=== PATIENT | male | born 1955 | race Caucasian/White ===

== ENCOUNTER 2023-03-15 10:04 | Outpatient (CLI) | payer MEDICARE, SELFPAY ==
[2023-03-15 10:07] VITALS: BMI 37.3
[2023-03-15 10:37] LABS: Chloride 103 mmol/L (98-107); Potassium 3.9 mmoL/L (3.5-5.1); Sodium 137 mmol/L (136-145)
[2023-03-15 10:38] LABS: Eosinophils # 0.2 K/mm3 (0.0-0.4); Eosinophils % 9.8 % (0.1-12.0); Hematocrit 32.3 % (42.0-52.0); Hemoglobin 10.7 g/dL (14.1-18.0); Lymphocytes # 0.5 K/mm3 (0.7-4.5); Lymphocytes % 25.5 % (10-50); Mean Corpuscular HGB Conc 33.1 g/dL (31.8-35.4); Mean Corpuscular Hemoglobin 31.2 pg (27.0-31.2); Mean Corpuscular Volume 94.2 fl (80-94); Monocytes # 0.3 K/mm3 (0.1-1.0); Monocytes % 15.7 % (1.7-9.3); Neutrophils % 47.1 % (37.0-80.0); Platelet Count 128 K/mm3 (142-424); Red Blood Count 3.42 M/mm3 (4.60-6.20); Red Cell Distribution Width 17.7 % (11.5-17.5)
[2023-03-15 10:39] LABS: Alanine Aminotransferase 23 U/L (12-78); Aspartate Amino Transferase 28 U/L (17-59); Blood Urea Nitrogen 11 mg/dl (9-20); Creatinine Clearance Estimated 118 mL/min (50-200); Estimated Glomerular Filt Rate 96 ml/min (>60); GFR (African American) 116 ML/MIN (>60)
[2023-03-15 10:40] LABS: Albumin Level 4.3 g/dl (3.5-5.0); Alkaline Phosphatase 40 U/L (38-126); Anion Gap 10.9 mEq/L (5-15); Bilirubin,Total 0.7 mg/dl (0.2-1.3); Calcium 9.3 mg/dl (8.4-10.2); Carbon Dioxide 27 mmol/L (22.0-30.0); Globulin 2.2 g/dL (1.3-3.2); Glucose 132 mg/dl (74-100); Total Protein,Serum 6.5 g/dl (6.3-8.2)
--- NOTE | 2023-03-15 11:26 | CT_ITS ---
FINAL REPORT TECHNIQUE: Then section axial CT images of the chest were obtained with contrast. Three-D reformatted images were also obtained.This study was performed with techniques to keep radiation doses as low as reasonably achievable (ALARA). Individualized dose reduction techniques using automated exposure control or adjustment of mA and/or kV according to the patient''s size were employed. CLINICAL HISTORY: SOA, hx of multiple myeloma COMPARISON: None FINDINGS: There is no evidence of pulmonary embolism. There is no evidence of thoracic aortic aneurysm or dissection. There is no evidence of mediastinal or hilar mass or adenopathy. There is no evidence of pulmonary mass or suspicious nodule. A small right pleural effusion is present along with mild right base atelectasis. A small pericardial effusion is present as well. There is a chronic right 10th rib posterior fracture. Limited images of the upper abdomen are unremarkable. IMPRESSION: No evidence of pulmonary embolism. Small right pleural effusion with mild right base atelectasis, and a small pericardial effusion. Reviewed, Interpreted and Dictated by Danilo Gay III, MD Transcribed by Jennifer Leiva Authenticated and . [facility]
[2023-03-16 14:12] LABS: Albumin 3.6 g/dL (2.9-4.4); Alpha-1-Globulin 0.2 g/dL (0.0-0.4); Alpha-2-Globulin 0.8 g/dL (0.4-1.0); Gamma Globulin 0.2 g/dL (0.4-1.8); Protein, Total 5.8 g/dL (6.0-8.5)
[2023-03-18 10:09] LABS: Immunoglobulin A, Qn 9 mg/dL (61-437); Immunoglobulin G, Qn 273 mg/dL (603-1613); Immunoglobulin M, Qn 5 mg/dL (20-172)
[2023-03-21 21:53] LABS: Free Lambda Lt Chains 1306.7
== END 2023-03-15 11:30 | disposition home or self-care (01) ==
LOC: INF 10:06
PROVIDERS: PCP Nurse Practitioner Family; Visit Provider Internal Medicine Medical Oncology
DX: C90.00 Multiple myeloma not having achieved remission (principal)
CPT/HCPCS: 36415; 71275; 80053; 82784; 83883; 84155; 84165; 85025; 86334

== ENCOUNTER 2023-03-24 09:34 | Outpatient (CLI) | payer MEDICARE, SELFPAY ==
[2023-03-24] VITALS (12 sets, daily range): BP systolic 124–140; BP diastolic 54–73; PULSE 77–82; RESP 18; TEMP 36.1; O2SAT 98
== END 2023-03-24 15:10 | disposition home or self-care (01) ==
LOC: INF 09:36
PROVIDERS: PCP Internal Medicine; Visit Provider Internal Medicine Medical Oncology
DX: Z51.11 Encounter for antineoplastic chemotherapy (principal); C90.00 Multiple myeloma not having achieved remission; Z79.899 Other long term (current) drug therapy
CPT/HCPCS: 96413; 96415; J9176

== ENCOUNTER 2023-04-21 08:58 | Outpatient (CLI) | payer MEDICARE, SELFPAY ==
[2023-04-21 09:03] VITALS: BMI 37.3
[2023-04-21 09:25] LABS: Basophils % 0.6 % (0.1-2.0); Eosinophils # 0.2 K/mm3 (0.0-0.4); Lymphocytes # 0.6 K/mm3 (0.7-4.5); Lymphocytes % 23.4 % (10-50); Mean Corpuscular HGB Conc 33.3 g/dL (31.8-35.4); Mean Corpuscular Volume 93.1 fl (80-94); Mean Platelet Volume 8.2 fl (7.4-10.4); Monocytes # 0.3 K/mm3 (0.1-1.0); Monocytes % 11.7 % (1.7-9.3); Neutrophils # 1.6 K/mm3 (1.8-7.8); Neutrophils % 58.4 % (37.0-80.0); Platelet Count 177 K/mm3 (142-424); Red Blood Count 3.55 M/mm3 (4.60-6.20); Red Cell Distribution Width 18.2 % (11.5-17.5); White Blood Count 2.7 K/mm3 (4.8-10.8)
[2023-04-21 09:29] LABS: Chloride 105 mmol/L (98-107); Potassium 3.5 mmoL/L (3.5-5.1); Sodium 137 mmol/L (136-145)
[2023-04-21 09:32] LABS: Alanine Aminotransferase 28 U/L (12-78); Albumin Level 4.2 g/dl (3.5-5.0); Alkaline Phosphatase 40 U/L (38-126); Anion Gap 13.5 mEq/L (5-15); Aspartate Amino Transferase 29 U/L (17-59); Bilirubin,Total 0.7 mg/dl (0.2-1.3); Blood Urea Nitrogen 14 mg/dl (9-20); Calcium 8.9 mg/dl (8.4-10.2); Carbon Dioxide 22 mmol/L (22.0-30.0); Creatinine Clearance Estimated 118 mL/min (50-200); Estimated Glomerular Filt Rate 96 ml/min (>60); GFR (African American) 116 ML/MIN (>60); Globulin 2.1 g/dL (1.3-3.2); Glucose 139 mg/dl (74-100); Total Protein,Serum 6.3 g/dl (6.3-8.2)
[2023-04-21] MEDS: 0.9 % SODIUM CHLORIDE 50 ML 100 ML IV (11:00)
[2023-04-21] MEDS: ACETAMINOPHEN 325MG TAB 650 MG (11:00)
[2023-04-21] MEDS: FAMOTIDINE 20MG/2ML VIAL 20 MG IV (11:01)
[2023-04-21] MEDS: diphenhydrAMINE 25MG CAPSULE 25 MG PO (11:01)
[2023-04-21] MEDS: DEXAMETHASONE 4MG/ML 1ML VIAL 8 MG (11:01)
[2023-04-21] MEDS: SODIUM CHLORIDE 0.9% IV (11:47)
[2023-04-21] MEDS: ELOTUZUMAB IV (11:47)
[2023-04-21 11:55] VITALS: BP 128/68; PULSE 63; RESP 18; TEMP 36.3; O2SAT 96
[2023-04-21 12:30] VITALS: BP 125/56; PULSE 74; RESP 18
[2023-04-21 13:00] VITALS: BP 140/82; PULSE 81; RESP 18
[2023-04-21 13:30] VITALS: BP 134/70; PULSE 78; RESP 18
[2023-04-21 14:00] VITALS: BP 148/72; PULSE 80; RESP 18
[2023-04-21] MEDS: DENOSUMAB 120MG/1.7ML VIAL 120 MG SQ (14:56)
[2023-04-21 15:05] VITALS: BP 150/82; PULSE 83; RESP 18; O2SAT 96
[2023-04-22 12:10] LABS: Immunoglobulin A, Qn 7 mg/dL (61-437); Immunoglobulin G, Qn 215 mg/dL (603-1613)
[2023-04-22 13:09] LABS: Immunoglobulin M, Qn <5 mg/dL (20-172)
[2023-04-24 08:09] LABS: Protein, Total 5.7
[2023-04-24 08:10] LABS: Albumin 3.6; Alpha-1-Globulin 0.2
[2023-04-24 08:11] LABS: Alpha-2-Globulin 0.8; Gamma Globulin 0.2
[2023-04-24 08:13] LABS: PDF SCANNED IMAGE
[2023-04-24 08:14] LABS: Free Kappa Lt Chains 5.6; Free Lambda Lt Chains 1320.1
== END 2023-04-21 15:05 | disposition home or self-care (01) ==
LOC: INF 08:59
PROVIDERS: PCP Internal Medicine; Visit Provider Internal Medicine Medical Oncology
DX: C90.00 Multiple myeloma not having achieved remission (principal); Z79.899 Other long term (current) drug therapy
CPT/HCPCS: 80053; 82784; 83883; 84155; 84165; 85025; 96372; 96413; 96415; J0897; J9176

== ENCOUNTER 2023-05-19 09:03 | Outpatient (CLI) | payer MEDICARE, SELFPAY ==
[2023-05-19] VITALS (18 sets, daily range): BP systolic 114–154; BP diastolic 59–77; PULSE 69–84; RESP 18; TEMP 36.8; O2SAT 97; BMI 37.0
[2023-05-19 09:36] LABS: Basophils % 0.3 % (0.1-2.0); Eosinophils % 0.2 % (0.1-12.0); Hematocrit 34.2 % (42.0-52.0); Hemoglobin 11.5 g/dL (14.1-18.0); Lymphocytes # 0.4 K/mm3 (0.7-4.5); Lymphocytes % 9.2 % (10-50); Mean Corpuscular HGB Conc 33.5 g/dL (31.8-35.4); Mean Corpuscular Hemoglobin 30.6 pg (27.0-31.2); Mean Corpuscular Volume 91.3 fl (80-94); Mean Platelet Volume 8.6 fl (7.4-10.4); Monocytes # 0.5 K/mm3 (0.1-1.0); Monocytes % 12.9 % (1.7-9.3); Neutrophils % 77.5 % (37.0-80.0); Platelet Count 157 K/mm3 (142-424); Red Blood Count 3.75 M/mm3 (4.60-6.20); White Blood Count 3.9 K/mm3 (4.8-10.8)
[2023-05-19 09:42] LABS: Chloride 102 mmol/L (98-107)
[2023-05-19 09:43] LABS: Potassium 3.9 mmoL/L (3.5-5.1); Sodium 136 mmol/L (136-145)
[2023-05-19 09:45] LABS: Alanine Aminotransferase 29 U/L (12-78); Alkaline Phosphatase 41 U/L (38-126); Aspartate Amino Transferase 33 U/L (17-59); Bilirubin,Total 0.8 mg/dl (0.2-1.3); Blood Urea Nitrogen 18 mg/dl (9-20); Creatinine Clearance Estimated 117 mL/min (50-200); Estimated Glomerular Filt Rate 112 ml/min (>60); GFR (African American) 136 ML/MIN (>60)
[2023-05-19 09:46] LABS: Albumin Level 4.3 g/dl (3.5-5.0); Albumin/Globulin Ratio 1.9 (1.1-1.8); Anion Gap 15.9 mEq/L (5-15); Calcium 9.7 mg/dl (8.4-10.2); Carbon Dioxide 22 mmol/L (22.0-30.0); Globulin 2.3 g/dL (1.3-3.2); Glucose 169 mg/dl (74-100); Total Protein,Serum 6.6 g/dl (6.3-8.2)
[2023-05-19] MEDS: diphenhydrAMINE 25MG CAPSULE 25 MG PO (10:16)
[2023-05-19] MEDS: FAMOTIDINE 20MG/2ML VIAL 20 MG IV (10:16)
[2023-05-19] MEDS: ACETAMINOPHEN 325MG TAB 650 MG (10:16)
[2023-05-19] MEDS: 0.9 % SODIUM CHLORIDE 50 ML 25 ML IV (10:17)
[2023-05-19] MEDS: DEXAMETHASONE 4MG/ML 1ML VIAL 8 MG (11:02)
[2023-05-19] MEDS: ELOTUZUMAB IV (11:12)
[2023-05-19] MEDS: SODIUM CHLORIDE 0.9% IV (11:12)
[2023-05-20 08:37] LABS: Immunoglobulin A, Qn 6 mg/dL (61-437); Immunoglobulin G, Qn 226 mg/dL (603-1613)
[2023-05-20 09:14] LABS: Immunoglobulin M, Qn <5 mg/dL (20-172)
[2023-05-20 14:30] LABS: Albumin 4.2 g/dL (2.9-4.4); Alpha-1-Globulin 0.2 g/dL (0.0-0.4); Alpha-2-Globulin 0.7 g/dL (0.4-1.0); Gamma Globulin 0.1 g/dL (0.4-1.8); Protein, Total 6.2 g/dL (6.0-8.5)
[2023-05-20 16:13] LABS: Immunoglobulin A, Qn 5 mg/dL (61-437); Immunoglobulin G, Qn 229 mg/dL (603-1613); Immunoglobulin M, Qn <5 mg/dL (20-172)
[2023-05-22 10:26] LABS: Free Kappa Lt Chains 3.8; PDF SCANNED IMAGE
== END 2023-05-19 15:40 | disposition home or self-care (01) ==
LOC: INF 09:04
PROVIDERS: PCP Internal Medicine; Visit Provider Internal Medicine Medical Oncology
DX: C90.00 Multiple myeloma not having achieved remission (principal)
CPT/HCPCS: 80053; 82784; 83883; 84155; 84165; 85025; 86334; 96413; 96415; J9176

== ENCOUNTER 2023-06-15 09:12 | Outpatient (CLI) | payer MEDICARE, SELFPAY ==
[2023-06-15] VITALS (18 sets, daily range): BP systolic 138–157; BP diastolic 62–99; PULSE 76–115; RESP 15–18; TEMP 36.3; O2SAT 98; BMI 37.0
[2023-06-15 09:45] LABS: Basophils % 0.1 % (0.1-2.0); Chloride 106 mmol/L (98-107); Eosinophils % 0.4 % (0.1-12.0); Hematocrit 37.4 % (42.0-52.0); Hemoglobin 11.8 g/dL (14.1-18.0); Lymphocytes # 0.4 K/mm3 (0.7-4.5); Lymphocytes % 11.1 % (10-50); Mean Corpuscular HGB Conc 31.6 g/dL (31.8-35.4); Mean Corpuscular Hemoglobin 30.9 pg (27.0-31.2); Mean Corpuscular Volume 97.9 fl (80-94); Monocytes # 0.3 K/mm3 (0.1-1.0); Monocytes % 8.8 % (1.7-9.3); Neutrophils # 2.6 K/mm3 (1.8-7.8); Neutrophils % 79.6 % (37.0-80.0); Platelet Count 166 K/mm3 (142-424); Potassium 4.1 mmoL/L (3.5-5.1); Red Blood Count 3.81 M/mm3 (4.60-6.20); Sodium 138 mmol/L (136-145); White Blood Count 3.2 K/mm3 (4.8-10.8)
[2023-06-15 09:47] LABS: Alanine Aminotransferase 46 U/L (12-78); Aspartate Amino Transferase 153 U/L (17-59); Blood Urea Nitrogen 15 mg/dl (9-20); Creatinine Clearance Estimated 117 mL/min (50-200); Estimated Glomerular Filt Rate 112 ml/min (>60); GFR (African American) 136 ML/MIN (>60)
[2023-06-15 09:48] LABS: Albumin Level 4.7 g/dl (3.5-5.0); Albumin/Globulin Ratio 2.1 (1.1-1.8); Alkaline Phosphatase 136 U/L (38-126); Anion Gap 11.1 mEq/L (5-15); Bilirubin,Total 1.4 mg/dl (0.2-1.3); Calcium 9.5 mg/dl (8.4-10.2); Carbon Dioxide 25 mmol/L (22.0-30.0); Globulin 2.2 g/dL (1.3-3.2); Glucose 208 mg/dl (74-100); Total Protein,Serum 6.9 g/dl (6.3-8.2)
[2023-06-15] MEDS: 0.9 % SODIUM CHLORIDE 50 ML 100 ML IV (10:24)
[2023-06-15] MEDS: diphenhydrAMINE 25MG CAPSULE 25 MG PO (10:25)
[2023-06-15] MEDS: ACETAMINOPHEN 325MG TAB 650 MG (10:26)
[2023-06-15] MEDS: DEXAMETHASONE 4MG/ML 1ML VIAL 8 MG (10:26)
[2023-06-15] MEDS: FAMOTIDINE 20MG/2ML VIAL 20 MG IV (10:26)
[2023-06-15] MEDS: SODIUM CHLORIDE 0.9% IV (11:19)
[2023-06-15] MEDS: ELOTUZUMAB IV (11:19)
[2023-06-16 14:13] LABS: Albumin 3.8 g/dL (2.9-4.4); Alpha-1-Globulin 0.2 g/dL (0.0-0.4); Alpha-2-Globulin 0.6 g/dL (0.4-1.0); Gamma Globulin 0.2 g/dL (0.4-1.8); Protein, Total 6.3 g/dL (6.0-8.5)
[2023-06-17 14:52] LABS: Immunoglobulin A, Qn 7 mg/dL (61-437); Immunoglobulin G, Qn 220 mg/dL (603-1613); Immunoglobulin M, Qn <5 mg/dL (20-172)
[2023-06-19 09:56] LABS: Free Kappa Lt Chains 4.9; Free Lambda Lt Chains 1206.1; PDF SCANNED IMAGE
== END 2023-06-15 15:55 | disposition home or self-care (01) ==
LOC: INF 09:13
PROVIDERS: PCP Internal Medicine; Visit Provider Internal Medicine Medical Oncology
DX: C90.00 Multiple myeloma not having achieved remission (principal); Z79.899 Other long term (current) drug therapy
CPT/HCPCS: 80053; 82784; 83883; 84155; 84165; 85025; 86334; 96413; 96415; J9176

== ENCOUNTER 2023-07-15 08:33 | Outpatient (CLI) | payer MEDICARE, SELFPAY ==
[2023-07-15] VITALS (17 sets, daily range): BP systolic 100–142; BP diastolic 41–95; PULSE 64–71; RESP 15–17; TEMP 36.4; O2SAT 98; BMI 37.8
[2023-07-15 09:15] LABS: Basophils # 0.1 K/mm3 (0-0.2); Basophils % 1.2 % (0.1-2.0); Eosinophils % 0.3 % (0.1-12.0); Hematocrit 38.9 % (42.0-52.0); Hemoglobin 12.4 g/dL (14.1-18.0); Lymphocytes # 0.3 K/mm3 (0.7-4.5); Lymphocytes % 7.5 % (10-50); Mean Corpuscular Hemoglobin 30.4 pg (27.0-31.2); Mean Corpuscular Volume 95.1 fl (80-94); Mean Platelet Volume 8.6 fl (7.4-10.4); Monocytes # 0.5 K/mm3 (0.1-1.0); Monocytes % 10.4 % (1.7-9.3); Neutrophils # 3.5 K/mm3 (1.8-7.8); Neutrophils % 80.7 % (37.0-80.0); Platelet Count 184 K/mm3 (142-424); Red Blood Count 4.09 M/mm3 (4.60-6.20); Red Cell Distribution Width 18.1 % (11.5-17.5); White Blood Count 4.3 K/mm3 (4.8-10.8)
[2023-07-15 09:24] LABS: Chloride 102 mmol/L (98-107)
[2023-07-15 09:25] LABS: Potassium 4.1 mmoL/L (3.5-5.1); Sodium 138 mmol/L (136-145)
[2023-07-15 09:27] LABS: Alanine Aminotransferase 29 U/L (12-78); Blood Urea Nitrogen 18 mg/dl (9-20); Creatinine Clearance Estimated 120 mL/min (50-200); Estimated Glomerular Filt Rate 96 ml/min (>60); GFR (African American) 116 ML/MIN (>60)
[2023-07-15 09:28] LABS: Albumin Level 4.3 g/dl (3.5-5.0); Alkaline Phosphatase 47 U/L (38-126); Anion Gap 15.1 mEq/L (5-15); Aspartate Amino Transferase 32 U/L (17-59); Bilirubin,Total 0.9 mg/dl (0.2-1.3); Calcium 9.9 mg/dl (8.4-10.2); Carbon Dioxide 25 mmol/L (22.0-30.0); Globulin 2.1 g/dL (1.3-3.2); Glucose 181 mg/dl (74-100); Total Protein,Serum 6.4 g/dl (6.3-8.2)
[2023-07-15] MEDS: DEXAMETHASONE 4MG/ML 1ML VIAL 8 MG (09:55)
[2023-07-15] MEDS: SODIUM CHLORIDE 0.9% 50ML BAG 50 ML IV (09:55)
[2023-07-15] MEDS: diphenhydrAMINE 25MG CAPSULE 25 MG PO (09:56)
[2023-07-15] MEDS: ACETAMINOPHEN 325MG TAB 650 MG PO (09:56)
[2023-07-15] MEDS: FAMOTIDINE 20MG/2ML VIAL 20 MG IV (09:57)
[2023-07-15] MEDS: SODIUM CHLORIDE 0.9% IV (10:38)
[2023-07-15] MEDS: ELOTUZUMAB IV (10:38)
[2023-07-15] MEDS: DENOSUMAB 120MG/1.7ML VIAL 120 MG SQ (11:09)
[2023-07-18 11:13] LABS: Alpha-1-Globulin 0.2 g/dL (0.0-0.4); Alpha-2-Globulin 0.9 g/dL (0.4-1.0); Gamma Globulin 0.1 g/dL (0.4-1.8); Protein, Total 6.4 g/dL (6.0-8.5)
[2023-07-18 12:47] LABS: PDF SCANNED IMAGE
[2023-07-19 12:18] LABS: Immunoglobulin A, Qn 7 mg/dL (61-437); Immunoglobulin G, Qn 214 mg/dL (603-1613); Immunoglobulin M, Qn <5 mg/dL (20-172)
[2023-07-20 08:36] LABS: Free Lambda Lt Chains 940.5
== END 2023-07-15 15:03 | disposition home or self-care (01) ==
LOC: INF 08:34
PROVIDERS: PCP Internal Medicine; Visit Provider Internal Medicine Medical Oncology
DX: C90.00 Multiple myeloma not having achieved remission (principal)
CPT/HCPCS: 80053; 82784; 83883; 84155; 84165; 85025; 86334; 96413; 96415; J0897; J9176

== ENCOUNTER 2023-08-10 08:59 | Outpatient (CLI) | payer MEDICARE, SELFPAY ==
[2023-08-10] VITALS (7 sets, daily range): BP systolic 130–151; BP diastolic 47–74; PULSE 56–59; RESP 17–18; O2SAT 95–97; BMI 36.1
[2023-08-10 09:38] LABS: Eosinophils # 0.2 K/mm3 (0.0-0.4); Eosinophils % 7.2 % (0.1-12.0); Hematocrit 32.7 % (42.0-52.0); Hemoglobin 10.4 g/dL (14.1-18.0); Lymphocytes # 0.4 K/mm3 (0.7-4.5); Lymphocytes % 14.3 % (10-50); Mean Corpuscular HGB Conc 31.8 g/dL (31.8-35.4); Mean Corpuscular Hemoglobin 30.7 pg (27.0-31.2); Mean Corpuscular Volume 96.6 fl (80-94); Mean Platelet Volume 8.4 fl (7.4-10.4); Monocytes # 0.4 K/mm3 (0.1-1.0); Monocytes % 11.7 % (1.7-9.3); Neutrophils % 65.9 % (37.0-80.0); Platelet Count 203 K/mm3 (142-424); Red Blood Count 3.39 M/mm3 (4.60-6.20); Red Cell Distribution Width 18.2 % (11.5-17.5)
[2023-08-10 09:52] LABS: Chloride 107 mmol/L (98-107); Potassium 4.2 mmoL/L (3.5-5.1); Sodium 137 mmol/L (136-145)
[2023-08-10 09:54] LABS: Alanine Aminotransferase 25 U/L (12-78); Aspartate Amino Transferase 26 U/L (17-59); Blood Urea Nitrogen 18 mg/dl (9-20); Creatinine Clearance Estimated 114 mL/min (50-200); Estimated Glomerular Filt Rate 74 ml/min (>60); GFR (African American) 90 ML/MIN (>60)
[2023-08-10 09:55] LABS: Albumin Level 3.5 g/dl (3.5-5.0); Albumin/Globulin Ratio 1.5 (1.1-1.8); Alkaline Phosphatase 52 U/L (38-126); Anion Gap 10.2 mEq/L (5-15); Bilirubin,Total 0.7 mg/dl (0.2-1.3); Calcium 9.1 mg/dl (8.4-10.2); Carbon Dioxide 24 mmol/L (22.0-30.0); Globulin 2.3 g/dL (1.3-3.2); Glucose 234 mg/dl (74-100); Total Protein,Serum 5.8 g/dl (6.3-8.2)
[2023-08-10] MEDS: DEXAMETHASONE 4MG TABLET 40 MG (10:25)
--- NOTE | 2023-08-10 10:25 | PC.NURSE ---
1025-gave premed dexamethasone 40mg po and will wait 2 hours before starting immunotherapy per md order.
[2023-08-10] MEDS: ACETAMINOPHEN 325MG TAB 650 MG PO (11:45)
[2023-08-10] MEDS: diphenhydrAMINE 25MG CAPSULE 25 MG PO (11:45)
[2023-08-10] MEDS: FAMOTIDINE 20MG/2ML VIAL 20 MG IV (11:45)
--- NOTE | 2023-08-10 11:45 | PC.NURSE ---
1145-took patient to mri for scan per md order; will return for treatment
--- NOTE | 2023-08-10 11:55 | MR_ITS ---
FINAL REPORT CLINICAL HISTORY: NEW BACK PAIN COMPARISON: None FINDINGS: Multiplanar MR imaging of the lumbar spine was performed without and with contrast. On the sagittal T2-weighted images, abnormal decreased signal is seen at the L3-4 through L5-S1 disc levels. The vertebral alignment is normal. There is moderate loss of height at L4-5 and L5-S1. There is no evidence of fracture. The conus is seen at approximately the L1 level and has an unremarkable appearance. L1-2: No significant canal stenosis or neuroforaminal narrowing is seen. L2-3: No significant canal stenosis or neuroforaminal narrowing is seen. L3-4: Moderate diffuse disc bulge. Mild to moderate bilateral neuroforaminal narrowing. Small right paracentral disc extrusion extending inferiorly from L3-4 disc space with moderate compromise right lateral recess. L4-5: Mild diffuse disc bulge. Endplate hypertrophy. Bilateral facet hypertrophy. Moderate to high-grade right and moderate left neuroforaminal narrowing. L5-S1: Small right paracentral disc extrusion extending superiorly from the disc space best seen on image 7 of series 2. Minimal compromise right lateral recess. Moderate to high-grade bilateral neuroforaminal narrowing, left greater than right. No abnormal contrast enhancement is identified. The extruded discs do not demonstrate enhancement. IMPRESSION: Inferior right paracentral disc extrusion at L3-4 and superior right paracentral disc extrusion at L5-S1 with compromise of the right lateral recess at these levels. Moderate to high-grade bilateral neuroforaminal narrowing at L5-S1, left greater than right. Reviewed, Interpreted and Dictated by Dennys Orozco MD Transcribed by Hannah Gusman Authenticated and [facility]
[2023-08-10] MEDS: GADOTERIDOL INJ 17ML SYRINGE 24 ML IV (13:00)
[2023-08-10] MEDS: SODIUM CHLORIDE 0.9% 10ML SYR (RAD ONLY) 10 ML IV (13:00)
[2023-08-10] MEDS: ELOTUZUMAB IV (13:35)
[2023-08-10] MEDS: SODIUM CHLORIDE 0.9% IV (13:35)
[2023-08-10] MEDS: SODIUM CHLORIDE 0.9% 50ML BAG 50 ML IV (13:40)
[2023-08-12 15:35] LABS: Immunoglobulin A, Qn 8 mg/dL (61-437); Immunoglobulin G, Qn 183 mg/dL (603-1613); Immunoglobulin M, Qn <5 mg/dL (20-172)
[2023-08-14 10:34] LABS: Albumin 3.3; Protein, Total 5.6
[2023-08-14 10:35] LABS: Alpha-1-Globulin 0.3
[2023-08-14 10:36] LABS: Gamma Globulin 0.2
[2023-08-14 10:39] LABS: PDF SCANNED IMAGE
[2023-08-14 10:40] LABS: Free Kappa Lt Chains 5.9; Free Lambda Lt Chains 1094.9
== END 2023-08-10 16:40 | disposition home or self-care (01) ==
PROVIDERS: PCP Internal Medicine; Visit Provider Internal Medicine Medical Oncology
DX: C90.00 Multiple myeloma not having achieved remission (principal); M54.50 Low back pain, unspecified; Z79.899 Other long term (current) drug therapy
CPT/HCPCS: 72158; 76376; 80053; 82784; 83883; 84155; 84165; 85025; 86334; 96413; 96415; A9576; J9176

== ENCOUNTER 2023-09-07 08:23 | Outpatient (CLI) | payer MEDICARE, SELFPAY ==
[2023-09-07] VITALS (15 sets, daily range): BP systolic 142–168; BP diastolic 68–77; PULSE 66–70; RESP 18; TEMP 36.7; O2SAT 97; BMI 37.1
[2023-09-07 08:55] LABS: Basophils % 0.1 % (0.1-2.0); Eosinophils % 0.9 % (0.1-12.0); Hematocrit 36.6 % (42.0-52.0); Hemoglobin 11.5 g/dL (14.1-18.0); Lymphocytes # 0.3 K/mm3 (0.7-4.5); Lymphocytes % 7.6 % (10-50); Mean Corpuscular HGB Conc 31.4 g/dL (31.8-35.4); Mean Corpuscular Hemoglobin 30.5 pg (27.0-31.2); Mean Platelet Volume 8.5 fl (7.4-10.4); Monocytes # 0.2 K/mm3 (0.1-1.0); Monocytes % 6.2 % (1.7-9.3); Neutrophils % 85.1 % (37.0-80.0); Platelet Count 170 K/mm3 (142-424); Red Blood Count 3.78 M/mm3 (4.60-6.20); Red Cell Distribution Width 19.5 % (11.5-17.5); White Blood Count 3.5 K/mm3 (4.8-10.8)
[2023-09-07 09:04] LABS: MANUAL DIFFERENTIAL MANUAL DIFFERENTIAL (MANUAL DIFF)
[2023-09-07 09:19] LABS: Alanine Aminotransferase 43 U/L (12-78); Albumin Level 4.1 g/dl (3.5-5.0); Albumin/Globulin Ratio 1.9 (1.1-1.8); Alkaline Phosphatase 52 U/L (38-126); Anion Gap 16.1 mEq/L (5-15); Aspartate Amino Transferase 36 U/L (17-59); Bilirubin,Total 0.9 mg/dl (0.2-1.3); Blood Urea Nitrogen 23 mg/dl (9-20); Calcium 9.6 mg/dl (8.4-10.2); Carbon Dioxide 23 mmol/L (22.0-30.0); Chloride 101 mmol/L (98-107); Creatinine Clearance Estimated 117 mL/min (50-200); Estimated Glomerular Filt Rate 96 ml/min (>60); GFR (African American) 116 ML/MIN (>60); Globulin 2.2 g/dL (1.3-3.2); Glucose 293 mg/dl (74-100); Potassium 4.1 mmoL/L (3.5-5.1); Sodium 136 mmol/L (136-145); Total Protein,Serum 6.3 g/dl (6.3-8.2)
[2023-09-07 09:44] LABS: Lymphocytes % 7 % (10-50); Monocytes % 1 % (2-9); Neutrophils % 92 % (42-76); Platelet Estimate Normal; RBC Morphology Normal; Total Cells Counted 100
[2023-09-07] MEDS: DEXAMETHASONE 4MG/ML 5ML MDV 8 MG IV (10:40)
[2023-09-07] MEDS: ACETAMINOPHEN 325MG TAB 650 MG PO (10:40)
[2023-09-07] MEDS: diphenhydrAMINE 25MG CAPSULE 25 MG PO (10:40)
[2023-09-07] MEDS: SODIUM CHLORIDE 0.9% 50ML BAG 50 ML IV (10:40)
[2023-09-07] MEDS: FAMOTIDINE 20MG/2ML VIAL 20 MG IV (10:40)
[2023-09-07 10:58] LABS: Microscopic, Urine URINE MICROSCOPIC (MICROSCOPIC)
[2023-09-07 11:00] LABS: Appearance,Urine CLEAR (Clear); Bilirubin,Urine Negative (Negative); Blood, Urine TRACE-I (Negative); Color,Urine YELLOW (Yellow); Glucose,Urine (UA) 3+ (Negative); Ketones,Urine Negative (Negative); Leukocyte Esterase,Urine Negative (Negative); Nitrate,Urine Negative (Negative); Protein,Urine Negative (Negative); Urobilinogen,Urine 0.2 EU/dl (0.2)
[2023-09-07] MEDS: SODIUM CHLORIDE 0.9% IV (11:18)
[2023-09-07] MEDS: ELOTUZUMAB IV (11:18)
[2023-09-07 11:30] LABS: Bacteria,Urine Trace /lpf; RBC,Urine Occasional #/hpf (0-3); Squamous Epithelial Cell,Urine Occasional #/hpf (0-5)
[2023-09-08 14:17] LABS: Albumin 3.9 g/dL (2.9-4.4); Alpha-1-Globulin 0.2 g/dL (0.0-0.4); Alpha-2-Globulin 0.8 g/dL (0.4-1.0); Gamma Globulin 0.2 g/dL (0.4-1.8)
[2023-09-09 15:33] LABS: Immunoglobulin A, Qn 10 mg/dL (61-437); Immunoglobulin G, Qn 231 mg/dL (603-1613); Immunoglobulin M, Qn 6 mg/dL (20-172)
[2023-09-10 11:36] LABS: Free Kappa Lt Chains 5.3; PDF SCANNED IMAGE
[2023-09-10 11:37] LABS: Free Lambda Lt Chains 606.1
== END 2023-09-07 15:10 | disposition home or self-care (01) ==
LOC: INF 08:24
PROVIDERS: PCP Internal Medicine; Visit Provider Internal Medicine Medical Oncology
DX: C90.00 Multiple myeloma not having achieved remission (principal); E85.81 Light chain (AL) amyloidosis; M54.50 Low back pain, unspecified; Z79.899 Other long term (current) drug therapy
CPT/HCPCS: 80053; 81001; 82784; 83883; 84155; 84165; 85007; 85025; 86334; 96413; 96415; J9176

== ENCOUNTER 2023-10-05 09:39 | Outpatient (CLI) | payer MEDICARE, SELFPAY ==
[2023-10-05] VITALS (8 sets, daily range): BP systolic 98–155; BP diastolic 56–92; PULSE 84–105; RESP 18–19; TEMP 37; O2SAT 98; BMI 35.9
[2023-10-05 10:09] LABS: Chloride 107 mmol/L (98-107); Potassium 4.1 mmoL/L (3.5-5.1); Sodium 138 mmol/L (136-145)
[2023-10-05 10:11] LABS: Alanine Aminotransferase 41 U/L (12-78); Aspartate Amino Transferase 36 U/L (17-59); Blood Urea Nitrogen 19 mg/dl (9-20); Creatinine Clearance Estimated 112 mL/min (50-200); Estimated Glomerular Filt Rate 96 ml/min (>60); GFR (African American) 116 ML/MIN (>60)
[2023-10-05 10:12] LABS: Albumin Level 4.1 g/dl (3.5-5.0); Alkaline Phosphatase 44 U/L (38-126); Anion Gap 13.1 mEq/L (5-15); Calcium 8.8 mg/dl (8.4-10.2); Carbon Dioxide 22 mmol/L (22.0-30.0); Globulin 2.1 g/dL (1.3-3.2); Glucose 181 mg/dl (74-100); Total Protein,Serum 6.2 g/dl (6.3-8.2)
[2023-10-05 10:19] LABS: Basophils % 0.6 % (0.1-2.0); Eosinophils # 0.1 K/mm3 (0.0-0.4); Eosinophils % 4.4 % (0.1-12.0); Hematocrit 39.3 % (42.0-52.0); Hemoglobin 12.5 g/dL (14.1-18.0); Lymphocytes # 0.7 K/mm3 (0.7-4.5); Lymphocytes % 23.4 % (10-50); Mean Corpuscular HGB Conc 31.9 g/dL (31.8-35.4); Mean Corpuscular Hemoglobin 31.3 pg (27.0-31.2); Mean Corpuscular Volume 98.3 fl (80-94); Mean Platelet Volume 8.5 fl (7.4-10.4); Monocytes # 0.4 K/mm3 (0.1-1.0); Neutrophils # 1.7 K/mm3 (1.8-7.8); Neutrophils % 57.7 % (37.0-80.0); Platelet Count 131 K/mm3 (142-424); Red Cell Distribution Width 18.5 % (11.5-17.5); White Blood Count 2.9 K/mm3 (4.8-10.8)
[2023-10-05] MEDS: DEXAMETHASONE 4MG TABLET 40 MG (10:54)
[2023-10-05] MEDS: FAMOTIDINE 20MG/2ML VIAL 20 MG IV (10:54)
[2023-10-05] MEDS: diphenhydrAMINE 25MG CAPSULE 25 MG PO (10:54)
[2023-10-05] MEDS: ACETAMINOPHEN 325MG TAB 650 MG (10:54)
--- NOTE | 2023-10-05 11:05 | PC.NURSE ---
1105-rn transfered pt to rad for r hip/femur xray
--- NOTE | 2023-10-05 11:09 | XR_ITS ---
FINAL REPORT CLINICAL HISTORY: MULTIPLE MYELOMA COMPARISON: None FINDINGS: Two views of the right femur were obtained. There is no acute fracture or dislocation. There are mild degenerative changes. Vascular calcifications are noted. There is a 35 mm soft tissue calcification superior to the right hip with a smaller calcification medial to it. IMPRESSION: Mild degenerative change without acute abnormality identified. Soft tissue calcifications as above. Reviewed, Interpreted and Dictated by Danilo Gay III, MD Transcribed by Hannah Gusman Authenticated and [facility] [place]
--- NOTE | 2023-10-05 11:10 | XR_ITS ---
FINAL REPORT CLINICAL HISTORY: MULTIPLE MYELOMA COMPARISON: None FINDINGS: RIGHT HIP Two views of the right hip demonstrate no acute fracture or dislocation. There is mild degenerative change of the hip. Vascular calcifications are noted. There is a 35 mm soft tissue calcification superior to the right hip with a smaller calcification medial to it. There is moderate degenerative change in the lower lumbar spine. IMPRESSION: Mild degenerative change without acute bony abnormality. Soft tissue calcifications as above. Reviewed, Interpreted and Dictated by Danilo Gay III, MD Transcribed by Hannah Gusman Authenticated and [facility]
[2023-10-05] MEDS: ELOTUZUMAB IV (11:39)
[2023-10-05] MEDS: SODIUM CHLORIDE 0.9% IV (11:39)
[2023-10-05] MEDS: SODIUM CHLORIDE 0.9% 50ML BAG 50 ML IV (11:39)
[2023-10-05] MEDS: DENOSUMAB 120MG/1.7ML VIAL 120 MG SQ (14:45)
[2023-10-06 15:16] LABS: Albumin 3.8 g/dL (2.9-4.4); Alpha-1-Globulin 0.2 g/dL (0.0-0.4); Alpha-2-Globulin 0.9 g/dL (0.4-1.0); Gamma Globulin 0.2 g/dL (0.4-1.8); Protein, Total 6.2 g/dL (6.0-8.5)
[2023-10-07 14:35] LABS: Immunoglobulin A, Qn 19 mg/dL (61-437); Immunoglobulin G, Qn 249 mg/dL (603-1613); Immunoglobulin M, Qn 7 mg/dL (20-172)
[2023-10-08 11:19] LABS: Free Kappa Lt Chains 11.5; PDF SCANNED IMAGE
== END 2023-10-05 15:00 | disposition home or self-care (01) ==
PROVIDERS: PCP Internal Medicine; Visit Provider Internal Medicine Medical Oncology
DX: C90.00 Multiple myeloma not having achieved remission (principal); Z51.12 Encounter for antineoplastic immunotherapy; M25.551 Pain in right hip; Z79.899 Other long term (current) drug therapy
CPT/HCPCS: 73502; 73552; 80053; 82784; 83883; 84155; 84165; 85025; 86334; 96372; 96413; 96415; J0897; J9176

== ENCOUNTER 2023-11-02 09:36 | Outpatient (CLI) | payer MEDICARE, SELFPAY ==
[2023-11-02 09:40] VITALS: BMI 35.2
[2023-11-02 10:21] LABS: Alanine Aminotransferase 38 U/L (12-78); Albumin Level 4.3 g/dl (3.5-5.0); Alkaline Phosphatase 38 U/L (38-126); Anion Gap 12.6 mEq/L (5-15); Aspartate Amino Transferase 33 U/L (17-59); Blood Urea Nitrogen 23 mg/dl (9-20); Calcium 10.2 mg/dl (8.4-10.2); Carbon Dioxide 23 mmol/L (22.0-30.0); Chloride 108 mmol/L (98-107); Creatinine Clearance Estimated 110 mL/min (50-200); Estimated Glomerular Filt Rate 134 ml/min (>60); GFR (African American) 162 ML/MIN (>60); Globulin 2.2 g/dL (1.3-3.2); Glucose 198 mg/dl (74-100); Potassium 4.6 mmoL/L (3.5-5.1); Sodium 139 mmol/L (136-145); Total Protein,Serum 6.5 g/dl (6.3-8.2)
[2023-11-02 10:25] LABS: Basophils % 0.6 % (0.1-2.0); Eosinophils % 0.3 % (0.1-12.0); Hemoglobin 11.9 g/dL (14.1-18.0); Lymphocytes # 0.2 K/mm3 (0.7-4.5); Lymphocytes % 12.9 % (10-50); Mean Corpuscular HGB Conc 31.4 g/dL (31.8-35.4); Mean Corpuscular Hemoglobin 32.1 pg (27.0-31.2); Mean Corpuscular Volume 102.3 fl (80-94); Mean Platelet Volume 9.3 fl (7.4-10.4); Monocytes # 0.3 K/mm3 (0.1-1.0); Neutrophils # 1.3 K/mm3 (1.8-7.8); Neutrophils % 69.2 % (37.0-80.0); Platelet Count 91 K/mm3 (142-424); Red Blood Count 3.71 M/mm3 (4.60-6.20); Red Cell Distribution Width 18.2 % (11.5-17.5); White Blood Count 1.8 K/mm3 (4.8-10.8)
[2023-11-02] MEDS: ACETAMINOPHEN 325MG TAB 650 MG (10:49)
[2023-11-02] MEDS: diphenhydrAMINE 25MG CAPSULE 25 MG PO (10:49)
[2023-11-02] MEDS: DEXAMETHASONE 4MG/ML 1ML VIAL 8 MG (10:50)
[2023-11-02] MEDS: FAMOTIDINE 20MG/2ML VIAL 20 MG IV (10:50)
[2023-11-03 13:12] LABS: Immunoglobulin A, Qn 11 mg/dL (61-437); Immunoglobulin G, Qn 218 mg/dL (603-1613); Immunoglobulin M, Qn 22 mg/dL (20-172)
[2023-11-03 19:15] LABS: Albumin 3.5 g/dL (2.9-4.4); Alpha-1-Globulin 0.2 g/dL (0.0-0.4); Alpha-2-Globulin 0.8 g/dL (0.4-1.0); Gamma Globulin 0.2 g/dL (0.4-1.8); Protein, Total 5.7 g/dL (6.0-8.5)
[2023-12-12 12:02] LABS: Free Kappa Lt Chains 6.8
[2023-12-12 12:03] LABS: Free Lambda Lt Chains 626.2
[2023-12-12 12:04] LABS: PDF SCANNED IMAGE
== END 2023-11-02 11:30 | disposition home or self-care (01) ==
LOC: INF 09:36
PROVIDERS: PCP Internal Medicine; Visit Provider Internal Medicine Medical Oncology
DX: C90.00 Multiple myeloma not having achieved remission (principal)
CPT/HCPCS: 96374; 96375; J3490; 36415; 80053; 82784; 83883; 84155; 84165; 85025; J1100

== ENCOUNTER 2023-12-15 09:42 | Outpatient (CLI) | payer MEDICARE, SELFPAY ==
--- OUTSIDE RECORDS SUMMARY | 2023-12-15 09:45 | XMS_ITS | Summary of Care ---
Author Organization [facility] Address [address] [place] [address]- Care Team Providers Care Drum Tester Name Role Phone Nathan Zuluaga, Meet Go Primary Care Physician U raduailable Encounter 11/29/23 - 12/11/23 [facility] [address] [place] [address] Discharge Disposition: 06H Home with Home Health Care Attending Physician: Ángel Whatley MD Admitting Physician: Ángel Whatley MD Referring Physician: Jonny PRINCE M.D., Ronaldo Torrez Allergies, Adverse Reactions, Alerts Substance Criticality Severity Reaction Reaction Severity Status No Known Allergies A ctive Medications acyclovir 400 mg oral tablet 400 mg = 1 tab, Oral, BID, 0 Refill(s) Start Date: 11/29/23 Status: Ordered amiodarone 200 mg oral tablet 200 mg = 1 tab, Oral, Daily, 30 tab, 0 Refill(s) Start Date: 11/29/23 Status: Ordered aspirin 81 mg oral delayed release tablet 81 mg, = 1 tab, Oral, Daily, 30 tab, 0 Refill(s) Start Date: 11/29/23 Status: Ordered Auvelity 45 mg-105 mg oral tablet, extended release 1 tab, Oral, qAM, 0 Refill(s) Start Date: 11/29/23 Status: Ordered cyanocobalamin 1000 mcg oral tablet 1,000 mcg = 1 tab, Tab, Oral, Daily, 30 tab, 0 Refill(s) Start Date: 11/29/23 Status: Ordered docusate sodium 100 mg oral capsule 100 mg = 1 cap, Cap, Oral, q12hr PRN, 0 Refill(s), Other (see comment) Start Date: 12/11/23 Status: Ordered ergocalciferol 1.25 mg (50,000 intl units) oral capsule 50,000 IntlUnit = 1 cap, Cap, Oral, qFRI, 4 cap, 0 Refill(s) Start Date: 11/29/23 Status: Ordered fenofibrate 145 mg oral tablet 145 mg, 1 tab, Tab, Oral, Daily, 30 tab, 0 Refill(s) Start Date: 11/29/23 Status: Ordered ferrous sulfate 324 mg (65 mg elemental iron) oral delayed release tablet 324 mg = 1 tab, Tab-DR, Oral, QBREAKFAST, 30 tab, 0 Refill(s) Start Date: 11/29/23 Status: Ordered Jardiance 25 mg oral tablet 25 mg, = 1 tab, Tab, Oral, qAM, 0 Refill(s) Start Date: 11/29/23 Status: Ordered Lantus 13 units = 0.13 mL, Indication Hyperglycemia, Injection-Insulin (soln), Subcutaneous, Start date 12/05/23 8:00:00 PM CDT Start Date: 12/05/23 Stop Date: 12/05/23 Status: Completed Lantus 13 units = 0.13 mL, Indication Hyperglycemia, Injection-Insulin (soln), Subcutaneous, Start date 12/08/23 8:00:00 PM CDT Start Date: 12/08/23 Stop Date: 12/08/23 Status: Completed Lantus 100 units/mL subcutaneous solution 10 units, Injection-Insulin (soln), Subcutaneous, QHS, 10 mL, 0 Refill(s) Start Date: 11/29/23 Status: Ordered magnesium oxide 400 mg oral tablet 400 mg = 1 tab, Tab, Oral, BID, 0 Refill(s) Start Date: 11/29/23 Status: Ordered metFORMIN 1000 mg oral tablet, extended release 1,000 mg, = 1 tab, Tab-ER, Oral, BID, 60 tab, 0 Refill(s) Start Date: 11/29/23 Status: Ordered metoprolol succinate 100 mg oral tablet, extended release 100 mg = 1 tab, Tab-ER, Oral, BID, 30 tab, 0 Refill(s) Start Date: 11/29/23 Status: Ordered nitroglycerin 0.4 mg sublingual tablet 0.4 mg, 1 tab, Tab-SL, Sublingual, q5min PRN, 100 tab, 0 Refill(s), Chest pain Start Date: 11/29/23 Status: Ordered [place]-3 Fish Oil 1000 mg oral capsule 1,000 mg = 1 cap, Oral, Daily, 0 Refill(s) Start Date: 11/29/23 Status: Ordered oxyCODONE 5 mg oral tablet 5 mg = 1 tab, Tab, Oral, q6hr PRN, 0 Refill(s), PAIN (Scale 7-10) Start Date: 11/29/23 Status: Ordered Ozempic 8 mg/3 mL (2 mg dose) subcutaneous solution 2 mg, Subcutaneous, qFRI, 0 Refill(s) Start Date: 11/29/23 Status: Ordered pantoprazole 40 mg oral delayed release tablet 40 mg = 1 tab, Tab-DR, Oral, Daily, 30 tab, 0 Refill(s) Start Date: 11/29/23 Status: Ordered PARoxetine 20 mg oral tablet 20 mg = 1 tab, Tab, Oral, Daily, 30 tab, 0 Refill(s) Start Date: 11/29/23 Status: Ordered potassium chloride 20 mEq oral tablet, extended release 20 mEq = 1 tab, Tab-ER, Oral, BID, 60 tab, 0 Refill(s) Start Date: 11/29/23 Status: Ordered pregabalin 75 mg oral capsule 75 mg, = 1 cap, Cap, Oral, BID, 60 cap, 0 Refill(s) Start Date: 11/29/23 Status: Ordered ramipril 10 mg oral capsule 10 mg, 1 cap, Cap, Oral, BID, 30 cap, 0 Refill(s) Start Date: 12/11/23 Status: Ordered rivaroxaban 20 mg oral tablet 20 mg, = 1 tab, Tab, Oral, QDINNER, 30 tab, 0 Refill(s) Start Date: 11/29/23 Status: Ordered rosuvastatin 20 mg oral tablet 20 mg, 1 tab, Tab, Oral, QHS, 30 tab, 0 Refill(s) Start Date: 11/29/23 Status: Ordered tamsulosin 0.4 mg oral capsule 0.4 mg = 1 cap, Cap, Oral, QHS, 30 cap, 0 Refill(s) Start Date: 11/29/23 Status: Ordered Therapeutic Multiple Vitamins with Minerals oral tablet 1 tab, Tab, Oral, Daily, 30 tab, 0 Refill(s) Start Date: 11/29/23 Status: Ordered Problem List Condition Confirmation Course Effective Dates Status Health St atus Informant Impaired mobility Confirmed Active Personal care impairment Confirmed Active Results Laboratory List Name Date Basic Metabolic Panel HSL (BMP HSL) 12/10 Complete Blood Count w/Auto Diff HSL (CB C w/Auto Diff HSL) 12/11/23 Manual Diff HSL 12/11/23 Glucose, POC 12/11/23 Glucose, POC 12/10/23 Glucose, POC 12/10/23 Automated Diff HSL 12/07/23 Basic Metabolic Panel HSL (BMP HSL) 12/06 Complete Blood Count w/Auto Diff HSL (CB C w/Auto Diff HSL) 12/07/23 Automated Diff HSL 12/04/23 Basic Metabolic Panel HSL (BMP HSL) 12/03 Complete Blood Count w/Auto Diff HSL (CB C w/Auto Diff HSL) 12/04/23 Automated Diff HSL 11/30/23 Most recent to oldest [Reference Range]: 1 2 3 Creatinine Level 0.70 mg/dL (12/11/23 7:00 AM) 0.70 mg/dL (12/07/23 6:49 AM) 0.70 mg/dL (12/04/23 7:14 AM) Estimated Creatinine Clearance 76.63 mL/min 1 (12/11/23 7:00 AM) 76.63 mL/min 2 (12/07/23 6:49 AM) 76.63 mL/min 3 (12/04/23 7:14 AM) Glucose POC RALS [70-180 mg/dL] 138 mg/dL (12/11/23 6:49 AM) 178 mg/dL (12/10/23 9:21 PM) 240 mg/dL *HI* (12/10/23 4:47 PM) Corrected WBC HSL [4-12 x10(3)/mcL] 6 x10(3)/mcL (12/11/23 7:00 AM) 4 x10(3)/mcL (12/07/23 6:49 AM) 4 x10(3)/mcL (12/04/23 7:14 AM) WBC HSL [4.4-11.6 10^3/uL] 6.5 10^3/uL (12/11/23 7:00 AM) 4.1 10^3/uL *LOW* (12/07/23 6:49 AM) 4.4 10^3/uL (12/04/23 7:14 AM) RBC HSL [04.10-05.80 10^3/uL] 03.88 10^3/uL *LOW* (12/11/23 7:00 AM) 03.52 10^3/uL *LOW* (12/07/23 6:49 AM) 03.57 10^3/uL *LOW* (12/04/23 7:14 AM) Hemoglobin HSL [13.4-17.6 g/dL] 12.4 g/dL *LOW* (12/11/23 7:00 AM) 11.1 g/dL *LOW* (12/07/23 6:49 AM) 11.3 g/dL *LOW* (12/04/23 7:14 AM) Hematocrit HSL [39.9-53.1 %] 35.9 % *LOW* (12/11/23 7:00 AM) 32.8 % *LOW* (12/07/23 6:49 AM) 33.2 % *LOW* (12/04/23 7:14 AM) MCV HSL [79.9-103.5 fL] 92.6 fL (12/11/23 7:00 AM) 93.2 fL (12/07/23 6:49 AM) 92.9 fL (12/04/23 7:14 AM) MCH HSL [25.9-34.1 g/dL] 31.8 g/dL (12/11/23 7:00 AM) 31.5 g/dL (12/07/23 6:49 AM) 31.8 g/dL (12/04/23 7:14 AM) MCHC HSL [31.9-35.4 g/dL] 34.4 g/dL (12/11/23 7:00 AM) 33.8 g/dL (12/07/23 6:49 AM) 34.2 g/dL (12/04/23 7:14 AM) Platelet HSL [149-451 10^3/uL] 194 10^3/uL (12/11/23 7:00 AM) 211 10^3/uL (12/07/23 6:49 AM) 212 10^3/uL (12/04/23 7:14 AM) RDW-CV% HSL [11.5-14.5 %] 16.7 % *HI* (12/11/23 7:00 AM) 16.4 % *HI* (12/07/23 6:49 AM) 16.4 % *HI* (12/04/23 7:14 AM) RDW-SD HSL [35.5-44.0 fL] 54.3 fL *HI* (12/07/23 6:49 AM) 53.4 fL *HI* (12/04/23 7:14 AM) 54.7 fL *HI* (11/30/23 6:39 AM) MPV HSL [8.9-13.1 fL] 7.0 fL *LOW* (12/11/23 7:00 AM) 6.9 fL *LOW* (12/07/23 6:49 AM) 7.3 fL *LOW* (12/04/23 7:14 AM) Neutrophil Auto HSL [39.6-77.4 %] 69.1 % (12/07/23 6:49 AM) 67.4 % (12/04/23 7:14 AM) 68.6 % (11/30/23 6:39 AM) Lymphocyte Auto HSL [17.7-51.9 %] 14.7 % *LOW* (12/07/23 6:49 AM) 14.9 % *LOW* (12/04/23 7:14 AM) 11.9 % *LOW* (11/30/23 6:39 AM) Monocyte Auto HSL [2.9-10.5 %] 12.5 % *HI* (12/07/23 6:49 AM) 13.1 % *HI* (12/04/23 7:14 AM) 11.7 % *HI* (11/30/23 6:39 AM) Eosinophil Auto HSL [0.0-7.1 %] 3.1 % (12/07/23 6:49 AM) 3.9 % (12/04/23 7:14 AM) 6.9 % (11/30/23 6:39 AM) Basophil Auto HSL [0.0-9.1 %] 0.6 % (12/07/23 6:49 AM) 0.7 % (12/04/23 7:14 AM) 0.9 % (11/30/23 6:39 AM) Neutrophil Absolute HSL [1.1-5.4 10^3/uL] 2.8 10^3/uL (12/07/23 6:49 AM) 2.9 10^3/uL (12/04/23 7:14 AM) 3.0 10^3/uL (11/30/23 6:39 AM) Lymphocyte Absolute HSL [0.7-2.8 10^3/uL] 0.6 10^3/uL *LOW* (12/07/23 6:49 AM) 0.6 10^3/uL *LOW* (12/04/23 7:14 AM) 0.5 10^3/uL *LOW* (11/30/23 6:39 AM) Monocyte Absolute HSL [0.0-1.1 10^3/uL] 0.5 10^3/uL (12/07/23 6:49 AM) 0.6 10^3/uL (12/04/23 7:14 AM) 0.5 10^3/uL (11/30/23 6:39 AM) Eosinophil Absolute HSL [0.0-0.5 10^3/uL] 0.1 10^3/uL (12/07/23 6:49 AM) 0.2 10^3/uL (12/04/23 7:14 AM) 0.3 10^3/uL (11/30/23 6:39 AM) Basophil Absolute HSL [0.00-0.06 10^3/uL] 0.00 10^3/uL (12/07/23 6:49 AM) 0.00 10^3/uL (12/04/23 7:14 AM) 0.00 10^3/uL (11/30/23 6:39 AM) Nucleated RBC HSL 0.1 *NA* (12/07/23 6:49 AM) 0.2 *NA* (12/04/23 7:14 AM) 0.0 *NA* (11/30/23 6:39 AM) Segs Man HSL [40-77 %] 85 % *HI* (12/11/23 7:00 AM) Band Man HSL [<=5 %] 2 % (12/11/23 7:00 AM) Lymphocyte Man HSL [18-52 %] 8 % *LOW* (12/11/23 7:00 AM) Monocyte Man HSL [3-10] 5 (12/11/23 7:00 AM) Eosinophil Man HSL [<=7 %] 0 % (12/11/23 7:00 AM) Basophil Man HSL [<=1 %] 0 % (12/11/23 7:00 AM) Platelet Estimation HSL Adequate (12/11/23 7:00 AM) RBC Morphology HSL Normal (12/11/23 7:00 AM) Sodium HSL [135.9-146.1 mEq/L] 137.0 mEq/L (12/11/23 7:00 AM) 138.0 mEq/L (12/07/23 6:49 AM) 135.0 mEq/L *LOW* (12/04/23 7:14 AM) Potassium HSL [3.4-4.6 mEq/L] 3.7 mEq/L (12/11/23 7:00 AM) 3.8 mEq/L (12/07/23 6:49 AM) 4.0 mEq/L (12/04/23 7:14 AM) Chloride HSL [95.9-106.1 mEq/L] 104.0 mEq/L (12/11/23 7:00 AM) 102.0 mEq/L (12/07/23 6:49 AM) 101.0 mEq/L (12/04/23 7:14 AM) Carbon Dioxide HSL [21.9-29.1 mEq/L] 25.0 mEq/L (12/11/23 7:00 AM) 31.0 mEq/L *HI* (12/07/23 6:49 AM) 29.0 mEq/L (12/04/23 7:14 AM) Anion Gap HSL [8-16 mmol/L] 12 mmol/L (12/11/23 7:00 AM) 9 mmol/L (12/07/23 6:49 AM) 9 mmol/L (12/04/23 7:14 AM) Glucose HSL [74.9-115.1 mg/dL] 139.0 mg/dL *HI* (12/11/23 7:00 AM) 120.0 mg/dL *HI* (12/07/23 6:49 AM) 138.0 mg/dL *HI* (12/04/23 7:14 AM) BUN HSL [10.9-23.1 mg/dL] 16.0 mg/dL (12/11/23 7:00 AM) 15.0 mg/dL (12/07/23 6:49 AM) 15.0 mg/dL (12/04/23 7:14 AM) Creatinine HSL [0.6-1.6 mg/dL] 0.7 mg/dL (12/11/23 7:00 AM) 0.7 mg/dL (12/07/23 6:49 AM) 0.7 mg/dL (12/04/23 7:14 AM) eGFR-AA HSL 92 *NA* (12/11/23 7:00 AM) 97 *NA* (12/07/23 6:49 AM) 93 *NA* (12/04/23 7:14 AM) eGFR-Non AA HSL 110 *NA* (12/11/23 7:00 AM) 116 *NA* (12/07/23 6:49 AM) 112 *NA* (12/04/23 7:14 AM) BUN/Creat Ratio HSL [5-20 ratio] 23 ratio *HI* (12/11/23 7:00 AM) 21 ratio *HI* (12/07/23 6:49 AM) 21 ratio *HI* (12/04/23 7:14 AM) Calcium Total HSL [8.9-11.1 mg/dL] 9.3 mg/dL (12/11/23 7:00 AM) 8.7 mg/dL *LOW* (12/07/23 6:49 AM) 8.5 mg/dL *LOW* (12/04/23 7:14 AM) Blood Glucose, Capillary [70-180 mg/dL] 167 mg/dL (12/08/23 9:37 PM) 137 mg/dL (12/05/23 10:04 PM) 1Result Comment: Calculated using method: Cockcroft-Gault (default) Calculated using Formula : (140-ageInYears)*IBW/(72) Age: 68 (59355007559.0) Serum Creatinine: 0.70 mg/dL (43115994534.0) Height: 183 cm (59793753276.0) Weight: 108.5 kg (IBW = 77.709 kg) 2Result Comment: Calculated using method: Cockcroft-Gault (default) Calculated using Formula : (140-ageInYears)*IBW/(72) Age: 68 (19169261563.0) Serum Creatinine: 0.70 mg/dL (60525138182.0) Height: 183 cm (06403172245.0) Weight: 108.5 kg (IBW = 77.709 kg) 3Result Comment: Calculated using method: Cockcroft-Gault (default) Calculated using Formula : (140-ageInYears)*IBW/(72) Age: 68 (84880492686.0) Serum Creatinine: 0.70 mg/dL (95488057709.0) Height: 183 cm (85108665052.0) Weight: 108.5 kg (IBW = 77.709 kg) Vital Signs Most recent to oldest [Reference Range]: 1 2 3 Temperature Oral F [96.4-99.1 DegF] 98 DegF (12/10/23 5:40 AM) 98.8 DegF (12/09/23 8:11 PM) 97.5 DegF (12/09/23 5:44 AM) Peripheral Pulse Rate [60-100 bpm] 58 bpm *LOW* (12/10/23 7:53 PM) 54 bpm *LOW* (12/10/23 5:40 AM) 58 bpm *LOW* (12/09/23 8:12 PM) Respiratory Rate [14-20 br/min] 18 br/min (12/10/23 5:40 AM) 18 br/min (12/09/23 8:12 PM) 18 br/min (12/09/23 5:44 AM) Systolic Blood Pressure [90-140 mmHg] 162 mmHg *HI* (12/10/23 7:53 PM) 155 mmHg *HI* (12/10/23 5:38 AM) 177 mmHg *HI* (12/09/23 8:11 PM) Diastolic Blood Pressure [60-90 mmHg] 75 mmHg (12/10/23 7:53 PM) 77 mmHg (12/10/23 5:38 AM) 84 mmHg (12/09/23 8:11 PM) Mean Arterial Pressure, Cuff 104 mmHg (12/10/23 7:53 PM) 103 mmHg (12/10/23 5:38 AM) 115 mmHg (12/09/23 8:11 PM) Temperature Oral 36.0 DegC 1 (12/10/23 5:40 AM) 37.1 DegC 2 (12/09/23 8:11 PM) 36.4 DegC 3 (12/09/23 5:44 AM) 1Result Comment: Charted by SYSTEM secondary to charting of Temperature Oral F on a Vitals Monitor. Rule: VITALSLINK_CALCULATIONS_2 2Result Comment: Charted by SYSTEM secondary to charting of Temperature Oral F on a Vitals Monitor. Rule: VITALSLINK_CALCULATIONS_2 3Result Comment: Charted by SYSTEM secondary to charting of Temperature Oral F on a Vitals Monitor. Rule: VITALSLINK_CALCULATIONS_2 Social History Social History Type Response Sex Male Sex Representation Male (finding) Patient Care team information Personnel Name: Meet Evans M.D.
[2023-12-15 09:50] VITALS: BMI 35.2
[2023-12-15 10:20] LABS: Basophils % 0.1 % (0.1-2.0); Eosinophils % 0.1 % (0.1-12.0); Hematocrit 38.3 % (42.0-52.0); Lymphocytes # 0.4 K/mm3 (0.7-4.5); Lymphocytes % 6.4 % (10-50); Mean Corpuscular HGB Conc 31.2 g/dL (31.8-35.4); Mean Corpuscular Hemoglobin 30.9 pg (27.0-31.2); Mean Corpuscular Volume 98.9 fl (80-94); Mean Platelet Volume 8.3 fl (7.4-10.4); Monocytes # 0.5 K/mm3 (0.1-1.0); Monocytes % 8.3 % (1.7-9.3); Neutrophils # 5.4 K/mm3 (1.8-7.8); Neutrophils % 85.1 % (37.0-80.0); Platelet Count 185 K/mm3 (142-424); Red Blood Count 3.87 M/mm3 (4.60-6.20); Red Cell Distribution Width 16.8 % (11.5-17.5); White Blood Count 6.4 K/mm3 (4.8-10.8)
[2023-12-15 10:27] LABS: Albumin Level 4.4 g/dl (3.5-5.0); Chloride 104 mmol/L (98-107); Potassium 4.3 mmoL/L (3.5-5.1); Sodium 138 mmol/L (136-145)
[2023-12-15 10:30] LABS: Alanine Aminotransferase 64 U/L (12-78); Alkaline Phosphatase 58 U/L (38-126); Anion Gap 13.3 mEq/L (5-15); Aspartate Amino Transferase 48 U/L (17-59); Bilirubin,Total 0.6 mg/dl (0.2-1.3); Blood Urea Nitrogen 18 mg/dl (9-20); Calcium 9.8 mg/dl (8.4-10.2); Carbon Dioxide 25 mmol/L (22.0-30.0); Creatinine Clearance Estimated 110 mL/min (50-200); Estimated Glomerular Filt Rate 112 ml/min (>60); GFR (African American) 135 ML/MIN (>60); Globulin 2.2 g/dL (1.3-3.2); Glucose 219 mg/dl (74-100); Total Protein,Serum 6.6 g/dl (6.3-8.2)
[2023-12-15 10:39] LABS: MANUAL DIFFERENTIAL MANUAL DIFFERENTIAL (MANUAL DIFF)
--- NOTE | 2023-12-15 10:45 | PC.NURSE ---
1045-pt to d/c home; to order to hold treatment for today.
[2023-12-15 13:45] LABS: Lymphocytes % 12 % (10-50); Monocytes % 5 % (2-9); Neutrophils % 83 % (42-76); Total Cells Counted 100
[2023-12-15 13:46] LABS: Platelet Estimate Normal; RBC Morphology Normal
[2023-12-16 15:11] LABS: Albumin 3.9 g/dL (2.9-4.4); Alpha-1-Globulin 0.3 g/dL (0.0-0.4); Alpha-2-Globulin 0.9 g/dL (0.4-1.0); Gamma Globulin 0.2 g/dL (0.4-1.8); Protein, Total 6.3 g/dL (6.0-8.5)
[2023-12-26 10:37] LABS: Immunoglobulin G, Qn 185
[2023-12-26 10:38] LABS: Immunoglobulin A, Qn 5; Immunoglobulin M, Qn <5
[2023-12-26 10:39] LABS: Free Kappa Lt Chains 2.8 mg/L; Free Lambda Lt Chains 1045.8 mg/L; PDF SCANNED IMAGE
== END 2023-12-15 10:45 | disposition home or self-care (01) ==
LOC: INF 09:43
PROVIDERS: PCP Internal Medicine; Visit Provider Internal Medicine Medical Oncology
DX: C90.00 Multiple myeloma not having achieved remission (principal)
CPT/HCPCS: 36415; 80053; 82784; 83883; 84155; 84165; 85007; 85025; 85027; 86334

== ENCOUNTER 2024-01-25 09:50 | Outpatient (CLI) | payer MEDICARE, SELFPAY ==
[2024-01-25 10:01] VITALS: BMI 35.2
[2024-01-25 10:36] LABS: Alanine Aminotransferase 43 U/L (12-78); Albumin Level 4.1 g/dl (3.5-5.0); Albumin/Globulin Ratio 1.9 (1.1-1.8); Alkaline Phosphatase 43 U/L (38-126); Anion Gap 7.8 mEq/L (5-15); Aspartate Amino Transferase 46 U/L (17-59); Bilirubin,Total 0.5 mg/dl (0.2-1.3); Blood Urea Nitrogen 16 mg/dl (9-20); Calcium 9.8 mg/dl (8.4-10.2); Carbon Dioxide 29 mmol/L (22.0-30.0); Chloride 103 mmol/L (98-107); Creatinine Clearance Estimated 110 mL/min (50-200); Estimated Glomerular Filt Rate 84 ml/min (>60); GFR (African American) 101 ML/MIN (>60); Globulin 2.2 g/dL (1.3-3.2); Glucose 269 mg/dl (74-100); Potassium 3.8 mmoL/L (3.5-5.1); Sodium 136 mmol/L (136-145); Total Protein,Serum 6.3 g/dl (6.3-8.2)
[2024-01-25 10:43] LABS: Basophils % 0.6 % (0.1-2.0); Eosinophils # 0.1 K/mm3 (0.0-0.4); Eosinophils % 2.1 % (0.1-12.0); Hematocrit 36.8 % (42.0-52.0); Hemoglobin 11.8 g/dL (14.1-18.0); Lymphocytes # 0.4 K/mm3 (0.7-4.5); Lymphocytes % 14.2 % (10-50); Mean Corpuscular HGB Conc 31.9 g/dL (31.8-35.4); Mean Corpuscular Hemoglobin 32.7 pg (27.0-31.2); Mean Corpuscular Volume 102.4 fl (80-94); Mean Platelet Volume 8.4 fl (7.4-10.4); Monocytes # 0.3 K/mm3 (0.1-1.0); Monocytes % 9.5 % (1.7-9.3); Neutrophils # 2.1 K/mm3 (1.8-7.8); Neutrophils % 73.6 % (37.0-80.0); Platelet Count 129 K/mm3 (142-424); Red Blood Count 3.59 M/mm3 (4.60-6.20); White Blood Count 2.9 K/mm3 (4.8-10.8)
[2024-01-25 12:18] VITALS: BP 150/75; PULSE 65; RESP 18; TEMP 36.4; O2SAT 97
[2024-01-25] MEDS: DENOSUMAB 120MG/1.7ML VIAL 120 MG SQ (12:18)
[2024-01-26 14:54] LABS: Free Kappa Lt Chains 4.3 mg/L (3.3-19.4); Free Lambda Lt Chains 1803.8 mg/L (5.7-26.3)
[2024-01-26 15:59] LABS: Albumin 3.8 g/dL (2.9-4.4); Alpha-1-Globulin 0.3 g/dL (0.0-0.4); Alpha-2-Globulin 0.8 g/dL (0.4-1.0); Gamma Globulin 0.2 g/dL (0.4-1.8); Protein, Total 6.1 g/dL (6.0-8.5)
[2024-01-26 17:11] LABS: Immunoglobulin A, Qn <5 mg/dL (61-437); Immunoglobulin G, Qn 158 mg/dL (603-1613); Immunoglobulin M, Qn <5 mg/dL (20-172)
== END 2024-01-25 12:18 | disposition home or self-care (01) ==
LOC: INF 09:52
PROVIDERS: PCP Internal Medicine; Visit Provider Internal Medicine Medical Oncology
DX: C90.00 Multiple myeloma not having achieved remission (principal)
CPT/HCPCS: 36415; 80053; 82784; 83883; 84155; 84165; 85025; 86334; 96372; J0897

== ENCOUNTER 2024-02-29 11:24 | Outpatient (CLI) | payer MEDICARE, SELFPAY ==
[2024-02-29 11:32] VITALS: BMI 35.3
--- NOTE | 2024-02-29 11:38 | PC.NURSE ---
1138-collected labs via venipuncture stick in right ac with butterfly needle;pt to oncology appt md to look over results.
[2024-02-29 11:57] LABS: Basophils % 1.1 % (0.1-2.0); Eosinophils # 0.1 K/mm3 (0.0-0.4); Eosinophils % 1.5 % (0.1-12.0); Hematocrit 34.3 % (42.0-52.0); Hemoglobin 11.4 g/dL (14.1-18.0); Lymphocytes # 0.3 K/mm3 (0.7-4.5); Mean Corpuscular HGB Conc 33.3 g/dL (31.8-35.4); Mean Corpuscular Hemoglobin 32.4 pg (27.0-31.2); Mean Corpuscular Volume 97.2 fl (80-94); Mean Platelet Volume 7.9 fl (7.4-10.4); Monocytes # 0.2 K/mm3 (0.1-1.0); Neutrophils # 3.1 K/mm3 (1.8-7.8); Neutrophils % 83.4 % (37.0-80.0); Platelet Count 113 K/mm3 (142-424); Red Blood Count 3.53 M/mm3 (4.60-6.20); Red Cell Distribution Width 16.3 % (11.5-17.5); White Blood Count 3.7 K/mm3 (4.8-10.8)
[2024-02-29 12:00] LABS: Albumin Level 4.1 g/dl (3.5-5.0); Chloride 106 mmol/L (98-107)
[2024-02-29 12:01] LABS: Potassium 4.4 mmoL/L (3.5-5.1); Sodium 138 mmol/L (136-145)
[2024-02-29 12:03] LABS: Alanine Aminotransferase 29 U/L (12-78); Anion Gap 10.4 mEq/L (5-15); Aspartate Amino Transferase 35 U/L (17-59); Bilirubin,Total 0.7 mg/dl (0.2-1.3); Blood Urea Nitrogen 14 mg/dl (9-20); Carbon Dioxide 26 mmol/L (22.0-30.0); Creatinine Clearance Estimated 110 mL/min (50-200); Estimated Glomerular Filt Rate 96 ml/min (>60); GFR (African American) 116 ML/MIN (>60)
[2024-02-29 12:04] LABS: Alkaline Phosphatase 36 U/L (38-126); Calcium 9.3 mg/dl (8.4-10.2); Globulin 2.1 g/dL (1.3-3.2); Glucose 139 mg/dl (74-100); Total Protein,Serum 6.2 g/dl (6.3-8.2)
[2024-03-01 14:38] LABS: Albumin 3.6 g/dL (2.9-4.4); Alpha-1-Globulin 0.2 g/dL (0.0-0.4); Alpha-2-Globulin 0.8 g/dL (0.4-1.0); Free Lambda Lt Chains 2388.4 mg/L (5.7-26.3); Gamma Globulin 0.1 g/dL (0.4-1.8); Protein, Total 5.8 g/dL (6.0-8.5)
[2024-03-02 15:12] LABS: Immunoglobulin A, Qn < 5 mg/dL (61-437); Immunoglobulin G, Qn 128 mg/dL (603-1613); Immunoglobulin M, Qn < 5 mg/dL (20-172)
== END 2024-02-29 11:43 | disposition home or self-care (01) ==
LOC: INF 11:25
PROVIDERS: PCP Internal Medicine; Visit Provider Internal Medicine Medical Oncology
DX: C90.00 Multiple myeloma not having achieved remission (principal)
CPT/HCPCS: 36415; 80053; 82784; 83883; 84155; 84165; 85025; 86334

== ENCOUNTER 2024-03-15 10:12 | Outpatient (CLI) | payer MEDICARE, SELFPAY ==
[2024-03-15] VITALS (8 sets, daily range): BP systolic 109–159; BP diastolic 58–92; PULSE 67–71; RESP 18; TEMP 36.8; O2SAT 97
[2024-03-15] MEDS: ACETAMINOPHEN 325MG TAB 650 MG PO (10:40)
[2024-03-15] MEDS: DEXAMETHASONE 4MG/ML 1ML VIAL 8 MG (10:40)
[2024-03-15] MEDS: diphenhydrAMINE 25MG CAPSULE 25 MG PO (10:40)
[2024-03-15] MEDS: FAMOTIDINE 20MG/2ML VIAL 20 MG IV (10:40)
[2024-03-15] MEDS: SODIUM CHLORIDE 0.9% IV (11:18)
[2024-03-15] MEDS: ELOTUZUMAB IV (11:18)
[2024-03-15] MEDS: SODIUM CHLORIDE 0.9% 50ML BAG 50 ML IV (12:25)
== END 2024-03-15 23:59 | disposition home or self-care (01) ==
LOC: INF 10:13
PROVIDERS: PCP Internal Medicine; Visit Provider Internal Medicine Medical Oncology
DX: Z51.11 Encounter for antineoplastic chemotherapy (principal); C90.00 Multiple myeloma not having achieved remission; Z79.61 Long term (current) use of immunomodulator
CPT/HCPCS: 96413; 96415; J1100; J9176; S0028

== ENCOUNTER 2024-04-12 09:19 | Outpatient (CLI) | payer MEDICARE, SELFPAY ==
[2024-04-12] VITALS (13 sets, daily range): BP systolic 97–158; BP diastolic 55–88; PULSE 71–89; RESP 16–18; TEMP 35.9; O2SAT 97; BMI 38.0
[2024-04-12 10:04] LABS: Chloride 104 mmol/L (98-107)
[2024-04-12 10:05] LABS: Sodium 131 mmol/L (136-145)
[2024-04-12 10:06] LABS: Hematocrit 32.9 % (42.0-52.0); Hemoglobin 10.6 g/dL (14.1-18.0); Red Blood Count 3.47 M/mm3 (4.60-6.20); White Blood Count 3.5 K/mm3 (4.8-10.8)
[2024-04-12 10:07] LABS: Basophils % 1.1 % (0.1-2.0); Blood Urea Nitrogen 14 mg/dl (9-20); Creatinine Clearance Estimated 119 mL/min (50-200); Estimated Glomerular Filt Rate 134 ml/min (>60); GFR (African American) 162 ML/MIN (>60); Lymphocytes # 0.3 K/mm3 (0.7-4.5); Lymphocytes % 7.1 % (10-50); Mean Corpuscular HGB Conc 32.2 g/dL (31.8-35.4); Mean Corpuscular Hemoglobin 30.5 pg (27.0-31.2); Mean Corpuscular Volume 94.8 fl (80-94); Mean Platelet Volume 10.1 fl (7.4-10.4); Monocytes # 0.1 K/mm3 (0.1-1.0); Monocytes % 2.8 % (1.7-9.3); Neutrophils # 2.8 K/mm3 (1.8-7.8); Neutrophils % 79.4 % (37.0-80.0); Platelet Count 154 K/mm3 (142-424); Red Cell Distribution Width 14.6 % (11.5-17.5)
[2024-04-12 10:08] LABS: Alanine Aminotransferase 30 U/L (12-78); Alkaline Phosphatase 59 U/L (38-126); Aspartate Amino Transferase 29 U/L (17-59); Bilirubin,Total 1.2 mg/dl (0.2-1.3); Calcium 9.2 mg/dl (8.4-10.2); Carbon Dioxide 22 mmol/L (22.0-30.0); Glucose 337 mg/dl (74-100)
[2024-04-12] MEDS: SODIUM CHLORIDE 0.9% 50ML BAG 50 ML IV (11:02)
[2024-04-12] MEDS: diphenhydrAMINE 25MG CAPSULE 25 MG PO (11:03)
[2024-04-12] MEDS: DEXAMETHASONE 4MG/ML 1ML VIAL 8 MG (11:03)
[2024-04-12] MEDS: ACETAMINOPHEN 325MG TAB 650 MG PO (11:03)
[2024-04-12] MEDS: FAMOTIDINE 20MG/2ML VIAL 20 MG IV (11:03)
[2024-04-12] MEDS: ELOTUZUMAB IV (11:44)
[2024-04-12] MEDS: SODIUM CHLORIDE 0.9% IV (11:44)
--- NOTE | 2024-04-12 11:44 | CA_ITS ---
FINAL REPORT CLINICAL HISTORY: DM, HTN, multiple myeloma, right thigh and calf edema x couple of days, left foot edema x couple of days. Denies trauma. Takes Xarelto and 81 mg ASA daily. COMPARISON: None FINDINGS: Multiple transverse and longitudinal scans were performed of the femoral popliteal deep venous system, with augmentation and compression maneuvers. Normal phasic flow was noted in the visualized deep venous system. No intraluminal increased echogenicity is noted to suggest thrombus. There is normal compression and augmentation of the venous structures. No abnormal venous collaterals are seen. IMPRESSION: No evidence of deep venous thrombosis of the bilateral lower extremities. Reviewed, Interpreted and Dictated by Christa Yost MD Transcribed by Jennifer Leiva Authenticated and . [facility]
== END 2024-04-12 15:15 | disposition home or self-care (01) ==
LOC: INF 09:21
PROVIDERS: PCP Internal Medicine; Visit Provider Internal Medicine Medical Oncology
DX: C90.00 Multiple myeloma not having achieved remission (principal); M79.604 Pain in right leg
CPT/HCPCS: 80053; 82784; 83883; 84155; 84165; 85025; 93970; 96413; 96415; J1100; J9176; S0028

== ENCOUNTER 2024-05-10 09:25 | Outpatient (CLI) | payer MEDICARE, SELFPAY ==
[2024-05-10] VITALS (9 sets, daily range): BP systolic 104–150; BP diastolic 51–84; PULSE 79–88; RESP 18; O2SAT 97–98; BMI 37.5
[2024-05-10 09:56] LABS: Basophils % 0.4 % (0.1-2.0); Eosinophils % 0.8 % (0.1-12.0); Hematocrit 33.5 % (42.0-52.0); Lymphocytes # 0.4 K/mm3 (0.7-4.5); Lymphocytes % 15.3 % (10-50); Mean Corpuscular HGB Conc 32.8 g/dL (31.8-35.4); Mean Corpuscular Hemoglobin 31.2 pg (27.0-31.2); Mean Corpuscular Volume 94.9 fl (80-94); Mean Platelet Volume 9.7 fl (7.4-10.4); Monocytes # 0.6 K/mm3 (0.1-1.0); Monocytes % 25.4 % (1.7-9.3); Neutrophils # 1.3 K/mm3 (1.8-7.8); Neutrophils % 54.1 % (37.0-80.0); Platelet Count 116 K/mm3 (142-424); Red Blood Count 3.53 M/mm3 (4.60-6.20); Red Cell Distribution Width 16.2 % (11.5-17.5); White Blood Count 2.5 K/mm3 (4.8-10.8)
[2024-05-10 09:57] LABS: Albumin Level 4.1 g/dl (3.5-5.0); Chloride 99 mmol/L (98-107); Potassium 4.5 mmoL/L (3.5-5.1); Sodium 130 mmol/L (136-145)
[2024-05-10 10:00] LABS: Alanine Aminotransferase 34 U/L (12-78); Albumin/Globulin Ratio 2.1 (1.1-1.8); Alkaline Phosphatase 59 U/L (38-126); Anion Gap 12.5 mEq/L (5-15); Aspartate Amino Transferase 29 U/L (17-59); Bilirubin,Total 1.2 mg/dl (0.2-1.3); Blood Urea Nitrogen 28 mg/dl (9-20); Carbon Dioxide 23 mmol/L (22.0-30.0); Creatinine Clearance Estimated 117 mL/min (50-200); Estimated Glomerular Filt Rate 112 ml/min (>60); GFR (African American) 135 ML/MIN (>60); Glucose 363 mg/dl (74-100); Total Protein,Serum 6.1 g/dl (6.3-8.2)
[2024-05-10 10:01] LABS: MANUAL DIFFERENTIAL MANUAL DIFFERENTIAL (MANUAL DIFF)
[2024-05-10] MEDS: ACETAMINOPHEN 325MG TAB 650 MG (10:30)
[2024-05-10] MEDS: FAMOTIDINE 20MG/2ML VIAL 20 MG IV (10:30)
[2024-05-10] MEDS: diphenhydrAMINE 25MG CAPSULE 25 MG PO (10:30)
[2024-05-10] MEDS: 0.9 % SODIUM CHLORIDE 50 ML 100 ML IV (10:31)
[2024-05-10] MEDS: DEXAMETHASONE 4MG/ML 1ML VIAL 8 MG (10:31)
[2024-05-10] MEDS: SODIUM CHLORIDE 0.9% IV (11:15)
[2024-05-10] MEDS: ELOTUZUMAB IV (11:15)
[2024-05-10 12:20] LABS: Lymphocytes % 30 % (10-50); Monocytes % 18 % (2-9); Neutrophils % 52 % (42-76); Platelet Estimate Slight Decrease; RBC Morphology Normal; Total Cells Counted 50
[2024-05-10] MEDS: DENOSUMAB 120MG/1.7ML VIAL 120 MG SUBCUT (14:55)
== END 2024-05-10 15:03 | disposition home or self-care (01) ==
LOC: INF 09:25
PROVIDERS: PCP Internal Medicine; Visit Provider Internal Medicine Medical Oncology
DX: C90.00 Multiple myeloma not having achieved remission (principal)
CPT/HCPCS: 80053; 82784; 84155; 85007; 85025; 96372; 96413; 96415; J0897; J1100; J9176; S0028

== ENCOUNTER 2024-06-07 09:30 | Outpatient (CLI) | payer MEDICARE, SELFPAY ==
[2024-06-07] VITALS (9 sets, daily range): BP systolic 115–134; BP diastolic 42–72; PULSE 73–88; RESP 18; TEMP 36.7; O2SAT 97
[2024-06-07 10:13] LABS: Basophils % 0.9 % (0.1-2.0); Hematocrit 31.4 % (42.0-52.0); Hemoglobin 10.1 g/dL (14.1-18.0); Lymphocytes # 0.3 K/mm3 (0.7-4.5); Lymphocytes % 13.5 % (10-50); Mean Corpuscular HGB Conc 32.2 g/dL (31.8-35.4); Mean Corpuscular Hemoglobin 31.4 pg (27.0-31.2); Mean Corpuscular Volume 97.5 fl (80-94); Mean Platelet Volume 10.1 fl (7.4-10.4); Monocytes # 0.5 K/mm3 (0.1-1.0); Monocytes % 22.4 % (1.7-9.3); Neutrophils # 1.3 K/mm3 (1.8-7.8); Neutrophils % 57.8 % (37.0-80.0); Platelet Count 114 K/mm3 (142-424); Red Blood Count 3.22 M/mm3 (4.60-6.20); Red Cell Distribution Width 16.6 % (11.5-17.5); White Blood Count 2.2 K/mm3 (4.8-10.8)
[2024-06-07 10:17] LABS: Albumin Level 4.4 g/dl (3.5-5.0); Chloride 102 mmol/L (98-107); Sodium 137 mmol/L (136-145)
[2024-06-07 10:18] LABS: Potassium 4.5 mmoL/L (3.5-5.1)
[2024-06-07 10:20] LABS: Alanine Aminotransferase 29 U/L (12-78); Anion Gap 16.5 mEq/L (5-15); Aspartate Amino Transferase 43 U/L (17-59); Blood Urea Nitrogen 19 mg/dl (9-20); Carbon Dioxide 23 mmol/L (22.0-30.0); Estimated Glomerular Filt Rate 134 ml/min (>60); GFR (African American) 162 ML/MIN (>60)
[2024-06-07 10:21] LABS: Albumin/Globulin Ratio 2.2 (1.1-1.8); Alkaline Phosphatase 33 U/L (38-126); Calcium 9.6 mg/dl (8.4-10.2); Glucose 201 mg/dl (74-100); Total Protein,Serum 6.4 g/dl (6.3-8.2)
[2024-06-07 10:37] LABS: MANUAL DIFFERENTIAL MANUAL DIFFERENTIAL (MANUAL DIFF)
[2024-06-07 12:07] LABS: Lymphocytes % 20 % (10-50); Monocytes % 32 % (2-9); Neutrophils % 44 % (42-76); Total Cells Counted 25
[2024-06-07 12:08] LABS: Platelet Estimate Normal; RBC Morphology Normal
[2024-06-07] MEDS: ACETAMINOPHEN 325MG TAB 650 MG PO (12:10)
[2024-06-07] MEDS: diphenhydrAMINE 25MG CAPSULE 25 MG PO (12:11)
[2024-06-07] MEDS: FAMOTIDINE 20MG/2ML VIAL 20 MG IV (12:11)
[2024-06-07] MEDS: DEXAMETHASONE 4MG/ML 5ML MDV 8 MG IV (12:11)
[2024-06-07] MEDS: ELOTUZUMAB IV (12:54)
[2024-06-07] MEDS: SODIUM CHLORIDE 0.9% IV (12:54)
[2024-06-08 13:21] LABS: Immunoglobulin G, Qn 177 mg/dL (603-1613); Immunoglobulin M, Qn 8 mg/dL (20-172)
[2024-06-08 15:11] LABS: Immunoglobulin A, Qn 7 mg/dL (61-437)
[2024-06-08 15:11] LABS: Albumin 3.4 g/dL (2.9-4.4); Alpha-1-Globulin 0.3 g/dL (0.0-0.4); Gamma Globulin 0.2 g/dL (0.4-1.8); Protein, Total 5.9 g/dL (6.0-8.5)
[2024-06-08 16:12] LABS: Free Kappa Lt Chains 5.2 mg/L (3.3-19.4); Free Lambda Lt Chains 1386.4 mg/L (5.7-26.3)
== END 2024-06-07 17:01 | disposition home or self-care (01) ==
LOC: INF 09:30
PROVIDERS: PCP Internal Medicine; Visit Provider Internal Medicine Medical Oncology
DX: C90.00 Multiple myeloma not having achieved remission (principal)
CPT/HCPCS: 80053; 82784; 83883; 84155; 84165; 85007; 85025; 96413; 96415; J1100; J9176; S0028

== ENCOUNTER 2024-06-14 12:54 | Outpatient (CLI) | payer MEDICARE, SELFPAY ==
--- NOTE | 2024-06-14 12:55 | CT_ITS ---
FINAL REPORT TECHNIQUE: Thin section axial images were obtained from the head through the ankles utilizing a low-dose protocol. Coronal reformatted images were obtained from the axial data. Exam was performed using dose reduction technique. CLINICAL HISTORY: CONCERN OF BONE LESION COMPARISON: None. FINDINGS: There is no mass effect or midline shift. No intracranial hemorrhage. Limited evaluation of the neck reveals no mass or lymphadenopathy. There is an enlarged right paratracheal lymph node measuring 27 mm. No other thoracic lymphadenopathy on this limited exam. There is a pericardial effusion. No pleural effusion. No lung mass or focal consolidation. Limited evaluation of the solid abdominal organs is without gross abnormality. There is focal wall thickening of the sigmoid colon with surrounding abnormal attenuation and acute diverticulitis cannot be excluded. There is moderate stool. No lymphadenopathy or ascites. There are multiple small lucent lesions within the pelvis. For example, a lesion in the roof of the left acetabulum measures 13 mm there appear to be a few small lesions in the proximal most femurs. A small lesion is present in the right humeral head. IMPRESSION: 1. Scattered small lucent lesions as above. These could be small lesions of multiple myeloma. 2. Possible sigmoid diverticulitis. Please correlate clinically. If clinical concern persists, CT scan of the abdomen and pelvis with oral and IV contrast is recommended. Authenticated and [facility]
== END 2024-06-14 23:59 | disposition home or self-care (01) ==
LOC: RAD 12:55
PROVIDERS: PCP Internal Medicine; Visit Provider Internal Medicine Medical Oncology
DX: C90.00 Multiple myeloma not having achieved remission (principal)
CPT/HCPCS: 76497

== ENCOUNTER 2024-07-05 09:10 | Outpatient (CLI) | payer MEDICARE, SELFPAY ==
[2024-07-05 09:31] LABS: Basophils % 2.3 % (0.1-2.0); Eosinophils # 0.2 K/mm3 (0.0-0.4); Eosinophils % 12.3 % (0.1-12.0); Hematocrit 31.2 % (42.0-52.0); Hemoglobin 9.8 g/dL (14.1-18.0); Lymphocytes # 0.3 K/mm3 (0.7-4.5); Lymphocytes % 14.6 % (10-50); Mean Corpuscular HGB Conc 31.4 g/dL (31.8-35.4); Mean Corpuscular Volume 98.7 fl (80-94); Mean Platelet Volume 10.3 fl (7.4-10.4); Monocytes # 0.3 K/mm3 (0.1-1.0); Monocytes % 19.3 % (1.7-9.3); Neutrophils # 0.8 K/mm3 (1.8-7.8); Neutrophils % 49.2 % (37.0-80.0); Platelet Count 65 K/mm3 (142-424); Red Blood Count 3.16 M/mm3 (4.60-6.20); Red Cell Distribution Width 15.8 % (11.5-17.5); White Blood Count 1.7 K/mm3 (4.8-10.8)
[2024-07-05 10:00] LABS: Alanine Aminotransferase 43 U/L (12-78); Albumin/Globulin Ratio 2.5 (1.1-1.8); Alkaline Phosphatase 34 U/L (38-126); Anion Gap 11.7 mEq/L (5-15); Aspartate Amino Transferase 44 U/L (17-59); Bilirubin,Total 0.7 mg/dl (0.2-1.3); Blood Urea Nitrogen 14 mg/dl (9-20); Calcium 8.8 mg/dl (8.4-10.2); Carbon Dioxide 23 mmol/L (22.0-30.0); Chloride 106 mmol/L (98-107); Estimated Glomerular Filt Rate 112 ml/min (>60); GFR (African American) 135 ML/MIN (>60); Globulin 1.6 g/dL (1.3-3.2); Glucose 190 mg/dl (74-100); Potassium 4.7 mmoL/L (3.5-5.1); Sodium 136 mmol/L (136-145); Total Protein,Serum 5.6 g/dl (6.3-8.2)
[2024-07-05 10:30] VITALS: BP 117/53; PULSE 63; RESP 18; O2SAT 97
[2024-07-05] MEDS: 0.9 % SODIUM CHLORIDE 1000ML 1,000 ML 999 ML IV (10:30)
[2024-07-05 11:45] VITALS: BP 131/65; PULSE 65; RESP 18; O2SAT 97
== END 2024-07-05 11:45 | disposition home or self-care (01) ==
LOC: INF 09:11
PROVIDERS: PCP Internal Medicine; Visit Provider Internal Medicine Medical Oncology
DX: C90.00 Multiple myeloma not having achieved remission (principal)
CPT/HCPCS: 36415; 80053; 82784; 83883; 84155; 85025; 96360; J7030

== ENCOUNTER 2024-07-19 09:10 | Outpatient (CLI) | payer MEDICARE, SELFPAY ==
[2024-07-19] VITALS (9 sets, daily range): BP systolic 123–168; BP diastolic 57–90; PULSE 71–79; RESP 18–19; TEMP 36.8; O2SAT 95–96
--- NOTE | 2024-07-19 | US_ITS ---
FINAL REPORT CLINICAL HISTORY: DM,HTN,HLD,CLAUDICATION FINDINGS: ANKLE-BRACHIAL PRESSURE INDICES Pressure indices are as follows: RIGHT LOWER EXTREMITY: Vessels are noncompressible, likely related to heavy calcification. Comments: Noncompressible LEFT LOWER EXTREMITY: Ankle-brachial pressure index: 1.30 Comments: Normal IMPRESSION: No evidence of significant obstructive peripheral vascular disease of the left lower extremity. Noncompressible on the right, likely related to heavy calcification. Reviewed, Interpreted and Dictated by Angela Cantor MD Transcribed by Hannah Gusman Authenticated and . [facility]
[2024-07-19 09:28] LABS: Basophils # 0.1 K/mm3 (0-0.2); Basophils % 1.8 % (0.1-2.0); Eosinophils # 0.1 K/mm3 (0.0-0.4); Eosinophils % 1.8 % (0.1-12.0); Hematocrit 33.1 % (42.0-52.0); Hemoglobin 10.8 g/dL (14.1-18.0); Lymphocytes # 0.4 K/mm3 (0.7-4.5); Lymphocytes % 11.4 % (10-50); Mean Corpuscular HGB Conc 32.6 g/dL (31.8-35.4); Mean Corpuscular Volume 97.9 fl (80-94); Mean Platelet Volume 8.7 fl (7.4-10.4); Monocytes # 0.6 K/mm3 (0.1-1.0); Monocytes % 19.3 % (1.7-9.3); Neutrophils # 2.1 K/mm3 (1.8-7.8); Platelet Count 118 K/mm3 (142-424); Red Blood Count 3.38 M/mm3 (4.60-6.20); Red Cell Distribution Width 15.9 % (11.5-17.5); White Blood Count 3.3 K/mm3 (4.8-10.8)
[2024-07-19 09:36] LABS: Alanine Aminotransferase 31 U/L (12-78); Albumin Level 4.2 g/dl (3.5-5.0); Albumin/Globulin Ratio 2.3 (1.1-1.8); Alkaline Phosphatase 41 U/L (38-126); Anion Gap 14.1 mEq/L (5-15); Aspartate Amino Transferase 33 U/L (17-59); Bilirubin,Total 0.6 mg/dl (0.2-1.3); Blood Urea Nitrogen 15 mg/dl (9-20); Calcium 9.7 mg/dl (8.4-10.2); Carbon Dioxide 24 mmol/L (22.0-30.0); Chloride 102 mmol/L (98-107); Estimated Glomerular Filt Rate 96 ml/min (>60); GFR (African American) 116 ML/MIN (>60); Globulin 1.8 g/dL (1.3-3.2); Glucose 179 mg/dl (74-100); Potassium 4.1 mmoL/L (3.5-5.1); Sodium 136 mmol/L (136-145)
[2024-07-19] MEDS: 0.9 % SODIUM CHLORIDE 50 ML 100 ML IV (10:42)
[2024-07-19] MEDS: ACETAMINOPHEN 325MG TAB 650 MG (10:42)
[2024-07-19] MEDS: DEXAMETHASONE 4MG/ML 1ML VIAL 8 MG (10:42)
[2024-07-19] MEDS: FAMOTIDINE 20MG/2ML VIAL 20 MG IV (10:42)
[2024-07-19] MEDS: diphenhydrAMINE 25MG CAPSULE 25 MG PO (10:43)
[2024-07-19] MEDS: SODIUM CHLORIDE 0.9% IV (11:25)
[2024-07-19] MEDS: ELOTUZUMAB IV (11:25)
== END 2024-07-19 15:15 | disposition home or self-care (01) ==
LOC: INF 09:11
PROVIDERS: PCP Internal Medicine; Visit Provider Internal Medicine Medical Oncology
DX: C90.00 Multiple myeloma not having achieved remission (principal); I73.9 Peripheral vascular disease, unspecified
CPT/HCPCS: 80053; 85025; 93923; 96413; 96415; J1100; J9176; S0028

== ENCOUNTER 2024-08-16 09:15 | Outpatient (CLI) | payer MEDICARE, SELFPAY ==
[2024-08-16] VITALS (15 sets, daily range): BP systolic 130–161; BP diastolic 54–74; PULSE 67–72; RESP 16–17; O2SAT 97
--- OUTSIDE RECORDS SUMMARY | 2024-08-16 09:18 | XMS_ITS | Data Portability ---
Author Organization [facility] [place] [facility] Address [address] [place] [address] Care Team Providers Care Barrel Drum Cutter Name Role Phone YURIYPEDRO Primary Care Provider [phone] YANCY HENDRICKS Referring Provider YANA KAHN Primary Care Provider MARIO DOMINGUEZ Instructional Facilitator Assessment Encounter Date Assessment Date Assessment LastModified by Organization Details LastModified Time 12/08/2023 12/08/2023 Michael presents today status post L4-L5 PLIF 11/22. Pt is currently at [facility] and recovering well. Incision is healing nicely. [place] were removed with no issues or complications. A packet was filled out with pt restrictions and given to his to take back to [facility]. All questions answered. [email or web address] Not available 12/08/2023 10:14:37 01/03/2024 01/03/2024 IMAGING: I personally reviewed the images with Dr. Umanzor and read the radiologist's report. Hardware satisfactorily in place with no signs of malfunction or infection. ASSESSMENT: Michael Bueno is a 68-year-old male s/p L4-5 PLIF (Dr. Umanzor, 11/23/23) and medical history of multiple myeloma, who presents to the clinic for his first postop visit, with lumbar x-rays from on 01/03/2024. Mr. Bueno looks great postop. He may continue wearing his LSO brace for a few more weeks and then may discontinue and wear it as needed. I discussed with patient is okay for him to drive since he is moving his right lower extremity well and he is no longer on pain medication. He has noticed significant benefit with physical therapy so he was encouraged to continue. We will see him back in the clinic in 2 to 3 months with another set of lumbar x-rays. Patient agreeable to plan. PLAN: Continue with PT Follow-up in 2 to 3 months with another set of AP lateral lumbar x-rays [email or web address] Not available 01/03/2024 15:36:41 03/13/2024 03/13/2024 Overall, Mr. Bueno is much improved status post an L4-5 posterior lumbar interbody fusion. Severe back and radicular right lower extremity pain have improved a lot. His x-rays look good. He overall feels like he is doing well. I offered to have him come back and see me in a few months but he wants to come back as needed which I think is fine. He will call with any point if he is have any problems we know a centimeter at any time. He and his are happy with the plan. [email or web address] Not available 03/13/2024 16:16:07 Plan of Treatment Reminders Order Date Submit Date Provider Last Modified By Organization Details Last Modified Time Details Appointments FOLLOW UP DAK 2024 02:00P Teddy AARON MD Not available Not available Not available Lab None recorded . Referral None recorded . Procedures None recorded . Surgeries None recorded . Imaging None recorded . Medication Orders None recorded . Patient TargetsNo targets recorded. Patient Instructions Encounter Date Encounter Id Patient Instructions Last Modified By Organization Details Last Modified Time 12/27/2023 [id number] Recommended returning to clinic in 6 months for TBSE Not available 12/27/2023 13:29:06 Reason for Referral None Reported. Results Created Date Observation Date Name Description Value Unit Range Abnormal Flag Note LastModifiedBy Organization Detail LastModifiedTime 01/03/20 24 01/03/2024 XR, lumbo sacra l spine , 2 or 3 view [facility] [address] [place] [address] [place] [address] Cieloyris t Name: [facility] swenson : [address] swenson Orderi ng Provid er: ERIC UMANZOR EXAM DATE: 09/10/ 2024 EXAM: XR LUMBAR AP/LAT CLINIC AL INFORM ATION: Back pain. IMAGES PROVID ED: AP, latera l and coned down views of the lumbar spine. COMPAR OWEN: None. 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 No compli cation s relate d to the hardwa re noted. Modera te to severe diffus e degene rative disc diseas e. The psoas margin s are sharp. No radiog raphic eviden ce of injury is noted. IMPRES MARCELA: Uncomp licate d appear ing L4-5 fusion Interp reted By: Deacon Figueroa MD Electr onical ly Signed By: Deacon Figueroa MD on 2:[address] [facility] [address] [place] [address], [phone], 02/26/2024 20:36:18 02/06/20 24 02/01/2024 XR, lumbo sacra l spine , 2 or 3 view No observ ation record ed. [address] (Imaging) [address] [place] [address], [place], [address], 04/22/2024 22:44:11 03/13/20 24 03/13/2024 XR, lumbo sacra l spine , 2 or 3 view [facility] [address] [place] [address] Patiyris swenson Name: [facility] swenson : [address] Orderi ng Provid er: ERIC UMANZOR EXAM DATE: 2023 EXAM: XR LUMBAR AP/LAT CLINIC AL INFORM ATION: Back pain. IMAGES PROVID ED: AP, latera l and coned down views of the lumbar spine. 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 Slight malali gnment at L4-5 again noted. There is no hard workup case. There is no loosen ing presen t. Modera te degene rative change s elsewh ere. No radiog raphic eviden ce of injury is noted. IMPRES MARCELA: Stable uncomp licate d appear ing L4-5 fusion Interp reted By: Deacon Figueroa MD Electr onical ly Signed By: Deacon Figueroa MD on 2023 10:[email or web address] [facility] [address] [place] [address], [phone], 04/22/2024 22:44:10 Result Notes None recorded. Problems Name Problem SNOMED Code Status Onset Date Resolution Date Notes Provider Name and Address Organization Details Recorded Time History of malignant neoplasm of skin 941865137 Active 024 Tonia Lucero [facility] 4 13:55:07 Type 2 diabetes mellitus 60417717 Active [facility] 4 13:59:20 Sleep apnea 38964091 Active [facility] 4 13:59:32 Problem Notes None recorded. Procedures Surgical History Date Name Laterality Status Provider Name and Address Organization Details Recorded Time 12/27/19 24 DAK - Cryo AK completed [facility] 12/27/2023 13:28:12 10/03/19 24 Lumbar MBB unilateral 2 level - Helga completed ZULEIMA ALBERTS MD [address] [place] [address], [phone], [facility] 10/03/2023 14:06:25 09/12/19 24 Lumbar MBB unilateral 2 level - Helga completed ZULEIMA ALBERTS MD [address] [place] [address], [phone], [facility] 09/12/2023 15:00:42 06/29/19 24 DAK - Cryo AK completed Tonia Richb [facility] 06/29/2023 14:02:20 06/29/19 24 DAK - Biopsy, Tangential completed Tonia Lucero [facility] 06/29/2023 14:02:42 Appendectomy completed Joanne Morales [facility] 05/28/2020 15:51:35 tonsillectomy completed Joanne Morales [facility] 05/28/2020 15:51:45 hernia repair completed Joanne Morales [facility] 05/28/2020 15:51:58 Imaging Results Imaging Date Name Status LastModified by Organiz ation Details LastModified Time 01/03/2024 XR, lumbosacral spine, 2 or 3 view completed [address] [facility] [address] [place], [address], 02/26/2024 20:36:18 02/01/2024 XR, lumbosacral spine, 2 or [address] view [address] (Imaging) [address] [place] [address] Dr, [place], [address], 04/22/2024 22:44:11 03/13/2024 XR, lumbosacral spine, 2 or 3 view completed [address] [facility] [address] [place], [address], 04/22/2024 22:44:10 Procedure Notes None recorded. Medical Equipment None Reported. Allergies Allergen ID Allergen Name Allergen Category Reaction Reaction Severity Criticality Documentation Date Start Date Code Code System Note Provider Name and Address Organization Details Recorded Time 549162 [facility] Not available Not available Not available 06/07/20162010 16188 5 RxNorm Comme nt: Creat ed By: Cory Castrejon eated Date: 2010 2:16: 58 PM; Not Available [facility] 7 11:02:10 Medications Name Sig Start Date Stop Date Status Note LastModified by Organization Details LastModified Time cyclobenza alise 10 mg tablet Take 1 tablet 3 times a day by oral route as needed. 2023 active Not Available Not Available Not Avai lable metformin 500 mg tablet Take 1 tablet twice a day by oral route. active Not Available Not Available No t Available Percocet 7.5 mg-325 mg tablet Take 1 tablet every 6 hours by oral route as needed. 2023 active Not Available Not Available Not Avai lable prednisone 10 mg tablet 08/25 completed Not Available Not Available Not Available doxycyclin e hyclate 100 mg capsule Take 1 capsule twice a day by oral route with meal(s) for 5 days. 2023 active Not Available Not Available Not Avai lable trazodone 50 mg tablet Take 1 tablet every day by oral route. active not taking Not Available Not Available Not Available amiodarone 200 mg tablet active Not Available Not Available Not Available hydrocodon e 5 mg-acetami nophen 325 mg tablet 08/25 completed Not Available Not Available Not Available sucralfate 100 mg/mL oral suspension active Not Available Not Available N ot Available isosorbide mononitrat e ER 30 mg tablet,ext ended release 24 hr 08/25 completed Not Available Not Available Not Available metoprolol succinate ER 100 mg tablet,ext ended release 24 hr active Not Available Not Available Not Available permethrin 5 % topical cream 08/25 completed Not Available Not Available Not Available prochlorpe razine maleate 10 mg tablet 08/25 completed Not Available Not Available Not Available acyclovir 400 mg tablet Take 1 tablet twice a day by oral route. active Not Available Not Available No t Available spironolac tone 25 mg tablet active Not Available Not Available Not Available ondansetro n 8 mg disintegra ting tablet active Not Available Not Available Not Available pantoprazo le 20 mg tablet,del ayed release active Not Available Not Available Not Available potassium chloride ER 20 mEq tablet,ext ended release(pa rt/cryst) active Not Available Not Available No t Available diazepam 2 mg tablet 08/25 completed Not Available Not Available Not Available baclofen 10 mg tablet Take 1 tablet twice a day by oral route as needed for 10 days. 2023 active Not Available Not Available Not Avai lable amlodipine 10 mg tablet 08/25 completed Not Available Not Available Not Available hydrocodon e 7.5 mg-acetami nophen 325 mg tablet 08/25 completed Not Available Not Available Not Available paroxetine 20 mg tablet active Not Available Not Available Not Available pantoprazo le 40 mg tablet,del ayed release active Not Available Not Available Not Available dexamethas one 4 mg tablet active Not Available Not Available Not Available nitroglyce rin 400 mcg/spray translingu al active Not Available Not Available Not Available gabapentin 300 mg capsule Take 1 capsule twice a day by oral route. 08/25 completed Not Available Not Available Not Available montelukas t 10 mg tablet 08/25 completed Not Available Not Available Not Available mupirocin 2 % topical ointment 08/25 completed Not Available Not Available Not Available furosemide 20 mg tablet 08/25 completed Not Available Not Available Not Available ergocalcif grant (vitamin D2) 1,250 mcg (50,000 unit) capsule active Not Available Not Available Not Available cefdinir 300 mg capsule 08/25 completed Not Available Not Available Not Available fluticason e propionate 50 mcg/actuat ion nasal spray,susp ension 08/25 completed Not Available Not Available Not Available spironolac tone 50 mg tablet active Not Available Not Available Not Available ramipril 10 mg capsule active Not Available Not Available Not Available amoxicilli n 500 mg-potassi um clavulanat e 125 mg tablet 08/25 completed Not Available Not Available Not Available rosuvastat in 20 mg tablet active Not Available Not Available Not Available bupropion HCl XL 300 mg 24 hr tablet, extended release 08/25 completed Not Available Not Available Not Available pregabalin 75 mg capsule TAKE (1) CAPSULE TWICE DAILY NEEDED. 2023 active Not Available Not Available Not Avai lable oxycodone 5mg as needed active Not Available Not Available No t Available dexamethas one active Not Available Not Available Not Available Flomax active Not Available Not Availa ble Not Available Revlimid 25 mg capsule 08/25 completed Not Available Not Available Not Available Lantus Solostar U-100 Insulin 100 unit/mL (3 mL) subcutaneo us pen active Not Available Not Available Not Available fenofibric acid (choline) 135 mg capsule,de layed release active Not Available Not Available Not Available Xarelto 20 mg tablet active Not Available Not Available No t Available Pomalyst 3 mg capsule active Not Available Not Available N ot Available Pomalyst 4 mg capsule active Not Available Not Available N ot Available Lortab Elixir 10 mg-300 mg/15 mL oral solution 08/25 completed Not Available Not Available Not Available Jardiance 25 mg tablet active Not Available Not Available Not Available Synjardy 12.5 mg-1,000 mg tablet 08/25 completed Not Available Not Available Not Available Brilinta 60 mg tablet 08/25 completed Not Available Not Available Not Available Vraylar 1.5 mg capsule 08/25 completed Not Available Not Available Not Available Synjardy XR 12.5 mg-1,000 mg tablet, extended release 08/25 completed Not Available Not Available Not Available Ozempic 1 mg/dose (2 mg/1.5 mL) subcutaneo us pen injector active Not Available Not Available Not Available FreeStyle Daryl 14 Day Sensor kit active Not Available Not Available Not Available Ozempic 1 mg/dose (4 mg/3 mL) subcutaneo us pen injector active Not Available Not Available Not Available Xpovio 100 mg/week (50 mg x 2) tablet 08/25 completed Not Available Not Available Not Available aspirin 81 mg capsule Take 1 capsule every day by oral route. active Not Available Not Available No t Available Ozempic 2 mg/dose (8 mg/3 mL) subcutaneo us pen injector active Not Available Not Available Not Available Vitals Date Recorded Body height Body mass index (BMI) Body weight Systolic blood pressure Diastolic blood pressure Provider Name and Address Organization Details Last Updated DateTime 01/03/2024 180.34 cm 36.7 kg/m2 074097. 79 g 124 mm[Hg] 78 mm[Hg] [facility] 4 14:47:19 Date Recorded Body height Body mass index (BMI) Body weight Systolic blood pressure Diastolic blood pressure Provider Name and Address Organization Details Last Updated DateTime 03/13/2024 180.34 cm 36.7 kg/m2 457261. 79 g 124 mm[Hg] 84 mm[Hg] [facility] 4 11:36:27 Social History Question Answer Notes LastModified by Organizat ion Details LastModified Time Tobacco Smoking Status Never Smoker Joanne Morales [facility] 05/28/2020 15:51:05 Are You Currently Employed? No Retired [email or web address] Information not available 08/26/2023 What Is Your Relationship Status? Information not available 08/26/2023 Sex: Male Functional Status None recorded. Mental Status None recorded. Family History Relationship Description Onset Age of this Age Resolved Age Notes LastModified by Organization Details LastModified Time Unspecified Relation Malignant neoplastic disease [email or web address] Not available 05/28 15:51:13 Unspecified Relation Myocardial infarction [email or web address] Not available 06/2020 15:51:18 Medical History Condition Response Diabetes Y Heart Problems Y Squamous Cell Carcinoma Y Blood Thinners Y Sleep Apnea Y High Cholesterol Y Heart Attack ([place]) Y Cancer Y Hypertension Y Past Encounters Encounter ID Performer Location Encounter Start Date Encounter Closed Date Diagnosis/Indication Diagnosis SNOMED-CT Code Diagnosis ICD10 Code Diagnosis Note [id number] Yana Wagnergard [facility] [address] [place] [address] 05/28/2020 14:46:24 05/29/2020 12:39:26 Pain in cervical spine 546986284 M54.2 Metastatic malignant neoplasm to bone 39200431 C79.51 -The patient presents for evaluation of his neck pain. The MRI reveals a lesion involving the C2 vertebra. Pain related to the abnormalit y of the C2 vertebra. This is limiting his range of motion also causing significan t discomfort in the neck. We talked about treatment options. I don't seen any signs of instabilit y. There is a concern that he could have a compressio n of this area that would put him at risk for spinal cord injury. Currently, however, no role for aggressive prophylaxi s treatment. Spoke to Dr. Hendricks. Suspect underlying multiple myeloma. He is undergoing testing for definitive diagnosis. May benefit from radiation treatment. I ordered him a cervical collar. Trial of gabapentin for the right leg pain which may be a result of the previous femoral nerve injury versus meralgia parestheti ca. Plan gabapentin c collar f/u 6 weeks f/e cspine ct csp Addendum: Ordering an L0174 custom-fit ramos cervical collar to reduce pain by restrictin g mobility of the spine and support weak spinal muscles. [id number] KYM LAFLEUR MD [facility] [address] [place] [address] 07/11/2020 13:15:58 07/11/2020 13:50:09 Metastatic malignant neoplasm to bone 41805469 C79.51 -The patient is shown improvemen t after radiation treatment. Her range of motion of the neck with decreased discomfort within the neck. No myelopathi c signs are present. His exam is reassuring . Plan to X-ray after his appointmen t. Follow-up 2 months with a repeat x-ray. We will contact the patient if we see any significan t changes or worrisome findings on the x-ray. Continue the collar as needed for comfort Primary multiple myeloma with C2 involvemen t [id number] ERIC UMANZOR MD NE[facility]OSURG [facility] [address] [place] [address] 09/12/2020 13:18:20 09/12/2020 15:47:57 Metastatic malignant neoplasm to bone 89239287 C79.51 Patient is a 64-year-ol d male with a current history of multiple myeloma with lytic lesion involving The C2 vertebrae. Patient is here for routine follow-up. Patient was initially doing radiation for this. He had 10 sessions of radiation and is now undergoing chemothera py. He has had injection every week and is also on acyclovir, aspirin, and dexamethas one. Patient is overall doing very well at this time and is happy with how his progress after undergoing his treatments . He has better range of motion his neck and is very minimal pain. Aside from numbness and tingling in bilateral hands that is intermitte nt patient has no complaints . I reviewed the imaging findings with him as outlined below. The patient will now had to be transferre d to the care of one of the other physicians in our practice. For this reason I will have them reviewed the current imaging and decide on plan of care from here including patient's next follow-up and imaging. I educated the patient and his again about myelopathi c signs and symptoms to be aware of. The patient is to call if any questions and is happy with this plan. Patient had AP lateral cervical x-rays performed today at the [facility] -Did not show any acute abnormalit y or progressio n of disease. [id number] ERIC UMANZOR MD [facility] [address] [place] [address] 12/18/2020 08:46:02 12/18/2020 14:22:42 Metastatic malignant neoplasm to bone 29540618 C79.51 Patient is a 64-year-ol d male with a current history of multiple myeloma with lytic lesion involving The C2 vertebrae. Patient is here for routine follow-up. Patient was initially doing radiation for this With Dr. Miranda. He had 10 sessions of radiation and is now undergoing chemothera py. His last injection was 3 weeks ago and is also on acyclovir, aspirin, and dexamethas one. He is doing well at this time.Jonathon ess in the anterior cervical region as well as continued numbness and tingling in the hands, both of which are intermitte nt. He follows with Dr. Hendricks and hematology oncology every 3 weeks. After the patient's last chemothera py treatment they are deciding what treatment will be the best moving forward as the chemothera py did stop having the same effects as it had initially. Reviewed case and imaging with . He agrees with our initial assessment that there is nothing to do surgically here. He is very optimistic based on the x-rays alone and the patient's clinical appearance . We will order a CT scan without contrast of the cervical spine to be performed sometime this week and we will see the patient back in 3 months with flexion and extension, and AP lateral with odontoid view x-rays. We will continue to follow this patient for some time. They know to call with any questions and are happy with this plan.AP lateral cervical x-rays today at the [facility]? Showed stable fracture and actually looks like there has been some bone healing on the x-ray. Alignment looks good with no instabilit y [id number] ERIC UMANZOR MD [facility] [address] [place] [address] 10/08/2021 13:32:14 10/09/2021 15:28:20 Fracture of odontoid process type II [id number] 44766 S12.112S [id number] ERIC UMANZOR MD [facility] [address] [place] [address] 04/06/2022 14:04:34 04/09/2022 08:33:52 Fracture of second cervical vertebra 782384188 S12.100G [id number] MARIO AARON MD [address] [place] [address] 06/29/2023 13:10:14 06/29/2023 14:15:12 History of malignant neoplasm of skin 272518763 Z85.828 - No evidence of recurrence today- Call with any worrisome lesions or if treated lesions return- Return at regular intervals for skin exam as recommende d Most recent, 10/2021 Multiple b enign melanocytic nevi 576916131 D22.5 - Benign moles seen on exam today - SPF 30 or higher broad-spec trum sunscreen recommende d with re-applica tion every 2 hours - Discussed sun protection measures, including wide-brimm ed hat, sun-protec tive clothing, and avoidance of sun during peak hours of 10am-4pm - Avoid tanning beds as these can increase the chances of all 3 types of skin cancer - Instructed to monitor for changes and to call us for appointmen t with any changing or worrisome lesions Seborrheic keratosis 394 270529 L82.1 - Benign overgrowth s of skin - Hereditary Senile angioma 8441560 I 78.1 - Benign blood vessel growths - Hereditary Solar lentigo 55026245 L 81.4 - Benign brown spots - Sun-induce d Long-term current use of immunosuppressive drug 722566186 Z79.60 Pts that are immunosupp ressed are more likely to get skin cancers, especially squamous cell carcinomas , but also basal cell carcinomas and melanomas. Should be seen regularly and alert dermatolog ist with any new, worrisome, or changing lesions. Prednisone & dexamethas one for multiple myeloma Actinic keratosis 691523 007 L57.0 Actinic keratoses are precancero us lesions that may progress to squamous cell carcinoma if untreated. UV light and genetics may increase risk. Treated lesions should blister, scab over, and heal within a few weeks. If treated lesion(s) does not resolve within 1-2 months, patient agrees to follow up for re-evaluat ion. Neoplasm o f uncertain behavior of skin 41919816 D48.5 Left baptist - 1.2cm pink scaly plaque - R/o SCC (Mohs if +)Left jawline superior - 1cm pink scaly papule - R/o SCC (Mohs if +)Left jawline inferior- 1cm pink scaly papule - R/o SCC (Mohs if +) Jawline lesions may be able to be treated at same [facility] appt [id number] KEVIN MCFADDEN PA-C [facility] [address] [place] [address] 08/23/2023 12:36:26 08/24/2023 04:52:39 Multiple myeloma 146806169 C90.00 Low back pain 398520791 M54.50 [id number] ZULEIMA ALBERTS MD [facility] [address] [place] [address] 08/26/2023 12:46:51 08/27/2023 05:16:05 Degeneration of lumbar intervertebral disc 05756785 M51.36 Lumbar spondylosis 29801 0009 M47.816 [id number] [facility] [address] [place] [address] 09/06/2023 11:28:46 09/13/2023 13:41:41 [id number] ZULEIMA ALBERTS MD [facility] PLACE OF SERVICE PROFESSIO NAL CHARGES [address] [place] [address], [facility] [address] [place] [address] 09/12/2023 14:13:50 09/12/2023 15:48:49 Lumbar spondylosis [id number] M47.816 [id number] [facility] [address] [place] [address] 09/13/2023 09:25:31 09/20/2023 12:29:35 [id number] ZULEIMA ALBERTS MD ESC PL[facility] OF SERVICE PROFESSIO NAL CHARGES [address] [place] [address], [facility] [address] [place] [address] 10/03/2023 12:50:49 10/03/2023 16:19:18 Lumbar spondylosis [id number] M47.816 [id number] DAMARIS SMYTH APRN NEUROSURG [facility]ISA [facility] [address] [place] [address] 11/22/2023 13:52:32 11/23/2023 04:57:16 Lumbar radiculopathy [id number] M54.16 [id number] [facility] SURGERY SCHEDULE [address] [place] [address] 11/24/2023 11:59:24 11/30/2023 13:34:01 [id number] Becky alvarez NEUROSURG [facility] [address] [place] [address] 12/08/2023 09:47:51 12/21/2023 04:13:48 [id number] MARIO AARON MD [place] [address] [place] [address] 12/27/2023 12:52:04 12/27/2023 13:33:03 History of malignant neoplasm of skin [id number] Z85.828 - No evidence of recurrence today- Call with any worrisome lesions or if treated lesions return- Return at regular intervals for skin exam as recommende d Most recent, 06/2023 Melanocyti c nevus of face [id number] D22.39 - Benign moles seen on exam today - SPF 30 or higher broad-spec trum sunscreen recommende d with re-applica tion every 2 hours - Discussed sun protection measures, including wide-brimm ed hat, sun-protec tive clothing, and avoidance of sun during peak hours of 10am-4pm - Instructed to monitor for changes and to call us for appointmen t with any changing or worrisome lesions Seborrheic keratosis [id number] L82.1 - Benign brown spots - Hereditary Solar lentigo [id number] L 81.4 - Benign brown spots - Sun-induce d Actinic keratosis [id number] L57.0 Actinic keratoses are precancero us lesions that may progress to squamous cell carcinoma if untreated. UV light and genetics may increase risk. Treated lesions should blister, scab over, and heal within a few weeks. If treated lesion(s) does not resolve within 1-2 months, patient agrees to follow up for re-evaluat ion. [id number] KEVIN MCFADDEN PA-C NEUROSURG [facility] [address] [place] [address] 01/03/2024 14:40:13 01/10/2024 12:47:17 Postoperative visit [id number] Z48.89 [id number] ERIC UMANZOR MD NEUROSURG [facility]ISA [facility] [address] [facility] [address] [place] [address] 03/13/2024 10:51:32 03/14/2024 04:10:55 Lumbar spondylosis [id number] M47.896 Health Concerns Section Related Observation LastModified by Organization Detai ls LastModified Time None Recorded Concern Status LastModified by Organization Details LastModified Time None Recorded Advance Directives Directive None Recorded Payers Encounter Date Sequence Insurance Name Policy Number Policy Roberts Covered Member ID Roberts Member ID Guarantor Name 11/23/2023 1 [employer] (MEDICARE REPLACEMENT/A DVANTAGE - PPO) Michael Bueno [id number] Michael Bueno 12/08/2023 1 [employer] (MEDICARE REPLACEMENT/A DVANTAGE - PPO) Michael Bueno [id number] Michael Bueno 12/27/2023 1 [employer] (MEDICARE REPLACEMENT/A DVANTAGE - PPO) Michael Bueno [id number] Michale Bueno 01/03/2024 1 [employer] (MEDICARE REPLACEMENT/A DVANTAGE - PPO) Michael Bueno [id number] Michale Bueno 03/13/2024 1 [employer] (MEDICARE REPLACEMENT/A DVANTAGE - PPO) Michael Bueno [id number] Michael Bueno Notes Date Note Type Note Provider Name and Address Organization Details Recorded Time 12/27/2023 text/html Here for a face only skin examination - last skin check: {{ 06/2023#}}- history of skin cancer - {{BCC SCC* MM BCC and SCC BCC and MM SCC and MM BCC, SCC, and MM}}- last skin cancer was in {{ 2023, L [facility]#}}- spots of concern today: {{ none#}}- patient refused exam other than the face Pt accompanied by spouse MARIO AARON MD [facility] [place], [address], [facility] 12/27/2023 20:37:42 01/03/2024 text/html Michael Bueno i s a 68-year-old male s/p L4-5 PLIF (Dr. Umanzor, 11/23/23) and medical history of multiple myeloma, who presents to the clinic for his first postop visit, with lumbar x-rays from on 01/03/2024. Patient is doing well postop. Prior to surgery he developed lower back pain with radiation into his right anterior lateral thigh, anterior sheldon, and medial ankle. He reports his radiculopathy has largely resolved after surgery. He is currently working with physical therapy for general strength training. He continues to wear his LSO brace and ambulates with a walker. He resumes treatment with Dr. Abdul in January for multiple myeloma. PA and physician visit. KEVIN MCFADDEN PA-C [address] [place], [address], [facility] 01/03/2024 15:36:55 03/13/2024 text/html I saw Mr. Bueno . I performed an L4-5 posterior lumbar interbody fusion on November 23, 2023. We saw him once after surgery he was doing well. He comes for his second postoperative visit. His back pain is not too bad. His severe right lower extremity radicular pain is much improved. He had very severe right L4-5 foraminal stenosis. He has multiple myeloma and is being treated by Dr. Abdul. It sounds like overall things are stable. He is receiving palliative treatment. ERIC UMANZOR MD [facility] [place], [address], [facility] 03/13/2024 16:18:26
[2024-08-16 10:00] LABS: Basophils % 0.5 % (0.1-2.0); Eosinophils # 0.1 Kmm3 (0.0-0.4); Eosinophils % 1.2 % (0.1-12.0); Hematocrit 33.4 % (42.0-52.0); Hemoglobin 10.9 g/dL (14.1-18.0); Lymphocytes # 0.2 K/mm3 (0.7-4.5); Lymphocytes % 4.6 % (10-50); Mean Corpuscular HGB Conc 32.6 g/dL (31.8-35.4); Mean Corpuscular Hemoglobin 31.3 pg (27.0-31.2); Mean Platelet Volume 8.8 fl (7.4-10.4); Monocytes # 0.3 K/mm3 (0.1-1.0); Monocytes % 6.5 % (1.7-9.3); Neutrophils # 3.7 K/mm3 (1.8-7.8); Neutrophils % 85.3 % (37.0-80.0); Nucleated Red Blood Cells # 0 10^3/uL; Nucleated Red Blood Cells % 0 %; Platelet Count 109 K/mm3 (142-424); Red Blood Count 3.48 M/mm3 (4.60-6.20); Red Cell Distribution Width 15.2 % (11.5-17.5); Red Cell Distribution Width-SD 53.1 fL; White Blood Count 4.3 K/mm3 (4.8-10.8)
[2024-08-16 10:01] LABS: MANUAL DIFFERENTIAL MANUAL DIFFERENTIAL (MANUAL DIFF)
[2024-08-16 10:03] LABS: Alanine Aminotransferase 36 U/L (12-78); Albumin Level 3.6 g/dl (3.5-5.0); Albumin/Globulin Ratio 1.6 (1.1-1.8); Alkaline Phosphatase 42 U/L (38-126); Anion Gap 13.1 mEq/L (5-15); Aspartate Amino Transferase 35 U/L (17-59); Bilirubin,Total 0.6 mg/dl (0.2-1.3); Blood Urea Nitrogen 19 mg/dl (9-20); Calcium 9.9 mg/dl (8.4-10.2); Carbon Dioxide 25 mmol/L (22.0-30.0); Chloride 103 mmol/L (98-107); Estimated Glomerular Filt Rate 84 ml/min (>60); GFR (African American) 101 ML/MIN (>60); Globulin 2.3 g/dL (1.3-3.2); Glucose 131 mg/dl (74-100); Potassium 4.1 mmoL/L (3.5-5.1); Sodium 137 mmol/L (136-145); Total Protein,Serum 5.9 g/dl (6.3-8.2)
[2024-08-16] MEDS: DEXAMETHASONE 4MG/ML 1ML VIAL 8 MG (11:36)
[2024-08-16] MEDS: 0.9 % SODIUM CHLORIDE 50 ML 100 ML IV (11:37)
[2024-08-16] MEDS: diphenhydrAMINE 25MG CAPSULE 25 MG PO (11:37)
[2024-08-16] MEDS: ACETAMINOPHEN 325MG TAB 650 MG (11:37)
[2024-08-16] MEDS: FAMOTIDINE 20MG/2ML VIAL 20 MG IV (11:37)
[2024-08-16 11:50] LABS: Lymphocytes % 11 % (10-50); Monocytes % 4 % (2-9); Neutrophils % 85 % (42-76); RBC Morphology Normal; Total Cells Counted 100
[2024-08-16 11:51] LABS: Platelet Estimate Slight Decrease
[2024-08-16] MEDS: SODIUM CHLORIDE 0.9% IV (12:11)
[2024-08-16] MEDS: ELOTUZUMAB IV (12:11)
[2024-08-16] MEDS: DENOSUMAB 120MG/1.7ML VIAL 120 MG SUBCUT (13:05)
[2024-08-17 14:20] LABS: Free Kappa Lt Chains 1.3 mg/L (3.3-19.4); Free Lambda Lt Chains 2102.1 mg/L (5.7-26.3)
[2024-08-17 16:36] LABS: Albumin 3.3 g/dL (2.9-4.4); Alpha-1-Globulin 0.2 g/dL (0.0-0.4); Alpha-2-Globulin 0.8 g/dL (0.4-1.0); Gamma Globulin 0.1 g/dL (0.4-1.8); Protein, Total 5.5 g/dL (6.0-8.5)
== END 2024-08-16 16:15 | disposition home or self-care (01) ==
LOC: INF 09:16
PROVIDERS: PCP Internal Medicine; Visit Provider Internal Medicine Medical Oncology
DX: C90.00 Multiple myeloma not having achieved remission (principal)
CPT/HCPCS: 80053; 82784; 83883; 84155; 84165; 85007; 85025; 96413; 96415; J0897; J1100; J9176; S0028

== ENCOUNTER 2024-09-19 08:54 | Outpatient (CLI) | payer MEDICARE, SELFPAY ==
--- NOTE | 2024-09-19 09:00 | PC.NURSE ---
0900-collected labs via venipuncture stick in right hand with butterfly needle; pt to oncology appt.
[2024-09-19 09:40] LABS: Basophils % 1.8 % (0.1-2.0); Eosinophils % 2.3 % (0.1-12.0); Hematocrit 26.6 % (42.0-52.0); Hemoglobin 8.6 g/dL (14.1-18.0); Immature Granulocytes # 0.04 10^3uL; Immature Granulocytes % 2.3 %; Lymphocytes # 0.3 K/mm3 (0.7-4.5); Mean Corpuscular HGB Conc 32.3 g/dL (31.8-35.4); Mean Corpuscular Hemoglobin 32.6 pg (27.0-31.2); Mean Corpuscular Volume 100.8 fl (80-94); Mean Platelet Volume 10.1 fl (7.4-10.4); Monocytes # 0.3 K/mm3 (0.1-1.0); Monocytes % 19.3 % (1.7-9.3); Neutrophils % 57.3 % (37.0-80.0); Nucleated Red Blood Cells # 0.02 10^3/uL; Nucleated Red Blood Cells % 1.2 %; Platelet Count 96 K/mm3 (142-424); Red Blood Count 2.64 M/mm3 (4.60-6.20); Red Cell Distribution Width 17.8 % (11.5-17.5); Red Cell Distribution Width-SD 62.6 fL
[2024-09-19 09:42] LABS: White Blood Count 1.7 K/mm3 (4.8-10.8)
[2024-09-19 09:44] LABS: MANUAL DIFFERENTIAL MANUAL DIFFERENTIAL (MANUAL DIFF)
[2024-09-19 09:46] LABS: Alanine Aminotransferase 29 U/L (12-78); Alkaline Phosphatase 47 U/L (38-126); Aspartate Amino Transferase 31 U/L (17-59); Bilirubin,Total 1.1 mg/dl (0.2-1.3); Calcium 9.8 mg/dl (8.4-10.2); Carbon Dioxide 24 mmol/L (22.0-30.0); Glucose 203 mg/dl (74-100); Potassium 4.4 mmoL/L (3.5-5.1)
[2024-09-19 09:47] LABS: Albumin Level 4.3 g/dl (3.5-5.0); Albumin/Globulin Ratio 2.3 (1.1-1.8); Anion Gap 12.4 mEq/L (5-15); Blood Urea Nitrogen 11 mg/dl (9-20); Chloride 103 mmol/L (98-107); Estimated Glomerular Filt Rate 84 ml/min (>60); GFR (African American) 101 ML/MIN (>60); Globulin 1.9 g/dL (1.3-3.2); Sodium 135 mmol/L (136-145); Total Protein,Serum 6.2 g/dl (6.3-8.2)
[2024-09-19 10:21] LABS: Eosinophils % 2 % (0-3); Lymphocytes % 20 % (10-50); Monocytes % 8 % (2-9); Neutrophils % 70 % (42-76); Total Cells Counted 50
[2024-09-19 10:22] LABS: Anisocytosis 1+
[2024-09-19 10:25] LABS: Platelet Estimate Slight Decrease
[2024-09-20 17:42] LABS: Albumin 3.6 g/dL (2.9-4.4); Alpha-1-Globulin 0.3 g/dL (0.0-0.4); Alpha-2-Globulin 0.9 g/dL (0.4-1.0); Free Kappa Lt Chains 1.3 mg/L (3.3-19.4); Free Lambda Lt Chains 3922.3 mg/L (5.7-26.3); Gamma Globulin 0.1 g/dL (0.4-1.8); Protein, Total 6.1 g/dL (6.0-8.5)
== END 2024-09-19 10:00 | disposition home or self-care (01) ==
LOC: INF 08:57
PROVIDERS: PCP Internal Medicine; Visit Provider Internal Medicine Medical Oncology
DX: C90.00 Multiple myeloma not having achieved remission (principal)
CPT/HCPCS: 36415; 80053; 83883; 84155; 85007; 85025

== ENCOUNTER 2024-10-11 09:58 | Outpatient (CLI) | payer MEDICARE, SELFPAY ==
--- OUTSIDE RECORDS SUMMARY | 2024-08-22 08:46 | XMS_ITS | Encounter Summary ---
Author Organization [employer] Address [address] [place] [address] Care Team Providers Care Communications Director Name Role Phone Teresa Evans MD Primary Care Provider +1- [phone] Reason for Referral * Nuclear Medicine (Routine) - Closed Specialty Diagnoses / Procedures Referred By Contac t Referred To Contact Radiology Diagnoses Chest pain, unspecified type Procedures NM myocardial perfusion SPECT,pharm(LEXISCAN) Morris Guerra MD [address] [place] [address] Phone: tel: fax: [facility] [address] [place] [address] Phone: tel: fax: Referral ID Status Reason Start Date Expiration Date Visits Re quested Visits Authorized [id number] Closed 08/08/2024 08/08/2025 1 4 Reason for Visit * Nuclear Medicine (Routine) - Closed Specialty Diagnoses / Procedures Referred By Contac t Referred To Contact Radiology Diagnoses Chest pain, unspecified type Procedures NM myocardial perfusion SPECT,pharm(LEXISCAN) Morris Guerra MD [address] [place] [address] Phone: tel: fax: [facility] [address] [place] [address] Phone: tel: fax: Referral ID Status Reason Start Date Expiration Date Visits Re quested Visits Authorized [id number] Closed 08/08/2024 08/08/2025 1 4 Encounter Details Date Type Department Care Team (Late st Contact Info) Description 08/22/2024 8:46 AM EDT - 08/22/2024 8:47 AM EDT Hospital Encounter [facility] [address] [place] [address] Morris Guerra MD [address] [facility] [address] [place] [address] Chest pain, unspecified type Discharge Disposition: Home or Self Care Social History Tobacco Use Types Packs/Day Years Used Date Smoking Tobacco: Never Passive Smoke Exposure: Past Smokeless Tobacco: Never Alcohol Use Standard Drinks/Week Comments Not Currently 0 (1 standard drink = 0.6 oz pur e alcohol) Utilities Answer Date Recorded In the past 12 months, has t he electric, gas, oil, or water company threatened to shut off services in your home? No 10/13/2023 Interpersonal Safety Answer Date Record ed How often does anyone, priscilla zhao family and friends, physically hurt you? Never 11/23/2023 How often does anyone, priscilla zhao family and friends, insult or talk down to you? Never 11/23/2023 How often does anyone, priscilla zhao family and friends, threaten you with harm? Never 11/23/2023 How often does anyone, priscilla zhao family and friends, scream or curse at you? Never 11/23/2023 Housing Stability Answer Date Recorded What is your living situation today? I have a [facility] place to live 11/23/[address] you li ve. Do you have problems with any of the following? None of the above 11/23/2023 Food Insecurity Answer Date Recorded Within the past 12 months, y ou worried that your food would run out before you got money to buy more. Never true 11/23/2023 Within the past 12 months, t he food you bought just didn't last and you didn't have money to get more. Never true 11/23/2023 Transportation Needs Answer Date Record ed In the past 12 months, has l ack of reliable transportation kept you from medical appointments, meetings, work or from getting things needed for daily living? No 11/23/2023 Financial Resource Strain Answer Date R ecorded How hard is it for you to pa y for the very basics like food, housing, medical care, and heating? Would you say it is: Not hard at all 11/23/2023 Employment Answer Date Recorded Do you want help finding or keeping work or a job? I do not need or want help 11/23/2023 Family and Community Support Answer Frank e Recorded If for any reason you need h elp with day-to-day activities such as bathing, preparing meals, shopping, managing finances, etc., do you get the help you need? I don't need any help 11/23/2023 Feeling Lonely or Isolated 0 11/22 Educational Attainment Answer Date Damon rded Do you speak a language other than Iranian at [facility]? No 11/23/2023 Do you want help with school or training? For example, starting or completing job training or getting a high school diploma, GED or equivalent. No 11/23/2023 Physical Activity Answer Date Recorded Number of minutes of exercise per week 0 11/23/2023 Alcohol Use Answer Date Recorded 5 or More Drinks Per Day Past 12 Months 0 03/06/2024 Depression Answer Date Recorded Calculation of above two rows 0 Stress Answer Date Recorded Stress means a situation in which a person feels tense, restless, nervous, or anxious, or is unable to sleep at night because his or her mind is troubled all the time. Do you feel this kind of stress these days? Not at all 11/23/2023 Disabilities Answer Date Recorded Because of a physical, menta l, or emotional condition, do you have serious difficulty concentrating, remembering, or making decisions? (5 years or older) No 11/23/2023 Because of a physical, menta l, or emotional condition, do you have difficulty doing errands alone such as visiting a doctor's office or shopping? (15 years or older) No 11/23/2023 Substance Use Answer Date Recorded How many times in the past y ear have you used prescription drugs for non-medical reasons? Never 11/23/2023 How many times in the past year have you used [place] legal drugs? Never 11/23/2023 Sex and Gender Information Value Date Recorded Sex Assigned at Not on file Legal Sex Male 5:41 PM CDT Gender Identity Not on file Sexual Orientation Not on file documented as of this encounter Functional Status * Are you deaf or do you have serious difficulty hearing? Answer Date of Assessment Author No 10/15/2023 9:31 AM RAIT Murali Armando RN * Are you blind or do you have serious difficulty seeing, even when wearing glasses? Answer Date of Assessment Author No 10/15/2023 9:31 AM Murali Nguyen RN * Do you have serious difficulty walking or climbing stairs? Answer Date of Assessment Author No 10/15/2023 9:31 AM Murali Nguyen RN * Do you have serious difficulty dressing or bathing? Answer Date of Assessment Author No 10/15/2023 9:31 AM Murali Nguyen RN * Because of a physical, mental, or emotional condition, do you have serious difficulty doing errandsalone such as visiting the doctor? Answer Date of Assessment Author No 10/15/2023 9:31 AM Murali Nguyen RN documented as of this encounter Mental Status * Because of a physical, mental, or emotional condition, do you have serious difficulty concentrating, remembering, or making decisions? (5 years old or older) Answer Entry Date Author No 10/15/2023 9:31 AM Murali Nguyen RN documented in this encounter Medications at Time of Discharge acyclovir (ZOVIRAX) 400 MG tablet Take 1 tablet (400 mg total) by mouth 2 (two) times daily. 06/03/2023 amiodarone (PACERONE) 200 MG tablet Take 1 tablet (200 mg total) by mouth 2 (two) times daily. 60 tablet 4 06/21/2024 aspirin 81 MG EC tablet Take 1 tablet (81 mg total) by mouth daily. 0 11/30/2023 cyanocobalamin (VITAMIN B-12) 1000 MCG tablet Take 1 tablet (1,000 mcg total) by mouth daily. dexAMETHasone (DECADRON) 4 MG tablet Take 10 tablets (40 mg total) by mouth once a week. dextromethorpha n-bupropion (Auvelity) 45-105 mg TbIE Take 1 tablet by mouth 2 (two) times daily. empagliflozin (Jardiance) 25 mg tablet Take 1 tablet (25 mg total) by mouth daily. fenofibric acid, choline, 135 mg capsule Take 1 capsule (135 mg total) by mouth daily. 90 capsule 3 02/29/2024 ferrous sulfate 325 (65 FE) MG tablet Take 1 tablet (325 mg total) by mouth daily with breakfast. furosemide (Furoscix) 80 mg/10 mL kit Inject 80 mg subcutaneously as needed. 8 kit 11 03/09/2024 furosemide (LASIX) 20 MG tablet Take 1 tablet (20 mg total) by mouth as directed Take 1 tablet daily plus as needed.. 45 tablet 11 03/09/2024 insulin glargine (Lantus Solostar U-100 Insulin) 100 unit/mL (3 mL) InPn Inject 10 Units under the skin nightly. magnesium oxide (MAG-OX) 400 mg tablet TAKE (1) TABLET BY MOUTH TWICE A DAY. 90 tablet 3 06/11/2024 metFORMIN (GLUCOPHAGE-XR) 500 MG 24 hr tablet Take 2 tablets (1,000 mg total) by mouth 2 (two) times daily. metoprolol succinate (TOPROL-XL) 100 MG 24 hr tablet Take 1 tablet (100 mg total) by mouth 2 (two) times daily. 180 tablet 3 05/08/2024 multivitamin per tablet Take 1 tablet by mouth daily. nitroglycerin (NITROLINGUAL) 400 mcg/spray spray PLACE 1 SPRAY UNDER THE TONGUE EVERY 5 MINUTES NEEDED. 12 g 2 06/26/2024 omega 2-agf-hkd-fish oil (Fish OiL) capsule Take 1 capsule (1,000 mg total) by mouth daily. pantoprazole (PROTONIX) 40 MG tablet Take 1 tablet (40 mg total) by mouth daily. pomalidomide (Pomalyst) 3 mg Cap Take 1 capsule by mouth daily Takes daily for 21 days then 7 days off. potassium chloride SA (K-DUR,KLOR-CON -M) 20 MEQ tablet Take 1 tablet (20 mEq total) by mouth 2 (two) times daily. ramipriL (ALTACE) 10 MG capsule Take 1 capsule (10 mg total) by mouth 2 (two) times daily. semaglutide (Ozempic) 2 mg/dose (8 mg/3 mL) pnij Inject 2 mg subcutaneously once a week Takes on Tuesday. 9 mL 3 03/28/2024 traZODone (DESYREL) 50 MG tablet Take 1 tablet (50 mg total) by mouth nightly. 03/07/2024 rivaroxaban (XARELTO) 20 mg tablet Take 1 tablet (20 mg total) by mouth daily with dinner. 0 11/30/2023 rosuvastatin (CRESTOR) 20 MG tablet Take 1 tablet (20 mg total) by mouth nightly. 5 tamsulosin (FLOMAX) 0.4 mg cap 24 hr capsule Take by mouth daily. vibegron (Gemtesa) 75 mg tab Take 1 tablet (75 mg total) by mouth daily. 5 documented as of this encounter Plan of Treatment Upcoming Encounters Date Type Department Care Team (Late st Contact Info) Description 10/31/2024 10:15 AM EDT Office Visit [facility] Cardiology [facility] [address] [place] [address] Morris Guerra MD [address] [place] [address] [place] [address] documented as of this encounter Procedures Procedure Name Priority Date/Time Associated Diagnosis Comments NM MYOCARDIAL PERFUSION SPECT, PHARM Routine 08/22/2024 10:56 AM EDT Chest pain, unspecified type documented in this encounter Results * NM myocardial perfusion SPECT,pharm(LEXISCAN) (08/22/2024 10:56 AM EDT) Anatomical Region Laterality Modality Nuclear Medicine Narrative 08/22/2024 5:37 PM EDT LEXISCAN MYOVIEW INDICATION: Chest pain, dyspnea. REFERRING PHYSICIAN: Dr. Teresa Evans RESTING ELECTROCARDIOGRAM: Sinus rhythm, nonspecific ST-T wave changes. LEXISCAN STRESS: Standard Lexiscan stress protocol. Peak heart rate response of 81 beats per minute, blood pressure response to 109/56 mmHg were achieved. There was no chest discomfort. Intermittent premature ventricular contractions. The stress electrocardiogram is negative for ischemic ST changes. 11 mCi of Myoview was administered prior to rest scan and 32.5 mCi prior to the post stress scan. MYOVIEW PERFUSION DATA: Reversible defect: Basal and mid anterolateral reversible defect. Fixed defects: Moderate basal, mid, distal fixed inferior defect. Left ventricular function: Gated measurement of left ventricular systolic function post-stress was 56%. No regional wall motion abnormality. IMPRESSION: Abnormal Lexiscan Myoview perfusion study. Moderately abnormal basal and mid anterolateral reversible defect consistent with ischemia. Fixed inferior defect could represent scar or diaphragmatic attenuation. Normal left ventricular systolic function post stress. Morris Guerra MD [facility] [place] ORDER[place]LES Final Result documented in this encounter Visit Diagnoses Diagnosis Chest pain, unspecified type documented in this encounter Administered Medications Inactive Administered Medications - up to 3 most recent administrations Medication Order MAR Action Action Date Dose Rate Site regadenoson (LEXISCAN) injection 0.4 mg 0.4 mg Once, intravenous, On Tue08/22/24 at 1000, For 1 dose Given 08/22/2024 10:22 AM EDT 0.4 mg Tc-99m - tetrofosmin (MYOVIEW) 11 millicurie 11 millicurie Once, intravenous, On Tue08/22/24 at 1000, For 1 dose Given 08/22/2024 10:22 AM EDT 11 millicuries Tc-99m - tetrofosmin (MYOVIEW) 32.5 millicurie 32.5 millicurie Once, intravenous, On Tue08/22/24 at 1100, For 1 dose Given 08/22/2024 10:22 AM EDT 32.5 millicuries documented in this encounter Care Teams Communications Director Relationship Specialty Start Date End Date Teresa Evans MD [address] [place] [address] PCP - General General Internal Medicine 07/28/22 documented as of this encounter
--- OUTSIDE RECORDS SUMMARY | 2024-08-22 08:48 | XMS_ITS | Encounter Summary ---
Author Organization [employer] Address [address] [place] [address] Care Team Providers Care Oil Derrick Operator Name Role Phone Teresa Evans MD Primary Care Provider +1- [phone] Reason for Visit * Nuclear Medicine (Routine) - Closed Specialty Diagnoses / Procedures Referred By Contac t Referred To Contact Radiology Diagnoses Chest pain, unspecified type Procedures NM myocardial perfusion SPECT,pharm(LEXISCAN) Morris Prescott MD [address] [place] [address] Phone: tel: fax: [facility] Nuclear Medicine [address] [place] [address] Phone: tel: fax: Referral ID Status Reason Start Date Expiration Date Visits Re quested Visits Authorized [id number] Closed 08/08/2024 08/08/2025 1 4 Encounter Details Date Type Department Care Team (Late st Contact Info) Description 08/22/2024 8:48 AM EDT - 08/22/2024 11:59 PM EDT Hospital Encounter [facility] Nuclear Medicine [address] [place] [address] Morris Prescott MD [address] [place] [address] Discharge Disposition: Home or Self Care Social [...] living situation today? I have a [facility] place to live 11/23/2023 Think about [...] Do you speak a language other than Venezuelan at [facility]? No 11/23/2023 Do you want help with [...] 9:31 AM RAIT Murali Armando RN * Do you have serious difficulty walking or climbing stairs? Answer Date of Assessment Author No 10/15/2023 9:31 AM RAIMurali Patricia RN * Do you have serious difficulty [...] MINUTES NEEDED. 12 g 2 06/26/2024 omega 9-gyn-rvj-fish oil (Fish OiL) capsule Take 1 capsule [...] by mouth daily with dinner. 0 11/30/2023 5 rosuvastatin (CRESTOR) 20 MG tablet Take 1 tablet (20 mg total) by mouth nightly. 5 tamsulosin (FLOMAX) 0.4 mg cap 24 hr capsule Take by mouth daily. 5 vibegron (Gemtesa) 75 mg tab Take 1 tablet (75 mg total) by mouth daily. documented as of this encounter Plan of Treatment Upcoming Encounters Date Type Department Care Team (Late st Contact Info) Description 10/31/2024 10:15 AM EDT Office Visit [facility] Cardiology [facility] [address] [place] [address] oMrris Prescott MD [address] [place] [address] [place] [address] documented as of this encounter Procedures Procedure Name Priority Date/Time Associated Diagnosis Comments NM MYOCARDIAL PERFUSION SPECT, PHARM Routine 08/22/2024 10:56 AM EDT Chest pain, unspecified type [id number] ESS_IMAGING Routine 08/22/2024 10:09 AM EDT documented in this encounter Results * ECG Stress Imaging (08/22/2024 10:09 AM EDT) Erick Diagnosis Stress data only-PHYSICI AN REPORT PENDING Carol Myers RN Confirmed by Margareth PRESCOTT STEVE ([id number]), newspaper copy editor VILMA Peñaloza Jamison ([id number]) on 08/22/2024 10:37:40 AM GE MUSE 08/22/2024 10:0 9 AM EDT 08/22/2024 10:37 AM EDT us Morris Prescott MD ECG ORDERABLES Final Result GE MUSE documented in this encounter Visit Diagnoses Not on filedocumented in this encounter Care Teams Oil Derrick Operator Relationship Specialty Start Date End Date Teresa Evans MD [address] [place] [address] PCP - General General Internal Medicine 07/28/22 documented as of this encounter
--- OUTSIDE RECORDS SUMMARY | 2024-08-22 08:48 | XMS_ITS | Encounter Summary ---
Author Organization [employer] Address [address] [place] [address] Care Team Providers Care Precision Instrument Maker Name Role Phone Teresa Evans MD Primary Care Provider +1- [phone] Reason for Visit * Nuclear Medicine (Routine) - Closed Specialty Diagnoses / Procedures Referred By Contac t Referred To Contact Radiology Diagnoses Chest pain, unspecified type Procedures NM myocardial perfusion SPECT,pharm(LEXISCAN) Morris Guerra MD [address] [place] [address] Phone: tel: fax: [facility] Nuclear Medicine [address] [place] [phone] Phone: tel: fax: Referral ID Status Reason Start Date Expiration Date Visits Re quested Visits Authorized [id number] Closed 08/08/2024 08/08/2025 1 4 Encounter Details Date Type Department Care Team (Late st Contact Info) Description 08/22/2024 8:48 AM EDT - 08/22/2024 11:59 PM EDT Hospital Encounter [facility] Nuclear Medicine [address] [place] [phone] Morris Guerra MD [address] [place] [address] Discharge Disposition: Home or Self Care Social [...] your living situation today? I have a [facility] place to live 11/23/2023 Think about the [...] Do you speak a language other than Malawian at [facility]? No 11/23/2023 Do you want help [...] MINUTES NEEDED. 12 g 2 06/26/2024 omega 7-ezz-tko-fish oil (Fish OiL) capsule Take 1 capsule [...] Description 10/31/2024 10:15 AM EDT Office Visit [facility] Cardiology [facility] [address] [place] [address] Morris Guerra MD [address] [place] [address] [place] [address] documented as of this encounter Procedures Procedure [...] systolic function post stress. Morris Guerra MD [facility] NM ORDERABLES Final Result documented in this encounter Visit Diagnoses Not on filedocumented in this encounter Care Teams Precision Instrument Maker Relationship Specialty Start Date End Date Teresa Evans MD [address] [place] [address] PCP - General General Internal Medicine 07/28/22 documented as of this encounter
--- OUTSIDE RECORDS SUMMARY | 2024-09-07 22:01 | XMS_ITS | Continuity of Care Document ---
Author Organization [facility] Phone Care Team Providers Care Fire Eater Name Role Phone MANE CABELLO Unavailable MANE CABELLO Primary Attending MANE CABELLO Admitting YANA KAHN Primary Care ALLERGIES AND ADVERSE REACTIONS ALLERGIES AND ADVERSE REACTIONS Code System Allergy Substance Adverse Reaction Date Reaction (Severity) Comment [place] [id number] RXNorm AVANDIA Shortness of breath/diffic ulty breathing (Severe) Shock active [id number] on September 05, 2024 5:32:23 PM UT FAMILY HISTORY RELATION: Father Status: Cause of : Unknown Age at : Unknown SNOMED-CT Diagnosis Age At Onset Information not available RELATION: Mother Status: Cause of : Unknown Age at : Unknown SNOMED-CT Diagnosis Age At Onset Information not available RESULTS Patient: LA Go Date of : 1955 LABORATORY RESULTS ORDER 100: CBC WITH AUTO DIF F (LOINC: 47839-3) ORDER DATE: September 05, 2024 5:34:00 PM UT Specimen Source: WHOLE BLOOD Specimen Type: Whole blood s ample PERFORMING LAB: [address] [id number] Result Comment: Final Result Date: September 05, 2024 5:59:00 PM UT (TECH: MDQ) LOINC TEST FLAG [place] [address]-0 Leukocytes [#/volume] in Blood LL 0.7 10^3/ul 4.5 10^3/ul - 11.5 10^3/ul September 05, 2024 5:59:00 PM UT (TECH: MDQ) 78456-8 Erythrocytes [#/volume] in Blood L 2.60 10^6/ul 4.60 10^6/ul - 6.00 10^6/ul September 05, 2024 5:59:00 PM UTC (TECH: MDQ) 718-7 Hemoglobin [Mass/volume] in Blood L 9.0 g/dL 14.0 g/dL - 18.0 g/dL September 05, 2024 5:59:00 PM UTC (TECH: MDQ) 46473-8 Hematocrit [Volume Fraction] of Blood L 25.2 % 40.0 % - 54.0 % September 05, 2024 5:59:00 PM UTC (TECH: MDQ) 10734-0 MCV [Entitic volume] N 96.9 fL 80 fL - 100 fL September 05, 2024 5:59:00 PM UTC (TECH: MDQ) 28504-2 MCH [Entitic mass] N 31.5 pg 26 pg - 32 pg September 05, 2024 5:59:00 PM UTC (TECH: MDQ) 98084-5 MCHC [Mass/volume] N 32.5 g/dl 32 g/d l - 36 g/dl September 05, 2024 5:59:00 PM UTC (TECH: MDQ) 76522-4 Erythrocyte distribution width [Entitic volume] H 15.3 % 11.5 % - 14.5 % September 05, 2024 5:59:00 PM UTC (TECH: MDQ) 777-3 Platelets [#/volume] in Blood by Automated count L 37 10^3/ul 150 10^3/ul - 450 10^3/ul September 05, 2024 5:59:00 PM UTC (TECH: MDQ) 84942-4 Mean platelet component [Mass/volume] in Blood by calculation N 9.8 fL 6.8 fL - 10.2 fL September 05, 2024 5:59:00 PM UTC (TECH: MDQ) 67577-9 Manual Differential panel - Blood N SCAN OK September 05, 2024 5:59:00 PM UTC (TECH: MDQ) 81808-3 Neutrophils [#/volume] in Blood L 40 % 50 % - 70 % September 05, 2024 5:59:00 PM UTC (TECH: MDQ) 44134-7 Lymphocytes [#/volume] in Blood N 31 % 18 % - 42 % September 05, 2024 5:59:00 PM UTC (TECH: MDQ) 94397-5 [place] black BN triggered leukotriene release [Mass/volume] by Leukocytes N 3 % 0 % - 5 % September 05, 2024 5:59:00 PM UTC (TECH: MDQ) 74297-2 Monocytes [#/volume] in Blood H 20 % 2 % - 11 % September 05, 2024 5:59:00 PM UTC (TECH: MDQ) 23594-0 Eosinophils [#/volume] in Blood H 6 % 1 % - 3 % September 05, 2024 5:59:00 PM UTC (TECH: MDQ) 91789-4 Basophils/100 leukocytes in Blood N 0 % 0.0 % - 2.0 % September 05, 2024 5:59:00 PM UTC (TECH: MDQ) 762-5 Neutrophils [#/volume] in Urine by Manual count L 0.3 K/uL 2.0 K/uL - 6.9 K/uL September 05, 2024 5:59:00 PM UTC (TECH: MDQ) 17184-8 Variant lymphocytes [#/volume] in Blood L 0.2 K/uL 0.6 K/uL - 3.4 K/uL September 05, 2024 5:59:00 PM UTC (TECH: MDQ) 48371-5 Monocytes [#/volume] in Blood N 0.1 K/uL 0.0 K/uL - 0.9 K/uL September 05, 2024 5:59:00 PM UTC (TECH: MDQ) 56361-0 Eosinophils [#/volume] in Blood N 0.0 K/ul 0.0 K/ul - 0.7 K/ul September 05, 2024 5:59:00 PM UTC (TECH: MDQ) 91674-1 Basophils [#/volume] in Blood N 0.0 K/uL 0.0 K/uL - 0.2 K/uL September 05, 2024 5:59:00 PM UTC (TECH: MDQ) ORDER 200: COMPREHENSIVE MET ABOLIC PANEL (LOINC: 68133-6) ORDER DATE: September 05, 2024 5:34:00 PM UTC Specimen Source: PLASMA Specimen Type: Plasma specim en PERFORMING LAB: [address] [id number] Result Comment: Final Result Date: September 05, 2024 6:08:00 PM UTC (TECH: MDQ) LOINC TEST FLAG RESULT REFERENCE RANGE UPDA LUIZ BY 2947-0 Sodium [Moles/volume ] in Blood N 142 mmol/L 136 mmol/L - 145 mmol/L September 05, 2024 6:08:00 PM UTC (TECH: MDQ) 6298-4 Potassium [Moles/volume] in Blood N 4.1 mmol/L 3.5 mmol/L - 5.1 mmol/L September 05, 2024 6:08:00 PM UTC (TECH: MDQ) 9-3 Chloride [Moles/volu me] in Blood N 103 mmol/L 98.0 mmol/L - 107.0 mmol/L September 05, 2024 6:08:00 PM UTC (TECH: MDQ) 51331-7 Carbon dioxide, tota l [Moles/volume] in Blood L 14 mmol/L 21 mmol/L - 32 mmol/L September 05, 2024 6:08:00 PM UTC (TECH: MDQ) 76039-8 Anion gap 3 in Serum or Plasma H 29.1 mmol/L 5.0 mmol/L - 15.0 mmol/L September 05, 2024 6:08:00 PM UTC (TECH: MDQ) 2339-0 Glucose [Mass/volume ] in Blood H 156 mg/dL 70 mg/dL - 120 mg/dL September 05, 2024 6:08:00 PM UTC (TECH: MDQ) 3094-0 Urea nitrogen [Mass/volume] in Serum or Plasma N 9 mg/dl 7 mg/dl - 18 mg/dl September 05, 2024 6:08:00 PM UTC (TECH: MDQ) 49963-2 Creatinine [Moles/volume] in Serum or Plasma N 0.9 mg/dL 0.8 mg/dL - 1.3 mg/dL September 05, 2024 6:08:00 PM UTC (TECH: MDQ) 3097-3 Urea nitrogen/Creatinine [Mass Ratio] in Serum or Plasma N 10.0 Ratio 9 Ratio - 21 Ratio September 05, 2024 6:08:00 PM UTC (TECH: MDQ) 50605-9 Glomerular filtratio n rate/1.73 sq M.predicted [Volume Rate/Area] in Serum or Plasma by Creatinine-based formula (MDRD) N >60 mL/min 60.0 mL/min September 05, 2024 6:08:00 PM UT (TECH: MDQ) 80916-2 Calcium [Mass/volume ] in Blood N 9.2 mg/dL 8.6 mg/dL - 9.8 mg/dL September 05, 2024 6:08:00 PM UT (TECH: MDQ) 17526-4 Bilirubin direct and total panel [Mass/volume] - Serum or Plasma H 1.1 mg/dL 0.2 mg/dL - 1.0 mg/dL September 05, 2024 6:08:00 PM UT (TECH: MDQ) 1920-8 Aspartate aminotransferase [Enzymatic activity/volume] in Serum or Plasma N 15 IU/L 15 IU/L - 37 IU/L September 05, 2024 6:08:00 PM UT (TECH: MDQ) 1742-6 Alanine aminotransferase [Enzymatic activity/volume] in Serum or Plasma N 19 IU/L 12 IU/L - 78 IU/L September 05, 2024 6:08:00 PM UT (TECH: MDQ) 6768-6 Alkaline phosphatase [Enzymatic activity/volume] in Serum or Plasma L 39 IU/L 46 IU/L - 116 IU/L September 05, 2024 6:08:00 PM UT (TECH: MDQ) 2885-2 Protein [Mass/volume ] in Serum or Plasma L 5.9 g/dL 6.4 g/dL - 8.2 g/dL September 05, 2024 6:08:00 PM UT (TECH: MDQ) 1751-7 Albumin [Mass/volume ] in Serum or Plasma L 3.0 g/dl 3.4 g/dl - 5.0 g/dl September 05, 2024 6:08:00 PM UTC (TECH: MDQ) 2336-6 Globulin [Mass/volum e] in Serum N 2.9 g/dl 1.3 g/dl - 3.5 g/dl September 05, 2024 6:08:00 PM UT (TECH: MDQ) 38365-8 Albumin/Globulin [Ma ss Ratio] in Pleural fluid N 1.0 Ratio 1.0 Ratio - 3.9 Ratio September 05, 2024 6:08:00 PM UTC (TECH: MDQ) 46729-2 Osmolality of Urine by calculation N 285 mOsm/kg 272 mOsm/kg - 295 mOsm/kg September 05, 2024 6:08:00 PM UTC (TECH: MDQ) ORDER 300: TROPONIN I (LOINC : 18099-3) ORDER DATE: September 05, 2024 5:34:00 PM UTC Specimen Source: PLASMA Specimen Type: Plasma specim en PERFORMING LAB: [address] [id number] Result Comment: Final Result Date: September 05, 2024 6:08:00 PM UTC (TECH: MDQ) LOINC TEST FLAG [place] [address]-7 Troponin I.cardiac [Mass/volume] in Serum or Plasma N 45 pg/ml September 05, 2024 6:08:00 PM UTC (TECH: MDQ) 00266-4 Time of initial encounter N YES YES/NO/UNK September 05, 2024 6:08:00 PM UTC (TECH: MDQ) 91821-8 Report comment Narrative N NO SEE COMMENTS September 05, 2024 6:08:00 PM UTC (TECH: MDQ) ORDER 400: MAGNESIUM (LOINC: 53811-9) ORDER DATE: September 05, 2024 5:34:00 PM UTC Specimen Source: PLASMA Specimen Type: Plasma specim en PERFORMING LAB: [address] [id number] Result Comment: Final Result Date: September 05, 2024 6:08:00 PM UTC (TECH: MDQ) LOINC TEST FLAG [place] [address]-4 Magnesium [Mass/volume] in Serum or Plasma L 1.7 mg/dl 1.8 mg/dl - 2.4 mg/dl September 05, 2024 6:08:00 PM UTC (TECH: MDQ) ORDER 500: LACTIC ACID (LOIN C: 93566-4) ORDER DATE: September 05, 2024 5:34:00 PM UTC Specimen Source: NAFL/KOX PL ASMA Specimen Type: Plasma specim en PERFORMING LAB: [address] [id number] Result Comment: Final Result Date: September 05, 2024 6:10:00 PM UTC (TECH: MDQ) LOINC TEST FLAG [place] [address]-9 Lactate [Moles/volume] in Blood N 1.9 mmol/L 0.4 mmol/L - 1.9 mmol/L September 05, 2024 6:10:00 PM UTC (TECH: MDQ) ORDER 600: UA-CULTURE IF IND ICATED (LOINC: 15075-7) ORDER DATE: September 05, 2024 5:34:00 PM UTC Specimen Source: URINE Specimen Type: Urine specime n PERFORMING LAB: [address] [id number] Result Comment: Final Result Date: September 05, 2024 7:43:00 PM UTC (TECH: MDQ) LOINC TEST FLAG RESULT REFERENCE RANGE UPDA LUIZ BY 5778-6 Color of Urine N YELLOW YELLOW August 232024 7:43:00 PM UTC (TECH: MDQ) 31339-0 Clarity of Urine HAZY CLEAR September 05, 2024 7:43:00 PM UTC (TECH: MDQ) 75573-7 Glucose [Moles/volume] in Urine 3+ NEGATIVE September 05, 2024 7:43:00 PM UTC (TECH: MDQ) 1977-8 Bilirubin.total [Presence] in Urine N NEGATIVE NEGATIVE September 05, 2024 7:43:00 PM UTC (TECH: MDQ) 19854-7 Ketones [Presence] in Urine N NEGATIVE NEGATIVE September 05, 2024 7:43:00 PM UTC (TECH: MDQ) 2965-2 Specific gravity of Urine N 1.010 1.00 - >=1.030 September 05, 2024 7:43:00 PM UTC (TECH: MDQ) 10243-6 Blood [Presence] in Urine by Visual 1+ NEGATIVE September 05, 2024 7:43:00 PM UTC (TECH: MDQ) 2756-5 pH of Urine N 6.0 5 - 8 September 05, 2024 7:43:00 PM UTC (TECH: MDQ) 2887-8 Protein [Presence] in Urine TRACE NEGATIVE September 05, 2024 7:43:00 PM UTC (TECH: MDQ) 56116-3 Urobilinogen [Presence] in Urine 1.0 mg/dL 0.2 - 1.0 September 05, 2024 7:43:00 PM UTC (TECH: MDQ) 62769-1 Nitrite [Presence] in Urine N NEGATIVE NEGATIVE September 05, 2024 7:43:00 PM UTC (TECH: MDQ) 87842-7 Leukocyte esterase [Units/volume] in Urine N NEGATIVE NEGATIVE September 05, 2024 7:43:00 PM UTC (TECH: MDQ) 38413-6 Urinalysis microscopic panel - Urine sediment N PERFORMED September 05, 2024 7:43:00 PM UTC (TECH: MDQ) 48255-0 Leukocytes [#/volume] in Urine 3-5 /hpf NONE SEEN September 05, 2024 7:43:00 PM UTC (TECH: MDQ) 15959-3 Urinalysis dipstick W Reflex Culture panel - Urine 10-20 /hpf NONE SEEN September 05, 2024 7:43:00 PM UTC (TECH: MDQ) 99525-7 Epithelial cells [#/volume] in Urine 0-3 /lpf NONE SEEN September 05, 2024 7:43:00 PM UTC (TECH: MDQ) 60331-7 Bacteria identified in Specimen N TRACE NONE SEEN September 05, 2024 7:43:00 PM UTC (TECH: MDQ) 25744-6 Collection method - N CCMS September 05, 2024 7:43:00 PM UTC (TECH: MDQ) 65383-8 Culture medium [Type] in Isolate N C&S ORDERED September 05, 2024 7:43:00 PM UTC (TECH: MDQ) ORDER 900: ARTERIAL BLOOD GA S (LOINC: 27300-6) ORDER DATE: September 05, 2024 6:11:00 PM UTC Specimen Source: WHOLE BLOOD Specimen Type: Whole blood s ample PERFORMING LAB: [address] [id number] Result Comment: Final Result Date: September 05, 2024 7:00:00 PM UTC (TECH: DP) LOINC TEST FLAG RESULT REFERENCE RANGE UPDA LUIZ BY 2744-1 pH of Arterial blood N 7.45 7.35 - 7. 45 September 05, 2024 7:00:00 PM UTC (TECH: DP) 2019-8 Carbon dioxide [Partial pressure] in Arterial blood L 34.7 mm[Hg] 35.0 mm[Hg] - 45.0 mm[Hg] September 05, 2024 7:00:00 PM UTC (TECH: DP) 62667-4 Oxygen [Partial pressure] adjusted to patient's actual temperature in Blood L 74 mm[Hg] 80 mm[Hg] - 100 mm[Hg] September 05, 2024 7:00:00 PM UTC (TECH: DP) 1960-4 Bicarbonate [Moles/volume] in Arterial blood N 23.6 mmol/L 22.0 mmol/L - 26.0 mmol/L September 05, 2024 7:00:00 PM UTC (TECH: DP) 5-7 Base excess in Arterial blood by calculation N -0.2 mmol/L -2.0 September 05, 2024 7:00:00 PM UTC (TECH: DP) 2025-3 Carbon dioxide, total [Moles/volume] in Arterial blood N 24.6 mmol/L 23 mmol/L - 27 mmol/L September 05, 2024 7:00:00 PM UTC (TECH: DP) 89924-2 Oxygen saturation in Blood N 94.0 % 90.0 % - 100.0 % September 05, 2024 7:00:00 PM UTC (TECH: DP) 57642-6 Fractional oxyhemoglobin in Blood L 91.2 % 94.0 % - 98.0 % September 05, 2024 7:00:00 PM UTC (TECH: DP) 64740-2 Carboxyhemoglobin/He moglobin.total in Blood H 2.7 % 0.5 % - 1.5 % September 05, 2024 7:00:00 PM UTC (TECH: DP) 2614-6 Methemoglobin/Hemogl obin.total in Blood N 0.3 % 0.0 % - 1.5 % September 05, 2024 7:00:00 PM UTC (TECH: DP) 23064-6 Oxygen/Gas total [Pure volume fraction] Inhaled gas N 21 % September 05, 2024 7:00:00 PM UTC (TECH: DP) 49585-9 Device name N ROOM AIR September 05, 2024 7:00:00 PM UTC (TECH: DP) 39259-8 Body site N R RADIAL September 05 7:00:00 PM UTC (TECH: DP) 69209-6 Arterial patency Wrist artery --pre arterial puncture N ACCEPTABLE September 05, 2024 7:00:00 PM UTC (TECH: DP) ORDER 1000: D-DIMER QUANTITA TIVE (LOINC: 7799-0) ORDER DATE: September 05, 2024 6:11:00 PM UTC Specimen Source: NA CIT PLAS MA Specimen Type: Plasma specim en with citrate PERFORMING LAB: [address] [id number] Result Comment: Final Result Date: September 05, 2024 6:29:00 PM UTC (TECH: MDQ) LOINC TEST FLAG [place] [address]-9 Fibrin D-dimer [Titer] in Platelet poor plasma N 0.24 mg/L FEU .19 mg/L FEU - .59 mg/L FEU September 05, 2024 6:29:00 PM UTC (TECH: MDQ) LABORATORY NARRATIVE RESULTS Information is not available RADIOLOGY RESULTS ORDER 800: CHEST PA AND LAT (LOINC: 37512-3) ORDER DATE: September 05, 2024 5:34:00 PM UTC PERFORMING LAB: [address] [id number] Final Result Date: September 05 6:32:[address] [place] [address] Name: NISHANT TOVAR Exam Date: 09/05/2024 : 1955 Age 68 years Gender: M Physician: MANE CABELLO Facility: [facility] HSV: Outpatient Exam: CHEST PA AND LAT EXAM DESCRIPTION: CHEST PA AND LAT CLINICAL HISTORY: 68 years Male, Cough without fever COMPARISON: 05/23/2024 FINDINGS: No pneumothorax, pleural effusion or focal or diffuse infiltrate is seen. Heart size is borderline. Pulmonary vascularity is within normal limits. There is bony spurring between the first and second ribs bilaterally, possibly related to second rib osteochondromas or developmental abnormality. There is an old fracture posterolateral right 10th rib. Findings present previously. IMPRESSION: No acute cardiopulmonary process. Electronically signed by: Galdino Ayala MD 09/05/2024 02:33 PM EDT Dictated By: GALDINO AYALA Transcribed By: Transcribed On: 09/05/2024 2:32 PM Electronically signed by: GALDINO AYALA 09/05/2024 Thank you for referring NISHANT TOVAR to [facility]. Legally authenticated by LUCY Go 2024-09-05 14:32:27 PATHOLOGY NARRATIVE RESULTS Information is not available MICROBIOLOGY RESULTS No Micro Labs/Results Exist for Patient BLOOD ADMIN RESULTS Information is not available MEDICATIONS HOME MEDICATIONS Status RXNORM [facility] Medication Dose Route Frequency Dates Comments Reported By Updated By Active [id number] 79033 56622 4 acyclovir 400 mg tablet 0.0 Last Dose: BID [id number] on September 05, 2024 6:00:12 PM [facility] Active 566875 38715 99814 0 amiodarone 200 mg tablet 0.0 MG Last Dose: BID [id number] on September 05, 2024 6:00:13 PM [facility] Active 693313 35097 48929 2 aspirin 81 mg tablet 0.0 Last Dose: daily [id number] on September 05, 2024 6:00:13 PM [facility] Active 7413303 19104 56120 0 Auvelity 45-105 mg tablet,IR & delayed release,biph asic 0.0 Last Dose: BID [id number] on September 05, 2024 6:00:13 PM [facility] Active FreeT extMe d Trilipix oral 135mg 0.0 Last Dose: daily [id number] on September 05, 2024 6:00:13 PM [facility] Active 27234 00168 2 cyanocobalam in (vitamin B-12) 1,000 mcg tablet 0.0 Last Dose: daily [id number] on September 05, 2024 6:00:14 PM [facility] Active 865573 95215 15754 5 dexamethason e 4 mg tablet 0.0 MG Last Dose: take as directed [id number] on September 05, 2024 6:00:14 PM [facility] Active 72742 38856 2 iron 325 mg (65 mg iron) tablet 0.0 Last Dose: daily [id number] on September 05, 2024 6:00:14 PM [facility] Active 36616 16209 0 Fish Oil 1,000 (120-180) mg capsule 0.0 MG Last Dose: daily [id number] on September 05, 2024 6:00:14 PM [facility] Active 854900 80010 08820 1 furosemide 20 mg tablet 0.0 Last Dose: daily [id number] on September 05, 2024 6:00:14 PM [facility] Active 2922501 85460 00471 1 Furoscix 80 mg/10 mL Kit 0.0 SUBCUT ANEOUS Last Dose: as needed ald4201 on September 05, 2024 6:00:15 PM [facility] Active 3759725 01852 24637 0 Gemtesa 75 mg tablet 0.0 Last Dose: daily [id number] on September 05, 2024 6:00:15 PM [facility] Active 4403621 70073 72947 7 Jardiance 25 mg tablet 0.0 Last Dose: daily [id number] on September 05, 2024 6:00:15 PM [facility] Active FreeT extMe d Lantus Solostar U-100 Insulin subcutaneous 10u 0.0 Last Dose: QHS [id number] on September 05, 2024 6:00:15 PM [facility] Active 93813 99137 8 magnesium oxide 400 mg magnesium capsule 0.0 Last Dose: BID [id number] on September 05, 2024 6:00:16 PM [facility] Active 6512304 77609 87398 0 metformin 1,000 mg Tablet, Extended Release 24 hr 0.0 Last Dose: BID [id number] on September 05, 2024 6:00:16 PM [facility] Active 324359 00467 86183 0 metoprolol succinate 100 mg Tablet, Extended Release 24 hr 0.0 Last Dose: BID [id number] on September 05, 2024 6:00:16 PM [facility] Active 65067 42380 4 multivitamin tablet 0.0 Last Dose: daily [id number] on September 05, 2024 6:00:16 PM [facility] Active 3043767 13593 56456 2 Ozempic 2 mg/dose (8 mg/3 mL) Pen Injector 0.0 SUBCUT ANEOUS Last Dose: weekly [id number] on September 05, 2024 6:00:16 PM [facility] Active 162487 62105 79784 5 pantoprazole 40 mg tablet, delayed release (enteric coated) 0.0 MG Last Dose: daily [id number] on September 05, 2024 6:00:17 PM [facility] Active 3702463 58359 97304 1 Pomalyst 3 mg capsule 0.0 Last Dose: as directed [id number] on September 05, 2024 6:00:17 PM [facility] Active 482104 92836 42735 1 potassium chloride 20 mEq tablet, extended release 0.0 Last Dose: BID ics8234 on September 05, 2024 6:00:17 PM [facility] Active 274136 61622 68093 1 Altace 10 mg capsule 0.0 Last Dose: BID [id number] on September 05, 2024 6:00:17 PM [facility] Active 3581961 44369 32036 1 Xarelto 20 mg tablet 0.0 Last Dose: daily [id number] on September 05, 2024 6:00:17 PM [facility] Active 047449 35759 92714 0 Crestor 40 mg tablet 0.0 Last Dose: QHS [id number] on September 05, 2024 6:00:18 PM [facility] Active 275248 57563 90651 1 Flomax 0.4 mg capsule 0.0 MG Last Dose: QHS [id number] on September 05, 2024 6:00:18 PM [facility] Active 948564 49757 81434 1 trazodone 50 mg tablet 0.0 MG Last Dose: QHS [id number] on September 05, 2024 6:00:18 PM [facility] DISCHARGE MEDICATIONS Status RXNORM NDC Medication Dose Route Frequency Dates Comments Physician Updated By No Discharge Medication Info rmation Available INPATIENT MEDICATIONS Status RXNORM ND Medication Dose Route Frequency Rat e Quantity Dates Comments Physician Updated By No Inpatient Medication Info rmation Available SOCIAL HISTORY SOCIAL HISTORY SNOMED-CT Social History Element Description Effective Dates Offered Cessation Comment UpdatedBy [id number] Current Tobacco smoking status Never Smoked [id number] on September 05, 2024 5:32:34 PM [facility] SOCIAL HISTORY - Gender Sex: Male SOCIAL HISTORY - Status : status i nformation is not available Intention in Next Year: intention information is not available SOCIAL HISTORY - Sexual Behavior Sexual Orientation Gender Identity SNOMED-CT Description SNO MED -CT Description Activity Level No of Partners Partner Type UpdatedBy Information is not available VITAL SIGNS PATIENT VITAL SIGNS This section displays the mo st recent value for each vital sign as of September 08, 2024 2:01:25 AM [facility] Loinc Code Vital Sign Activity Date Result Updated By 8302-2 Body height September 05, 2024 5:30:59 PM [facility] 177.8 cm (70.0 in) [id number] on September 05, 2024 5:30:59 PM [facility] 58118-8 Body mass index (BMI ) [Ratio] September 05, 2024 5:30:59 PM UTC 37.327 kg/m2 [id number] on September 05, 2024 5:30:59 PM UTC 3140-1 Body Surface Area Derived From Formula September 05, 2024 5:30:59 PM UTC 2.3341 m2 [id number] on September 05, 2024 5:30:59 PM UTC 8310-5 Body temperature September 05, 2024 5:29:00 PM UTC 98.4 [degF] BPY2337 on September 05, 2024 5:30:58 PM UTC 13731-8 Body weight Measured September 05 5:30:59 PM UTC 118.0 kg (260.0 lb) [id number] on September 05, 2024 5:30:59 PM UTC 8462-4 Diastolic blood pressure September 05, 2024 8:30:00 PM UTC 62.0 mm[Hg] [id number] on September 05, 2024 8:52:07 PM UTC 8867-4 Heart rate September 05, 2024 8:42:00 PM UTC 65 /min [place] [address] on September 05, 2024 8:52:09 PM UTC 24832-7 Oxygen saturation in Arterial blood by Pulse oximetry September 05, 2024 8:42:00 PM UTC 97.0 % [place] [address] on September 05, 2024 8:52:09 PM UTC 9279-1 Respiratory rate September 05, 2024 8:42:00 PM UTC 24 /min [id number] on September 05, 2024 8:52:09 PM UTC 8480-6 Systolic blood pressure September 05, 2024 8:30:00 PM UTC 131.0 mm[Hg] [id number] on September 05, 2024 8:52:07 PM UTC PEDIATRIC GROWTH CHART - VITAL SIGNS This section displays Head C ircumference Percentile, Weight for Length Percentile and BMI Percentile Loinc Code Pediatric Measure Age (Months) Result Updat ed By No Pediatric Growth Chart Pe rcentile Information Available. HEALTH CONCERNS Problems Concern Status Health Concern problem infor mation not available. Smoking Status Status Years Used Consumed packs p er day Health Concern smoking histo ry information not available. Family History Concern Status Health Concern family histor y information not available. ENCOUNTERS ENCOUNTER INFORMATION Reason for Visit SHORTNESS OF BREATH Admission September 05, 2024 5:21:00 PM UTC [address] [address] Discharge September 05, 2024 8:52:00 PM UTC DISC HARGED TO HOME OR SELF CARE ENCOUNTER DIAGNOSES Notes information is not jose cruz ilable. Code System Diagnosis Onset Date Diagnosis information is not available. 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 [id number] on September 07, 2024 6:39:49 AM UTC I25.10 ICD10 ATHEROSCLEROTIC HEART DISEASE OF [place] CORONARY ARTERY WITHOUT ANGINA PECTORIS [id number] on September 07, 2024 6:39:49 AM UTC E11.9 ICD10 TYPE 2 DIABETES MELLITUS WITHOUT COMPLICATIONS [id number] on September 07, 2024 6:39:49 AM UTC I10 ICD10 ESSENTIAL (PRIMARY) HYPERTEN MARCELA [id number] on September 07, 2024 6:39:49 AM UTC 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 [id number] on September 07, 2024 6:39:49 AM UTC Z79.82 ICD10 PROGRESSIVE CARE UNIT REGISTERED NURSE (CURRENT) USE OF A SPIRIN [id number] on September 07, 2024 6:39:49 AM UTC Z79.84 ICD10 PROGRESSIVE CARE UNIT REGISTERED NURSE (CURRE NT) USE OF ORAL HYPOGLYCEMIC DRUGS [id number] on September 07, 2024 6:39:49 AM UTC Z79.4 ICD10 LONG-TERM (CURRENT) USE OF I NSULIN [id number] on September 07, 2024 6:39:49 AM UTC Z79.85 ICD10 LONG-TERM (CURRE NT) USE OF INJECTABLE NON-INSULIN ANTIDIABETIC DRUGS [id number] on September 07, 2024 6:39:49 AM UTC Z79.01 ICD10 PROGRESSIVE CARE UNIT REGISTERED NURSE (CURRE NT) USE OF ANTICOAGULANTS [id number] on September 07, 2024 6:39:49 AM UT Z79.899 ICD10 OTHER LONG-TERM (CURRENT) DR CHING THERAPY [id number] on September 07, 2024 6:39:49 AM UTC CARE TEAM Care 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 Eater Role MANE CABELLO Referring MANE CABELLO Primary Attending MANE CABELLO Admitting YANA KAHN 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 Role on Team Status Start Date End Date Update d By IRINEO LIGHT Referring normal September 05, 2024 5:52:58 PM UTC September 05, 2024 8:52:00 PM UTC [id number] on September 05, 2024 5:52:58 PM UTC IRINEO LIGHT Attending normal September 05, 2024 5:52:58 PM UTC September 05, 2024 8:52:00 PM UTC [id number] on September 05, 2024 5:52:58 PM UTC IRINEO LIGHT Admitting normal September 05, 2024 5:52:58 PM UTC September 05, 2024 8:52:00 PM UTC [id number] on September 05, 2024 5:52:58 PM UT FEMI LIGHT PCP normal September 05, 2024 5:21:26 PM UTC September 05, 2024 8:52:00 PM UTC [id number] on September 05, 2024 5:52:58 PM UTC
--- OUTSIDE RECORDS SUMMARY | 2024-09-12 07:50 | XMS_ITS | Encounter Summary ---
Author Organization [employer] Address [address] [place] [address] Care Team Providers Care Electrocardiograph Operator Name Role Phone Teresa Evans MD Primary Care Provider [phone]- [phone] Reason for Referral * Other (Routine) - Closed Specialty Diagnoses / Procedures Referred By Ramila t Referred To Contact Diagnoses Abnormal myocardial perfusion study Procedures CARDIAC CATH - LEFT HEART CATH W/ POSSIBLE INTERVENTION Morris Guerra MD [address] [place] [address] Phone: tel: fax: Morris Guerra MD [address] [place] [address] Phone: tel: fax: Referral ID Status Reason Start Date Expiration Date Visits Re quested Visits Authorized [id number] Closed 08/23/2024 08/23/2025 1 1 Reason for Visit * Other (Routine) - Closed Specialty Diagnoses / Procedures Referred By Contisiah t Referred To Contact Diagnoses Abnormal myocardial perfusion study Procedures CARDIAC CATH - LEFT HEART CATH W/ POSSIBLE INTERVENTION Morris Guerra MD [address] [place] [address] Phone: tel: fax: Morris Guerra MD [address] [place] [address] Phone: tel: fax: Referral ID Status Reason Start Date Expiration Date Visits Re quested Visits Authorized [id number] Closed 08/23/2024 08/23/2025 1 1 Encounter Details Date Type Department Care Team (Late st Contact Info) Description 09/12/2024 7:50 AM EDT - 09/12/2024 11:13 AM EDT Hospital Encounter [facility] Cardiac Catheterization Lab 1 [place] [id number] Morris Guerra MD [address] [facility] [address] [place] [address] Nonrheumatic mitral valve regurgitation (Primary Dx); Abnormal myocardial perfusion study Discharge Disposition: Home or Self Care Social [...] Never 11/23/2023 How often does anyone, priscilla cece family and friends, threaten you with harm? Never 11/23/2023 How often does anyone, priscilla zhao family and friends, scream or curse at you? Never 11/23/2023 Housing Stability Answer Date Recorded What is your living situation today? I have a [facility] place to live 11/23/2023 Think about [...] Do you speak a language other than [place] at [facility]? No 11/23/2023 Do you want help with [...] on file documented as of this encounter Last Filed Vital Signs Vital Sign Reading Time Taken Comments Blood Pressure 134/64 09/12/2024 8:17 AM EDT Pulse 60 09/12/2024 8:17 AM EDT Temperature 36.4 C (97.5 F) 09/12/2024 8:15 AM EDT Respiratory Rate 18 09/12/2024 8:15 AM EDT Oxygen Saturation 97% 09/12/2024 8:17 AM EDT Inhaled Oxygen Concentration - - Weight 117.9 kg (260 lb) 09/12/2024 8:15 AM EDT Height 179.1 cm (5' 10.5 ) 09/12/2024 8:15 AM ED T Body Mass Index 36.78 09/12/2024 8:15 AM EDT documented in this encounter Functional Status * Are you deaf or do you have serious difficulty hearing? Answer Date of Assessment Author No 10/15/2023 9:31 AM CDT Murali Armando RN * Are you blind or do you have serious difficulty seeing, even when wearing glasses? Answer Date of Assessment Author No 10/15/2023 9:31 AM CDT Murali Armando RN * Do you have serious difficulty walking or climbing stairs? Answer Date of Assessment Author No 10/15/2023 9:31 AM CDT Murali Armando RN * Do you have serious difficulty dressing or bathing? Answer Date of Assessment Author No 10/15/2023 9:31 AM CDT Murali Armando RN * Because of a physical, mental, or emotional condition, do you have serious difficulty doing errandsalone such as visiting the doctor? Answer Date of Assessment Author No 10/15/2023 9:31 AM RAIT Murali Armando RN documented as of this encounter Mental Status * Because of a physical, mental, or emotional condition, do you have serious difficulty concentrating, remembering, or making decisions? (5 years old or older) Answer Entry Date Author No 10/15/2023 9:31 AM CDT Murali Armando RN documented in this encounter Discharge Instructions * Discharge Instr - Activity* Rebeca Isidro RN - 09/12/2024 1:53 PM EDT Please read and follow your radial band instruction sheet. You may not drive, be alone or sign anything legal for 24 hours. If you have an emergency please call 911. Thank you for letting me care foryou today. God Gregor. * Attachments The following attachments cannot be sent through Care Everywhere. * Radial Site Care ([place]) * Transradial Angiogram ([place]) * Moderate Conscious Sedation Adult Care After ([place] Korean) documented in this encounter Medications at Time [...] MINUTES NEEDED. 12 g 2 06/26/2024 omega 8-psf-qnm-fish oil (Fish OiL) capsule Take 1 capsule [...] total) by mouth 2 (two) times daily. rosuvastatin (CRESTOR) 40 MG tablet Take 1 tablet (40 mg total) by mouth nightly. 30 tablet 11 08/23/2024 semaglutide (Ozempic) 2 mg/dose (8 mg/3 mL) pnij Inject 2 mg subcutaneously once a week Takes on Tuesday. 9 mL 3 03/28/2024 traZODone (DESYREL) 50 MG tablet Take 1 tablet (50 mg total) by mouth nightly. 03/07/2024 documented as of this encounter Progress Notes * Dianna Siu RN - 09/12/2024 8:00 AM EDT 09:17 Platelets 49, Hct 26, Hgb 8.8 reported to Justice Randolph NP for Dr. Guerra. No new orders. documented in this encounter H&P Notes * Morris Guerra MD - 09/12/2024 8:00 AM EDT History Of Present Illness Patient is a 68 y.o. male presenting for left heart catheterization. Patient has been having chest pain when he climbs in bed only; required SL Ntg on several occasions. He denies palpitations, shortness of breath, dizziness, and swelling. Had recent stress test that showed area of ischemia. Decided proceed with left heart cath due to lifestyle limiting symptoms Past Medical History He has a past medical history of Anemia, Angina at rest ([facility]), Anxiety, Arrhythmia, Arthritis (02/23/2022), Atrial fibrillation ([facility]), Cancer (HCC), Carotid artery occlusion, Coronary artery disease,CPAP (continuous positive airway pressure) dependence, Depressive disorder, Diabetes (HCC), Diarrhea, Disorder of prostate, Encounter for antineoplastic chemotherapy, Encounter for radiotherapy, GERD(gastroesophageal reflux disease), Heart block, Heart disease, Hyperlipidemia, Hypertension, Immunedeficiency disorder (HCC), Multiple myeloma (HCC), Myocardial infarction (HCC), Neuropathy, Osteoarthritis, Sleep apnea, Testicular hypofunction, and Transient cerebral ischemic attack. He has no past medical history of Sushil's disease (HCC), Aneurysm (HCC), Asthma, Bleeding disorder (HCC), Cataract, Cirrhosis (HCC), Claudication (HCC), Congenital heart disease, Constipation, COPD(chronic obstructive pulmonary disease) (HCC), [place] syndrome (HCC), Deep vein thrombosis (HCC), Gallstone, Glaucoma, Gout, Heartburn, Hepatitis, Irritable bowel syndrome, Macular degeneration, Migraine, Mitral valve prolapse, Pacemaker, Peptic ulcer disease, Pericardial disease, Peripheral vascular disease (HCC), Pneumonia, Pulmonary embolism (HCC), Renal disorder, Sarcoidosis, Scleroderma (HCC), Seizures (HCC), Stroke (HCC), Systemic lupus erythematosus (HCC), or Thyroid disease. Surgical History He has a past surgical history that includes basal cell removed; Hernia repair; Ganglion cyst excision; Appendectomy; Coronary angioplasty with stent; Tonsillectomy; Eye surgery (Bilateral); Cardioversion; Cardiac electrophysiology study and ablation; and LAMINECTOMY,LUMBAR W/FUSION (N/A, 11/23/2023). Social History He reports that he has never smoked. He has been exposed to tobacco smoke. He has never used smokeless tobacco. He reports that he does not currently use alcohol. He reports that he does not currently use drugs. Family History Family History Problem Relation Name Age of Onset Cancer Mother Rebeca Allergies Darzalex [Daratumumab] and Rosiglitazone Medications Subjective Current Outpatient Medications Medication Instructions acyclovir (ZOVIRAX) 400 mg, 2 times daily amiodarone (PACERONE) 200 mg, oral, 2 times daily aspirin 81 mg, oral, Daily choline fenofibrate (TRILIPIX) 135 mg, oral, Daily cyanocobalamin 1,000 mcg, Daily dexAMETHasone (DECADRON) 40 mg, Weekly dextromethorphan-bupropion (Auvelity) 45-105 mg TbIE 1 tablet, 2 times daily empagliflozin (JARDIANCE) 25 mg, Daily ferrous sulfate 325 mg, Daily with breakfast Furoscix 80 mg, subcutaneous, As needed furosemide (LASIX) 20 mg, oral, See admin instructions, Take 1 tablet daily plus as needed. Gemtesa 75 mg, oral, Daily Lantus Solostar U-100 Insulin 10 Units, Every Night magnesium oxide (MAG-OX) 400 mg tablet TAKE (1) TABLET BY MOUTH TWICE A DAY. metFORMIN (GLUCOPHAGE-XR) 1,000 mg, 2 times daily metoprolol succinate (TOPROL-XL) 100 mg, oral, 2 times daily multivitamin per tablet 1 tablet, Daily nitroglycerin (NITROLINGUAL) 400 mcg/spray spray PLACE 1 SPRAY UNDER THE TONGUE EVERY 5 MINUTES NEEDED. omega 8-jbl-gmj-fish oil (Fish OiL) capsule 1,000 mg, Daily Ozempic 2 mg, subcutaneous, Weekly, Takes on Tuesday pantoprazole (PROTONIX) 40 mg, Daily pomalidomide (Pomalyst) 3 mg Cap 1 capsule, Daily potassium chloride SA (K-DUR,KLOR-CON-M) 20 MEQ tablet 20 mEq, 2 times daily ramipriL (ALTACE) 10 mg, 2 times daily rivaroxaban (XARELTO) 20 mg, oral, Daily with dinner rosuvastatin (CRESTOR) 40 mg, oral, Every Night tamsulosin (FLOMAX) 0.4 mg cap 24 hr capsule oral, Daily traZODone (DESYREL) 50 mg, Every Night Review of Systems Review of Systems All other systems reviewed and are negative. Last Recorded Vitals There were no vitals taken for this visit. Physical Exam Constitutional: Appearance: He is obese. Cardiovascular: Rate and Rhythm: Normal rate and regular rhythm. Heart sounds: No murmur heard. No friction rub. Pulmonary: Effort: Pulmonary effort is normal. Breath sounds: Normal breath sounds. Abdominal: General: Abdomen is flat. Bowel sounds are normal. Musculoskeletal: General: Normal range of motion. Cervical back: Normal range of motion. Skin: General: Skin is warm. Neurological: Mental Status: He is alert. Assessment & Plan Problem List Items Addressed This Visit None Recurrent exertional CP, requiring SL Ntg. Lexiscan Myoview 08/17: EF 56%, moderately abnormal basal and mid anterolateral reversible defect consistent with ischemia, fixed inferior defect Recent persistent AF recurrence, s/p DCC 06/19-Hx Atrial flutter ablation (10/16), hx JOSHUA/DCC (06/18) EF 55%, valves OK. Currently AF w/ CVR. FC II/III. Hx HFpEF off Semaglutide, initially improved with 19 lb wt loss/restarted Semaglutide. Lexiscan 03/17- Mixed scar and ischemia inferior wall. Known RCA 100%. proBNP 1442 (03/17). Hx NSTEMI (01-13)-L heart cath (01-13) severe distal LAD (iFR .87). 100% RCA. FC II dyspnea. Hx LAD FLOR 7-18 for USA. Remote Hx of LAD & Dx branch FLOR. 100% small RCA. ICR graduate. Hx of mildly dilated ascending aorta, 4.3 cm. Normal size by JOSHUA (06/18). Echo (03/18)- EF 55%, Grade III DD, mildly dilated aortic root 3.8 cm and ascending aorta 4.0 cm, Small circumferential pericardial effusion, No evidence of tamponade. Obesity. MARIXA on CPAP. HTN-Stable IRDM. Hypertriglyceridemia. Multiple myeloma-stable, mild leukopenia/thromcytopenia, normal Cr. Hx radiation, on chemo. Plan: Left heart cath +/- PCI via radial artery approach. Risks and benefits discussed. Patient agrees to proceed. documented in this encounter Plan of Treatment Upcoming Encounters Date Type Department Care Team (Late st Contact Info) Description 10/31/2024 10:15 AM EDT Office Visit [facility] Cardiology [facility] [address] [place] [address] Morris Guerra MD [address] [place] [address] [place] [address] documented as of this encounter Procedures Procedure Name Priority Date/Time Associated Diagnosis Comments CARDIAC CATH - LEFT HEART CATH W/ POSSIBLE INTERVENTION Routine 09/12/2024 11:52 AM EDT Abnormal myocardial perfusion study CHEM8+ POC Routine 09/12/2024 8:35 AM EDT CBC W/ AUTO DIFF STAT 09/12/2024 8:20 AM EDT MANUAL DIFFERENTIAL Routine 09/12/2024 8 :20 AM EDT PLATELET COUNT, AUTO STAT 09/12/2024 8:20 AM EDT documented in this encounter Results * CARDIAC CATH - LEFT HEART CATH W/ POSSIBLE INTERVENTION (09/12/2024 11:52 AM EDT) Anatomical Region Laterality Modality Heart Other Narrative 09/12/2024 12:17 PM EDT LEFT HEART CATHETERIZATION INDICATION: Exertional angina. Anterior ischemia by Myoview perfusion study. REFERRING MD: Dr. Teresa Evans TECHNIQUE: A 5/6-Bangladeshi sheath was placed in the right radial artery. 5 mg of verapamil and 50 units/kg heparin were administered via the radial artery sheath. Rusty catheter was used for selective angiography of the left coronary artery as well as obtaining pressures in the left ventricle. CLS 3.5 guide catheter was used for iFR assessment across the left anterior descending artery. Following the diagnostic catheterization, the radial artery sheath was removed and the access site successfully compressed using a TR band. No complications. The patient received 5 mg of verapamil and 50 units/kg of heparin via the radial artery sheath. She received moderate conscious sedation including intravenous Versed and fentanyl. She was monitored by me for more than 30 minutes and remained stable hemodynamically without respiratory distress. HEMODYNAMICS: Left ventricle 140/20 mmHg, aorta 140/70 mmHg. DIAGNOSES: 1. Severe 2 vessel coronary artery atherosclerosis. 2. Elevated left ventricular filling pressure without gradient across the aortic valve. CORONARY ANATOMY: 1. Left main trunk: Angiographically normal. 2. Left anterior descending artery: Large caliber vessel, which gives rise to small diagonal branch before extending to the apex. 60% ostial stenosis present in the left anterior descending artery confirmed by iFR 0.74 to be clinically significant. Patent stent in left anterior descending artery and diagonal branch. 3. Circumflex artery: Large caliber vessel, which gives rise to a small high lateral branch, small caliber lateral branch, and a small caliber posterolateral branch. Mild atherosclerosis present in the circumflex artery. 5. Right coronary artery: Dominant vessel. Known 100% proximal occlusion. Small posterior descending artery and a small caliber posterolateral branch are filled via left to right collateral flow. 6. Left ventricle: Elevated left ventricular filling pressure without gradient across the aortic valve. Left ventriculography was not performed. IMPRESSION: Angiographically, the patient has two vessel coronary artery atherosclerosis. There is elevated filling pressure without gradient across the aortic valve. The right coronary artery occlusion is chronic. Consider percutaneous intervention to the left anterior descending artery in the future when thrombocytopenia and anemia are improved. us Morris Guerra MD CV CARDIAC CATH ORDERABLES Final Result * (ABNORMAL) Chem8+ POC (09/12/2024 8:35 AM EDT) POC Sodium 140 138 - 146 mmol/L 09/12/2024 6:47 PM EDT [facility] POC Potassium 3.9 3.5 - 4.9 mmol/L 09/12/2024 6:47 PM EDT [facility] POC Chloride 102 98 - 109 mmol/L 09/12/2024 6:47 PM EDT [facility] POC Glucose 110(H) 70 - 105 mg/dL 09/12/2024 6:47 PM EDT [facility] POC BUN 10 8 - 26 mg/dL 09/12/2024 6:47 PM EDT [facility] POC Anion Gap 20 10 - 20 mmol/L 09/12/2024 6:47 PM EDT [facility] POC IONIZED CALCIUM ILYA 1.34(H) 1.12 - 1.32 mmol/L 09/12/2024 6:47 PM EDT [facility] POC CO2 TOTAL ILYA 23(L) 24 - 29 mmol/L 09/12/2024 6:47 PM EDT [facility] POC-Creatinine 0.8 0.6 - 1.3 mg/dL 09/12/2024 6:47 PM EDT [facility] POC-EGFR >60 mL/min/1.7 3M2 09/12/2024 6:47 PM EDT [facility] Comment:Proceed with contras t if eGFR > 45 ml/min/1.73 when performed on the NovaSTAT strip Creatinine meter. POC HEMATOCRIT ILYA 26(L) 38 - 51 %PCV 09/12/2024 6:47 PM EDT [facility] POC HEMOGLOBIN ILYA 8.8(L) 12.0 - 17.0 g/dL 09/12/2024 6:47 PM EDT [facility] Blood 09/12/2024 8:35 AM EDT 09/12/2024 6:47 PM EDT Narrative [facility] - 09/12/2024 6:47 PM EDT Environmental Aide ID is - [id number] us Morris Guerra MD POINT OF CARE TEST ORDERABLES Fi nal Result [facility] [address] [phone] * (ABNORMAL) Manual Differential (09/12/2024 8:20 AM EDT) Total Counted 50 09/12/2024 11:36 AM EDT [facility] % Neutros (manual) 56 50 - 65 % 09/12/2024 11:36 AM EDT [facility] % Bands (manual) 2 % 05/21/20 25 11:36 AM EDT [facility] % Lymphs (manual) 26 24 - 44 % 025 11:36 AM EDT [facility] % Monos (manual) 14(H) 4 - 5 % 09/13/19 25 11:36 AM EDT [facility] % Eos (manual) 2 0 - 3 % 09/12/2024 11:36 AM EDT [facility] RBC Morphology abnormal( A) Normal 09/12/2024 11:36 AM EDT [facility] Platelet Estimate Decreased (A) Adequate 09/12/2024 11:36 AM EDT [facility] Anisocytosis 1+ 09/12/2024 11:36 AM EDT [facility] Polychromasia 1+ 09/12/2024 11:36 AM EDT [facility] Macrocytes 1+ 09/12/2024 11:36 AM EDT [facility] Ovalocytes 1+ 09/12/2024 11:36 AM EDT [facility] ANC# 0.75 K/ L 09/12/2024 11:36 AM EDT [facility] Blood Venipuncture / Unknown 09/12/2024 8:20 AM EDT 09/12/2024 10:36 AM EDT us Morris Guerra MD LAB BLOOD ORDERABLES Final Resul t Performing Organization Address City/State/[facility] [[email or web address]] Co de Phone Number [facility] [address] [phone] * (ABNORMAL) CBC with Automated Diff (09/12/2024 8:20 AM EDT) WBC 1.3(LL) 4.2 - 9.1 K/ L 09/12/2024 10:44 AM EDT [facility] RBC 2.43(L) 4.63 - 6.08 M/ L 09/12/2024 10:44 AM EDT [facility] Hemoglobin 7.8(L) 13.7 - 17.5 GM/DL 09/12/2024 10:44 AM EDT [facility] Hematocrit 24.0(L) 40.1 - 51.0 % 09/12/2024 10:44 AM EDT [facility] MCV 99(H) 79 - 92 fL 09/12/2024 10:44 AM EDT [facility] MCH 32.1 25.7 - 32.2 pg 09/12/2024 10:44 AM EDT [facility] MCHC 32.5 32.3 - 36.5 GM/DL 09/12/2024 10:44 AM EDT [facility] RDW 16.1(H) 11.6 - 14.4 % 09/12/2024 10:44 AM EDT [facility] Platelets 55(L) 140 - 375 K/CU MM 09/12/2024 10:44 AM EDT [facility] MPV 11.0 9.4 - 12.4 fL 09/12/2024 10:44 AM EDT [facility] NRBC Absolute 0.02(H) 0 - 0.012 K/ul 09/12/2024 10:44 AM EDT [facility] Blood Venipuncture / Unknown 09/12/2024 8:20 AM EDT 09/12/2024 10:36 AM EDT Narrative [facility] - 09/12/2024 10:44 AM EDT When CBC w/ Auto Diff is ordered the lab will add a Manual Differential as a quality check at no additional charge if: Lymphocytes greater than seventy five percent with normal or increased WBC Monocytes greater than Fifteen percent Basophil greater than four percent Bands >10% or several immature myeloids are seen on scan Blast? Flag noted Atypical Lymph flag noted us Morris Guerra MD LAB BLOOD ORDERABLES Final Resul t [facility] [address] [place] [address], [facility] [phone] * (ABNORMAL) Platelet count, auto (09/12/2024 8:20 AM EDT) Platelets 49(L) 140 - 375 K/CU MM 09/12/2024 9:16 AM EDT [facility] Blood Venipuncture / Unknown 09/12/2024 8:20 AM EDT 09/12/2024 8:51 AM EDT us Sang Hawk PA-C LAB BLOOD ORDERABLES Final Resu lt [facility] [address] [place] [address], [facility] [phone] documented in this encounter Visit Diagnoses Diagnosis Nonrheumatic mitral valve regurgitation- Primary Abnormal myocardial perfusion study documented in this encounter Administered Medications Inactive Administered Medications - up to 3 most recent administrations Medication Order MAR Action Action Date Dose Rate Site aspirin tablet 325 mg Once, oral, On Tue09/12/24 at 0830, For 1 dose, On Unit Given 09/12/2024 8:47 AM EDT 325 mg atorvastatin (LIPITOR) tablet 80 mg 80 mg Once, oral, On Tue09/12/24 at 0830, For 1 dose, STAT if patient didn't already take this morning or allergic, Pre-op Given 09/12/2024 8:44 AM EDT 80 mg fentaNYL PF (SUBLIMAZE) injection IMG once as needed, intravenous, Starting on Tue09/12/24 at 1120, For 1 dose, Intra-op Given 09/12/2024 11:20 AM EDT 50 mcg fentaNYL PF (SUBLIMAZE) injection IMG once as needed, intravenous, Starting on Tue09/12/24 at 1129, For 1 dose, Intra-op Given 09/12/2024 11:29 AM EDT 50 mcg heparin 1,000 Units/mL injection IMG once as needed, intravenous, Starting on Tue09/12/24 at 1132, For 1 dose, Intra-op Given 09/12/2024 11:32 AM EDT 3,000 Units heparin 1,000 Units/mL injection IMG once as needed, intravenous, Starting on Tue09/12/24 at 1136, For 1 dose, Intra-op Given 09/12/2024 11:36 AM EDT 2,000 Units iopamidoL (ISOVUE-370) 370 mg iodine /mL (76 %) injection IMG once as needed, Starting on Tue09/12/24 at 1152, For 1 dose, Intra-op Given 09/12/2024 11:52 AM EDT 83 mLs lidocaine (XYLOCAINE) injection 2% IMG once as needed, intradermal, Starting on Tue09/12/24 at 1127, For 1 dose, Intra-op Given 09/12/2024 11:27 AM EDT 2 mLs Right Wrist midazolam (PF) (VERSED) injection IMG once as needed, intravenous, Starting on Tue09/12/24 at 1119, For 1 dose, Intra-op Given 09/12/2024 11:19 AM EDT 2 mg sodium chloride 0.9 % infusion 340 mL/hr Continuous, intravenous, Starting on Tue09/12/24 at 0830, Pre-op New Bag 09/12/2024 8:47 AM EDT 340 mL/hr 340 mL/hr verapamiL (ISOPTIN) injection IMG once as needed, Starting on Tue09/12/24 at 1132, For 1 dose, Intra-op Given 09/12/2024 11:32 AM EDT 5 mg Right Wrist documented in this encounter Care Teams Electrocardiograph Operator Relationship Specialty Start Date End Date Teresa Evans MD [address] [place] [address] PCP - General General Internal Medicine 07/28/22 documented as of this encounter
--- OUTSIDE RECORDS SUMMARY | 2024-09-12 11:14 | XMS_ITS | Encounter Summary ---
Author Organization [employer] Address [address] [place] [address] Care Team Providers Care Sewer Head Name Role Phone Teresa Evans MD Primary Care Provider [phone]- [phone] Reason for Referral * Ultrasound (Routine) - Closed Specialty Diagnoses / Procedures Referred By Contac t Referred To Contact Cardiology Diagnoses Abnormal myocardial perfusion study Procedures Ultrasound-guided vascular access Cristiane Prescott MD [address] [place] [address] Phone: tel: fax: [facility] [address] [place] [phone] Phone: tel: fax: Referral ID Status Reason Start Date Expiration Date Visits Re quested Visits Authorized [id number] Closed 09/12/2024 09/12/2025 1 1 Reason for Visit * Ultrasound (Routine) - Closed Specialty Diagnoses / Procedures Referred By Contac t Referred To Contact Cardiology Diagnoses Abnormal myocardial perfusion study Procedures Ultrasound-guided vascular access Cristiane Prescott MD [address] [place] [address] [place] [address] Phone: tel: fax: [facility] [address] [place] [phone] Phone: tel: fax: Referral ID Status Reason Start Date Expiration Date Visits Re quested Visits Authorized [id number] Closed 09/12/2024 09/12/2025 1 1 Encounter Details Date Type Department Care Team (Late Contact Info) Description 09/12/2024 11:14 AM EDT - 09/12/2024 11:59 PM EDT Hospital Encounter [facility] [address] [place] [phone] [place] [address] [place] [address] [address] [place] [address] Abnormal myocardial perfusion study Discharge Disposition: Home [...] your living situation today? I have a [employer] place to live 11/23/2023 Think about the [...] Do you speak a language other than [place] at [facility]? No 11/23/2023 Do you [...] mg total) by mouth daily. 0 11/30/2023 aspirin 81 MG EC tablet Take 1 tablet (81 mg total) by mouth daily. 90 tablet 3 09/12/2024 05/21/202 6 cyanocobalamin (VITAMIN B-12) 1000 MCG tablet Take [...] MINUTES NEEDED. 12 g 2 06/26/2024 omega 1-mav-pjy-fish oil (Fish OiL) capsule Take 1 capsule [...] nightly. 03/07/2024 documented as of this encounter Plan of Treatment Upcoming Encounters Date Type Department Care Team (Late st Contact Info) Description 10/31/2024 10:15 AM EDT Office Visit [facility] Cardiology [facility] [address] [place] [id number] Cristiane Prescott MD [address] [place] [address] documented as of this encounter Procedures Procedure Name Priority Date/Time Associated Diagnosis Comments US GUIDED VASCULAR ACCESS Routine 09/12/2024 12:39 PM EDT Abnormal myocardial perfusion study documented in this encounter Results * Ultrasound-guided vascular access (09/12/2024 12:39 PM EDT) Anatomical Region Laterality Modality Vascular Vascular Ultraso und 09/12/2024 11:1 4 AM EDT Narrative 09/12/2024 10:43 PM EDT Vascular Procedure Demographics Patient Name LA WATERS Age 68 Patient Number [id number] Gender Male Race Ethnicity Corporate ID [id number] Height Date of 1955 Weight Accession Number [id number] BSA Room Number BMI Referring CRISTIANE PRESCOTT MD Interpreting CRISTIANE PRESCOTT MD Physician Physician Food Counter Worker TYLOR FUNG, RVT Procedure Type of Study: US GUIDED VASCULAR ACCESS : . Impressions Summary INDICATION: Abnormal myocardial perfusion study [R94.39 (ICD-10-CM)] ##################################### RIGHT: Ultrasound guided vascular access of the radial artery. Radial artery was 0.5 cm in depth and patent. Access was successful. ##################################### Allergies - Other:(Daraturmumab,Rosiglitazone). Patient Status:Outpatient. Study Location:Portable. Technical Quality:Good visualization. Signature Procedure Note Cristiane Prescott MD - 09/12/2024 Vascular Procedure Demographics Patient Name LA WATERS Age 68 Patient Number [id number] Gender Male Race Ethnicity Corporate ID [id number] Height Date of 1955 Weight Accession Number [id number] BSA Room Number [facility] Referring CRISTIANE PRESCOTT MD Interpreting CRISTIANE LARA Physician Physician Food Counter Worker TYLOR FUNG RVT Procedure Type of Study: US GUIDED VASCULAR ACCESS : . Impressions Summary INDICATION: Abnormal myocardial perfusion study [R94.39 (ICD-10-CM)] ##################################### RIGHT: Ultrasound guided vascular access of the radial artery. Radial artery was 0.5 cm in depth and patent. Access was successful. ##################################### Allergies - Other:(Daraturmumab,Rosiglitazone). Patient Status:Outpatient. Study Location:Portable. Technical Quality:Good visualization. Signature Result [facility] Cristiane Prescott MD [facility] ORDERABLES Final Result documented in this encounter Visit Diagnoses Diagnosis Abnormal myocardial perfusion study documented in this encounter Care Teams Sewer Head Relationship Specialty Start Date End Date Teresa Evans MD [address] [place] [address] PCP - General General Internal Medicine 07/28/22 documented as of this encounter
--- OUTSIDE RECORDS SUMMARY | 2024-09-26 09:45 | XMS_ITS | Encounter Summary ---
Author Organization [employer] Address [address] [place] [address] Care Team Providers Care Integration Consultant Name Role Phone Teresa Evans MD Primary Care Provider [phone]- [phone] Reason for Visit * Reason Comments Follow-up Patient is a 68 y.o. male presenting for a 6 week follow up. He has lost 15 pounds since July. He states having occasional dizziness. He states having swelling in his legs and will need a refill on the Furoscix. He denies chest pain and palpitations. Encounter Details Date Type Department Care Team (Late st Contact Info) Description 09/26/2024 9:45 AM EDT Office Visit [facility] Cardiology [facility] [address] [place] [address] Morris Guerra MD [address] [place] [address] [address] [place] [address] Persistent atrial fibrillation (HCC) (Primary Dx) Social History Tobacco Use Types Packs/Day Years [...] Date Record ed How often does anyone, inclu ding family and friends, physically hurt you? Never [...] your living situation today? I have a [place] place to live 11/23/2023 Think about the [...] Do you speak a language other than Citizen Of [place] at [facility]? No 11/23/2023 Do you want help [...] Sign Reading Time Taken Comments Blood Pressure 108/70 09/26/2024 10:08 AM EDT Pulse 64 09/26/2024 10:08 AM EDT Temperature - - Respiratory Rate - - Oxygen Saturation - - Inhaled Oxygen Concentration - - Weight 111.1 kg (245 lb) 09/26/2024 10:08 AM EDT Height 177.8 cm (5' 10 ) 09/26/2024 10:08 AM EDT Body Mass Index 35.15 09/26/2024 10:08 AM EDT documented in this encounter Functional [...] Murali Nguyen RN documented in this encounter Progress Notes * Morris Guerra MD - 09/26/2024 9:45 AM EDT History Of Present Illness Patient is a 68 y.o. male presenting for a 6 week follow up. He has lost 15 pounds since July. He states having occasional dizziness. He states having swelling in his legs and will need a refill on the Furoscix. He denies chest pain and palpitations. Past Medical History He has a past medical history of Anemia, Angina at rest ([facility]), Anxiety, Arrhythmia, Arthritis (02/23/2022), Atrial fibrillation ([facility]), Cancer ([facility]), Carotid artery occlusion, Coronary artery disease,CPAP (continuous positive airway pressure) dependence, Depressive disorder, Diabetes ([facility]), Diarrhea, Disorder of prostate, Encounter for antineoplastic chemotherapy, Encounter for radiotherapy, GERD(gastroesophageal reflux disease), Heart block, Heart disease, Hyperlipidemia, Hypertension, Immunedeficiency disorder ([facility]), Multiple myeloma (HCC), Myocardial infarction ([facility]), Neuropathy, Osteoarthritis, Sleep apnea, Testicular hypofunction, and Transient cerebral ischemic attack. He has no past medical history of [place]'s disease ([facility]), Aneurysm (HCC), Asthma, Bleeding disorder (HCC), Cataract, Cirrhosis (HCC), Claudication (HCC), Congenital heart disease, Constipation, COPD(chronic obstructive pulmonary disease) ([facility]), [place] syndrome ([facility]), Deep vein thrombosis ([facility]), Gallstone, Glaucoma, Gout, Heartburn, Hepatitis, Irritable bowel [...] times daily aspirin 81 mg, oral, Daily aspirin 81 mg, oral, Daily choline fenofibrate [...] Take 1 tablet daily plus as needed. Lantus Solostar U-100 Insulin 10 Units, Every Night magnesium oxide (MAG-OX) 400 mg tablet TAKE (1) TABLET BY MOUTH TWICE A DAY. metFORMIN (GLUCOPHAGE-XR) 1,000 mg, 2 times daily metoprolol succinate (TOPROL-XL) 100 mg, oral, 2 times daily multivitamin per tablet 1 tablet, Daily nitroglycerin (NITROLINGUAL) 400 mcg/spray spray PLACE 1 SPRAY UNDER THE TONGUE EVERY 5 MINUTES NEEDED. omega 7-hah-wui-fish oil (Fish OiL) capsule 1,000 mg, Daily Ozempic 2 mg, subcutaneous, Weekly, Takes on Tuesday pantoprazole (PROTONIX) 40 mg, Daily pomalidomide (Pomalyst) 3 mg Cap 1 capsule, Daily potassium chloride SA (K-DUR,KLOR-CON-M) 20 MEQ tablet 20 mEq, 2 times daily ramipriL (ALTACE) 10 mg, 2 times daily rosuvastatin (CRESTOR) 40 mg, oral, Every Night traZODone (DESYREL) 50 mg, Every Night Review [...] warm. Neurological: Mental Status: He is alert. EKG: NSR, L lopez axis, IVCD, NSST changes Assessment & Plan Problem List Items Addressed This Visit None Recurrent exertional CP-LHC (09/16)- Severe 2 vessel coronary artery atherosclerosis, RCA occlusion chronic. Lexiscan Myoview 08/17: EF 56%, moderately abnormal basal and mid anterolateral reversible defect consistent with ischemia, fixed inferior defect Hx persistent AF recurrence, s/p DCC 06/19-Hx Atrial [...] Remote Hx of LAD & Dx branch FLRO. 100% small RCA. ICR graduate. Hx of mildly dilated ascending aorta, 4.3 cm. Normal size by JOSHUA (06/18). Echo (03/18)- EF 55%, Grade III DD, mildly dilated aortic root 3.8 cm and ascending aorta 4.0 cm, Small circumferential pericardial effusion, No evidence of tamponade. Obesity. MARIXA on CPAP. 15 lb wt loss since last -. HTN-Stable IRDM. Hypertriglyceridemia. Multiple myeloma-Recent thrombocytopenia resolving off chemotherapy, normal Cr. Hx radiation, chemo. Plan: PCI LAD via radial artery approach. Will make final decision after Hematology evaluation next week. Plan to start Plavix if decision confirmed to proceed with PCI. Deferring Xarelto for now. Medical record reviewed, plan discussed with . Continue other current CV meds. Lipid panel follow up with primary MD RV in 4-6 weeks. I, Dr. Morris Guerra, personally performed the services described in this documentation, as scribed by Jasmina Weber CMA in my presence, and it is both accurate and complete. documented in this encounter Plan of Treatment Upcoming Encounters Date Type Department Care Team (Late st Contact Info) Description 10/31/2024 10:15 AM EDT Office Visit [facility] Cardiology [facility] [address] [place] [address] Morris Guerra MD [address] [facility] [address] [place] [address] Scheduled Orders Name Type Priority Associated Diagnoses Orde r Schedule ECG 12 lead ECG Routine Persistent atrial fibrillation (HCC) Ordered: 09/26/2024 documented as of this encounter Visit Diagnoses Diagnosis Persistent atrial fibrillation (HCC)- Primary Atrial fibrillation documented in this encounter Care Teams Integration Consultant Relationship Specialty Start Date End Date Teresa Evans MD [address] [place] [address] PCP - General General Internal Medicine 07/28/22 documented as of this encounter
[2024-10-11 10:03] VITALS: BMI 35.7
--- OUTSIDE RECORDS SUMMARY | 2024-10-11 10:03 | XMS_ITS | Data Portability ---
Author Organization [facility] Address [address] [facility] [address] [place] [address] Care Team Providers Care Ammunition Officer Name Role Phone YURIYPEDRO Primary Care Provider YANCY HENDRICKS Referring Provider YANA KAHN Primary Care Provider MARIO DOMINGUEZ Yarn Hauler Assessment Encounter Date Assessment Date Assessment LastModified by Organization Details LastModified Time 12/08/2023 12/08/2023 Nishant presents today status post L4-L5 PLIF 11/22. [facility]. Incision is healing nicely. [place] were removed with no issues or complications. A packet was filled out with pt restrictions and given to [facility]. All questions answered. [email or web address] Not available 12/08/2023 10:14:37 01/03/2024 01/03/2024 IMAGING: I personally reviewed the images with Dr. Umanzor and read the radiologist's report. Hardware satisfactorily in place with no signs of malfunction or infection. ASSESSMENT: Nishant Bueno is a 68-year-old male s/p L4-5 [...] By Organization Details Last Modified Time 12/27/2023 [id number] Recommended returning to clinic in 6 months for TBSE [email or web address] Not available 12/27/2023 13:29:06 Reason for Referral None Reported. Results Created Date Observation Date Name Description Value Unit Range Abnormal Flag Note LastModifiedBy Organization Detail LastModifiedTime 01/03/20 24 01/03/2024 XR, lumbo sacra l spine , 2 or 3 view [facility] [address] [place] [address] [place] [address] Cieloyris t Name: [facility] swenson : [address] Samuel swenson Orderi ng Provid er: ERIC UMANZOR EXAM DATE: 09/10/ 2024 EXAM: XR LUMBAR AP/LAT CLINIC AL INFORM ATION: Back pain. IMAGES PROVID ED: AP, latera l and coned down views of the lumbar spine. COMPAR OWEN: None. FINDIN GS: Previo us L4-5 outside event sales specialist ior fixati on and interb troy fusion [...] By: Deacon Figueroa MD on 2:[address] Radiology [facility] [address] [place] [address], [phone], 02/26/2024 20:36:18 02/06/20 24 02/01/2024 XR, lumbo sacra l spine , 2 or 3 view No observ ation record ed. [address] (Imaging) [address] [place] [address], [place], [address], 04/22/2024 22:44:11 03/13/20 24 03/13/2024 XR, lumbo sacra l spine , 2 or 3 view [facility] [address] [place] [address] Patiyris swenson Name: [facility] swenson : [address] Pat[address]ris t Orderi ng Provid er: ERIC UMANZOR EXAM DATE: 2023 EXAM: XR LUMBAR AP/LAT CLINIC AL INFORM ATION: Back pain. IMAGES PROVID ED: AP, latera l and coned down views of the lumbar spine. COMPAR OWEN: FINDIN GS: Previo us L4-5 outside event sales specialist ior fixati on and interb troy fusion [...] Deacon Figueroa MD on 2023 10:12 AM [email or web address] [facility] Radiology [address], [phone], 04/22/2024 22:44:10 Result Notes Documentation Provider Name and Address Organization Details Recorded Time Xr, Lumbosacral Spine, 2 Or 3 View : [place] [address] Patient Name: NISHANT BUENO II Patient : 1955 Patient Ordering Provider: ERIC UMANZOR EXAM DATE: 01/03/2024 EXAM: XR LUMBAR AP/LAT CLINICAL INFORMATION: Back pain. IMAGES PROVIDED: AP, lateral and coned down views of the lumbar spine. COMPARISON: None. FINDINGS: Previous L4-5 posterior fixation and interbody fusion. No complications related to the hardware noted. Moderate to severe diffuse degenerative disc disease. The psoas margins are sharp. No radiographic evidence of injury is noted. IMPRESSION: Uncomplicated appearing L4-5 fusion Interpreted By: Deacon Figueroa MD UMANZOR MD [address] [place] [address], [phone], [facility] 02/26/2024 20:36:18 Xr, Lumbosacral Spine, 2 Or 3 View : [place] [address] Patient Name: NISHANT BUENO II Patient : 1955 Patient Ordering Provider: ERIC UMANZOR EXAM DATE: 03/13/2024 EXAM: XR LUMBAR AP/LAT CLINICAL INFORMATION: Back pain. IMAGES PROVIDED: AP, lateral and coned down views of the lumbar spine. COMPARISON: 01/03/2024 FINDINGS: Previous L4-5 posterior fixation and interbody fusion. Slight malalignment at L4-5 again noted. There is no hard workup case. There is no loosening present. Moderate degenerative changes elsewhere. No radiographic evidence of injury is noted. IMPRESSION: Stable uncomplicated appearing L4-5 fusion Interpreted By: [place] [address] [place] [address], [phone], [facility] 04/22/2024 22:44:10 Problems Name Problem SNOMED Code Status Onset Date Resolution Date Notes Provider Name and Address Organization Details Recorded Time History of malignant neoplasm of skin 365236655 Active 024 Tonia Lucero [facility] 4 13:55:07 Type 2 diabetes mellitus 46930798 Active [facility] 4 13:59:20 Sleep apnea 13182556 Active [facility] 4 13:59:32 Problem Notes None recorded. Procedures Surgical History Date Name Laterality Status Provider Name and Address Organization Details Recorded Time 12/27/19 24 DAK - Cryo AK completed Tonia Lucero [facility] 12/27/2023 13:28:12 10/03/19 24 Lumbar MBB unilateral 2 level - Helga completed ZULEIMA ALBERTS MD [address] [place] [address], [phone], [facility] 10/03/2023 14:06:25 09/12/19 24 Lumbar MBB unilateral 2 level - Helga completed ZULEIMA ALBERTS MD [address] [place] [address], [phone], [facility] 09/12/2023 15:00:42 06/29/19 24 DAK - Cryo AK completed Tonia Lucero [facility] 06/29/2023 14:02:20 06/29/19 24 DAK - Biopsy, Tangential completed Tonia Lucero [facility] 06/29/2023 14:02:42 Appendectomy completed Joanne Morales [facility] 05/28/2020 15:51:35 tonsillectomy completed Joanne Morales [facility] 05/28/2020 15:51:45 hernia repair completed Joanne Morales [facility] 05/28/2020 15:51:58 Imaging Results None recorded. Procedure Notes None recorded. Medical Equipment None Reported. Allergies Allergen ID Allergen Name Allergen Category Reaction Reaction Severity Criticality Documentation Date Start Date Code Code System Note Provider Name and Address Organization Details Recorded Time 323406 [facility] n Not available Not available Not available 06/07/20162010 20624 5 RxNorm Comme nt: Creat ed By: Cory Castrejon eated Date: 2010 2:16: 58 PM; Not Available [facility] 7 11:02:10 Medications Name Sig Start [...] Updated DateTime 01/03/2024 180.34 cm 36.7 kg/m2 787883. 79 g 124 mm[Hg] 78 mm[Hg] [facility] 4 14:47:19 Date Recorded Body height Body mass index (BMI) Body weight Systolic blood pressure Diastolic blood pressure Provider Name and Address Organization Details Last Updated DateTime 03/13/2024 180.34 cm 36.7 kg/m2 666868. 79 g 124 mm[Hg] 84 mm[Hg] [facility] 4 11:36:27 Social History Question Answer Notes LastModified by [employer] Details LastModified Time Tobacco Smoking Status Never [facility]oker [facility] 05/28/2020 15:51:05 What Is Your Relationship Status? [email or web address] Information not available 08/26/2023 Sex: Male Functional Status Question Answer Note LastModified by [employer] Details LastModified Time Are you currently employed? No retired [email or web address] Information not available 08/26/2023 Mental Status None recorded. Family History Relationship Description Onset Age of this Age Resolved Age Notes LastModified by Organization Details LastModified Time Unspecified Relation Malignant neoplastic disease [email or web address] Not available 05/28 15:51:13 Unspecified Relation Myocardial infarction [email or web address] Not available 06/2020 15:51:18 Medical History Condition Response Heart Problems Y Squamous Cell Carcinoma Y Heart Attack (LA) Y Diabetes Y Cancer Y Blood Thinners Y Sleep Apnea Y High Cholesterol Y Hypertension Y Past Encounters Encounter ID Performer Location Encounter Start Date Encounter Closed Date Diagnosis/Indication Diagnosis SNOMED-CT Code Diagnosis ICD10 Code Diagnosis Note [id number] KYM LAFLEUR MD [facility] [address] [place] [address] 05/28/2020 14:46:24 05/29/2020 12:39:26 Pain in cervical spine 356711896 M54.2 Metastatic malignant neoplasm to bone 29523142 C79.51 -The patient presents for evaluation of [...] the spine and support weak spinal muscles. [id number] KYM [facility]UR [facility] [address] [place] [address] 07/11/2020 13:15:58 07/11/2020 13:50:09 Metastatic malignant neoplasm to bone 41566006 C79.51 -The patient is shown improvemen t [...] Primary multiple myeloma with C2 involvemen t [id number] EDI LOPEZ PA-C [facility] [address] [place] [address] 09/12/2020 13:18:20 09/12/2020 15:47:57 Metastatic malignant neoplasm to bone 49804767 C79.51 Patient is a 64-year-ol d male [...] cervical x-rays performed today at the [facility] -Did not show any acute abnormalit y or progressio n of disease. [id number] EDI LOPEZ PA-C [facility] [address] [place] [address] 12/18/2020 08:46:02 12/18/2020 14:22:42 Metastatic malignant neoplasm to bone 28194603 C79.51 Patient is a 64-year-ol d male [...] lateral cervical x-rays today at the [facility] S howed stable fracture and actually looks like there has been some bone healing on the x-ray. Alignment looks good with no instabilit y [id number] DEANGELO MORSE PA-C [facility] [address] [place] [address] 10/08/2021 13:32:14 10/09/2021 15:28:20 Fracture of odontoid process type II 8186948826 45162 S12.112S [id number] DAMARIS SMYTH APRN [facility] [address] [place] [address] 04/06/2022 14:04:34 04/09/2022 08:33:52 Fracture of second cervical vertebra 657367330 S12.100G [id number] MARIO AARON MD [place] [address] [address] 06/29/2023 13:10:14 06/29/2023 14:15:12 History of malignant neoplasm of skin 031924878 Z85.828 - No evidence of recurrence today- Call with any worrisome lesions or if treated lesions return- Return at regular intervals for skin exam as recommende d Most recent, 10/2021 Multiple b enign melanocytic nevi 811429000 D22.5 - Benign moles seen on exam [...] changing or worrisome lesions Seborrheic keratosis 394 637736 L82.1 - Benign overgrowth s of skin - Hereditary Senile angioma 5354322 I 78.1 - Benign blood vessel growths - Hereditary Solar lentigo 86970851 L 81.4 - Benign brown spots - Sun-induce d Long-term current use of immunosuppressive drug 377286151 Z79.60 Pts that are immunosupp ressed are more likely to get skin cancers, especially squamous cell carcinomas , but also basal cell carcinomas and melanomas. Should be seen regularly and alert dermatolog ist with any new, worrisome, or changing lesions. Prednisone & dexamethas one for multiple myeloma Actinic keratosis 007 L57.0 Actinic keratoses are precancero us lesions that may progress to squamous cell carcinoma if untreated. UV light and genetics may increase risk. Treated lesions should blister, scab over, and heal within a few weeks. If treated lesion(s) does not resolve within 1-2 months, patient agrees to follow up for re-evaluat ion. Neoplasm o f uncertain behavior of skin 79210428 D48.5 Left religion - 1.2cm pink scaly plaque - R/o SCC (Mohs if +)Left jawline superior - 1cm pink scaly papule - R/o SCC (Mohs if +)Left jawline inferior- 1cm pink scaly papule - R/o SCC (Mohs if +) Jawline lesions may be able to be treated at same mohs appt [id number] KEVIN MCFADDEN PA-C [facility] [address] [place] [address] 08/23/2023 12:36:26 08/24/2023 04:52:39 Multiple myeloma 259700561 C90.00 Low back pain 880880265 M54.50 [id number] ZULEIMA ALBERTS MD [facility] [address] [place] [address] 08/26/2023 12:46:51 08/27/2023 05:16:05 Degeneration of lumbar intervertebral disc 25636957 M51.36 Lumbar spondylosis 83319 0009 M47.816 [id number] CHRISTINE SIERRA MD [facility] [address] [place] [address] 09/06/2023 11:28:46 09/13/2023 13:41:41 [id number] ZULEIMA ALBERTS MD [facility] [address] [facility] [address] [place] [address] 09/12/2023 14:13:50 09/12/2023 15:48:49 Lumbar spondylosis 662572209 M47.816 [id number] CHRISTINE SIERRA MD [facility] [address] [place] [address] 09/13/2023 09:25:31 09/20/2023 12:29:35 [id number] ZULEIMA ALBERTS MD [facility]AL [address] [place] [address] 10/03/2023 12:50:49 10/03/2023 16:19:18 Lumbar spondylosis 896998865 M47.816 [id number] DAMARIS SMYTH APRN [facility] [address] [place] [address] 11/22/2023 13:52:32 11/23/2023 04:57:16 Lumbar radiculopathy 381210866 M54.16 [id number] ERIC UMANZOR MD SURGERY SCHEDULE [address] [place] [address] 11/24/2023 11:59:24 11/30/2023 13:34:01 [id number] ERIC [facility]ZOR [facility] [address] [facility] [address] 12/08/2023 09:47:51 12/21/2023 04:13:48 [id number] MARIO AARON MD [facility] [address] [place] [address] 12/27/2023 12:52:04 12/27/2023 13:33:03 History of malignant neoplasm of skin 013830566 Z85.828 - No evidence of recurrence today- Call with any worrisome lesions or if treated lesions return- Return at regular intervals for skin exam as recommende d Most recent, 06/2023 Melanocyti c nevus of face 906132261 D22.39 - Benign moles seen on exam [...] changing or worrisome lesions Seborrheic keratosis 394 495758 L82.1 - Benign brown spots - Hereditary Solar lentigo 79137494 L 81.4 - Benign brown spots - Sun-induce d Actinic keratosis 858160 007 L57.0 Actinic keratoses are precancero us lesions that may progress to squamous cell carcinoma if untreated. UV light and genetics may increase risk. Treated lesions should blister, scab over, and heal within a few weeks. If treated lesion(s) does not resolve within 1-2 months, patient agrees to follow up for re-evaluat ion. [id number] KEVIN MCFADDEN PA-C NE[facility]G [facility] [address] [place] [address] 01/03/2024 14:40:13 01/10/2024 12:47:17 Postoperative visit 872024654 Z48.89 [id number] ERIC UMANZOR MD NE[facility]OSURG [facility] CLOSED [address] [place] [address] 03/13/2024 10:51:32 03/14/2024 04:10:55 Lumbar spondylosis 348014057 M47.896 Health Concerns Section Related Observation LastModified by Organization Detai ls LastModified Time None Recorded Concern Status LastModified by Organization Details LastModified Time None Recorded Advance Directives Directive None Recorded Payers Insurance Date Sequence Insurance Name Policy Number Policy Roberts Covered Member ID Roberts Member ID Guarantor Name 06/29/2023 1 [place] [id number] Nishant Bueno [id number] Nishant Bueno 03/10/2024 1 [employer] (MEDICARE REPLACEMENT/A DVANTAGE - PPO) Nishant Bueno [id number] Nishant Bueno Notes Date Note Type Note Provider Name and Address Organization Details Recorded Time 12/27/2023 text/html Here for a face only skin examination - last skin check: 06/2023- history of skin cancer - SCC- last skin cancer was in 2023, L religion- spots of concern today: none- patient refused exam other than the face Pt accompanied by spouse MARIO AARON MD [address] [place] [address], [phone], [facility] 12/27/2023 20:37:42 01/03/2024 text/html Nishant Bueno i s a 68-year-old male s/p [...] PA and physician visit. KEVIN MCFADDEN PA-C [address] [place] [address], [phone], [facility] 01/03/2024 15:36:55 03/13/2024 text/html I saw [...] is receiving palliative treatment. ERIC UMANZOR MD [address] [place] [address], [phone], [facility] 03/13/2024 16:18:26
--- OUTSIDE RECORDS SUMMARY | 2024-10-11 10:03 | XMS_ITS | Encounter Summary ---
Author Organization [employer] Address [address] [place] [address] Care Team Providers Care Machine Shorthand Teacher Name Role Phone Teresa Evans MD Primary Care Provider [phone] Encounter Details Date Type Department Care Team (Latest Contact Info) Description 09/12/2024 Travel Social History Tobacco Use Types Packs/Day Years [...] your living situation today? I [facility] a [facility] place to live 11/23/2023 Think about [...] Do you speak a language other than [facility] at [facility]? No 11/23/2023 Do you want help with [...] 9:31 AM RAIT Murali Armando RN * Because of a [...] Entry Date Author No 10/15/2023 9:31 AM RAIT Murali Armando RN documented in this encounter Plan of Treatment Upcoming Encounters Date Type Department Care Team (Late st Contact Info) Description 10/31/2024 10:15 AM EDT Office Visit [facility] Cardiology [facility] [address] [place] [address] Morris Guerra MD [address] [place] [address] [place] [address] documented as of this encounter Visit Diagnoses Not on filedocumented in this encounter Care Teams Machine Shorthand Teacher Relationship Specialty Start Date End Date Teresa Evans MD [address] [place] [address] PCP - General General Internal Medicine 07/28/22 documented as of this encounter
--- OUTSIDE RECORDS SUMMARY | 2024-10-11 10:08 | XMS_ITS | Clinical Summary ---
Author Organization [facility] Address [address] [place] [address] Care Team Providers Care Industrial Conveyor Belt Repairer Name Role Phone [place], Moira Mondragon APRN Primary Care Provider Allergies Active Allergy Reactions Criticality Noted Date Comments Rosiglitazone Shortness of breath High 10/09/2020 Medications omega-3 (Fish Oil) 1200 MG capsule Take 1,200 mg by mouth 1 (one) time each day. Active pantoprazole (ProtoNix) 20 MG EC tablet Take 20 mg by mouth 1 (one) time each day. Do not crush, chew, or split. Active POTASSIUM CHLORIDE PO Take 20 mEq by mouth 2 (two) times a day. Active ticagrelor (Brilinta) 60 MG tablet Take 60 mg by mouth 2 (two) times a day. Active ramipril (Altace) 10 MG capsule Take 10 mg by mouth 2 (two) times a day. Active isosorbide mononitrate ER (Imdur) 30 MG 24 hr tablet Take 30 mg by mouth 1 (one) time each day. Do not crush or chew. Active furosemide (Lasix) 20 MG tablet Take 20 mg by mouth 1 (one) time each day. Active rosuvastatin (Crestor) 20 MG tablet Take 20 mg by mouth 1 (one) time each day. Active buPROPion XL (Wellbutrin XL) 300 MG 24 hr tablet Take 300 mg by mouth 1 (one) time each day. Do not crush, chew, or split. Active spironolactone (Aldactone) 25 MG tablet Take 25 mg by mouth 1 (one) time each day. Active multivitamin-iro e-uhbvoxhu-cbemq acid (Centrum) chewable tablet Chew 1 tablet 1 (one) time each day. Active Ozempic, 1 MG/DOSE, 2 MG/1.5ML solution pen-injector Inject under the skin 1 (one) time per week. 1 Active HYDROcodone-acet aminophen (Ethel) 7.5-325 MG tablet Take 1 tablet by mouth every 6 (six) hours if needed. Active empagliflozin-me tFORMIN ER (Synjardy XR) 12.5-1000 MG 24 hr tablet Take 1 tablet by mouth 2 (two) times a day. Active ACYCLOVIR PO Take 400 mg by mouth 2 (two) times a day. Active DEXAMETHASONE PO Take 40 mg by mouth 1 (one) time per week. Active LENALIDOMIDE PO Take 25 mg by mouth. 14 days on and 7 days off Active Bortezomib (VELCADE IJ) Inject as directed 1 (one) time per week. Active Denosumab (XGEVA SC) Inject under the skin. monthly Active metoprolol succinate XL (Toprol-XL) 100 MG 24 hr tablet Take 100 mg by mouth 1 (one) time each day. Do not crush or chew. Active amLODIPine (Norvasc) 10 MG tablet Take 10 mg by mouth 1 (one) time each day. Active montelukast (Singulair) 10 MG tablet Take 10 mg by mouth every night. Active Choline Fenofibrate (Fenofibric Acid) 135 MG capsule delayed-release Take 135 mg by mouth 1 (one) time each day. Active cyanocobalamin (Vitamin B-12) 1000 MCG/ML injection INJECT 1ML IM MONTHLY 1 Active ergocalciferol 1.25 MG (65842 UT) capsule Take 1 capsule by mouth 1 (one) time per week. 1 Active ALPRAZolam (Xanax) 0.25 MG tablet every night. 1 Active Continuous Blood Gluc Sensor (FreeStyle Daryl 14 Day Sensor) misc CHANGE EVERY 14 DAYS 1 Active fluticasone (Flonase) 50 MCG/ACT nasal spray Administer 2 sprays into each nostril 1 (one) time each day. 1 Active gabapentin (Neurontin) 300 MG capsule TAKE (1) CAPSULE BY MOUTH TWICE A DAY. 1 Active Lantus SoloStar 100 UNIT/ML injection INJECT 85 UNITS UNDER THE SKIN TWICE DAILY. Active Active Problems Problem Noted Date Diagnosed Date Multiple myeloma 10/08/2020 Cancer Staging:Clinical stage from 05/26/2020:RISS Stage I(Tcyn-5-xgcimosixlyyc (mg/L): 3, Albumin (g/dL): 4, ISS: Stage I, High-risk cytogenetics: Absent, LDH: Normal) - Signed by Shar Salguero MD on 10/08/2020 Family History Medical History Relation Name Comments Heart attack Brother age 53yo Rheum arthritis Father age 82y o Ovarian cancer Mother age 71, Hx of polio. No Known Problems Son 1 No Known Problems Son 2 No Known Problems Son 3 Relation Name Status Comments Brother Father Mother Son 1 Alive Son 2 Alive Son 3 Alive Social History Tobacco Use Types Packs/Day Years Used Date Smoking Tobacco: Never Smokeless Tobacco: Never Alcohol Use Standard Drinks/Week Comments Never 0 (1 standard drink = 0.6 oz pur e alcohol) PHQ-2 Answer Date Recorded Patient Health Questionnaire-2 Score 4 10/09/2020 Sex and Gender Information Value Date Recorded Sex Assigned at Male 10/06/2020 7:17 PM EDT Legal Sex Male 8:32 PM EDT Gender Identity Male 10/06/2020 7:18 PM EDT Sexual Orientation Straight 10/06/2020 7: 18 PM EDT 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 Industry 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 Start 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 Job End 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 Not on file Not on liliana e Not on file Last Filed Vital Signs Vital Sign Reading Time Taken Comments Blood Pressure 129/79 12/11/2020 10:15 AM EDT Pulse 82 12/11/2020 10:15 AM EDT Temperature 36.1 C (97 F) 12/11/2020 10:15 AM EDT Respiratory Rate 18 12/11/2020 10:15 AM EDT Oxygen Saturation 96% 12/11/2020 10:15 AM EDT Inhaled Oxygen Concentration - - Weight 121 kg (266 lb 12.1 oz) 12/11/2020 10:15 AM EDT Height 182 cm (5' 11.65 ) 12/11/2020 10:15 AM ED T Body Mass Index 36.53 12/11/2020 10:15 AM EDT Plan of Treatment Health Maintenance Due Date Last Done Comments [facility]-Hepatitis C Screening 1955 [facility]-Medicare Annual Wellness (AWV) 1955 [facility]-Infant/Child/Adol SDOH Screenings 1955 [facility]- SDOH Screenings 1972 [facility]-Adult SDOH Screenings 1972 [facility]-DTaP,Tdap,and Td Vaccine s (1 - Tdap) 1973 [facility]-Pneumococcal Vaccine: 50 + Years (1 of 2 - PCV) 1973 [facility]-Zoster Vaccines (1 of 2) 1973 CT Colonography 10/05/1999 Colonoscopy 10/05/1999 FIT-DNA 10/05/1999 FIT 10/05/1999 FOBT 10/05/1999 Sigmoidoscopy 10/05/1999 [facility]-Colorectal Cancer Screening 10/05/1999 [facility]-RSV Vaccine: 60+ Years o r (1 - Risk 60-74 years 1-dose series) 2014 VIG-PVTAN-83 Vaccine (3 - Moderna risk series) 07/28/2020 06/30/2020, 05/30/2020 [facility]-Depression Screening 10/09/2021 021, 10/09/2020 [facility]-Influenza Vaccine (Seaso n Ended) 2024 03/19/2020, 05/17/2019 HPV Vaccines Aged Out No longer eligi ble based on patient's age to complete this topic [facility]-HIB Vaccines Aged Out No longer e ligible based on patient's age to complete this topic [facility]-Hepatitis A Vaccines Aged Out No longer eligible based on patient's age to complete this topic [facility]-IPV Vaccines Aged Out No longer e ligible based on patient's age to complete this topic [facility]-Rotavirus Vaccines Aged Out No lo nger eligible based on patient's age to complete this topic [place] [address] [place] [address] MEDICARE Care Teams Industrial Conveyor Belt Repairer Relationship Specialty Start Date End Date Moira Pinto APRN [address] [place] [address] PCP - General 09/30/20
--- OUTSIDE RECORDS SUMMARY | 2024-10-11 10:08 | XMS_ITS | Encounter Summary ---
Author Organization [employer] [facility] [employer] Address [address] [place] [address] Care Team Providers Care Medical Consultant Name Role Phone Teresa Evans MD Primary Care Provider [phone]- [phone] Encounter Details Date Type Department Care Team (Late st Contact Info) Description 09/26/2024 Orders Only [facility] Cardiology [facility] [address] [place] [address] Provider, MD Pascale [address] [place], [place] [id number] Social History Tobacco Use Types Packs/Day Years [...] Never 11/23/2023 How often does anyone, priscilla hzao family and friends, scream or curse at [...] Do you speak a language other than Kuwaiti at [facility]? No 11/23/2023 Do you want help with [...] Entry Date Author No 10/15/2023 9:31 AM Murlai Nguyen RN documented in this encounter Plan of Treatment Upcoming Encounters Date Type Department Care Team (Late st Contact Info) Description 10/31/2024 10:15 AM EDT Office Visit [facility] Cardiology [facility] [address] [place] [address] Morris Guerra MD [address] [facility] [address] [place] [address] documented as of this encounter Procedures Procedure Name Priority Date/Time Associated Diagnosis Comments FS_MODEL_IP_ECG 12-LEAD Routine 09/26/2024 1:41 PM EDT EXTERNAL LAB - MISC Routine 09/26/2024 1:36 PM EDT documented in this encounter Results * ECG 12 lead (09/26/2024 1:41 PM EDT) us Historical Provider ECG ORDERABLES Final Res ult * EXTERNAL LAB - MISC (09/26/2024 1:36 PM EDT) us Historical Provider LAB BLOOD ORDERABLES Darline l Result documented in this encounter Visit Diagnoses Not on filedocumented in this encounter Care Teams Medical Consultant Relationship Specialty Start Date End Date Teresa Evans MD [address] [place] [address] PCP - General General Internal Medicine 07/28/22 documented as of this encounter
--- OUTSIDE RECORDS SUMMARY | 2024-10-11 10:08 | XMS_ITS | Encounter Summary ---
Author Organization [employer] Address [address] [place] [address] Care Team Providers Care Extractor Tender Raw Stock Name Role Phone Teresa Evans MD Primary Care Provider [phone]- [phone] Dang Galvez RN Unavailable Unavailable Close, Mena Negron RN Unavailable Unavailable Will Hendricks MD Unavailable Lori Cantor PA-C Unavailable [phone] Reason for Visit * Reason Comments Medication Refill Encounter Details Date Type Department Care Team (Late st Contact Info) Description 02/01/2023 Refill [facility] Cardiology [facility] [address] [place] [address] Morirs Guerra MD [facility] [place] [address] Social History Tobacco Use Types Packs/Day Years Used Date Smoking Tobacco: Never Alcohol Use Standard Drinks/Week Comments Never 0 (1 standard drink = 0.6 oz pur e alcohol) Sex and Gender Information Value Date Recorded Sex Assigned at Not on file Legal Sex Male 5:41 PM CDT Gender Identity Not on file Sexual Orientation Not on file COVID-19 Exposure Response Date Recorded In the last 10 days, have yo u been in contact with someone who was confirmed or suspected to have Coronavirus/COVID-19? No / Unsure 02/04/2023 9:06 AM EDT documented as of this encounter Plan of Treatment Upcoming Encounters Date Type Department Care Team (Late st Contact Info) Description 10/31/2024 10:15 AM EDT Office Visit [facility] Cardiology - [place] [address] [place] [address] Morris Guerra MD [address] [facility] [address] [place] [address] documented as of this encounter Visit Diagnoses Not on filedocumented in this encounter Care Teams Extractor Tender Raw Stock Relationship Specialty Start Date End Date Teresa Evans MD [address] [place] [address] PCP - General General Internal Medicine 07/28/22 Dang Galvez, RN Nurse Navigator Oncology 08/17/22 10/12/23 Mena Cornell RN Registered Nurse Oncology 08/17/22 10/12/23 Will Hendricks MD [address] [facility] [address] [place] [address] Medical Oncologist Hematology and Oncology 08/17/22 10/12/23 Lori Cantor, PA-C [facility] [address] [place] [address] Physician Developer Advisor Oncology 08/17/22 10/12/23 documented as of this encounter
--- OUTSIDE RECORDS SUMMARY | 2024-10-11 10:08 | XMS_ITS | Encounter Summary ---
Author Organization [employer] Address [address] [place] [address] Care Team Providers Care Garbage Collector Driver Name Role Phone Teresa Evans MD Primary Care Provider [phone]- [phone] Dang Galvez RN Unavailable Unavailable Close, Mena Negron RN Unavailable Unavailable Will Hendricks MD Unavailable Lori Cantor PA-C Unavailable [phone] Reason for Visit * Reason Comments Medication Refill Encounter Details Date Type Department Care Team (Late st Contact Info) Description 01/25/2023 Refill [facility] Cardiology [facility] [address] [place] [address] Morris Guerra MD [facility] [place] [address] Cardiac chest pain Social History Tobacco Use Types Packs/Day Years [...] suspected to have Coronavirus/COVID-19? No / Unsure 01/27/2023 8:47 AM EDT documented as of this encounter Plan of Treatment Upcoming Encounters Date Type Department Care Team (Late st Contact Info) Description 10/31/2024 10:15 AM EDT Office Visit [facility] Cardiology - [place] [address] [place] [address] Morris Guerra MD [address] [facility] [address] [place] [address] documented as of this encounter Visit Diagnoses Diagnosis Cardiac chest pain Unspecified chest pain documented in this encounter Care Teams Garbage Collector Driver Relationship Specialty Start Date End Date Teresa Evans MD [address] [place] [address] PCP - General General Internal Medicine 07/28/22 Dang Galvez, RN Nurse Navigator Oncology 08/17/22 10/12/23 Mena Cornell RN Registered Nurse Oncology 08/17/22 10/12/23 Will Hendricks MD [address] [place] [address] Medical Oncologist Hematology and Oncology 08/17/22 10/12/23 Lori Cantor, PA-C [address] [facility] [address] [place] [address] Physician Residential Tech Oncology 08/17/22 10/12/23 documented as of this encounter
--- OUTSIDE RECORDS SUMMARY | 2024-10-11 10:08 | XMS_ITS | Encounter Summary ---
Author Organization [facility] Address [address] [id number] Care Team Providers Care Unit Director Name Role Phone DallasMoira storm NILAY Primary Care Provider [phone] Encounter Details Date Type Department Care Team (Late st Contact Info) Description 10/07/2020 Lab Requisition [facility] [address] [place] [address] Shar Salguero MD [address] [facility] [address] [place] [id number] Disorder of bone, unspecified Social History Tobacco Use Types Packs/Day Years Used Date Smoking Tobacco: Never Assessed PHQ-2 Answer Date Recorded Patient Health Questionnaire-2 Score 4 10/09/2020 Sex and Gender Information Value Date Recorded Sex Assigned at Male 10/06/2020 7:17 PM EDT Legal Sex Male 8:32 PM EDT Gender Identity Male 10/06/2020 7:18 PM EDT Sexual Orientation Straight 10/06/2020 7: 18 PM EDT COVID-19 Exposure Response Date Recorded In the last month, have you been in contact with someone who was confirmed or suspected to have Coronavirus / COVID-19? No / Unsure 10/09/2020 10:11 AM EDT documented as of this encounter Functional Status * Over the past 2 weeks, how often have you been bothered by any of the following problems? Question Answer Date of Assessment Author Little interest or pleasure in doing things Several days 10/09/2020 10:23 AM EDT Tulio Gomez RN Feeling down, depressed, or hopeless Nearly every day 10/09/2020 10:23 AM Gabby Nuñez RN Patient Health Questionnaire-2 Score 4 10/09/2020 10:23 AM Gabby Nuñez RN * Question Answer Date of Assessment Author Trouble falling or staying asleep, or sleeping too much Nearly every day 10/09/2020 10:23 AM Gabby Nuñez RN Feeling tired or having little energy Several days 10/09/2020 10:23 AM Gabby Nuñez RN Poor appetite or overeating Not at all 10/09/2020 10:23 AM Gabby Nuñez RN Feeling bad about yourself - or that you are a failure or have let yourself or your family down Not at all 10/09/2020 10:23 AM Gabby Nuñez RN Trouble concentrating on things, such as reading the newspaper or watching television Not at all 10/09/2020 10:23 AM Gabby Nuñez RN Moving or speaking so slowly that other people could have noticed? Or the opposite - being so fidgety or restless that you have been moving around a lot more than usual. Not at all 10/09/2020 10:23 AM Gabby Nuñez RN Thoughts that you would be better off or hurting yourself in some way Not at all 10/09/2020 10:23 AM Gabby Nuñez RN Patient Health Questionnaire-9 Score 8 10/09/2020 10:23 AM Gabby Nuñez RN documented as of this encounter Plan of Treatment Not on file documented as of this encounter Procedures Procedure Name Priority Date/Time Associated Diagnosis Comments BONE MARROW EXAM CONSULT Routine 10/07/2020 2:06 PM EDT Disorder of bone, unspecified documented in this encounter Results * Bone Marrow Consult (10/07/2020 2:06 PM EDT) Case Report Bone Marrow Case: [id number] Authorizing Provider: Shar Salguero MD Collected: 10/07/2020 1409 Ordering Location: [facility] Lab Received: 10/07/2020 1407 Pathologist: Chanel Cardona MD Specimen: Bone Marrow Biopsy, [id number] 10/08/2020 3:39 PM EDT [facility] Final Diagnosis BONE MARROW (OUTSIDE SLIDES [id number], 06/06/20): -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 10/08/2020 3:39 PM EDT [facility] at 1539 EDT Clinical Information Plasma cell neoplasm 10/08/2020 3:39 PM EDT [facility] Bone Marrow Differential BONE MARROW DIFFERENTIAL: 200 cells Normal Patient Neutrophils 15-50 12 Metamyelocytes 4-19 3 Myelocytes 1-18 3 Promyelocytes 1-8 1 Blasts 0-2 2 Monocytes 0-5 0 Erythroid 16-38 22 Lymphocytes 3-24 0 Eosinophils 0-6 1 Basophils 0-2 0 Plasma cells 0-4 56 Other 10/08/2020 3:39 PM EDT [facility] Bone Marrow Aspirate and Biopsy The bone marrow cellularity is variable ranging from 30 - 60% with clusters and focal sheets of plasma cells. On aspirate slides, plasma cells are 56% of the differential and show size variation, occasional binucleation, and prominent nucleoli Megakaryocytes are present in slightly reduced numbers. Megakaryocyte morphology is predominantly normal. The myeloid-erythro id ratio is .86 (normal 1.5-4.0). Erythroid maturation is predominantly normal. Granulocytic maturation is predominantly normal. There is no increase in blasts. No metastatic tumor is identified. No lymphoma is identified on multiple sections of the biopsy. No granulomas are identified. Bone trabeculae are unremarkable. 10/08/2020 3:39 PM EDT [facility] Flow Cytometry Interpretation Outside flow cytometry demonstrates 7% lambda restricted plasma cells expressing CD 38, CD 138, and lambda. They are negative for CD19, CD 20 and CD 45. 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 10/08/2020 3:39 PM EDT [facility] Gross Description A. BONE MARROW BIOPSY Received along with a corresponding pathology report from [facility]ology & Cytology Laboratory are 9 slide(s) labeled outside case: [id number] collected on 06/03/2020. 10/08/2020 3:39 PM EDT [facility]ALTH[facility] Bone Marrow Specimen from bone marrow obtained by biopsy / Unknown 10/07/2020 2:06 PM EDT 10/07/2020 2:07 PM EDT us Shar Salguero MD LAB PATHOLOGY ORDERABLES Fi nal Result [facility] [address] [place] [address] documented in this encounter Visit Diagnoses Diagnosis Disorder of bone, unspecified documented in this encounter Care Teams Unit Director Relationship Specialty Start Date End Date Moira Pinto APRN [address] [place] [id number] PCP - General 09/30/20 documented as of this encounter
--- OUTSIDE RECORDS SUMMARY | 2024-10-11 10:08 | XMS_ITS | Encounter Summary ---
Author Organization [email or web address] Address [address] [place] [address] Care Team Providers Care Supervisor Malt House Name Role Phone Teresa Evans MD Primary Care Provider [phone]- [phone] Encounter Details Date Type Department Care Team (Latest Contact Info) Description 08/22/2024 Travel Social History Tobacco Use Types Packs/Day [...] Do you speak a language other than Colombian at [facility]? No 11/23/2023 Do you want help with [...] Description 10/31/2024 10:15 AM EDT Office Visit [facility] Cardiology [facility] [address] [place] [address] Morris Guerra MD [address] [place] [address] [place] [address] documented as of this encounter Visit Diagnoses Not on filedocumented in this encounter Care Teams Supervisor Malt House Relationship Specialty Start Date End Date Teresa Evans MD [address] [place] [address] PCP - General General Internal Medicine 07/28/22 documented as of this encounter
--- OUTSIDE RECORDS SUMMARY | 2024-10-11 10:08 | XMS_ITS | Encounter Summary ---
Author Organization [employer] Address [address] [address] Care Team Providers Care Patient Clerical Assistant Name Role Phone Teresa Evans MD Primary Care Provider [phone]- [phone] Dang Galvez RN Unavailable Unavailable Close, Mena Negron RN Unavailable Unavailable Will Hendricks MD Unavailable Lori Cantor PA-C Unavailable Encounter Details Date Type Department Care Team (Late st Contact Info) Description 01/11/2021 Transcribed Document [facility] [place] [address] [place] [address] ProviderPascale MD [address] [place] [address] Social History Tobacco Use Types Packs/Day Years Used Date Smoking Tobacco: Never Assessed Sex and Gender Information Value Date Recorded Sex Assigned at Not on file Legal Sex Male 5:41 PM CDT Gender Identity Not on file Sexual Orientation Not on file documented as of this encounter Miscellaneous Notes * Cerner Conversion Note - Pascale Gann MD - 01/11/2021 5:46 PM CDT Nursing Discharge Summary Entered On: 01/11/2021 17:47 EDT Performed On: 01/11/2021 17:46 EDT by DIEGO DOYLE RN Discharge Documentation Discharge Date/Time : 01/11/2021 17:46 EDT Patient Disposition, General : Discharge Discharge To : Home with ambulatory/outpatient follow-up Mode Of Departure, General Discharge : Private vehicle Accompanied By, Discharge : Spouse IV Discontinued : Yes Personal Belongings With Patient : Yes Pt's Own Supply of Medications Returned : No Prescriptions Given to Patient : No Medications Given to Patient : No Discharge Instructions Reviewed With, Opportunity For Questions Given : Patient, Spouse Patient Education Completed : Yes Teaching Method : Printed materials Teaching Evaluation : Verbalizes understanding DIEGO DOYLE RN - 01/11/2021 17:46 EDT Electronically signed by [facility] Conversion Lock And Dam Operator Cerner at 08/09/2022 10:32 AM CDT documented in this encounter Plan of Treatment Upcoming Encounters Date Type Department Care Team (Late st Contact Info) Description 10/31/2024 10:15 AM EDT Office Visit [facility] Cardiology [facility] [address] [place] [address] Morris Guerra MD [address] [facility] [address] [place] [address] documented as of this encounter Visit Diagnoses Not on filedocumented in this encounter Care Teams Patient Clerical Assistant Relationship Specialty Start Date End Date Teresa Evans MD [address] [place] [address] PCP - General General Internal Medicine 07/28/22 Dang Galvez, RN Nurse Navigator Oncology 08/17/22 10/12/23 Mena Cornell RN Registered Nurse Oncology 08/17/22 10/12/23 Will Hendricks MD [address] [facility] [address] [place] [address] Medical Oncologist Hematology and Oncology 08/17/22 10/12/23 Lori Cantor PA-C [address] [facility] [address] [place] [address] Physician Kier Operator Oncology 08/17/22 10/12/23 documented as of this encounter
--- OUTSIDE RECORDS SUMMARY | 2024-10-11 10:09 | XMS_ITS | Encounter Summary ---
Author Organization [email or web address] Address [address] [place] [address] Care Team Providers Care Welder Machine Operator Name Role Phone Teresa Evans MD Primary Care Provider [phone] Dang Galvez RN Unavailable Unavailable Close, Mena Negron RN Unavailable Unavailable Will Hendricks MD Unavailable Lori Cantor PA-C Unavailable [phone] Encounter Details Date Type Department Care Team (Late st Contact Info) Description 01/11/2021 Transcribed Document [facility] [place] Family Medicine [address] [place] [address] ProviderPascale MD [address] [place] [address] Social History Tobacco Use Types Packs/Day Years Used Date Smoking Tobacco: Never Assessed Sex and Gender Information Value Date Recorded Sex Assigned at Not on file Legal Sex Male 5:41 PM CDT Gender Identity Not on file Sexual Orientation Not on file documented as of this encounter Miscellaneous Notes * Cerner Conversion Note - Pascale Gann MD - 01/11/2021 12:26 PM CDT DATE OF SERVICE: 01/11/2021 LEFT HEART CATH/IFR ASSESSMENT REPORT INDICATION: Non-ST elevation WI. PROCEDURE: Standard left heart catheterization technique. 5/6-Hungarian sheath was placed in the right radial artery. Rusty catheter was used for selective angiography of left and right coronary arteries and obtaining pressures in the left ventricle. Left ventriculogram was not performed. CLS3.5 guide catheter was used for iFR assessment across both the proximal and distal LAD lesions. Following the diagnostic catheterization, the radial artery sheath was removed and the access site successfully compressed using a TR band. No complications. The patient received 5 mg verapamil via the radial artery sheath as well as 15 units/kg of heparin. The patient received additional intravenous heparin for a total of 70 units/kg. The ACT was more than 220 seconds. Additional 2000 units of heparin were administered intravenously. At the conclusion of the procedure, the radial artery sheath was removed and the access site successfully compressed using a TR band. The patient received moderate conscious sedation for the procedure including intravenous Versed and Fentanyl. He was monitored for more than 30 minutes and remained stable hemodynamically. HEMODYNAMICS: Left ventricle 130/10 mmHg, aorta 130/70 mmHg. DIAGNOSES: 1. Severe distal small caliber LAD stenosis confirmed with iFR value of 0.87. Normal iFR of 0.97 across the borderline proximal LAD lesion. 2. Known 100% occlusion of right coronary artery. 3. Normal left ventricular filling pressure without gradient across the aortic valve. CORONARY ANATOMY: 1. Left main trunk: Angiographically normal. 2. LAD: Large caliber vessel which gives rise to several small caliber diagonal branches before extending beyond the apex. There is a moderate lesion with haziness and 40% to 50% narrowing near ostial LAD. This lesion is considered non-clinically significant with iFR value of greater than 0.97. There is a small 60% to 70% stenosis at the distal edge of the mid LAD stent where the iFR value dropped to 0.87 in the small caliber distal LAD. Mild atherosclerosis in remaining portion of LAD and diagonal branches. 3. Circumflex artery: Large caliber vessel which gives rise to a tiny high lateral branch, small caliber lateral branch, small caliber or moderate posterolateral branch. There is 60% to 70% stenosis in the proximal portion of the small caliber lateral branch. 4. Right coronary artery: Dominant vessel. Totally occluded proximally. The distal right coronary artery is faintly filled via retrograde [id number]-[id number] collateral flow. 5. Left ventricle: Mildly elevated left ventricular filling pressure without gradient across the aortic valve. IMPRESSION: Angiographically, the patient has clinically nonsignificant near ostial LAD stenosis confirmed with iFR value of 0.97. There is a borderline lesion confirmed by iFR to be clinically significant with iFR value of 0.87 in the small caliber distal LAD. Given the small caliber of the vessel in the distal LAD, medical management is recommended at this time. /[id number] Morris Guerra MD SSL/AQ / SSL / MODL /[id number] CC: Teresa Evans MD Electronically signed by Interface, [facility] Conversion Pool Manager Cerner at 08/09/2022 10:26 AM CDT documented in this encounter Plan of Treatment Upcoming Encounters Date Type Department Care Team (Late st Contact Info) Description 10/31/2024 10:15 AM EDT Office Visit [facility] Cardiology [facility] [address] [place] [address] Morris Guerra MD [address] [facility] [address] [place] [id number] documented as of this encounter Visit Diagnoses Not on filedocumented in this encounter Care Teams Welder Machine Operator Relationship Specialty Start Date End Date Teresa Evans MD [address] [place] [address] PCP - General General Internal Medicine 07/28/22 Dang Galvez RN Nurse Navigator Oncology 08/17/22 10/12/23 Mena Cornell RN Registered Nurse Oncology 08/17/22 10/12/23 Will Hendricks MD [address] [facility] [address] [place] [address] Medical Oncologist Hematology and Oncology 08/17/22 10/12/23 Lori Cantor, PAMayuriC [address] [facility] [address] [place], [place] [id number] Physician Change Person Oncology 08/17/22 10/12/23 documented as of this encounter
--- OUTSIDE RECORDS SUMMARY | 2024-10-11 10:09 | XMS_ITS | Encounter Summary ---
Author Organization [employer] Address [address] [place] [address] Care Team Providers Care Account Services Manager Name Role Phone Teresa Evans MD Primary Care Provider [phone]- [phone] Dang Galvez RN Unavailable Unavailable Close, Mena Negron RN Unavailable Unavailable Will Hendricks MD Unavailable Lori Cantor PA-C Unavailable Encounter Details Date Type Department Care Team (Late st Contact Info) Description 01/11/2021 Transcribed Document [facility] [place] [address] [place] [address] ProviderPascale MD [address] [place] [address] Social History Tobacco Use Types Packs/Day Years Used Date Smoking Tobacco: Never Assessed Sex and Gender Information Value Date Recorded Sex Assigned at Not on file Legal Sex Male 5:41 PM CDT Gender Identity Not on file Sexual Orientation Not on file documented as of this encounter Miscellaneous Notes * Cerner Conversion Note - Pascale Gann MD - 01/11/2021 11:11 AM CDT Event Note Entered On: 01/11/2021 11:13 EDT Performed On: 01/11/2021 11:11 EDT by Moira Jensen RN Event Note Event Date/Time : 01/11/2021 11:11 EDT Description of Event : Patient off floor at 1045 to salvage laborer for procedure. Patient being transferred to 4IC after cath. Report called to merline. Patients belongings transferred to new room per tech and family. Moira Jensen, FLAIKTA - 01/11/2021 11:11 EDT documented in this encounter Plan of Treatment Upcoming Encounters Date Type Department Care Team (Late st Contact Info) Description 10/31/2024 10:15 AM EDT Office Visit [facility] Cardiology - [place] [address] [place] [address] Morris Guerra MD [address] [facility] [address] [place] [address] documented as of this encounter Visit Diagnoses Not on filedocumented in this encounter Care Teams Account Services Manager Relationship Specialty Start Date End Date Teresa Evans MD [address] [place] [address] PCP - General General Internal Medicine 07/28/22 Dang Galvez, RN Nurse Navigator Oncology 08/17/22 10/12/23 Mena Cornell RN Registered Nurse Oncology 08/17/22 10/12/23 Will Hendricks MD [address] [facility] [address] [place] [address] Medical Oncologist Hematology and Oncology 08/17/22 10/12/23 Lori Cantor, PA-C [address] [facility] [address] [place] [address] Physician Rail Detector Car Operator Oncology 08/17/22 10/12/23 documented as of this encounter
--- OUTSIDE RECORDS SUMMARY | 2024-10-11 10:09 | XMS_ITS | Encounter Summary ---
Author Organization [employer] Address [address] [place] [address] Care Team Providers Care Fuel Buyer Name Role Phone Yana Evans MD Primary Care Provider [phone] Dang Galvez RN Unavailable Unavailable Close, Mena Negron RN Unavailable Unavailable Yancy Hendricks MD Unavailable Lori Cantor PA-C Unavailable [phone] Encounter Details Date Type Department Care Team (Late st Contact Info) Description 11/03/2021 Transcribed Document [facility] [place] Family Medicine [facility] [place] [address] ProviderPascale MD [address] [place] [address] Social History Tobacco Use Types Packs/Day Years Used Date Smoking Tobacco: Never Assessed Sex and Gender Information Value Date Recorded Sex Assigned at Not on file Legal Sex Male 5:41 PM CDT Gender Identity Not on file Sexual Orientation Not on file documented as of this encounter Miscellaneous Notes * Cerner Conversion Note - Pascale Gann MD - 11/03/2021 9:10 AM CDT [address] [address] NISHANT BUENO II :1955 Visit Time:11/03/2021 Your Visit Summary Your Care Team Admitting Physician - YANCY HENDRICKS MD-ONC Attending Physician - YANCY HENDRICKS MD-ONC Primary Care Physician - YANA EVANS (REF), KATHERINEINT Referring Physician - YANA EVANS (REF), HEATHER Your Diagnosis Multiple myeloma not having achieved remission, Multiple myeloma not having achieved remission These Are Your Goals No qualifying data available. Discharge Vitals Temperature 36.9 ??C Heart Rate (Monitored) 81 Respiratory Rate 16 Blood Pressure 133/72 What to do next Instructions From Your Care Team Diet after Discharge: Resume usual diet as tolerated, _, _ Activity after Discharge: _, Rest and relax today, No strenuous activity Lifting Restrictions: No heavy lifting over 10 pounds Driving after Discharge: Do not drive until 24 hours after no longer taking pain medications Showering/Bathing: _, No tub bathing, soaking or swimming. Keep site completely dry for 24 hours. Notify Provider of: New/worsening symptoms Wound/Incision Care after Discharge: Keep operative site/wound site clean and dry, Change dressing with dry dressing daily and as needed. Do not sign legal documents for 24 hours. Follow-Up Appointments Follow Up with YANCY HENDRICKS MD-ONC When Within 1 to 2 weeks Comments Follow-up as instructed Where: [address] [place] [address]- Medications What How Much When Instructions Next Dose acyclovir (acyclovir 200 mg oral capsule) 1 Capsule(s) Oral Every Day WHEN DUE amLODIPine (Norvasc 10 mg oral tablet) 1 Tablet(s) Oral At Bedtime WHEN DUE aspirin (aspirin 81 mg oral capsule) 1 Capsule(s) Oral Every Day WHEN DUE cariprazine (Vraylar 1.5 mg oral capsule) 1 Capsule(s) Oral Every Day WHEN DUE cyanocobalamin (Vitamin B-12 1000 mcg/ mL injectable solution) 1 Milliliter(s) IntraMuscular Once a month WHEN DUE denosumab (Xgeva 120 mg/ 1.7 mL subcutaneous solution) 1.7 Milliliter(s) SubCutaneous Every 4 Weeks WHEN DUE dexAMETHasone (dexAMETHasone 0.5 mg oral tablet) 1 Tablet(s) Oral Every Day WHEN DUE empagliflozin-metformin (Synjardy 12.5 mg-1000 mg oral tablet) 1 Tablet(s) Oral Two Times A Day with meals WHEN DUE ergocalciferol (Vitamin D2 1.25 mg (50,000 intl units) oral capsule) 1 Capsule(s) Oral Every Day WHEN DUE fenofibric acid (Trilipix 135 mg oral delayed release capsule) 1 Capsule(s) Oral At Bedtime WHEN DUE furosemide (Lasix 20 mg oral tablet) 1 Tablet(s) Oral Every Day WHEN DUE insulin glargine (Lantus Solostar Pen) 80 Unit(s) SubCutaneous Two Times A Day WHEN DUE isosorbide mononitrate (Imdur) 30 Milligram(s) Oral Every Day WHEN DUE metoprolol (Toprol-XL) 100 Milligram(s) Oral At Bedtime WHEN DUE multivitamin with minerals (Centrum Silver oral tablet) 1 Tablet(s) Oral Every Day WHEN DUE omega-3 polyunsaturated fatty acids (Fish Oil oral capsule) 1,200 Milligram(s) Oral Every Day WHEN DUE pantoprazole (Protonix) 20 Milligram(s) Oral Every Day WHEN DUE PARoxetine (Paxil 20 mg oral tablet) 1 Tablet(s) Oral Every Day WHEN DUE pomalidomide (Pomalyst) See instructions Oral Daily for three weeks then off one week WHEN DUE potassium chloride (potassium chloride 20 mEq oral tablet, extended release) 1 Tablet(s) Oral Two Times A Day WHEN DUE ramipril 10 Milligram(s) Oral Two Times A Day WHEN DUE rosuvastatin (Crestor 20 mg oral tablet) 1 Tablet(s) Oral Every Day WHEN DUE semaglutide (Ozempic (1 mg dose)) 1 Milligram(s) SubCutaneous Weekly WHEN DUE ticagrelor (Brilinta (ticagrelor) 90 mg oral tablet) 1 Tablet(s) Oral Two Times A Day Duration: 30 Day(s) WHEN DUE zolpidem (Ambien 5 mg oral tablet) 1 Tablet(s) Oral Once a day (at bedtime) as needed for as needed for sleep WHEN DUE Take your medications faithfully. Do NOT skip medication. Do NOT stop taking medications without the direction of a physician. Carry a list of your medications with you at all times, and take this medication list with you to your first follow up visit. Report any side effects. Avoid herbal remedies unless discussed with your physician. As part of your treatment plan, your physician may have prescribed a limited course of a controlled substance. This medication may be given to help people with moderate or severe pain or for other medical conditions, but there are risks involved with treatment. Common side effects may include nausea, constipation, drowsiness, sweating, itching, dry mouth, and rash. More serious side effects may include cognitive and motor impairment, like problems with thinking, concentrating, alertness, and movement (e.g. slowed reflexes), and driving and operating heavy machinery can be dangerous. It is important for you to talk to your physician if you have these side effects or questions. These controlled substances can produce physical dependence and be habit-forming if taken for an extended period of time, which means that the body has gotten used to them and may experience withdrawal symptoms if they are abruptly stopped. Withdrawal symptoms can include runny nose, sweating, goose bumps, diarrhea, abdominal cramping, rapid heartbeat, difficulty sleeping, and nervousness. Please dispose of unused and medications per your retail pharmacy guidance. Allergies No Known Allergies Immunizations This Visit No Immunizations Found Education Materials Moderate Conscious Sedation, Adult, Care After This sheet gives you information about how to care for yourself after your procedure. Your health care provider may also give you more specific instructions. If you have problems or questions, contact your health care provider. What can I expect after the procedure? After the procedure, it is common to have: ??? Sleepiness for several hours. ??? Impaired judgment for several hours. ??? Difficulty with balance. ??? Vomiting if you eat too soon. Follow these instructions at home: For the time period you were told by your health care provider: ??? Rest. ??? Do not participate in activities where you could fall or become injured. ??? Do not drive or use machinery. ??? Do not drink alcohol. ??? Do not take sleeping pills or medicines that cause drowsiness. ??? Do not make important decisions or sign legal documents. ??? Do not take care of children on your own. Eating and drinking ??? Follow the diet recommended by your health care provider. ??? Drink enough fluid to keep your urine pale yellow. ??? If you vomit: ? Drink water, juice, or soup when you can drink without vomiting. ? Make sure you have little or no nausea before eating solid foods. General instructions ??? Take ciuc-hjy-grrqexz and prescription medicines only as told by your health care provider. ??? Have a responsible adult stay with you for the time you are told. It is important to have someone help care for you until you are awake and alert. ??? Do not smoke. ??? Keep all follow-up visits as told by your health care provider. This is important. Contact a health care provider if: ??? You are still sleepy or having trouble with balance after 24 hours. ??? You feel light-headed. ??? You keep feeling nauseous or you keep vomiting. ??? You develop a rash. ??? You have a fever. ??? You have redness or swelling around the IV site. Get help right away if: ??? You have trouble breathing. ??? You have new-onset confusion at home. Summary ??? After the procedure, it is common to feel sleepy, have impaired judgment, or feel nauseous if you eat too soon. ??? Rest after you get home. Know the things you should not do after the procedure. ??? Follow the diet recommended by your health care provider and drink enough fluid to keep your urine pale yellow. ??? Get help right away if you have trouble breathing or new-onset confusion at home. This information is not intended to replace advice given to you by your health care provider. Make sure you discuss any questions you have with your health care provider. Document Revised: 08/08/2020 Document Reviewed: 03/06/2020 [employer] Patient Education ?? 2020 [employer]. Bone Marrow Aspiration and Bone Marrow Biopsy, Adult Bone marrow aspiration and bone marrow biopsy are procedures that are done to diagnose blood disorders. These procedures may also be done to help diagnose cancer or certain infections. Bone marrow is the soft tissue that is inside the bones. Blood cells are produced in bone marrow. For bone marrow aspiration, a sample of tissue in liquid form is removed from inside the bone. For a bone marrow biopsy, a small sample of solid bone marrow tissue is removed. These samples are examined under a microscope or tested in a lab. You may need these procedures if you get an abnormal result on a blood test called a complete blood count (CBC). The aspiration or biopsy sample is usually taken from the upper part of the hip bone (iliac crest). Sometimes, an aspiration sample is taken from the chest bone (sternum). Tell a health care provider about: ??? Any allergies you have. ??? All medicines you are taking, including vitamins, herbs, eye drops, creams, and sykd-rta-rskrugz medicines. ??? Any problems you or family members have had with anesthetic medicines. ??? Any blood or bone disorders you have. ??? Any surgeries you have had. ??? Any medical conditions you have. ??? Any recent infections you have had, including skin infections. ??? Whether you are or may be . What are the risks? Generally, this is a safe procedure. However, problems may occur, including: ??? Bleeding. ??? Infection. ??? Persistent pain after the procedure. ??? Cracking (fracture) of the bone. ??? Allergic reactions to medicines. ??? Damage to nearby organs, if the sample is taken from the sternum. What happens before the procedure? Staying hydrated Follow instructions from your health care provider about hydration, which may include: ??? Up to 2 hours before the procedure ??? you may continue to drink clear liquids, such as water, clear fruit juice, black coffee, and plain tea. Eating and drinking restrictions Follow instructions from your health care provider about eating and drinking, which may include: ??? 8 hours before the procedure ??? stop eating heavy meals or foods, such as meat, fried foods, or fatty foods. ??? 6 hours before the procedure ??? stop eating light meals or foods, such as toast or cereal. ??? 6 hours before the procedure ??? stop drinking milk or drinks that contain milk. ??? 2 hours before the procedure ??? stop drinking clear liquids. Medicines Ask your health care provider about: ??? Changing or stopping your regular medicines. This is especially important if you are taking diabetes medicines or blood thinners. ??? Taking medicines such as aspirin and ibuprofen. These medicines can thin your blood. Do not take these medicines unless your health care provider tells you to take them. ??? Taking macz-orj-jnkpwyt medicines, vitamins, herbs, and supplements. General instructions ??? Plan to have someone take you home from the hospital or clinic. ??? If you will be going home right after the procedure, plan to have someone with you for 24 hours. ??? Ask your health care provider: ? How your surgery site will be marked. ? What steps will be taken to help prevent infection. These may include: ? Removing hair at the surgery site. ? Washing skin with a germ-killing soap. What happens during the procedure? An IV may be inserted into one of your veins. ??? You will be given one or more of the following: ? A medicine to help you relax (sedative). ? A medicine to numb the area (local anesthetic). ? A medicine to make you fall asleep (general anesthetic). ??? The bone marrow sample will be removed as follows: ? For an aspiration, a hollow needle will be inserted through your skin and into your bone. Bone marrow fluid will be drawn up into a syringe. ? For a biopsy, your health care provider will use a hollow needle to remove a small sample of solid tissue from your bone marrow. ??? The needle will be removed. ??? Bone marrow fluid or tissue will be sent to a lab for examination. ??? A bandage (dressing) will be placed over the insertion site and taped in place. The procedure may vary among health care providers and hospitals. What happens after the procedure? Your blood pressure, heart rate, breathing rate, and blood oxygen level will be monitored until you leave the hospital or clinic. ??? Your IV will be removed, and the insertion site will be checked for bleeding. ??? Do not drive for 24 hours if you were given a sedative during your procedure. ??? It is up to you to get the results of your procedure. Ask your health care provider, or the department that is doing the procedure, when your results will be ready. Summary ??? Bone marrow aspiration and bone marrow biopsy are procedures that are done to diagnose blood disorders. These procedures may also be done to help diagnose cancer or certain infections. ??? Before the procedure, tell your health care provider about all medicines you are taking, including vitamins, herbs, eye drops, creams, and usmd-nnn-anplimw medicines. ??? Plan to have someone take you home from the hospital or clinic. ??? During the aspiration procedure, a sample of tissue in liquid form is removed from inside the bone. For a bone marrow biopsy, a small sample of solid bone marrow tissue is removed. ??? After the procedure, you will be monitored and checked for bleeding. This information is not intended to replace advice given to you by your health care provider. Make sure you discuss any questions you have with your health care provider. Document Revised: 08/28/2019 Document Reviewed: 08/28/2019 [employer] Patient Education ?? 2020 [employer] What you need to know about coronavirus disease 2019 (COVID-19) Missing Image - the embedded image is not supported https://www.cdc.gov/coronavirus/2019-ncov/ HYPERLINK https://www.cdc.gov/coronavirus/2019-ncov/cases-in-us.html cases-in-us.html. How does COVID-19 spread? The virus that causes COVID-19 probably emerged from an animal source, but now it seems to be spreading from person to person. It???s important to note that bcebij-dr-lizzom spread can happen on a continuum. Some diseases are highly contagious (like measles), while other diseases are less so. At this time, it???s unclear how easily or sustainably the virus that causes COVID-19 is spreading between people. Learn what is known about the spread of newly emerged coronaviruses at HYPERLINK https://www.cdc.gov/coronavirus/2019-ncov/about/transmission.html https://www.cdc.gov/coronavirus/ 2019-ncov/about/ HYPERLINK https://www.cdc.gov/coronavirus/2019-ncov/about/transmission.html transmission.html. What are the symptoms of COVID-19? Patients with COVID-19 have had mild to severe respiratory illness with symptoms of fever cough shortness of breath What are severe complications from this virus? Many patients have pneumonia in both lungs. How can I help protect myself? The best way to prevent infection is to avoid being exposed to the virus that causes COVID-19. There are simple everyday preventive actions to help prevent the spread of respiratory viruses. These include Avoid close contact with people who are sick. Avoid touching your eyes, nose, and mouth with unwashed hands. Wash your hands often with soap and water for at least 20 seconds. Use an alcohol-based hand production mechanic that contains at least 60% alcohol if soap and water are not available. If you are sick, to keep from spreading respiratory illness to others, you should Stay home when you are sick. Cover your cough or sneeze with a tissue, then throw the tissue in the trash. Clean and disinfect frequently touched objects and surfaces. What should I do if I recently traveled outside of the [place]? If you were outside the [place] within the past 14 days and feel sick with fever, cough, or difficulty breathing, you should seek medical care. Call the office of your health care provider before you go, and tell them about your travel and your symptoms. They will give you instructions on how to get care without exposing other people to your illness. While sick, avoid contact with people, don???t go out and delay any travel to reduce the possibility of spreading illness to others. Is there a vaccine? There is currently no vaccine to protect against COVID-19. The best way to prevent infection is to avoid being exposed to the virus that causes COVID-19. Is there a treatment? There is no specific antiviral treatment for COVID-19. People with COVID-19 can seek medical care to help relieve symptoms. For more information: HYPERLINK http://www.cdc.gov/COVID19 www.cdc.gov/COVID19 DISCLAIMER: COVID-19 information is rapidly changing and documents will be updated accordingly. June 29, 2019 Emergency Awareness and Preventative Care STROKE is an EMERGENCY Every Minute Counts Act FAST and Check for these signs: FACE Does the face look uneven? ARM Does one arm drift down? SPEECH Does their speech sound strange? TIME Call at any sign of stroke Stroke Risk Factors Atrial Fibrillation (irregular heartbeat) Diabetes Family history of stroke Heart Disease Heavy alcohol use High Blood Pressure High Cholesterol Physical inactivity and obesity Smoking Cigarette Smoking The facts are clear, cigarette smoking will shorten your life. Smoking can cause many illnesses along the way. As a healthcare provider, we recommend that you stop smoking. Assistance with quitting is available by contacting 4-597-SPFW-NOW. This is a free resource providing counseling, support, and referral. Or you may contact your personal physician. National Suicide Prevention Lifeline: The National Suicide Prevention Lifeline is a national network of local crisis centers that provides free and confidential emotional support to people in suicidal crisis or emotional distress 24 hours a day, 7 days a week. Don't Wait! Stop a Heart Attack Before it Starts What is a heart attack? A heart attack is damage or to a part of the heart from severely decreased or lack of blood flow to the heart. Over time, arteries can become narrow from the buildup of fat and cholesterol, which is called plaque. The plaque can rupture causing a blood clot to form. When the blood clot forms, the artery can become severely narrowed or completely blocked, causing a heart attack. Heart attack is the leading cause of in the [place]. 85% of muscle damage occurs within the first 2 hours. Delay in the recognition of heart attack symptoms increases the chances of . Know the early symptoms of a heart attack: Nausea Feeling of fullness in chest Jaw Pain Pain that travels down one or both arms Fatigue/being tired Anxiety Back Pain Chest pressure, squeezing, or discomfort Shortness of breath Sweating, or a cold sweat Feeling of impending doom There are unusual signs of a heart attack, too! Women, the elderly, and diabetics may present with atypical symptoms: Fainting/dizziness Weakness Confusion Risk Factors for a Heart Attack Some heart disease risk factors, such as age and family history, cannot be changed. Others, like smoking and lack of exercise, can be changed. Smoking High Cholesterol High Blood Pressure Family History Obesity Age Gender (Males are at higher risk) Lack of Exercise Diabetes Diet Stress Excessive Alcohol Intake If you or someone you know is experiencing the signs and symptoms of a heart attack, DON???T DELAY. Call immediately and seek help. If someone collapses, perform CPR! Do not attempt to drive if you are having symptoms of heart attack. Hands-Only CPR Why Hands-Only CPR? Hands-Only CPR has been shown to be as effective as conventional CPR for cardiac arrests that occur outside of a hospital. Survival depends on immediately receiving CPR from someone nearby. How do you perform Hands-Only CPR? There are two easy steps: Call if you see a teen or adult collapse Push hard and fast in the center of the chest at a beat of 100 beats per minute. Save a life! 4 WAYS TO GET AHEAD OF SEPSIS SEPSIS is a MEDICAL EMERGENCY. Time matters! Infections put you and your family at risk for a life-threatening condition called sepsis. Sepsis is the body's extreme response to an infection. It is life-threatening, and without timely treatment, sepsis can rapidly lead to tissue damage, organ failure, and . Sepsis happens when an infection you already have-in your skin, lungs, urinary tract or somewhere else-triggers a chain reaction throughout your body. 1 PREVENT INFECTIONS Take good care of chronic conditions. Talk to your doctor about getting the recommended vaccines. 2 PRACTICE GOOD HYGIENE Wash your hands frequently. Keep cuts or open sores clean and covered until they are healed. 3 KNOW THE SYMPTOMS Confusion or disorientation Shortness of breath High heart rate Fever, shivering, or feeling very cold Extreme pain or discomfort Clammy or sweaty skin 4 ACT FAST Get medical care IMMEDIATELY if you suspect sepsis or if you have an infection that is not getting better or is getting worse. To learn more about sepsis and how to prevent infections, visit www.cdc.gov/sepsis. Test Results Laboratory or Other Results This Visit (last charted value for your 11/03/2021 visit) Hematology 11/03/2021 7:05 AM WBC: 2.6 K/uL -- Normal range between ( 3.9 and 10.0 ) RBC: 3.80 Million/uL -- Normal range between ( 4.63 and 6.08 ) Hct: 33.2 % -- Normal range between ( 40.1 and 51.0 ) Hgb: 10.7 Gram/dL -- Normal range between ( 13.7 and 17.5 ) Platelet Count: 106 K/uL -- Normal range between ( 163 and 369 ) MCH: 28.2 pg -- Normal range between ( 25.6 and 32.2 ) MCHC: 32.2 Gram/dL -- Normal range between ( 32.3 and 36.5 ) MCV: 87.4 fL -- Normal range between ( 79.0 and 94.8 ) Slide Review: No Eos %: 2.7 % -- Normal range between ( 1.0 and 7.0 ) [place] #: 0.43 K/uL -- Normal range between ( 0.24 and 0.82 ) Eos #: 0.07 K/uL -- Normal range between ( 0.04 and 0.54 ) [place] %: 16.5 % -- Normal range between ( 4.7 and 12.5 ) Baso %: 1.9 % -- Normal range between ( 0.0 and 1.0 ) Baso #: 0.05 K/uL -- Normal range between ( 0.01 and 0.08 ) RDW: 17.1 % -- Normal range between ( 11.6 and 14.4 ) Neut %: 44.4 % -- Normal range between ( 34.0 and 71.0 ) Neut #: 1.16 K/uL -- Normal range between ( 1.56 and 6.13 ) Lymph %: 34.1 % -- Normal range between ( 19.3 and 53.0 ) Lymph #: 0.89 K/uL -- Normal range between ( 1.18 and 3.74 ) MPV: 9.5 fL -- Normal range between ( 9.4 and 12.4 ) IG#: 0 x10(3)/uL IG%: 0 % -- Normal range between ( 0 and 1 ) Coagulation 11/03/2021 7:05 AM INR: 1.0 -- Normal range between ( 0.9 and 1.1 ) PT: 9.9 Second(s) -- Normal range between ( 9.6 and 11.5 ) Patient Name:NISHANT BUENO II I have received and understand this information and was given the opportunity to ask questions. Patient/Textile Screen Maker Name: Patient/Textile Screen Maker Signature: Relationship to Patient: Clinician/Hospital Textile Screen Maker Signature: Date: documented in this encounter Plan of Treatment Upcoming Encounters Date Type Department Care Team (Late st Contact Info) Description 10/31/2024 10:15 AM EDT Office Visit [facility] - [place] [address] [place] [address] Morris Guerra MD [address] [facility] [address] [place] [address] documented as of this encounter Visit Diagnoses Not on filedocumented in this encounter Care Teams Fuel Buyer Relationship Specialty Start Date End Date Yana Evans MD [address] [place] [address] PCP - General General Internal Medicine 07/28/22 Dang Galvez, RN Nurse Navigator Oncology 08/17/22 10/12/23 Mena Cornell RN Registered Nurse Oncology 08/17/22 10/12/23 Yancy Hendricks MD [address] [facility] [address] [place] [address] Medical Oncologist Hematology and Oncology 08/17/22 10/12/23 Lori Cantor, PA-C [address] [place] [address] [address] [place] [address] Physician Camp Assistant Oncology 08/17/22 10/12/23 documented as of this encounter
--- OUTSIDE RECORDS SUMMARY | 2024-10-11 10:09 | XMS_ITS | Encounter Summary ---
Author Organization [facility] Address [address] [place] [address] Care Team Providers Care Industry Analyst Name Role Phone Teresa Evans MD Primary Care Provider [phone] Dang Galvez RN Unavailable Unavailable Close, Mena Negron RN Unavailable Unavailable Will Hendricks MD Unavailable Lori Cantor PA-C Unavailable [phone] Encounter Details Date Type Department Care Team (Late st Contact Info) Description 01/11/2021 Transcribed Document [facility] Family Medicine [address] [place] [address] ProviderPascale MD [address] [place] [address] Social History Tobacco Use Types Packs/Day Years Used Date Smoking Tobacco: Never Assessed Sex and Gender Information Value Date Recorded Sex Assigned at Not on file Legal Sex Male 5:41 PM CDT Gender Identity Not on file Sexual Orientation Not on file documented as of this encounter Miscellaneous Notes * Cerner Conversion Note - Pascale Gann MD - 01/11/2021 5:00 AM CDT Chart Check - Review Order Profile Entered On: 01/11/2021 6:53 EDT Performed On: 01/11/2021 5:00 EDT by Bettina Liu, RN Chart Check Powerplans Initiated/Discontinued as Appropriate : Yes All Active Orders Reviewed : Yes Bettina Liu RN - 01/11/2021 6:53 EDT Electronically signed by Interface, Sjh Conversion Industrial Economics Teacher Cerner at 08/09/2022 10:13 AM CDT documented in this encounter Plan of Treatment Upcoming Encounters Date Type Department Care Team (Late st Contact Info) Description 10/31/2024 10:15 AM EDT Office Visit [facility] Cardiology - [place] [address] [place] [address] Morris Guerra MD [address] [facility] [address] [place] [address] documented as of this encounter Visit Diagnoses Not on filedocumented in this encounter Care Teams Industry Analyst Relationship Specialty Start Date End Date Teresa Evans MD [address] [place] [address] PCP - General General Internal Medicine 07/28/22 Dang Galvez, RN Nurse Navigator Oncology 08/17/22 10/12/23 Mena Cornell RN Registered Nurse Oncology 08/17/22 10/12/23 Will Hendricks MD [address] [facility] [address] [place] [address] Medical Oncologist Hematology and Oncology 08/17/22 10/12/23 Lori Cantor PA-C [address] [facility] [address] [place] [address] Physician Network Director Oncology 08/17/22 10/12/23 documented as of this encounter
--- OUTSIDE RECORDS SUMMARY | 2024-10-11 10:09 | XMS_ITS | Encounter Summary ---
Author Organization [facility] Address [address] [place] [address] Care Team Providers Care Ocular Pathologist Name Role Phone Teresa Evans MD Primary Care Provider [phone] Dang Galvez RN Unavailable Unavailable Close, Mena Negron RN Unavailable Unavailable Will Hendricks MD Unavailable Lori Cantor PA-C Unavailable [phone] Encounter Details Date Type Department Care Team (Late st Contact Info) Description 11/03/2021 Transcribed Document [facility] [place] Family Medicine [facility] [place] [address] ProviderPascale MD [address] [place] [address] Social History Tobacco Use Types Packs/Day Years Used Date Smoking Tobacco: Never Assessed Sex and Gender Information Value Date Recorded Sex Assigned at Not on file Legal Sex Male 5:41 PM CDT Gender Identity Not on file Sexual Orientation Not on file documented as of this encounter Miscellaneous Notes * Cerner Conversion Note - Pascale ProviderMD - 11/03/2021 7:15 AM CDT PAT Adult Entered On: 11/03/2021 7:18 EDT Performed On: 11/03/2021 7:15 EDT by EREN RODRIGUEZ Vital Measurements Temperature Source : Temporal artery scanning Temperature Mode : Fahrenheit Temperature, Fahrenheit : 98.4 Deg F Clinical Temperature, C : 36.9 Deg C Pulse Method : Pulse Oximetry Peripheral Pulse Rate : 83 bpm Respiratory Rate : 18 Breaths/Min Blood Pressure Location : Arm, right upper Blood Pressure Source : Non-Invasive BP Device Blood Pressure Position : Sitting Systolic Blood Pressure : 149 mmHg (HI) Diastolic Blood Pressure : 71 mmHg Oxygen Saturation : 95 % Oxygen Therapy Mode : Room air EREN RODRIGUEZ - 11/03/2021 7:15 EDT Pain Assessment Pain Assessment : Initial assessment Pain Scale Used : 0-10 Scale EREN RODRIGUEZ 11/03/2021 7:15 EDT Height and Weight, Clinical Dosing Height Source : Stated Height Entry Format : nfon Height, Feet : 5 ft(Converted to: 152 cm, 60 Inch) Height, Inches : 10 Inch(Converted to: 0 ft 10 Inch, 25.40 cm) Clinical Height : 177.8 cm Weight Source : Standing scale Weight Entry Format : nfon Clinical Dosing Weight : 121.82 kg Weight, Pounds : 268 lb Body Surface Area (BSA) : 2.37 m2 Body Mass Index : 38.5 kg/m2 (HI) [place] Body Weight : 72 kg ESTEVANEREN GOULD 11/03/2021 7:15 EDT Health Histories Smoking Status : Never (less than 100 in lifetime; none in last 30 days) Smokeless Tobacco Status : Never Implant/Device Type, Dynamite Reclaimer and Model : Abdominal mesh from Hernia repair. MICHAELEREN 11/03/2021 7:15 EDT Social History (As Of: 11/03/2021 07:18:33 EDT) Tobacco: Smoking Status Never smoker. (Last Updated: 11/21/2012 12:36:31 EDT by SMITA CACERES RN) Smoking Status Never smoker. None Smoking Frequency Within Last 30 Days. Use in Last 12 Months: No. Used Tobacco, but Quit No. Last Used: none. Second Hand Smoke Exposure: No. None Smokeless Tobacco Use History. non smoker Alternative Nicotine Product Use. Comments: 10/06/2015 6:37 - Brock Osman RN: non smoker (Last Updated: 10/06/2015 06:37:02 EDT by Brock Osman RN) Never (less than 100 in lifetime) Smoking Status. Never Smokeless Tobacco Status. (Last Updated: 01/10/2021 00:45:09 EDT by Eva Boogie RN) Alcohol: Comments: 11/21/2012 12:36 - SMITA CACERES RN: seldom (Last Updated: 11/21/2012 12:36:16 EDT by SMITA CACERES RN) Alcohol Use History No. (Last Updated: 01/10/2021 00:45:09 EDT by Eva Boogie RN) Nutrition/Health: Regular (Last Updated: 01/10/2021 00:45:09 EDT by Eva Boogie RN) Infectious Disease History Does patient have symptoms of COVID-19? : No Tested for COVID19 in the past 14 days : No, Patient stated Does the Patient state known exposure to a COVID-19 positive case in the last 14 days? : No Patient Vaccinated for COVID-19 : Fully vaccinated EREN RODRIGUEZ - 11/03/2021 7:15 EDT Infectious Disease Risk Screening Grid Cough < 2 wks of unknown origin : NO Cough > 2 weeks : NO Blood in Sputum : NO Fever or self-reported Fever : NO Rash of unknown origin : NO Headache : NO Stiff neck : NO Night Sweats : NO Unexplained Weight Loss : NO Diarrhea (3 episode per day) : NO EREN RODRIGUEZ 11/03/2021 7:15 EDT Physical contact outside [place] in the last 30 days : No Hospitalized in Foreign Country : No Infectious Disease History : Chicken pox/Shingles, Measles, Mumps INF Disease TB Screening Calc : 0 INF Disease Recent Travel Calc : 0 EREN RODRIGUEZ 11/03/2021 7:15 EDT COVID19 PreProcedure Screening Is this an Emergent or Add on Procedure? : No Date PreProcedure COVID-19 test known? : No Has patient been isolated since the test : No Exposed to COVID19 symptoms since test? : No EREN RODRIGUEZ 11/03/2021 7:15 EDT Anesthesia/Transfusion History Family History of Anesthesia Reaction : No prior transfusion(s) Blood Transfusion Acceptable to Patient : Yes Transfusion History : Prior anesthesia without reaction Family History of Anesthesia Reaction : None EREN RODRIGUEZ 11/03/2021 7:15 EDT Advance Directive Patient has Advance Directive *Q : Yes, Advance Directive not with the patient Advance Directive Type : Living will Copy Advance Directive Verified/on Chart : No EREN RODRIGUEZ 11/03/2021 7:15 EDT [place] Suicide Severity Rating Scale (C-SSRS) CSSRS Past Month Wish to be : No CSSRS Past Month Suicidal Thoughts : No CSSRS Lifetime Suicide Behavior : No Suicide Severity Rating Score : 0 Suicide Severity Rating : No Additional Care Required at this time EREN RODRIGUEZ - 11/03/2021 7:15 EDT Psychosocial History Chronic/Terminal Illness w/Freq Visits : No Do You Have a History of the Following? : Depression Currently in Unsafe Situation : No MICHAEL EREN - 11/03/2021 7:15 EDT General Info Support Person/Pt Rep Name : james Bueno Contact Password : [email or web address] Support Person/Pt Rep Contact Information : [phone] Want Family/Rep/Phys Notified of Admit : No Primary Language : Hungarian Preferred Communication Mode : Verbal Communication Barrier : None Caustic Operator Needed : No MICHAEL EREN - 11/03/2021 7:15 EDT Tam Scale Tam Sensory Perception : Slightly limited Tam Moisture : Rarely moist Tam Activity : Walks occasionally Tam Mobility : Slightly limited Tam Nutrition : Adequate Tam Friction and Shear : Potential problem Tam Score : 18 MICHAEL EREN 11/03/2021 7:15 EDT Sleep Apnea Risk Assmt BiPAP/CPAP Ordered for Home Use : Yes Hx of Obstructive Sleep Apnea Diagnosis : Yes BiPAP/CPAP Used at Home : Yes Age over 50 Years Old : Yes Gender Male : Yes EREN RODRIGUEZ - 11/03/2021 7:15 EDT Pain Scale Intensity : 0 ESTEVANLUIS FERNANDO EREN 11/03/2021 7:15 EDT Image 4 - Images currently included in the form version of this document have not been included in the text rendition version of the form. Electronically signed by Stephanie Reddy Conversion Machine Maintenance Servicer Cerner at 08/09/2022 10:26 AM CDT documented in this encounter Plan of Treatment Upcoming Encounters Date Type Department Care Team (Late st Contact Info) Description 10/31/2024 10:15 AM EDT Office Visit [facility] Cardiology [facility] [address] [place] [address] Morris Guerra MD [address] [place] [address] [place] [address] documented as of this encounter Visit Diagnoses Not on filedocumented in this encounter Care Teams Ocular Pathologist Relationship Specialty Start Date End Date Teresa Evans MD [address] [place] [address] PCP - General General Internal Medicine 07/28/22 Dang Galvez RN Nurse Navigator Oncology 08/17/22 10/12/23 Mena Cornell RN Registered Nurse Oncology 08/17/22 10/12/23 Will Hendricks MD 12[address] [facility] [address] [place] [address] Medical Oncologist Hematology and Oncology 08/17/22 10/12/23 Lori Cantor, PA-C [address] [facility] [address] [place] [address] Physician Rotary Cutter Oncology 08/17/22 10/12/23 documented as of this encounter
--- OUTSIDE RECORDS SUMMARY | 2024-10-11 10:09 | XMS_ITS | Encounter Summary ---
Author Organization [email or web address] Address [address] [place] [address] Care Team Providers Care Spinner Operator Name Role Phone Teresa Evans MD Primary Care Provider [phone]- [phone] Dang Galvez RN Unavailable Unavailable Close, Mena Negron RN Unavailable Unavailable Will Hendricks MD Unavailable Lori Cantor PA-C Unavailable [phone] Encounter Details Date Type Department Care Team (Late st Contact Info) Description 11/03/2021 Transcribed Document [facility] [address] [place] [address] ProviderPascale MD [address] [place] [address] Social History Tobacco Use Types Packs/Day Years Used Date Smoking Tobacco: Never Assessed Sex and Gender Information Value Date Recorded Sex Assigned at Not on file Legal Sex Male 5:41 PM CDT Gender Identity Not on file Sexual Orientation Not on file documented as of this encounter Miscellaneous Notes * Cerner Conversion Note - Pascale ProviderMD - 11/03/2021 10:51 AM CDT Nursing Discharge Summary Entered On: 11/03/2021 10:52 EDT Performed On: 11/03/2021 10:51 EDT by EREN RODRIGUEZ Discharge Documentation Discharge Date/Time : 11/03/2021 11:00 EDT Transporter Signature : EREN RODRIGUEZ Patient Disposition, General : Discharge Discharge To : Home with ambulatory/outpatient follow-up Mode Of Departure, General Discharge : Ambulatory Accompanied By, Discharge : Spouse IV Discontinued : Yes Personal Belongings With Patient : Yes Discharge Instructions Reviewed With, Opportunity For Questions Given : Patient, Spouse Patient Education Completed : Yes Teaching Method : Explanation, Printed materials Teaching Evaluation : Verbalizes understanding Education Comment : SKIN WDP RESP UNLABORED/EVEN/A+OX4 CAROL PROCEDURE WITHOUT DIFFICULTY EREN RODRIGUEZ - 11/03/2021 10:51 EDT Electronically signed by [facility] Conversion Dynamo Repairer Cerner at 08/09/2022 10:31 AM CDT documented in this encounter Plan of Treatment Upcoming Encounters Date Type Department Care Team (Late st Contact Info) Description 10/31/2024 10:15 AM EDT Office Visit [facility] Cardiology - [place] [address] [place] [address] Morris Guerra MD [address] [facility] [address] [place] [address] documented as of this encounter Visit Diagnoses Not on filedocumented in this encounter Care Teams Spinner Operator Relationship Specialty Start Date End Date Teresa Evasn MD [address] [place] [address] PCP - General General Internal Medicine 07/28/22 Dang Galvez, RN Nurse Navigator Oncology 08/17/22 10/12/23 Mena Cornell RN Registered Nurse Oncology 08/17/22 10/12/23 Will Hendricks MD 1210 [facility] [address] [place] [address] Medical Oncologist Hematology and Oncology 08/17/22 10/12/23 Lori Cantor PA-C [address] [facility] [address] [place] [address] Physician University Archivist Oncology 08/17/22 10/12/23 documented as of this encounter
--- OUTSIDE RECORDS SUMMARY | 2024-10-11 10:09 | XMS_ITS | Encounter Summary ---
Author Organization [employer] Address [address] [place] [address] Care Team Providers Care National Account Manager Name Role Phone Teresa Evans MD Primary Care Provider [phone] Dang Galvez RN Unavailable Unavailable Close, Mena Negron RN Unavailable Unavailable Will Hendricks MD Unavailable Lori Cantor PA-C Unavailable Encounter Details Date Type Department Care Team (Late st Contact Info) Description 11/03/2021 Transcribed Document [facility] [place] [address] [place] [address] ProviderPascale MD [address] [place] [address] Social History Tobacco Use Types Packs/Day Years Used Date Smoking Tobacco: Never Assessed Sex and Gender Information Value Date Recorded Sex Assigned at Not on file Legal Sex Male 5:41 PM CDT Gender Identity Not on file Sexual Orientation Not on file documented as of this encounter Miscellaneous Notes * Cerner Conversion Note - Pascale Gann MD - 11/03/2021 8:33 AM CDT Patient: MICHAEL BUENO II Age: 66 years Sex: Male : 1955 Associated Diagnoses: None Author: ELEAZAR DODSON PA PRE PROCEDURE NOTE I have evaluated the patient prior to the procedure. ASA score: 2 Mallampati score: 2 ASA SCORE ASA 1: Healthy patients ASA 2 : Mild to moderate systemic disease caused by the surgical condition or by other pathological processes, and medically well controlled. ASA 3: Severe disease process which limits activity but is not incapacitating ASA 4: Severe incapacitating disease process that is a constant threat to life ASA 5: Moribund patient not expected to survive 24 hours with or without an operation ASA 6: Declared brain- patient whose organs are being removed for donor purposes Mallampati Score Class I: Soft palate, uvula, fauces, pillars visible. Class II: Soft palate, major part of uvula, fauces visible Class III: Soft palate, base of uvula visible Class IV: Only hard palate visible documented in this encounter Plan of Treatment Upcoming Encounters Date Type Department Care Team (Late st Contact Info) Description 10/31/2024 10:15 AM EDT Office Visit [facility] Cardiology [facility] [address] [place] [address] Morris Guerra MD [address] [facility] [address] [place] [id number] documented as of this encounter Visit Diagnoses Not on filedocumented in this encounter Care Teams National Account Manager Relationship Specialty Start Date End Date Teresa Evans MD [address] [place] [address] PCP - General General Internal Medicine 07/28/22 Dang Galvez, RN Nurse Navigator Oncology 08/17/22 10/12/23 Mena Cornell RN Registered Nurse Oncology 08/17/22 10/12/23 Will Hendricks MD 1210 [facility] [address] [place] [address] Medical Oncologist Hematology and Oncology 08/17/22 10/12/23 Lori Cantor, PA-C [address] [facility] [address] [place] [address] Physician Health Unit Supervisor Oncology 08/17/22 10/12/23 documented as of this encounter
--- OUTSIDE RECORDS SUMMARY | 2024-10-11 10:09 | XMS_ITS | Encounter Summary ---
Author Organization [employer] Address [address] [place] [address] Care Team Providers Care Construction Representative Name Role Phone Teresa Evans MD Primary Care Provider [phone] Dang Galvez RN Unavailable Unavailable Close, Mena Negron RN Unavailable Unavailable Will Hendricks MD Unavailable Lori Cantor PA-C Unavailable [phone] Encounter Details Date Type Department Care Team (Late st Contact Info) Description 01/11/2021 Transcribed Document [facility] [place] Family Medicine [address] [place] [address] ProviderPascale MD [address] [place] [address] Social History Tobacco Use Types Packs/Day Years Used Date Smoking Tobacco: Never Assessed Sex and Gender Information Value Date Recorded Sex Assigned at Not on file Legal Sex Male 5:41 PM CDT Gender Identity Not on file Sexual Orientation Not on file documented as of this encounter Miscellaneous Notes * Cerner Conversion Note - Pascale ProviderMD - 01/11/2021 2:00 AM CDT Benefits Consulting Analyst Details Entered On: 01/11/2021 3:49 EDT Performed On: 01/11/2021 2:00 EDT by Bettina Liu RN Order Details Transport Mode Order Detail : Wheelchair Isolation Precautions Order Detail : Standard Precautions Order Detail : N/A IV Order Detail : 1 Oxygen Order Detail : 0 Nurse Collect Order Detail : 0 Lift/Transfer : Independent Central Line Order Detail : No Room Service : Appropriate Arterial Line : No Patient Needs Meds Crushed/Liquid : No Bettina Liu, RN - 01/11/2021 3:49 EDT Electronically signed by Stephanie Reddy Conversion Manufacturing Engineer Supervisor Cerner at 08/09/2022 10:32 AM CDT documented in this encounter Plan of Treatment Upcoming Encounters Date Type Department Care Team (Late st Contact Info) Description 10/31/2024 10:15 AM EDT Office Visit [facility] Cardiology [facility] [address] [place] [address] Morris Guerra MD [address] [facility] [address] [place] [address] documented as of this encounter Visit Diagnoses Not on filedocumented in this encounter Care Teams Construction Representative Relationship Specialty Start Date End Date Teresa Evans MD [address] [place] [address] PCP - General General Internal Medicine 07/28/22 Dang Galvez, RN Nurse Navigator Oncology 08/17/22 10/12/23 Mena Cornell RN Registered Nurse Oncology 08/17/22 10/12/23 Will Hendricks MD [address] [facility] [address] [place] [address] Medical Oncologist Hematology and Oncology 08/17/22 10/12/23 Lori Cantor, PA-C [address] [place] [address] [address] [place] [address] Physician Tube Molder Fiberglass Oncology 08/17/22 10/12/23 documented as of this encounter
--- OUTSIDE RECORDS SUMMARY | 2024-10-11 10:09 | XMS_ITS | Encounter Summary ---
Author Organization [employer] Address [address] [place] [address] Care Team Providers Care Wire Sawyer Name Role Phone Teresa Evans MD Primary Care Provider [phone] Dang Galvez RN Unavailable Unavailable Close, Mena Negron RN Unavailable Unavailable Will Hendricks MD Unavailable Lori Cantor PA-C Unavailable [phone] Encounter Details Date Type Department Care Team (Late st Contact Info) Description 01/11/2021 Transcribed Document [facility] [place] [address] ProviderPascale MD [address] [place] [id number] Social History Tobacco Use Types Packs/Day Years Used Date Smoking Tobacco: Never Assessed Sex and Gender Information Value Date Recorded Sex Assigned at Not on file Legal Sex Male 5:41 PM CDT Gender Identity Not on file Sexual Orientation Not on file documented as of this encounter Miscellaneous Notes * Cerner Conversion Note - Pascale Gann MD - 01/11/2021 9:27 AM CDT Patient: NISHANT BUENO II Age: 65 years Sex: Male : 1955 Associated Diagnoses: None Author: CRISTIANE GUERRA MD-CAR BASIC PCP: Primary Pediatric Nephrologist: None Subjective NAD Health Status Allergies: Allergic Reactions (Selected) No Known Allergies, No qualifying data available Current medications: (Selected) Inpatient Medications Ordered Benadryl: 50 mg, Oral, 1-Time Benadryl: 50 mg, Oral, 1-Time Brilinta: 90 mg, Oral, BID Imdur: 30 mg, Oral, Daily Jardiance: 10 mg, Oral, Daily Metoprolol Succinate ER: 100 mg, Oral, Daily Crystal 5 mg-325 mg oral tablet: 1 Tab, Oral, Q6H, PRN: Pain (Moderate 4-6) Singulair: 10 mg, Oral, 1-Time Sodium Chloride 0.9% intravenous solution 1,000 mL: 75 mL/Hr, IntraVENous Sodium Chloride 0.9% intravenous solution 500 mL: Titrate, IntraVENous acetaminophen: 650 mg, Oral, 1-Time acetaminophen: 650 mg, Oral, 1-Time acetaminophen: 650 mg, Oral, Q6H, PRN: Pain (Mild 1-3) amLODIPine: 10 mg, Oral, Daily aspirin: 81 mg, Chew, Daily izkuconekgz-hhfpjgaugrfex-davq (Darzalex Faspro): 1,800 mg, 15 mL, 60 mL/Hr, SubCutaneous, 1-Time vkrahfoxovq-ylyntqoenrwuc-uyjr (Darzalex Faspro): 1,800 mg, SubCutaneous, 1-Time dexAMETHasone: 20 mg, Oral, 1-Time dexAMETHasone: 20 mg, Oral, 1-Time fenofibrate 145 mg oral tablet: 145 mg, 1 Tab, Oral, Daily heparin injection 25,000 Units + NaCl 0.45% Premix Diluent 250 mL: Titrate, IntraVENous hydrALAZINE: 10 mg, IV Push, Q6H, PRN: Hypertension influenza virus vaccine, inactivated: 0.5 mL, IntraMuscular, [id number] labetalol: 10 mg, IV Push, Q4H, PRN: Hypertension lisinopril: 20 mg, Oral, BID morphine: 2 mg, IV Push, Q4H, PRN: Pain (Severe 7-10) nitroglycerin: 0.4 mg, SubLINgual, Q5Min, PRN: Chest Pain ondansetron: 4 mg, IV Push, Q4H, PRN: Nausea/Vomiting pantoprazole: 40 mg, Oral, Daily rosuvastatin: 20 mg, Oral, At Bedtime Documented Medications Documented Aldactone 25 mg oral tablet: 1 Tab, Oral, Daily, 30 Tab, 0 Refill(s) Ambien 5 mg oral tablet: 1 Tab, Oral, Once a day (at bedtime), PRN: as needed for sleep, 0 Refill(s) Brilinta: 60 mg, BID, 0 Refill(s) Centrum Silver oral tablet: 1 Tab, Oral, Daily, 30 Tab, 0 Refill(s) Crestor 20 mg oral tablet: 1 Tab, Oral, Daily, 30 Tab, 0 Refill(s) Darzalex Faspro 1800 mg-30,000 units/15 mL subcutaneous solution: See Instructions, One injection weekly, 0 Refill(s) Fish Oil oral capsule: 1,200 mg, Oral, Daily, 100 Cap, 0 Refill(s) Imdur: 30 mg, Oral, Daily, 0 Refill(s) Lantus Solostar Pen: 80 Units, SubCutaneous, BID, 0 Refill(s) Lasix 20 mg oral tablet: 1 Tab, Oral, Daily, 0 Refill(s) Crystal 7.5 mg-325 mg oral tablet: 2 Tab, Oral, Q6H, PRN: for pain, 0 Refill(s) Norvasc 10 mg oral tablet: 1 Tab, Oral, At Bedtime, 30 Tab, 0 Refill(s) Ozempic (1 mg dose): 1 mg, SubCutaneous, Weekly, 0 Refill(s) Pomalyst: See Instructions, Oral Daily for three weeks then off one week, 0 Refill(s) Protonix: 20 mg, Oral, Daily, 0 Refill(s) Synjardy 12.5 mg-1000 mg oral tablet: 1 Tab, Oral, BID, with meals, 180 Tab, 0 Refill(s) Toprol-XL: 100 mg, Oral, At Bedtime, 0 Refill(s) Trilipix 135 mg oral delayed release capsule: 1 Cap, Oral, At Bedtime, 30 Cap, 0 Refill(s) Vitamin B-12 1000 mcg/mL injectable solution: 1 mL, IntraMuscular, qMonth, 10 mL, 0 Refill(s) Vitamin D2 1.25 mg (50,000 intl units) oral capsule: 1 Cap, Oral, Daily, 0 Refill(s) Wellbutrin XL 300 mg/24 hours oral tablet, extended release: 1 Tab, Oral, Daily, 0 Refill(s) Xgeva 120 mg/1.7 mL subcutaneous solution: 1.7 mL, SubCutaneous, [id number], 2 mL, 0 Refill(s) acyclovir 200 mg oral capsule: 1 Cap, Oral, Daily, 0 Refill(s) aspirin 81 mg oral capsule: 1 Cap, Oral, Daily, 0 Refill(s) dexAMETHasone 0.5 mg oral tablet: 1 Tab, Oral, Daily, 0 Refill(s) fluticasone 50 mcg/inh nasal spray: 2 [place], Nostrils Both, Daily, 0 Refill(s) montelukast: 10 mg, Oral, QPM, 0 Refill(s) potassium chloride 20 mEq oral tablet, extended release: 1 Tab, Oral, BID, 180 Tab, 0 Refill(s) ramipril: 10 mg, Oral, BID, 0 Refill(s), Home Medications (29) Active acyclovir 200 mg oral capsule 200 mg = 1 Cap, Oral, Daily Aldactone 25 mg oral tablet 25 mg = 1 Tab, Oral, Daily Ambien 5 mg oral tablet 5 mg = 1 Tab, PRN, Oral, Once a day (at bedtime) aspirin 81 mg oral capsule 81 mg = 1 Cap, Oral, Daily Brilinta 60 mg, BID Centrum Silver oral tablet 1 Tab, Oral, Daily Crestor 20 mg oral tablet 20 mg = 1 Tab, Oral, Daily Darzalex Faspro 1800 mg-30,000 units/15 mL subcutaneous solution See Instructions dexAMETHasone 0.5 mg oral tablet 0.5 mg = 1 Tab, Oral, Daily Fish Oil oral capsule 1,200 mg, Oral, Daily fluticasone 50 mcg/inh nasal spray 2 [place], Nostrils Both, Daily Imdur 30 mg, Oral, Daily Lantus Solostar Pen 80 Units, SubCutaneous, BID Lasix 20 mg oral tablet 20 mg = 1 Tab, Oral, Daily montelukast 10 mg, Oral, QPM Crystal 7.5 mg-325 mg oral tablet 2 Tab, PRN, Oral, Q6H Norvasc 10 mg oral tablet 10 mg = 1 Tab, Oral, At Bedtime Ozempic (1 mg dose) 1 mg, SubCutaneous, Weekly Pomalyst See Instructions potassium chloride 20 mEq oral tablet, extended release 20 mEq = 1 Tab, Oral, BID Protonix 20 mg, Oral, Daily ramipril 10 mg, Oral, BID Synjardy 12.5 mg-1000 mg oral tablet 1 Tab, Oral, BID Toprol-XL 100 mg, Oral, At Bedtime Trilipix 135 mg oral delayed release capsule 135 mg = 1 Cap, Oral, At Bedtime Vitamin B-12 1000 mcg/mL injectable solution 1,000 mcg = 1 mL, IntraMuscular, qMonth Vitamin D2 1.25 mg (50,000 intl units) oral capsule 50,000 Int Units = 1 Cap, Oral, Daily Wellbutrin XL 300 mg/24 hours oral tablet, extended release 300 mg = 1 Tab, Oral, Daily Xgeva 120 mg/1.7 mL subcutaneous solution 120 mg = 1.7 mL, SubCutaneous, [id number] , Medications (21) Active Scheduled: (11) amLODIPine 10 mg tab 10 mg 1 Tab, Oral, Daily aspirin 81 mg chew tab 81 mg 1 Tab, Chew, Daily empagliflozin 10 mg tab 10 mg 1 Tab, Oral, Daily fenofibrate 145 mg tab 145 mg 1 Tab, Oral, Daily influenza virus vaccine, mdck cell inj 0.5 mL, IntraMuscular, [id number] isosorbide MONOnitrate ER 30 mg tab 30 mg 1 Tab, Oral, Daily lisinopril 20 mg tab 20 mg 1 Tab, Oral, BID metoprolol succinate XL 100 mg tab 100 mg 1 Tab, Oral, Daily pantoprazole EC 40 mg tab 40 mg 1 Tab, Oral, Daily rosuvastatin 20 mg tab 20 mg 1 Tab, Oral, At Bedtime ticagrelor 90 mg tab 90 mg 1 Tab, Oral, BID Continuous: (3) heparin/NaCl 0.45% 25,000 Units + Premix Diluent NaCl 0.45% 250 mL 250 mL, IntraVENous NaCl 0.9% 1,000 mL 1,000 mL, IntraVENous, 75 mL/Hr NaCl 0.9% TITRATE 500 mL 500 mL, IntraVENous PRN: (7) acetaminophen 325 mg tab 650 mg 2 Tab, Oral, Q6H acetaminophen/HYDROcodone 325/5 mg tab 1 Tab, Oral, Q6H hydrALAZINE 20 mg/1 mL inj 10 mg 0.5 mL, IV Push, Q6H labetalol 100 mg/20 mL inj 10 mg 2 mL, IV Push, Q4H morphine 2 mg/1 ml inj 2 mg 1 mL, IV Push, Q4H nitroglycerin 0.4 mg tab # 25 btl 0.4 mg 1 Tab, SubLINgual, Q5Min ondansetron 4 mg/2 mL inj 4 mg 2 mL, IV Push, Q4H Problem list: All Problems CAD / SNOMED CT 3883308707 / Confirmed History of obstructive sleep apnea / IMO 72732458 / Confirmed Suicide risk / IMO 23626 / Confirmed Obstructive sleep apnea / SNOMED CT 4714224502 / Confirmed Hyperlipidemia / SNOMED CT 59070017 / Confirmed Suicide risk / IMO 17336 / Confirmed Diabetes / SNOMED CT 196687277 / Confirmed Hypertension / SNOMED CT 6333517706 / Confirmed Hyperlipidemia / SNOMED CT 16821675 / Confirmed Sleep apnea / SNOMED CT 039504582 / Confirmed Depression / SNOMED CT 48693194 / Confirmed Stented coronary artery / SNOMED CT 3665643287 / Confirmed GERD - Gastro-esophageal reflux disease / SNOMED CT 0414905837 / Confirmed Arthritis / SNOMED CT 6125968 / Confirmed Neck pain / SNOMED CT 258066441 / Confirmed Multiple myeloma / SNOMED CT 617763178 / Confirmed Lytic bone lesions on xray / SNOMED CT 9018130571 / Confirmed, Active Problems (17) Arthritis CAD Depression Diabetes GERD - Gastro-esophageal reflux disease History of obstructive sleep apnea Hyperlipidemia Hyperlipidemia Hypertension Lytic bone lesions on xray Multiple myeloma Neck pain Obstructive sleep apnea Sleep apnea Stented coronary artery Suicide risk Suicide risk Objective Intake and Output 24 hour intake, 24 hour output VS/Measurements Vitals Signs (last 24 hrs) Last Charted Minimum Maximum Temp 98.1 (JAN 11 06:48) 98 (JAN 10 11:00) 98 (JAN 10 11:00) Mon HR 86 (JAN 11 06:48) 86 (JAN 11 06:48) 91 (JAN 10 14:49) Resp Rate 17 (JAN 11 06:48) 16 (JAN 10 11:00) 17 (JAN 10 20:36) SBP 132 (JAN 11 06:48) 116 (JAN 10 11:00) 140 (JAN 10 14:49) DBP 84 (JAN 11 06:48) 77 (JAN 10 20:36) 86 (JAN 10 14:49) MAP 100 (JAN 11 06:48) 91 (JAN 10 20:36) 103 (JAN 10 14:49) SpO2 95 (JAN 11 06:48) 94 (JAN 10 20:36) 98 (JAN 10 11:00) General: Alert and oriented, No acute distress. Eye: Pupils are equal, round and reactive to light, Extraocular movements are intact. HENT: Normocephalic, Normal hearing. Neck: Supple, Non-tender, increased circumfrence. Respiratory: Lungs are clear to auscultation, Respirations are non-labored. Cardiovascular: Normal rate, Regular rhythm, Normal peripheral perfusion. Gastrointestinal: Soft, Non-tender, Non-distended, obese. Musculoskeletal: Normal range of motion, Normal strength. Integumentary: Warm, Dry, [place]. Neurologic: Normal sensory, Normal motor function. Psychiatric: Cooperative, Appropriate mood & affect. Results Review JAN 11 05:09 138 110 14 / H 107 3.7 26 0.90 \ JAN 11 05:09 \ L 10.9 / L 2.4 L 109 / L 33.4 \ Cardiac Markers (Current Encounter/Past 24 Hours) No Cardiac Marker Results Found (Past 24 Hours) No Radiology Results Found Impression and Plan NSTEMI Troponin: 0.69, 1.79 (OSH), 1.29 Hx LAD FLOR 7-18 for USA. Remote Hx of LAD & Dx branch FLOR. 100% small RCA. [facility] graduate. Elvin Myoview 06/13 EF 39%, moderate anterior reversible defect could represent ischemia, mixture of scar/minimal ischemia in RCA territory. Echo: 01/13. EF 60% valves ok Hx of mildly dilated ascending aorta, 4.3 cm. MARIXA on CPAP. IRDM. Hypertriglyceridemia. Multiple myeloma. S/P radiation, first Darzalex treatment 01/08 just prior to onset of chest pain PLAN; 01/11/21 L heart cath +/- PCI today. Continue current CV meds. Addendum: Ostial LAD 40-50% iFR .97, 60% distal LAD iFR .87; 100% chronic RCA, 60% small lat branch. Unable to use Ranexa due to dexamethasone. Check D-dimer, consider CTA if severely elevated. 01/10/21 L heart cath +/- PCI, including R/B discussed, pt agrees to proceed. Trend troponin. ACS medications to include KATLYN, Beta lei, ASA, high intensity statin, and Heparin drip. documented in this encounter Plan of Treatment Upcoming Encounters Date Type Department Care Team (Late st Contact Info) Description 10/31/2024 10:15 AM EDT Office Visit [facility] [address] [place] [address] Cristiane Guerra MD [address] [facility] [address] [place] [address] documented as of this encounter Visit Diagnoses Not on filedocumented in this encounter Care Teams Wire Sawyer Relationship Specialty Start Date End Date Teresa Evans MD [address] [place] [address] PCP - General General Internal Medicine 07/28/22 Dang Galvez, RN Nurse Navigator Oncology 08/17/22 10/12/23 Mena Cornell RN Registered Nurse Oncology 08/17/22 10/12/23 Wlil Hendricks MD [address] [facility] [address] [place] [address] Medical Oncologist Hematology and Oncology 08/17/22 10/12/23 Lori Cantor, PA-C [address] [place] [address] [address] [place] [address] Physician Food Production Supervisor Oncology 08/17/22 10/12/23 documented as of this encounter
--- OUTSIDE RECORDS SUMMARY | 2024-10-11 10:09 | XMS_ITS | Encounter Summary ---
Author Organization [email or web address] Address [address] [place] [address] Care Team Providers Care Group Cio Name Role Phone Teresa Evans MD Primary Care Provider [phone] Dang Galvez RN Unavailable Unavailable Close, Mena Negron RN Unavailable Unavailable Will Hendricks MD Unavailable Lori Cantor PA-C Unavailable [phone] Encounter Details Date Type Department Care Team (Late st Contact Info) Description 01/11/2021 Transcribed Document [facility] Family Medicine [address] [place] [id number] ProviderPascale MD [address] [place] [address] Social History Tobacco Use Types Packs/Day Years Used Date Smoking Tobacco: Never Assessed Sex and Gender Information Value Date Recorded Sex Assigned at Not on file Legal Sex Male 5:41 PM CDT Gender Identity Not on file Sexual Orientation Not on file documented as of this encounter Miscellaneous Notes * Cerner Conversion Note - Pascale Gann MD - 01/11/2021 5:48 PM CDT Patient Education Materials Follows: Angina Angina is very bad discomfort or pain in the chest, neck, arm, jaw, or back. The discomfort is caused by a lack of blood in the middle layer of the heart wall (myocardium). What are the causes? This condition is caused by a buildup of fat and cholesterol (plaque) in your arteries (atherosclerosis). This buildup narrows the arteries and makes it hard for blood to flow. What increases the risk? You are more likely to develop this condition if: ??? You have high levels of cholesterol in your blood. ??? You have high blood pressure (hypertension). ??? You have diabetes. ??? You have a family history of heart disease. ??? You are not active, or you do not exercise enough. ??? You feel sad (depressed). ??? You have been treated with high energy rays (radiation) on the left side of your chest. Other risk factors are: ??? Using tobacco. ??? Being very overweight (obese). ??? Eating a diet high in unhealthy fats (saturated fats). ??? Having stress, or being exposed to things that cause stress. ??? Using drugs, such as cocaine. Women have a greater risk for angina if: ??? They are older than 55. ??? They have stopped having their period (are in postmenopause). What are the signs or symptoms? Common symptoms of this condition in both men and women may include: ??? Chest pain, which may: ? Feel like a crushing or squeezing in the chest. ? Feel like a tightness, pressure, fullness, or heaviness in the chest. ? Last for more than a few minutes at a time. ? Stop and come back (recur) after a few minutes. ??? Pain in the neck, arm, jaw, or back. ??? Heartburn or upset stomach (indigestion) for no reason. ??? Being short of breath. ??? Feeling sick to your stomach (nauseous). ??? Sudden cold sweats. Women and people with diabetes may have other symptoms that are not usual, such as feeling: ??? Tired (fatigue). ??? Worried or nervous (anxious) for no reason. ??? Weak for no reason. ??? Dizzy or passing out (fainting). How is this treated? This condition may be treated with: ??? Medicines. These are given to: ? Prevent blood clots. ? Prevent heart attack. ? Relax blood vessels and improve blood flow to the heart (nitrates). ? Reduce blood pressure. ? Improve the pumping action of the heart. ? Reduce fat and cholesterol in the blood. ??? A procedure to widen a narrowed or blocked artery in the heart (angioplasty). ??? Surgery to allow blood to go around a blocked artery (coronary artery bypass surgery). Follow these instructions at home: Medicines ??? Take irwv-puw-magmuly and prescription medicines only as told by your doctor. ??? Do not take these medicines unless your doctor says that you can: ? NSAIDs. These include: ? Ibuprofen. ? Naproxen. ? Vitamin supplements that have vitamin A, vitamin E, or both. ? Hormone therapy that contains estrogen with or without progestin. Eating and drinking ??? Eat a heart-healthy diet that includes: ? Lots of fresh fruits and vegetables. ? Whole grains. ? Low-fat (lean) protein. ? Low-fat dairy products. ??? Follow instructions from your doctor about what you cannot eat or drink. Activity ??? Follow an exercise program that your doctor tells you. ??? Talk with your doctor about joining a program to help improve the health of your heart (cardiac rehab). ??? When you feel tired, take a break. Plan breaks if you know you are going to feel tired. Lifestyle ??? Do not use any products that contain nicotine or tobacco. This includes cigarettes, e-cigarettes, and chewing tobacco. If you need help quitting, ask your doctor. ??? If your doctor says you can drink alcohol: ? Limit how much you use to: ? 0?1 drink a day for women who are not . ? 0?2 drinks a day for men. ? Be aware of how much alcohol is in your drink. In the [place] one drink equals: ? One 12 oz bottle of beer (355 mL). ? One 5 oz glass of wine (148 mL). ? One 1? oz glass of hard liquor (44 mL). General instructions ??? Stay at a healthy weight. If your doctor tells you to do so, work with him or her to lose weight. ??? Learn to deal with stress. If you need help, ask your doctor. ??? Keep your vaccines up to date. Get a flu shot every year. ??? Talk with your doctor if you feel sad. Take a screening test to see if you are at risk for depression. ??? Work with your doctor to manage any other health problems that you have. These may include diabetes or high blood pressure. ??? Keep all follow-up visits as told by your doctor. This is important. Get help right away if: ??? You have pain in your chest, neck, arm, jaw, or back, and the pain: ? Lasts more than a few minutes. ? Comes back. ? Does not get better after you take medicine under your tongue (sublingual nitroglycerin). ? Keeps getting worse. ? Comes more often. ??? You have any of these problems for no reason: ? Sweating a lot. ? Heartburn or upset stomach. ? Shortness of breath. ? Trouble breathing. ? Feeling sick to your stomach. ? Throwing up (vomiting). ? Feeling more tired than normal. ? Feeling nervous or worrying more than normal. ? Weakness. ??? You are suddenly dizzy or light-headed. ??? You pass out. These symptoms may be an emergency. Do not wait to see if the symptoms will go away. Get medical help right away. Call your local emergency services (911 in the [place] Do not drive yourself to the hospital. Summary ??? Angina is very bad discomfort or pain in the chest, neck, arm, neck, or back. ??? Symptoms include chest pain, heartburn or upset stomach for no reason, and shortness of breath. ??? Women or people with diabetes may have symptoms that are not usual, such as feeling nervous or worried for no reason, weak for no reason, or tired. ??? Take all medicines only as told by your doctor. ??? You should eat a heart-healthy diet and follow an exercise program. This information is not intended to replace advice given to you by your health care provider. Make sure you discuss any questions you have with your health care provider. Document Revised: 11/27/2018 Document Reviewed: 11/27/2018 [employer] Patient Education ? 2020 [employer] Neurology Radial Site Care This sheet gives you information about how to care for yourself after your procedure. Your health care provider may also give you more specific instructions. If you have problems or questions, contact your health care provider. What can I expect after the procedure? After the procedure, it is common to have: ??? Bruising and tenderness at the catheter insertion area. Follow these instructions at home: Medicines ??? Take lymi-tvc-vjppjjg and prescription medicines only as told by your health care provider. Insertion site care ??? Follow instructions from your health care provider about how to take care of your insertion site. Make sure you: ? Wash your hands with soap and water before you change your bandage (dressing). If soap and water are not available, use hand economic analyst. ? Change your dressing as told by your health care provider. ? Leave stitches (sutures), skin glue, or adhesive strips in place. These skin closures may need to stay in place for 2 weeks or longer. If adhesive strip edges start to loosen and curl up, you may trim the loose edges. Do not remove adhesive strips completely unless your health care provider tells you to do that. ??? Check your insertion site every day for signs of infection. Check for: ? Redness, swelling, or pain. ? Fluid or blood. ? Pus or a bad smell. ? Warmth. ??? Do not take baths, swim, or use a hot tub until your health care provider approves. ??? You may shower 24?48 hours after the procedure, or as directed by your health care provider. ? Remove the dressing and gently wash the site with plain soap and water. ? Pat the area dry with a clean towel. ? Do not rub the site. That could cause bleeding. ??? Do not apply powder or lotion to the site. Activity ??? For 24 hours after the procedure, or as directed by your health care provider: ? Do not flex or bend the affected arm. ? Do not push or pull heavy objects with the affected arm. ? Do not drive yourself home from the hospital or clinic. You may drive 24 hours after the procedure unless your health care provider tells you not to. ? Do not operate machinery or power tools. ??? Do not lift anything that is heavier than 10 lb (4.5 kg), or the limit that you are told, until your health care provider says that it is safe. ??? Ask your health care provider when it is okay to: ? Return to work or school. ? Resume usual physical activities or sports. ? Resume sexual activity. General instructions ??? If the catheter site starts to bleed, raise your arm and put firm pressure on the site. If the bleeding does not stop, get help right away. This is a medical emergency. ??? If you went home on the same day as your procedure, a responsible adult should be with you for the first 24 hours after you arrive home. ??? Keep all follow-up visits as told by your health care provider. This is important. Contact a health care provider if: ??? You have a fever. ??? You have redness, swelling, or yellow drainage around your insertion site. Get help right away if: ??? You have unusual pain at the radial site. ??? The catheter insertion area swells very fast. ??? The insertion area is bleeding, and the bleeding does not stop when you hold steady pressure on the area. ??? Your arm or hand becomes pale, cool, tingly, or numb. These symptoms may represent a serious problem that is an emergency. Do not wait to see if the symptoms will go away. Get medical help right away. Call your local emergency services (911 in the [place] Do not drive yourself to the hospital. Summary ??? After the procedure, it is common to have bruising and tenderness at the site. ??? Follow instructions from your health care provider about how to take care of your radial site wound. Check the wound every day for signs of infection. ??? Do not lift anything that is heavier than 10 lb (4.5 kg), or the limit that you are told, until your health care provider says that it is safe. This information is not intended to replace advice given to you by your health care provider. Make sure you discuss any questions you have with your health care provider. Document Revised: 05/17/2018 Document Reviewed: 05/17/2018 [employer] Patient Education ? 2020 [employer] Nutrition Heart-Healthy Eating Plan Heart-healthy meal planning includes: ??? Eating less unhealthy fats. ??? Eating more healthy fats. ??? Making other changes in your diet. Talk with your doctor or a diet specialist (dietitian) to create an eating plan that is right for you. What is my plan? Your doctor may recommend an eating plan that includes: ??? Total fat: % or less of total calories a day. ??? Saturated fat: % or less of total calories a day. ??? Cholesterol: less than mg a day. What are tips for following this plan? Cooking Avoid frying your food. Try to bake, boil, grill, or broil it instead. You can also reduce fat by: ??? Removing the skin from poultry. ??? Removing all visible fats from meats. ??? Steaming vegetables in water or broth. Meal planning ??? At meals, divide your plate into four equal parts: ? Fill one-half of your plate with vegetables and green salads. ? Fill one-fourth of your plate with whole grains. ? Fill one-fourth of your plate with lean protein foods. ??? Eat 4?5 servings of vegetables per day. A serving of vegetables is: ? 1 cup of raw or cooked vegetables. ? 2 cups of raw leafy greens. ??? Eat 4?5 servings of fruit per day. A serving of fruit is: ? 1 medium whole fruit. ? ? cup of dried fruit. ? ? cup of fresh, frozen, or canned fruit. ? ? cup of 100% fruit juice. ??? Eat more foods that have soluble fiber. These are apples, broccoli, carrots, beans, peas, and barley. Try to get 20?30 g of fiber per day. ??? Eat 4?5 servings of nuts, legumes, and seeds per week: ? 1 serving of dried beans or legumes equals ? cup after being cooked. ? 1 serving of nuts is ? cup. ? 1 serving of seeds equals 1 tablespoon. General information ??? Eat more home-cooked food. Eat less restaurant, buffet, and fast food. ??? Limit or avoid alcohol. ??? Limit foods that are high in starch and sugar. ??? Avoid fried foods. ??? Lose weight if you are overweight. ??? Keep track of how much salt (sodium) you eat. This is important if you have high blood pressure. Ask your doctor to tell you more about this. ??? Try to add vegetarian meals each week. Fats ??? Choose healthy fats. These include olive oil and canola oil, flaxseeds, walnuts, almonds, and seeds. ??? Eat more omega-3 fats. These include salmon, mackerel, sardines, tuna, flaxseed oil, and ground flaxseeds. Try to eat fish at least 2 times each week. ??? Check food labels. Avoid foods with trans fats or high amounts of saturated fat. ??? Limit saturated fats. ? These are often found in animal products, such as meats, butter, and cream. ? These are also found in plant foods, such as palm oil, palm kernel oil, and coconut oil. ??? Avoid foods with partially hydrogenated oils in them. These have trans fats. Examples are stick margarine, some tub margarines, cookies, crackers, and other baked goods. What foods can I eat? Fruits All fresh, canned (in natural juice), or frozen fruits. Vegetables Fresh or frozen vegetables (raw, steamed, roasted, or grilled). Green salads. Grains Most grains. Choose whole wheat and whole grains most of the time. Rice and pasta, including brown rice and pastas made with whole wheat. Meats and other proteins Lean, well-trimmed beef, veal, pork, and deleon. Chicken and turkey without skin. All fish and shellfish. Wild duck, rabbit, pheasant, and venison. Egg whites or low-cholesterol egg substitutes. Dried beans, peas, lentils, and tofu. Seeds and most nuts. Dairy Low-fat or nonfat cheeses, including ricotta and mozzarella. Skim or 1% milk that is liquid, powdered, or evaporated. Buttermilk that is made with low-fat milk. Nonfat or low-fat yogurt. Fats and oils Non-hydrogenated (trans-free) margarines. Vegetable oils, including soybean, sesame, sunflower, olive, peanut, safflower, corn, canola, and cottonseed. Salad dressings or mayonnaise made with a vegetable oil. Beverages Mineral water. Coffee and tea. Diet carbonated beverages. Sweets and desserts Sherbet, gelatin, and fruit ice. Small amounts of dark chocolate. Limit all sweets and desserts. Seasonings and condiments All seasonings and condiments. The items listed above may not be a complete list of foods and drinks you can eat. Contact a dietitian for more options. What foods should I avoid? Fruits Canned fruit in heavy syrup. Fruit in cream or butter sauce. Fried fruit. Limit coconut. Vegetables Vegetables cooked in cheese, cream, or butter sauce. Fried vegetables. Grains Breads that are made with saturated or trans fats, oils, or whole milk. Croissants. Sweet rolls. Donuts. High-fat crackers, such as cheese crackers. Meats and other proteins Fatty meats, such as hot dogs, ribs, sausage, myrick, rib-eye roast or steak. High-fat deli meats, such as salami and bologna. Caviar. Domestic duck and goose. Organ meats, such as liver. Dairy Cream, sour cream, cream cheese, and creamed cottage cheese. Whole-milk cheeses. Whole or 2% milk that is liquid, evaporated, or condensed. Whole buttermilk. Cream sauce or high-fat cheese sauce. Yogurt that is made from whole milk. Fats and oils Meat fat, or shortening. [place] butter, hydrogenated oils, palm oil, coconut oil, palm kernel oil. Solid fats and shortenings, including myrick fat, salt pork, lard, and butter. Nondairy cream substitutes. Salad dressings with cheese or sour cream. Beverages Regular sodas and juice drinks with added sugar. Sweets and desserts Frosting. Pudding. Cookies. Cakes. Pies. Milk chocolate or white chocolate. Buttered syrups. Full-fat ice cream or ice cream drinks. The items listed above may not be a complete list of foods and drinks to avoid. Contact a dietitian for more information. Summary ??? Heart-healthy meal planning includes eating less unhealthy fats, eating more healthy fats, and making other changes in your diet. ??? Eat a balanced diet. This includes fruits and vegetables, low-fat or nonfat dairy, lean protein, nuts and legumes, whole grains, and heart-healthy oils and fats. This information is not intended to replace advice given to you by your health care provider. Make sure you discuss any questions you have with your health care provider. Document Revised: 06/15/2018 Document Reviewed: 05/19/2018 [employer] Patient Education ? 2020 [employer] Preventive Health Fall Prevention in the Home, Adult Falls can cause injuries. They can happen to people of all ages. There are many things you can do to make your home safe and to help prevent falls. Ask for help when making these changes, if needed. What actions can I take to prevent falls? General Instructions ??? Use good lighting in all rooms. Replace any light bulbs that burn out. ??? Turn on the lights when you go into a dark area. Use night-lights. ??? Keep items that you use often in zpjt-nb-ljqqj places. Lower the shelves around your home if necessary. ??? Set up your furniture so you have a clear path. Avoid moving your furniture around. ??? Do not have throw rugs and other things on the floor that can make you trip. ??? Avoid walking on wet floors. ??? If any of your floors are uneven, fix them. ??? Add color or contrast paint or tape to clearly alba and help you see: ? Any grab bars or handrails. ? First and last steps of stairways. ? Where the edge of each step is. ??? If you use a stepladder: ? Make sure that it is fully opened. Do not climb a closed stepladder. ? Make sure that both sides of the stepladder are locked into place. ? Ask someone to hold the stepladder for you while you use it. ??? If there are any pets around you, be aware of where they are. What can I do in the bathroom? Keep the floor dry. Clean up any water that spills onto the floor as soon as it happens. ??? Remove soap buildup in the tub or shower regularly. ??? Use non-skid mats or decals on the floor of the tub or shower. ??? Attach bath mats securely with double-sided, non-slip rug tape. ??? If you need to sit down in the shower, use a plastic, non-slip stool. ??? Install grab bars by the toilet and in the tub and shower. Do not use towel bars as grab bars. What can I do in the bedroom? Make sure that you have a light by your bed that is easy to reach. ??? Do not use any sheets or blankets that are too big for your bed. They should not hang down onto the floor. ??? Have a firm chair that has side arms. You can use this for support while you get dressed. What can I do in the kitchen? Clean up any spills right away. ??? If you need to reach something above you, use a strong step stool that has a grab bar. ??? Keep electrical cords out of the way. ??? Do not use floor kuwaiti or wax that makes floors slippery. If you must use wax, use non-skid floor wax. What can I do with my stairs? Do not leave any items on the stairs. ??? Make sure that you have a light switch at the top of the stairs and the bottom of the stairs. If you do not have them, ask someone to add them for you. ??? Make sure that there are handrails on both sides of the stairs, and use them. Fix handrails that are broken or loose. Make sure that handrails are as long as the stairways. ??? Install non-slip stair treads on all stairs in your home. ??? Avoid having throw rugs at the top or bottom of the stairs. If you do have throw rugs, attach them to the floor with carpet tape. ??? Choose a carpet that does not hide the edge of the steps on the stairway. ??? Check any carpeting to make sure that it is firmly attached to the stairs. Fix any carpet that is loose or worn. What can I do on the outside of my home? Use bright outdoor lighting. ??? Regularly fix the edges of walkways and driveways and fix any cracks. ??? Remove anything that might make you trip as you walk through a door, such as a raised step or threshold. ??? Trim any bushes or trees on the path to your home. ??? Regularly check to see if handrails are loose or broken. Make sure that both sides of any steps have handrails. ??? Install guardrails along the edges of any raised decks and porches. ??? Clear walking paths of anything that might make someone trip, such as tools or rocks. ??? Have any leaves, snow, or ice cleared regularly. ??? Use sand or salt on walking paths during winter. ??? Clean up any spills in your garage right away. This includes grease or oil spills. What other actions can I take? Wear shoes that: ? Have a low heel. Do not wear high heels. ? Have rubber bottoms. ? Are comfortable and fit you well. ? Are closed at the toe. Do not wear open-toe sandals. ??? Use tools that help you move around (mobility aids) if they are needed. These include: ? Canes. ? Walkers. ? Scooters. ? Crutches. ??? Review your medicines with your doctor. Some medicines can make you feel dizzy. This can increase your chance of falling. Ask your doctor what other things you can do to help prevent falls. Where to find more information ??? Centers for Disease Control and Prevention, [place]: https://cdc.gov ??? [place] [employer] [place]: https://xa3spvz.paulie.nih.gov Contact a doctor if: ??? You are afraid of falling at home. ??? You feel weak, drowsy, or dizzy at home. ??? You fall at home. Summary ??? There are many simple things that you can do to make your home safe and to help prevent falls. ??? Ways to make your home safe include removing tripping hazards and installing grab bars in the bathroom. ??? Ask for help when making these changes in your home. This information is not intended to replace advice given to you by your health care provider. Make sure you discuss any questions you have with your health care provider. Document Revised: 08/02/2019 Document Reviewed: 11/24/2017 [employer] Patient Education ? 2020 [employer] Radiology Coronary Angiogram With Stent, Care After This sheet gives you information about how to care for yourself after your procedure. Your health care provider may also give you more specific instructions. If you have problems or questions, contact your health care provider. What can I expect after the procedure? After the procedure, it is common to have: ??? Bruising and tenderness at the insertion site. This usually fades within 1?2 weeks. ??? A collection of blood under the skin (hematoma). This usually decreases within 1?2 weeks. Follow these instructions at home: Medicines ??? Take klin-nxz-cbipetw and prescription medicines only as told by your health care provider. ??? If you were prescribed an antibiotic medicine, take it as told by your health care provider. Do not stop using the antibiotic even if you start to feel better. ??? If you take medicines for diabetes, your health care provider may need to change how much you take. Ask your health care provider for specific directions about taking your diabetes medicines. ??? If you are taking blood thinners: ? Talk with your health care provider before you take any medicines that contain aspirin or NSAIDs, such as ibuprofen. These medicines increase your risk for dangerous bleeding. ? Take your medicine exactly as told, at the same time every day. ? Avoid activities that could cause injury or bruising, and follow instructions about how to prevent falls. ? Wear a medical alert bracelet or carry a card that lists what medicines you take. Eating and drinking ??? Follow instructions from your health care provider about eating or drinking restrictions. ??? Eat a heart-healthy diet that includes plenty of fresh fruits and vegetables. ??? Avoid foods that are high in salt, sugar, or saturated fat. Avoid fried foods or canned or highly processed food. ??? Drink enough fluid to keep your urine pale yellow. Alcohol use ??? Do not drink alcohol if: ? Your health care provider tells you not to. ? You are , may be , or plan to become . ??? If you drink alcohol: ? Limit how much you use to: ? 0?1 drink a day for women. ? 0?2 drinks a day for men. ? Be aware of how much alcohol is in your drink. In the [place] one drink equals one 12 oz bottle of beer (355 mL), one 5 oz glass of wine (148 mL), or one 1? oz glass of hard liquor (44 mL). Bathing ??? Do not take baths, swim, or use a hot tub until your health care provider approves. Ask your health care provider if you may take showers. You may only be allowed to take sponge baths. ??? Gently wash the insertion site with plain soap and water. ??? Pat the area dry with a clean towel. Do not rub. This may cause bleeding. Incision care ??? Follow instructions from your health care provider about how to take care of your insertion area. Make sure you: ? Wash your hands with soap and water before and after you change your bandage (dressing). If soap and water are not available, use hand economic analyst. ? Change your dressing as told by your health care provider. ? Leave stitches (sutures) or adhesive strips in place. These skin closures may need to stay in place for 2 weeks or longer. If adhesive strip edges start to loosen and curl up, you may trim the loose edges. Do not remove adhesive strips completely unless your health care provider tells you to do that. ??? Do not apply powder or lotion on the insertion area. ??? Check your insertion area every day for signs of infection. Check for: ? Redness, swelling, or pain. ? Fluid or blood. ? Warmth. ? Pus or a bad smell. Activity ??? Do not drive for 24 hours if you were given a sedative during your procedure. ??? Rest as told by your health care provider. ? Avoid sitting for a long time without moving. Get up to take short walks every 1?2 hours. This is important to improve blood flow and breathing. Ask for help if you feel weak or unsteady. ??? Do not lift anything that is heavier than 10 lb (4.5 kg), or the limit that you are told, until your health care provider says that it is safe. ??? Return to your normal activities as told by your health care provider. Ask your health care provider what activities are safe for you. Lifestyle ??? Do not use any products that contain nicotine or tobacco, such as cigarettes, e-cigarettes, and chewing tobacco. If you need help quitting, ask your health care provider. ??? If needed, work with your health care provider to treat other problems, such as being overweight, or having high blood pressure or diabetes. ??? Get regular exercise. Do exercises as told by your health care provider. General instructions ??? Tell all your health care providers that you have a stent. This is especially important if you are going to get imaging studies, such as MRI. ??? Wear compression stockings as told by your health care provider. These stockings help to prevent blood clots and reduce swelling in your legs. ??? Do not strain during a bowel movement if the procedure was done through your leg. Straining may cause bleeding from the insertion site. ??? Keep all follow-up visits as directed by your health care provider. This is important. Contact a health care provider if you: ??? Have a fever. ??? Have chills. ??? Have redness, swelling, or pain around your insertion area. ??? Have fluid or blood (other than a little blood on the dressing) coming from your insertion area. ??? Notice that your insertion area feels warm to the touch. ??? Have pus or a bad smell coming from your insertion area. ??? Have more bleeding from the insertion area. Hold pressure on the area. Get help right away if: ??? You develop chest pain or shortness of breath. ??? You feel like fainting or you faint. ??? Your leg or arm becomes cool, numb, or tingly. ??? You have unusual pain. ??? Your insertion area is bleeding, and bleeding continues after 30 minutes of steadily held pressure. ??? You develop bleeding anywhere else, including from your rectum. There may be bright red blood in your urine or stool, or you may have black, tarry stool. These symptoms may represent a serious problem that is an emergency. Do not wait to see if the symptoms will go away. Get medical help right away. Call your local emergency services (911 in the [place] Do not drive yourself to the hospital. Summary ??? After this procedure, it is common to have bruising and tenderness around the catheter insertion site. This will go away in a few weeks. ??? Follow your health care provider's instructions about caring for your insertion site. Change dressing and clean the area as instructed. ??? Eat a heart-healthy diet. Limit alcohol use. Do not use tobacco or nicotine. ??? Contact a health care provider if you have fever or chills, or if you have pus or a bad smell coming from the site. ??? Get help right away if you develop chest pain, you faint, or have bleeding at the insertion site. This information is not intended to replace advice given to you by your health care provider. Make sure you discuss any questions you have with your health care provider. Document Revised: 10/31/2019 Document Reviewed: 10/31/2019 [employer] Patient Education ? 2020 [employer] documented in this encounter Plan of Treatment Upcoming Encounters Date Type Department Care Team (Late st Contact Info) Description 10/31/2024 10:15 AM EDT Office Visit [facility] Cardiology [facility] [address] [facility] [place] [address] Morris Guerra MD [address] [facility] [address] [place] [address] documented as of this encounter Visit Diagnoses Not on filedocumented in this encounter Care Teams Group Cio Relationship Specialty Start Date End Date Teresa Evans MD [address] [place] [address] PCP - General General Internal Medicine 07/28/22 Dang Galvez, FLAKITA Nurse Navigator Oncology 08/17/22 10/12/23 Mena Cornell RN Registered Nurse Oncology 08/17/22 10/12/23 Will Hendricks MD [address] [facility] [address] [place] [address] Medical Oncologist Hematology and Oncology 08/17/22 10/12/23 Lori Cantor, PAMayuriC [address] [facility] [address] [place], [place] [id number] Physician Network Operations Manager Oncology 08/17/22 10/12/23 documented as of this encounter
--- OUTSIDE RECORDS SUMMARY | 2024-10-11 10:09 | XMS_ITS | Encounter Summary ---
Author Organization [employer] Address [address] [place] [address] Care Team Providers Care Fabric Lay Out Worker Name Role Phone Teresa Evans MD Primary Care Provider [phone]- [phone] Dang Galvez RN Unavailable Unavailable Close, Mena Negron RN Unavailable Unavailable Will Hendricks MD Unavailable Lori Cantor PA-C Unavailable [phone] Encounter Details Date Type Department Care Team (Late st Contact Info) Description 01/13/2021 Transcribed Document [facility] Family Medicine [address] [place] [address] ProviderPascale MD [address] [place] [address] Social History Tobacco Use Types Packs/Day Years Used Date Smoking Tobacco: Never Assessed Sex and Gender Information Value Date Recorded Sex Assigned at Not on file Legal Sex Male 5:41 PM CDT Gender Identity Not on file Sexual Orientation Not on file documented as of this encounter Miscellaneous Notes * Cerner Conversion Note - Pascale Gann MD - 01/13/2021 12:27 PM CDT Final Discharge Planning Entered On: 01/13/2021 12:28 EDT Performed On: 01/13/2021 12:27 EDT by ANJALI CASTRO, RN-Drafting Supervisor Final Discharge Planning Discharge Arrangements : Patient Post-Acute Information Patient Name: MICHAEL BUENO II Gender: Male : [birth year] Age: 65 Years No Post-Acute Placement(s) Listed No Post-Acute Service(s) Listed No [place]pan Referral(s) Listed Discharge To Care Management : Home/Residential/Correction or Self Care -01 ANJALI CASTRO, RN-Drafting Supervisor - 01/13/2021 12:27 EDT documented in this encounter Plan of Treatment Upcoming Encounters Date Type Department Care Team (Late st Contact Info) Description 10/31/2024 10:15 AM EDT Office Visit [facility] Cardiology - [place] [address] [place] [address] Morris Guerra MD [address] [facility] [address] [place] [id number] documented as of this encounter Visit Diagnoses Not on filedocumented in this encounter Care Teams Fabric Lay Out Worker Relationship Specialty Start Date End Date Teresa Evans MD [address] [place] [address] PCP - General General Internal Medicine 07/28/22 Dang Galvez, RN Nurse Navigator Oncology 08/17/22 10/12/23 Mena Cornell RN Registered Nurse Oncology 08/17/22 10/12/23 Will Hendricks MD [address] [facility] [address] [place] [address] Medical Oncologist Hematology and Oncology 08/17/22 10/12/23 Lori Cantor, PA-C [address] [facility] [address] [place] [address] Physician Fleet Technician Oncology 08/17/22 10/12/23 documented as of this encounter
--- OUTSIDE RECORDS SUMMARY | 2024-10-11 10:09 | XMS_ITS | Encounter Summary ---
Author Organization [employer] Address [address] [place] [address] Care Team Providers Care Pet Caretaker Name Role Phone Teresa Evans MD Primary Care Provider [phone] Dang Galvez RN Unavailable Unavailable Close, Mena Negron RN Unavailable Unavailable Will Hendricks MD Unavailable Lori Cantor PA-C Unavailable Encounter Details Date Type Department Care Team (Late st Contact Info) Description 11/03/2021 Transcribed Document [facility] Family Medicine [facility] [place] [place] [address] ProviderPascale MD [address] [place] [address] Social History Tobacco Use Types Packs/Day Years Used Date Smoking Tobacco: Never Assessed Sex and Gender Information Value Date Recorded Sex Assigned at Not on file Legal Sex Male 5:41 PM CDT Gender Identity Not on file Sexual Orientation Not on file documented as of this encounter Miscellaneous Notes * Cerner Conversion Note - Pascale ProviderMD - 11/03/2021 7:15 AM CDT Stroke/Warfarin Instructions Entered On: 11/03/2021 7:15 EDT Performed On: 11/03/2021 7:15 EDT by EREN RODRIGUEZ Stroke/Warfarin Instructions Stroke/TIA Discharge Ins : N/A Warfarin Discharge Ins : N/A EREN RODRIGUEZ - 11/03/2021 7:15 EDT documented in this encounter Plan of Treatment Upcoming Encounters Date Type Department Care Team (Late st Contact Info) Description 10/31/2024 10:15 AM EDT Office Visit [facility] Cardiology - [place] [address] [place] [address] Morris Guerra MD [address] [facility] [address] [place] [address] documented as of this encounter Visit Diagnoses Not on filedocumented in this encounter Care Teams Pet Caretaker Relationship Specialty Start Date End Date Teresa Evans MD [address] [place] [address] PCP - General General Internal Medicine 07/28/22 Dang Galvez RN Nurse Navigator Oncology 08/17/22 10/12/23 Mena Cornell RN Registered Nurse Oncology 08/17/22 10/12/23 Will Hendricks MD 12[address] [facility] [address] [place] [address] Medical Oncologist Hematology and Oncology 08/17/22 10/12/23 Lori Cantor, PA-C [address] [facility] [address] [place] [address] Freight Brake Coupler Oncology 08/17/22 10/12/23 documented as of this encounter
--- OUTSIDE RECORDS SUMMARY | 2024-10-11 10:09 | XMS_ITS | Encounter Summary ---
Author Organization [employer] Address [address] [place] [address] Care Team Providers Care Line Inspector Name Role Phone Teresa Evans MD Primary Care Provider [phone] Reason for Visit * Reason Comments Medication Refill Encounter Details Date Type Department Care Team (Late st Contact Info) Description 11/12/2023 Refill [facility] Cardiology [facility] [address] [place] [address] Morris Guerra MD [address] [place] [address] [place] [address] Social History Tobacco Use Types Packs/Day Years Used Date Smoking Tobacco: Never Smokeless Tobacco: Never Alcohol Use Standard Drinks/Week Comments Not Currently 0 (1 standard drink = 0.6 oz pur e alcohol) Utilities Answer Date Recorded In the past 12 months, has t he [employer], gas, oil, or water [employer] threatened to shut off services in your home? No 10/13/2023 Interpersonal Safety Answer Date Record ed Family or friends hurt you 0 10/12 Family or friends insult you 0 Family or friends threaten you 0 0 10/13/2023 Family or friends scream or curse at you 0 10/13/2023 Housing Stability Answer Date Recorded Living situation today 0 Living situation problems 0 2023 Food Insecurity Answer Date Recorded Food run out past 12 months 0 09/24 Food did not last past 12 months 0 10/13/2023 Transportation Needs Answer Date Record ed Transportation unreliable past 12 months 2 10/13/2023 Financial Resource Strain Answer Date R ecorded Struggle to pay for basics 0 10/12 Employment Answer Date Recorded Help finding and keeping a job 0 0 10/13/2023 Family and Community Support Answer Frank e Recorded Help with Day to Day Activities 0 10/13/2023 Feeling Lonely or Isolated 0 10/12 Educational Attainment Answer Date Damon rded Speak language other than Hong Konger at home 0 10/13/2023 Want help with school or training 0 10/13/2023 Physical Activity Answer Date Recorded Number of minutes of exercise per week 0 10/13/2023 Alcohol Use Answer Date Recorded 5 or More Drinks Per Day Past 12 Months 0 10/13/2023 Depression Answer Date Recorded Calculation of above two rows 0 Stress Answer Date Recorded Feeling stress past 2 weeks 1 09/24 Disabilities Answer Date Recorded Difficulty concentrating 0 024 Difficulty doing errands alone 0 0 10/13/2023 Substance Use Answer Date Recorded Used prescription meds for non-medical reasons 1 10/13/2023 Used illegal drugs past 12 months 1 10/13/2023 Sex and Gender Information Value Date Recorded [...] 9:31 AM CDT Murali Armando RN documented as of this [...] Description 10/31/2024 10:15 AM EDT Office Visit [facility] Cardiology [facility] [address] [place] [address] Morris Guerra MD [address] [place] [address] documented as of this encounter Visit Diagnoses Not on filedocumented in this encounter Care Teams Line Inspector Relationship Specialty Start Date End Date Teresa Evans MD [address] [place] [address] PCP - General General Internal Medicine 07/28/22 documented as of this encounter
--- OUTSIDE RECORDS SUMMARY | 2024-10-11 10:09 | XMS_ITS | Encounter Summary ---
Author Organization [employer] Address [address] [place] [address] Care Team Providers Care Chemistry Intern Name Role Phone Teresa Evans MD Primary Care Provider [phone]- [phone] Dang Galvez RN Unavailable Unavailable Close, Mena Negron RN Unavailable Unavailable Will Hendricks MD Unavailable Lori Cantor PA-C Unavailable [phone] Encounter Details Date Type Department Care Team (Late st Contact Info) Description 01/11/2021 Transcribed Document [facility] Family Medicine [facility] [place] [place] [address] ProviderPascale MD [address] [place] [address] Social History Tobacco Use Types Packs/Day Years Used Date Smoking Tobacco: Never Assessed Sex and Gender Information Value Date Recorded Sex Assigned at Not on file Legal Sex Male 5:41 PM CDT Gender Identity Not on file Sexual Orientation Not on file documented as of this encounter Miscellaneous Notes * Cerner Conversion Note - Pascale Gann MD - 01/11/2021 2:00 PM CDT Patient: MICHAEL BUENO II Age: 65 Years Sex: Male : 1955 Subjective Patient sitting up in bedside chair, is present in room. He denies chest pain. Remains on heparin drip. No shortness of breath. Vital signs of been stable. No events on telemetry. Planning for [facility] today Vital Signs T: 36.8 ??C TMIN: 36.7 ??C TMAX: 37.1 ??C HR: 82(Monitored) RR: 16 BP: 140/90 SpO2: 96% Oxygen Settings (Last) Oxygen Therapy Mode: Nasal cannula (01/11/21 12:00:00) Oxygen Flow Rate: 2 Liter/Min (01/11/21 12:00:00) Intake & Output Totals Last 24 Hours (7a-7a) Input Total: 780 mL Output Total: 0 mL Balance: 780 mL Physical Exam General: Alert, obese, no acute distress Neurologic: Moves all 4 extremities spontaneously, oriented X3, no focal deficits appreciated Lungs: Clear to auscultation, non-labored respiration, no crackles, no wheeze Heart: Normal rate, regular rhythm, no murmur, no edema Abdomen: Soft, non-tender, non-distended, normal bowel sounds Musculoskeletal: No obvious deformity, no tenderness Skin: warm, dry, no rashes or lesions Psychiatric: Cooperative, appropriate mood and affect Assessment/Plan #NSTEMI, known CAD Troponin peaked 1.79 Heparin drip Echo 01/10: EF 60%, no significant valvular abnormalities Cardiology following: [facility] today Aspirin, fenofibrate, Imdur, metoprolol, statin, Brilinta #Diabetes Hold home meds SSI #Hypertension Amlodipine, lisinopril, spironolactone #MARIXA Home CPAP next #Depression Wellbutrin #Multiple myeloma Hold medications Disposition: Pending findings from [facility], further recommendations from cardiology VTE Prophylaxis - Medical Ticagrelor 90 mg, Oral, Tab, BID, Routine, Start 01/10/21 9:15:00 EDT, 01/10/21 9:15:00 EDT (TWYLA AC) Sequential Compression Device Start: 01/10/21 5:34:00 EDT, Bilateral, Length: Knee High, While patient is in bed, Continuous Order (TREVIN LOWERY) Medications acetaminophen, 650 mg= 2 Tab, Oral, 1-Time acetaminophen, 650 mg= 2 Tab, Oral, 1-Time acetaminophen, 650 mg= 2 Tab, Oral, Q6H, PRN Aldactone, 25 mg= 1 Tab, Oral, Daily Ambien, 5 mg= 1 Tab, Oral, At Bedtime, PRN amLODIPine, 10 mg= 1 Tab, Oral, Daily aspirin, 81 mg= 1 Tab, Chew, Daily Benadryl, 50 mg= 2 Cap, Oral, 1-Time Benadryl, 50 mg= 2 Cap, Oral, 1-Time Brilinta, 90 mg= 1 Tab, Oral, BID cziyubttduz-uljhvdgjrvnzs-eepw (Darzalex Faspro), 1800 mg= 15 mL, SubCutaneous, 1-Time dzlihspmlod-uuowzvnzqrocp-mkxw (Darzalex Faspro), 1800 mg= 15 mL, SubCutaneous, 1-Time dexAMETHasone, 20 mg= 5 Tab, Oral, 1-Time dexAMETHasone, 20 mg= 5 Tab, Oral, 1-Time ergocalciferol, 32482 Units= 1 Cap, Oral, Weekly fenofibrate 145 mg oral tablet, 145 mg= 1 Tab, Oral, Daily hydrALAZINE, 10 mg= 0.5 mL, IV Push, Q6H, PRN Imdur, 30 mg= 1 Tab, Oral, Daily labetalol, 10 mg= 2 mL, IV Push, Q4H, PRN lisinopril, 20 mg= 1 Tab, Oral, BID Metoprolol Succinate ER, 100 mg= 1 Tab, Oral, Daily montelukast, 10 mg= 1 Tab, Oral, QPM morphine, 2 mg= 1 mL, IV Push, Q4H, PRN nitroglycerin, 0.4 mg= 1 Tab, SubLINgual, Q5Min, PRN Alto 5 mg-325 mg oral tablet, 1 Tab, Oral, Q6H, PRN Normal Saline Flush, 5 mL, IV Push, See Comment, PRN ondansetron, 4 mg= 2 mL, IV Push, Q4H, PRN pantoprazole, 40 mg= 1 Tab, Oral, Daily rosuvastatin, 20 mg= 1 Tab, Oral, At Bedtime Singulair, 10 mg= 1 Tab, Oral, 1-Time Sodium Chloride 0.9% intravenous solution 1,000 mL, 1000 mL, IntraVENous Sodium Chloride 0.9% intravenous solution 500 mL, 500 mL, IntraVENous TriCor 145 mg oral tablet, 145 mg= 1 Tab, Oral, At Bedtime Wellbutrin XL, 300 mg= 1 Tab, Oral, Daily Lab Results Test Name Test Result Date/Time Sodium Level 138 mmol/L 01/11/2021 05:09 EDT Potassium Level 3.7 mmol/L 01/11/2021 05:09 EDT Chloride Level 110 mmol/L 01/11/2021 05:09 EDT Carbon Dioxide Level 26 mmol/L 01/11/2021 05:09 EDT Anion Gap 6 (Low) 01/11/2021 05:09 EDT Glucose Level 107 mg/dL (High) 01/11/2021 05:09 EDT Blood Urea Nitrogen 14 mg/dL 01/11/2021 05:09 EDT Creatinine Level 0.90 mg/dL 01/11/2021 05:09 EDT eGFR >60 mL/min/1.73m2 01/11/2021 05:09 EDT eGFR NonAfrican >60 mL/min/1.73m2 01/11/2021 05:09 EDT Bun/Creatinine 15.6 01/11/2021 05:09 EDT Calcium Level 9.0 mg/dL 01/11/2021 05:09 EDT Protein Total 6.3 Gram/dL (Low) 01/11/2021 05:09 EDT Albumin Level 3.0 Gram/dL (Low) 01/11/2021 05:09 EDT Globulin 3.3 Gram/dL 01/11/2021 05:09 EDT A/G Ratio 0.9 (Low) 01/11/2021 05:09 EDT Bilirubin Total 0.5 mg/dL 01/11/2021 05:09 EDT Alk Phos 31 Units/Liter 01/11/2021 05:09 EDT AST 16 Units/Liter 01/11/2021 05:09 EDT ALT 24 Units/Liter 01/11/2021 05:09 EDT Device Comment 1 Notified Nurse RBV 01/11/2021 05:48 EDT Device Comment 1 Protocols Followed 01/10/2021 20:31 EDT Device Comment 1 Notified Nurse RBV 01/10/2021 15:36 EDT Glucose POC2 98 mg/dL 01/11/2021 05:48 EDT Glucose POC2 119 mg/dL (High) 01/10/2021 20:31 EDT Glucose POC2 165 mg/dL (High) 01/10/2021 15:36 EDT Troponin I Ultra 1.290 ng/mL (Critical) 01/10/2021 15:48 EDT WBC 2.4 K/uL (Low) 01/11/2021 05:09 EDT RBC 3.75 Million/uL (Low) 01/11/2021 05:09 EDT Hgb 10.9 g/dL (Low) 01/11/2021 05:09 EDT Hct 33.4 % (Low) 01/11/2021 05:09 EDT MCV 89.1 fL 01/11/2021 05:09 EDT MCH 29.1 pg 01/11/2021 05:09 EDT MCHC 32.6 Gram/dL 01/11/2021 05:09 EDT Platelet Count 109 K/uL (Low) 01/11/2021 05:09 EDT MPV 8.7 fL (Low) 01/11/2021 05:09 EDT RDW 15.9 % (High) 01/11/2021 05:09 EDT Neut % 64.5 % 01/11/2021 05:09 EDT Neut # 1.54 K/uL (Low) 01/11/2021 05:09 EDT Lymph % 18.0 % (Low) 01/11/2021 05:09 EDT Lymph # 0.43 x10(3)/uL (Low) 01/11/2021 05:09 EDT [place] % 9.6 % (High) 01/11/2021 05:09 EDT [place] # 0.23 K/uL 01/11/2021 05:09 EDT Eos % 7.5 % (High) 01/11/2021 05:09 EDT Eos # 0.18 x10(3)/uL 01/11/2021 05:09 EDT Baso % 0.0 % 01/11/2021 05:09 EDT Baso # 0.00 x10(3)/uL 01/11/2021 05:09 EDT Slide Review No 01/11/2021 05:09 EDT IG# .01 x10(3)/uL 01/11/2021 05:09 EDT IG% 0.40 % 01/11/2021 05:09 EDT D Dimer Quant <0.19 mg/L FEU 01/11/2021 12:49 EDT PTT Heparin 127.9 Second(s) (Critical) 01/11/2021 12:49 EDT PTT Heparin 61.6 Second(s) 01/11/2021 05:09 EDT PTT Heparin 46.2 Second(s) 01/10/2021 22:19 EDT PTT Heparin 35.6 Second(s) (Low) 01/10/2021 15:48 EDT ACT POC 219 Second(s) (High) 01/11/2021 11:51 EDT Electronically signed by [facility], [facility] Conversion Marine Engine Machinist Apprentice Cerner at 08/09/2022 10:16 AM CDT documented in this encounter Plan of Treatment Upcoming Encounters Date Type Department Care Team (Late st Contact Info) Description 10/31/2024 10:15 AM EDT Office Visit [facility] Cardiology [facility] [address] [place] [address] Morris Guerra MD [address] [facility] [address] [place] [address] documented as of this encounter Visit Diagnoses Not on filedocumented in this encounter Care Teams Chemistry Intern Relationship Specialty Start Date End Date Teresa Evans MD [address] [place] [address] PCP - General General Internal Medicine 07/28/22 Dang Galvez, RN Nurse Navigator Oncology 08/17/22 10/12/23 Mena Cornell RN Registered Nurse Oncology 08/17/22 10/12/23 Will Hendricks MD [address] [facility] [address] [place] [address] Medical Oncologist Hematology and Oncology 08/17/22 10/12/23 Lori Cantor, PA-C [address] [facility] [address] [place] [address] Physician Offset Press Operator Oncology 08/17/22 10/12/23 documented as of this encounter
--- OUTSIDE RECORDS SUMMARY | 2024-10-11 10:09 | XMS_ITS | Clinical Summary ---
Author Organization [facility] [employer] Address [address] [place] [address] Care Team Providers Care Lead Custodian Name Role Phone Teresa Evans MD Primary Care Provider [phone] Allergies Active Allergy Reactions Criticality Noted Date Comments Daratumumab Shortness Of Breath High 12/21/2022 Patient hospitalized post Darzalex infusion #1 Rosiglitazone Shortness Of Breath High 10/09/2020 [facility] Medications acyclovir (ZOVIRAX) 400 MG tablet Take 1 tablet (400 mg total) by mouth 2 (two) times daily. 06/03/19 24 Active dexAMETHasone (DECADRON) 4 MG tablet Take 10 tablets (40 mg total) by mouth once a week. Active pomalidomide (Pomalyst) 3 mg Cap Take 1 capsule by mouth daily Takes daily for 21 days then 7 days off. Active metFORMIN (GLUCOPHAGE-XR ) 500 MG 24 hr tablet Take 2 tablets (1,000 mg total) by mouth 2 (two) times daily. Active omega 8-xdb-ztv-fish oil (Fish OiL) capsule Take 1 capsule (1,000 mg total) by mouth daily. Active multivitamin per tablet Take 1 tablet by mouth daily. Active cyanocobalamin (VITAMIN B-12) 1000 MCG tablet Take 1 tablet (1,000 mcg total) by mouth daily. Active dextromethorph an-bupropion (Auvelity) 45-105 mg TbIE Take 1 tablet by mouth 2 (two) times daily. Active pantoprazole (PROTONIX) 40 MG tablet Take 1 tablet (40 mg total) by mouth daily. Active empagliflozin (Jardiance) 25 mg tablet Take 1 tablet (25 mg total) by mouth daily. Active ramipriL (ALTACE) 10 MG capsule Take 1 capsule (10 mg total) by mouth 2 (two) times daily. Active potassium chloride SA (K-DUR,KLOR-CO N-M) 20 MEQ tablet Take 1 tablet (20 mEq total) by mouth 2 (two) times daily. Active insulin glargine (Lantus Solostar U-100 Insulin) 100 unit/mL (3 mL) InPn Inject 10 Units under the skin nightly. Active ferrous sulfate 325 (65 FE) MG tablet Take 1 tablet (325 mg total) by mouth daily with breakfast. Active aspirin 81 MG EC tablet Take 1 tablet (81 mg total) by mouth daily. 0 11/30/19 24 Active fenofibric acid, choline, 135 mg capsule Take 1 capsule (135 mg total) by mouth daily. 90 capsule 3 02/29/20 24 Active furosemide (LASIX) 20 MG tablet Take 1 tablet (20 mg total) by mouth as directed Take 1 tablet daily plus as needed.. 45 tablet 11 03/09/20 24 Active furosemide (Furoscix) 80 mg/10 mL kit Inject 80 mg subcutaneously as needed. 8 kit 11 03/09/20 24 Active traZODone (DESYREL) 50 MG tablet Take 1 tablet (50 mg total) by mouth nightly. 03/07/20 24 Active semaglutide (Ozempic) 2 mg/dose (8 mg/3 mL) pnij Inject 2 mg subcutaneously once a week Takes on Tuesday. 9 mL 3 03/28/20 24 Active metoprolol succinate (TOPROL-XL) 100 MG 24 hr tablet Take 1 tablet (100 mg total) by mouth 2 (two) times daily. 180 tablet 3 05/08/19 25 Active magnesium oxide (MAG-OX) 400 mg tablet TAKE (1) TABLET BY MOUTH TWICE A DAY. 90 tablet 3 06/11/19 25 Active amiodarone (PACERONE) 200 MG tablet Take 1 tablet (200 mg total) by mouth 2 (two) times daily. 60 tablet 4 06/21/19 25 Active nitroglycerin (NITROLINGUAL) 400 mcg/spray spray PLACE 1 SPRAY UNDER THE TONGUE EVERY 5 MINUTES NEEDED. 12 g 2 06/27/19 25 Active rosuvastatin (CRESTOR) 40 MG tablet Take 1 tablet (40 mg total) by mouth nightly. 30 tablet 11 08/24/19 25 Active aspirin 81 MG EC tablet Take 1 tablet (81 mg total) by mouth daily. 90 tablet 3 09/13/19 25 026 Active rivaroxaban (XARELTO) 20 mg tablet Take 1 tablet (20 mg total) by mouth daily with dinner. 0 11/30/19 24 025 Discontin ued(Stop Taking at Discharge ) vibegron (Gemtesa) 75 mg tab Take 1 tablet (75 mg total) by mouth daily. 025 Discontin ued(Stop Taking at Discharge ) tamsulosin (FLOMAX) 0.4 mg cap 24 hr capsule Take by mouth daily. 025 Discontin ued(Stop Taking at Discharge ) Active Problems Problem Noted Date Diagnosed Date Mitral regurgitation 08/09/2024 Spondylosis 11/23/2023 Atrial flutter 10/12/2023 History of malignant neoplasm of skin 06/28/2023 Other heart failure 04/28/2022 Arthritis 02/23/2022 Cardiac chest pain 02/23/2022 Depression 02/23/2022 Gastroesophageal reflux disease 02/23/2022 History of obstructive sleep apnea 02/23/2022 Lytic bone lesions on xray 02/23/2022 Neck pain 02/23/2022 Stented coronary artery 02/23/2022 Multiple myeloma, remission status unspecified 0 01/20/2022 Bone disease 01/20/2022 Angina, class II 02/11/2021 Arteriosclerosis of coronary artery 02/11/2021 Dizziness and giddiness 02/11/2021 Hypertension 02/11/2021 Aortic aneurysm 07/09/2020 Type 2 diabetes mellitus without complication Hypertriglyceridemia 07/09/2020 Obstructive sleep apnea syndrome 07/09/2020 Multiple myeloma 07/09/2020 CPAP (continuous positive airway pressure) vera prado Transient cerebral ischemic attack Encounters Date Type Department Care Team Description 09/26/2024 9:45 AM EDT Office Visit [facility] Cardiology [facility] [address] [place] [place] [phone] Cristiane Prescott MD Persistent atrial fibrillation (HCC) (Primary Dx) 09/26/2024 Orders Only [facility] Cardiology - [place] [address] [place] [phone] ProviderPascale MD 09/12/2024 11:14 AM EDT - 09/12/2024 11:59 PM EDT Hospital Encounter [facility] Non-Invasive Cardiology [address] [phone] Cristiane Prescott MD Abnormal myocardial perfusion study Discharge Disposition: Home or Self Care 09/12/2024 7:50 AM EDT - 09/12/2024 11:13 AM EDT Hospital Encounter [facility] Cardiac Catheterization Lab [address] [phone] Cristiane Prescott MD Nonrheumatic mitral valve regurgitation (Primary Dx); Abnormal myocardial perfusion study Discharge Disposition: Home or Self Care 09/12/2024 Travel 08/23/2024 Telephone [facility] Cardiology [address] [place] [phone] Jasmina Weber, [employer]OCIATE Results 08/22/2024 8:48 AM EDT - 08/22/2024 11:59 PM EDT Hospital Encounter [facility] Nuclear Medicine [address] [place], [place] [phone] Cristiane Prescott MD Discharge Disposition: Home or Self Care 08/22/2024 8:48 AM EDT - 08/22/2024 11:59 PM EDT Hospital Encounter [facility] Nuclear Medicine [address] [place] [phone] Cristiane Prescott MD Discharge Disposition: Home or Self Care 08/22/2024 8:48 AM EDT - 08/22/2024 11:59 PM EDT Hospital Encounter [facility] Nuclear Medicine [address] [place] [phone] Cristiane Prescott MD Discharge Disposition: Home or Self Care 08/22/2024 8:46 AM EDT - 08/22/2024 8:47 AM EDT Hospital Encounter [facility] Nuclear Medicine [address] [place] [phone] Cristiane Prescott MD Chest pain, unspecified type Discharge Disposition: Home or Self Care 08/22/2024 Travel 08/09/2024 7:26 AM EDT Anesthesia Event [facility] Electrophysiology Lab [address] [place] [phone] Tom Lyons MD 08/09/2024 5:30 AM EDT - 08/09/2024 7:21 AM EDT Hospital Encounter [facility] Electrophysiology Lab [address] [place] [phone] Victoria Marin MD Atrial flutter, unspecified type (HCC) (Primary Dx); Persistent atrial fibrillation (HCC); Nonrheumatic mitral valve regurgitation Discharge Disposition: Home or Self Care 08/09/2024 Travel 08/08/2024 10:15 AM EDT Office Visit [facility] Cardiology [facility] [address] [place] [phone] Cristiane Prescott MD Arteriosclerosis of coronary artery (Primary Dx); Chest pain, unspecified type 08/06/2024 11:00 AM EDT Office Visit [facility] Electrophysiology [address] [place] [phone] Victoria Marin MD Persistent atrial fibrillation (HCC) (Primary Dx) 08/06/2024 Travel 07/12/2024 Telephone [facility] Electrophysiology [address] [place] [phone] Victoria Marin MD Advice Only (Patient provided information on procedure scheduled:08/09/2024 at [facility]. Location: [place] [address]. Patient informed the hospital will call the day before with an arrival time. Given instructions on where to check in at registration. Patient may be required to stay overnight. Nothing to eat or drink after midnight prior to the day of the procedure but can take medications with a small sip of water. Medications to hold: Xarelto the morning of the procedure.) from Last 3 Months Family History Medical History Relation Name Comments Cancer Mother Rebeca Relation Name Status Comments Mother Rebeca Social History Tobacco Use Types Packs/Day Years Used Date Smoking Tobacco: Never Passive Smoke Exposure: Past Smokeless Tobacco: Never Tobacco Cessation:Counseling Given: Not Answered Alcohol Use Standard Drinks/Week Comments Not Currently [...] your living situation today? I have a [facility] place to live 11/23/[address] you li ve. Do you have problems with any of the following? None of the above 11/23/2023 Food Insecurity Answer Date Recorded Within the past 12 months, y ou worried that your food would run out before you got money to buy more. Never true 11/23/2023 Within the past 12 months, messi he food you bought just didn't last [...] Do you speak a language other than [place]ian at [place]? No 11/23/2023 Do you want help with [...] on file Sexual Orientation Not on file Last Filed Vital Signs Vital Sign Reading Time Taken Comments Blood Pressure 108/70 09/26/2024 10:08 AM EDT Pulse 64 09/26/2024 10:08 AM EDT Temperature 36.4 C (97.5 F) 09/12/2024 8:15 AM EDT Respiratory Rate 14 09/12/2024 1:53 PM EDT Oxygen Saturation 95% 09/12/2024 1:35 PM EDT Inhaled Oxygen Concentration 21% 11/25/2023 1 :32 AM EDT Weight 111.1 kg (245 lb) 09/26/2024 10:08 AM EDT Height 177.8 cm (5' 10 ) 09/26/2024 10:08 AM EDT Body Mass Index 35.15 09/26/2024 10:08 AM EDT Plan of Treatment Upcoming Encounters Date Type Department Care Team (Late st Contact Info) Description 10/31/2024 10:15 AM EDT Office Visit [facility] Cardiology [facility] [address] [place] [phone] Cristiane Prescott MD [address] [facility] [address] [place] [address] Health Maintenance Due Date Last Done Comments CT Colonography 1955 Colonoscopy 1955 Colorectal Cancer Screening 1955 Diabetic Kidney Health Evalu ation (KED) 1955 FOBT/FIT 1955 Fit-DNA (Cologuard) 1955 Sigmoidoscopy 1954 Diabetic Eye Exam 1964 Diabetic foot exam 1964 Hepatitis C Screening 1972 Shingles Vaccine (Zoster) (1 of 2) 1973 Respiratory Syncytial Virus (RSV) Adult or (1 - Risk 60-74 years 1-dose series) 2014 Medicare Initial AWV G0438 09/24/2020 Pneumococcal 50+ years (2 of 2 - PPSV23) 06/11/2021 04/16/2021 Hemoglobin A1C 02/23/2022 COVID-19 VACCINE (2023-2 5 season) 2023 03/04/2023, 03/03/2022, 01/27/2021, Additional history exists Falls Risk Screening 04/25/2024 Influenza Vaccine (Season Ended) 2024 02/17/2023, 01/15/2022, 03/19/2020 Tobacco Cessation Counseling and Screening (12+) 09/26/2025 09/26/2024 DTAP/TDAP/TD VACCINES (2 - T d or Tdap) 03/04/2033 03/04/2023 Medical Devices Implanted Type Area Pump Servicer Helper Device Identifier Shelf Expiration Date Model / Serial / Lot Scr Spne Krishna Fix 7x55mm -755 - [id number] Implanted:Qty : 4 on 11/23/2023 by Ronaldo Fuller Jr., MD at [facility] IMPLANTS N/A: Spine Lumbar J &J:DEPUY:DEPUY SPINE 55 / 55 / Mis David Ply Scrw Set Ti - [id number] Implanted:Qty : 4 on 11/23/2023 by Ronaldo Fuller Jr., MD at [facility] IMPLANTS N/A: Spine Lumbar J &J:DEPUY:DEPUY SPINE 00 / 00 / Bone Vivigen Formable Cell 5cc Bl-[id number] - [id number] Implanted:Qty : 1 on 11/23/2023 by Ronaldo Fuller Jr., MD at [facility] IMPLANTS N/A: Spine Lumbar LIFENET:LIFENET TRANSPLANT SRV 11/01/2024 BL-1600-0 02 / [id number] / Cage T/Plif 10mm Eit 8d 14/01 [id number] - [id number] Implanted:Qty : 1 on 11/23/2023 by Ronaldo Fuller Jr., MD at [facility] IMPLANTS N/A: Spine Lumbar J &J:DEPUY:DEPUY SPINE 08/22/2028 [id number] / / [id number] Yasir 45mm [id number] - [id number] Implanted:Qty : 2 on 11/23/2023 by Ronaldo Fuller Jr., MD at [facility] IMPLANTS N/A: Spine Lumbar J &J:DEPUY:DEPUY SPINE -0 45 / 0 45 / Procedures Procedure Name Priority Date/Time Associated Diagnosis Comments FS_MODEL_IP_ECG 12-LEAD Routine 09/26/2024 1:41 PM EDT EXTERNAL LAB - MISC Routine 09/26/2024 1 :36 PM EDT US GUIDED VASCULAR ACCESS Routine 09/12/2024 12:39 PM EDT Abnormal myocardial perfusion study CARDIAC CATH - LEFT HEART CATH W/ POSSIBLE INTERVENTION Routine 09/12/2024 11:52 AM EDT Abnormal myocardial perfusion study CHEM8+ POC Routine 09/12/2024 8:35 AM EDT MANUAL DIFFERENTIAL Routine 09/12/2024 8 :20 AM EDT CBC W/ AUTO DIFF STAT 09/12/2024 8:20 AM EDT PLATELET COUNT, AUTO STAT 09/12/2024 8:20 AM EDT NM MYOCARDIAL PERFUSION SPECT, PHARM Routine 08/22/2024 10:56 AM EDT Chest pain, unspecified type FS_MODEL_IP_ECG_STRES S_IMAGING Routine 08/22/2024 10:09 AM EDT EP LAB - ABLATION - ATRIAL FIBRILLATION Routine 08/09/2024 8:39 AM EDT Persistent atrial fibrillation (HCC) ANESTHESIA JOSHUA Routine 08/09/2024 8:09 AM EDT ANESTHESIA INTUBATION Routine 08/09/2024 7:48 AM EDT FS_MODEL_IP_ECG 12-LEAD Routine 08/09/2024 6:21 AM EDT COMPREHENSIVE METABOLIC PANEL Routine 08/09/2024 6:15 AM EDT CBC W/ AUTO DIFF Routine 08/09/2024 6:15 AM EDT FS_MODEL_IP_ECG 12-LEAD Routine 08/08/2024 10:58 AM EDT Arteriosclerosis of coronary artery from Last 3 Months Results * ECG 12 lead (09/26/2024 1:41 PM EDT) Only the most recent of3 resultswithin the time period is included. us Historical Provider ECG ORDERABLES Final Res ult * EXTERNAL LAB - MISC (09/26/2024 1:36 PM EDT) us Historical Provider LAB BLOOD ORDERABLES Darline l Result * Ultrasound-guided vascular access (09/12/2024 12:39 PM EDT) Anatomical Region Laterality Modality Vascular Vascular Ultraso und 09/12/2024 11:1 4 AM EDT Narrative 09/12/2024 10:43 PM EDT Vascular Procedure Demographics Patient Name LA WATERS Age 68 Patient Number [id number] Gender Male Race Ethnicity Corporate ID [id number] Height Date of 1955 Weight Accession Number [id number] BSA Room Number BMI Referring CRISTIANE PRESCOTT MD Interpreting CRISTIANE PRESCOTT MD Physician Physician Diabetes Education Coordinator TYLOR FUNG, T Procedure Type of Study: US GUIDED VASCULAR [...] Name LA WATERS Age 68 Patient Number [id number] Gender Male Race Ethnicity Corporate ID [id number] Height Date of 1955 Weight Accession Number [id number] BSA Room Number BMI Referring CRISTIANE PRESCOTT MD Interpreting CRISTIANE LARA Physician Physician Diabetes Education Coordinator TYLOR FUNG [facility] Procedure Type of Study: US GUIDED VASCULAR ACCESS : . Impressions Summary INDICATION: Abnormal myocardial perfusion study [R94.39 (ICD-10-CM)] ##################################### RIGHT: Ultrasound guided vascular access of the radial artery. Radial artery was 0.5 cm in depth and patent. Access was successful. ##################################### Allergies - Other:(Daraturmumab,Rosiglitazone). Patient Status:Outpatient. Study Location:Portable. Technical Quality:Good visualization. Signature Cristiane Prescott MD [facility] US ORDERABLES Final Result * CARDIAC CATH - LEFT HEART CATH W/ POSSIBLE INTERVENTION (09/12/2024 11:52 AM EDT) Anatomical Region Laterality Modality Heart Other Narrative 09/12/2024 12:17 PM EDT LEFT HEART CATHETERIZATION INDICATION: Exertional angina. Anterior ischemia by Myoview perfusion study. REFERRING MD: Dr. Teresa Evans TECHNIQUE: A 5/6-Cypriot sheath was placed in the right radial [...] when thrombocytopenia and anemia are improved. us Cristiane Prescott MD CV CARDIAC CATH ORDERABLES Final Result * (ABNORMAL) Chem8+ POC (09/12/2024 8:35 AM EDT) POC Sodium 140 138 - 146 mmol/L 09/12/2024 6:47 PM EDT [facility] POC Potassium 3.9 3.5 - 4.9 mmol/L 09/12/2024 6:47 PM EDT [facility] POC Chloride 102 98 - 109 mmol/L 09/12/2024 6:47 PM EDT [facility] POC Glucose 110(H) 70 - 105 mg/dL 09/12/2024 6:47 PM [facility] POC BUN 10 8 - 26 mg/dL 09/12/2024 6:47 PM [facility] POC Anion Gap 20 10 - 20 mmol/L 09/12/2024 6:47 PM [facility] POC IONIZED CALCIUM ILYA 1.34(H) 1.12 - 1.32 mmol/L 09/12/2024 6:47 PM T [facility] POC CO2 TOTAL ILYA 23(L) 24 - 29 mmol/L 09/12/2024 6:47 PM [facility] POC-Creatinine 0.8 0.6 - 1.3 mg/dL 09/12/2024 6:47 PM [facility] POC-EGFR >60 mL/min/1.7 3M2 09/12/2024 6:47 PM [facility] Comment:Proceed with contras t if eGFR > 45 ml/min/1.73 when performed on the NovaSTAT strip Creatinine meter. POC HEMATOCRIT ILYA 26(L) 38 - 51 %PCV 09/12/2024 6:47 PM [facility] POC HEMOGLOBIN ILYA 8.8(L) 12.0 - 17.0 g/dL 09/12/2024 6:47 PM [facility] Blood 09/12/2024 8:35 AM EDT 09/12/2024 6:47 PM EDT Narrative [facility] - 09/12/2024 6:47 PM EDT [employer] Enrichment Technician ID is - [id number] us Cristiane Prescott MD POINT OF CARE TEST ORDERABLES Fi nal Result [facility] [address] [phone] * (ABNORMAL) CBC with Automated Diff (09/12/2024 8:20 AM EDT) Only the most recent of2 resultswithin the time period is included. WBC 1.3(LL) 4.2 - 9.1 K/ L 09/12/2024 10:44 AM EDT [facility] RBC 2.43(L) 4.63 - 6.08 M/ L 09/12/2024 10:44 AM EDT [facility] Hemoglobin 7.8(L) 13.7 - 17.5 GM/DL 09/12/2024 10:44 AM EDT [facility] Hematocrit 24.0(L) 40.1 - 51.0 % 09/12/2024 10:44 AM EDT [facility] MCV 99(H) 79 - 92 fL 09/12/2024 10:44 AM EDT [facility] MCH 32.1 25.7 - 32.2 pg 09/12/2024 10:44 AM EDT [facility] MCHC 32.5 32.3 - 36.5 GM/DL 09/12/2024 10:44 AM EDT [facility] RDW 16.1(H) 11.6 - 14.4 % 09/12/2024 10:44 AM EDT [facility] Platelets 55(L) 140 - 375 K/CU MM 09/12/2024 10:44 AM EDT [facility] MPV 11.0 9.4 - 12.4 fL 09/12/2024 10:44 AM EDT [facility] NRBC Absolute 0.02(H) 0 - 0.012 K/ul 09/12/2024 10:44 AM EDT [facility] Blood Venipuncture / Unknown 09/12/2024 8:20 AM EDT 09/12/2024 10:36 AM EDT Narrative [facility] - 09/12/2024 10:44 AM EDT [...] Flag noted Atypical Lymph flag noted us Cristiane Prescott MD LAB BLOOD ORDERABLES Final Resul t [facility] [address] [phone] * (ABNORMAL) Manual Differential (09/12/2024 8:20 AM EDT) Total Counted 50 09/12/2024 11:36 AM EDT [facility] % Neutros (manual) 56 50 - 65 % 09/12/2024 11:36 AM EDT [facility] % Bands (manual) 2 % 09/13/19 25 11:36 AM EDT [facility] % Lymphs (manual) 26 24 - 44 % 025 11:36 AM EDT [facility] % Monos (manual) 14(H) 4 - 5 % 09/13/19 25 11:36 AM EDT [facility] % Eos (manual) 2 0 - 3 % 09/12/2024 11:36 AM EDT [facility] RBC Morphology abnormal( A) Normal 09/12/2024 11:36 AM EDT [facility] Platelet Estimate Decreased (A) Adequate 09/12/2024 11:36 AM EDT [facility] Anisocytosis 1+ 09/12/2024 11:36 AM EDT [facility] Polychromasia 1+ 09/12/2024 11:36 AM EDT [facility] Macrocytes 1+ 09/12/2024 11:36 AM EDT [facility] Ovalocytes 1+ 09/12/2024 11:36 AM EDT [facility] ANC# 0.75 K/ L 09/12/2024 11:36 AM EDT [facility] Blood Venipuncture / Unknown 09/12/2024 8:20 AM EDT 09/12/2024 10:36 AM EDT us Cristiane Prescott MD LAB BLOOD ORDERABLES Final Resul t Performing Organization Address [facility] Co de Phone Number [facility] [address] [phone] * (ABNORMAL) Platelet count, auto (09/12/2024 8:20 AM EDT) Platelets 49(L) 140 - 375 K/CU MM 09/12/2024 9:16 AM EDT [facility] Blood Venipuncture / Unknown 09/12/2024 8:20 AM EDT 09/12/2024 8:51 AM EDT us Sang ROSADOC LAB BLOOD ORDERABLES Final Resu lt Performing Organization Address [facility] Phone Number [facility] [address] [phone] * NM myocardial perfusion SPECT,pharm(LEXISCAN) (08/22/2024 10:56 [...] Normal left ventricular systolic function post stress. us Cristiane Prescott MD IMG NM ORDERABLES Final Result * ECG Stress Imaging (08/22/2024 10:09 AM EDT) Pathologist [facility] Diagnosis Stress data only-PHYSICI AN REPORT PENDING Carol Myers RN Confirmed by Margareth PRESCOTT STEVE ([id number]), editor dictionary VILMA Peñaloza Jamison ([id number]) on 08/22/2024 10:37:40 AM GE MUSE 08/22/2024 10:0 9 AM EDT 08/22/2024 10:37 AM EDT us Cristiane Prescott MD ECG ORDERABLES Final Result GE MUSE * EP LAB - ABLATION - ATRIAL FIBRILLATION (08/09/2024 8:39 AM EDT) Anatomical Region Laterality Modality Heart Other Narrative 08/09/2024 9:28 AM EDT Procedure was canceled since the patient has Intertrigo in the right groin with active bleeding/oozing. us Victoria Marin MD CV ELECTROPHYSIOLOGY ORDERABLES Final Result * JOSHUA (08/09/2024 8:09 AM EDT) Anatomical Region Laterality Modality Other Narrative 08/09/2024 8:09 AM EDT Galdino Han CRNA 08/09/2024 8:13 AM JOSHUA Date: 08/09/2024 8:09 AM Sex: Male Location: OR Requesting Physician: Victoria Marin MD Examiner: Tom Lyons MD Intubated Sedated Patient screened for esoph disease: Yes Insertion: easy Probe Type: multiplane Modalities: 2D, CWD and PWD Aorta Size Dissection Plaque Thick Plaque Mobile Ascending Ao < 3mm Ao Arch < 3mm Descending Ao < 3mm Valves Annulus Stenosis Area (cm3) Gradient Regurgitation Leaflet Morphology Leaflet Motion Not Visualized Aortic valve none none Mitral valve none none Tricuspid trivial (1+) Atria Size SEC Thrombus Tumor Device Right Atrium Left Atrium dilated No No No device Ventricles Cavity size Dimension Hypertrophy Thrombus Global FXN EF Right ventricle Left ventricle normal Yes normal 60 Pre Intervention Summary: Brief exam for REBECCA thrombus: No mass or thrombus by 2D and 3D. No significant valve disease. Normal LV systolic function. Post Intervention Summary: Tom Lyons MD ANESTHESIA ORDERABLES Final Res ult * AN SINGLE LUMEN INTUBATION (08/09/2024 7:48 AM EDT) Galdino Barrera CRNA - 08/09/2024 7:48 AM EDT Galdino Han CRNA 08/09/2024 7:53 AM Intubation Authorized by: Tom Lyons MD Performed by: Galdino Han CRNA Date/Time: 08/09/2024 7:48 AM Urgency: elective Indications and Patient Condition Indications for airway management: anesthesia and airway protection Spontaneous Ventilation: absent Sedation level: general anesthesia Preoxygenated: yes Patient position: sniffing no Mask difficulty assessment: 2 - vent by mask + OA or adjuvant +/- NMBA no Final Airway Details Final airway type: endotracheal airway Endotracheal tube type: ETT Cuffed: yes Successful intubation technique: direct laryngoscopy Facilitating devices/methods: intubating stylet Endotracheal tube insertion site: oral Blade: Johnathan Blade size: #3 ETT size (mm): 7.5 Cormack-Lehane Classification: grade I - full view of glottis Placement verified by: chest auscultation and capnometry Cuff volume (mL): 10 Measured from: lips ETT to lips (cm): 21 Number of attempts at approach: 1 Number of other approaches attempted: 0 Additional Comments Atraumatic, airway and dentition same as pre-op us Tom Lyons MD ANESTHESIA ORDERABLES Final Res ult * (ABNORMAL) Comprehensive metabolic panel (08/09/2024 6:15 AM EDT) Sodium 139 136 - 145 meq/L 08/09/2024 6:48 AM EDT [facility] Potassium 4.1 3.4 - 5.1 meq/L 08/09/2024 6:48 AM [facility] Chloride 105 98 - 112 meq/L 08/09/2024 6:48 AM [facility] CO2 24 22 - 29 meq/L 08/09/2024 6:48 AM [facility] Calcium 9.7 8.4 - 10.2 mg/dL 08/09/2024 6:48 AM [facility] Glucose 152(H) 82 - 115 mg/dL 08/09/2024 6:48 AM [facility] BUN 13.9 8.4 - 25.7 mg/dL 08/09/2024 6:48 AM [facility] Creatinine 0.88 0.72 - 1.25 mg/dL 08/09/2024 6:48 AM [facility] BUN/Creatinine 16 8 - 20 08/09/2024 6:48 AM [facility] eGFR (mL/min/1.73m2) 93 >=60 mL/min/1. 73m2 08/09/2024 6:48 AM [facility] Albumin 3.7 3.5 - 5.0 g/dL 08/09/2024 6:48 AM [facility] Alkaline Phosphatase 32(L) 40 - 150 U/L 08/09/2024 6:48 AM [facility] ALT 24 <=45 U/L 08/09/2024 6:48 AM [facility] Comment: ALT2 reagent used for testing does not contain P5P supplementation and therefore may miss ALT elevations in patients with B6 deficiency. This population may be as high as 10% in the [place], with risk factors including malabsorption, drug interactions, and alcoholic hepatitis. AST 30 11 - 34 U/L 08/09/2024 6:48 AM [facility] Comment: AST2 reagent used for testing does not contain P5P supplementation and therefore may miss AST elevations in patients with B6 deficiency. This population may be as high as 10% in the [place], with risk factors including malabsorption, drug interactions, and alcoholic hepatitis. Total Bilirubin 0.6 0.2 - 1.2 mg/dL 08/09/2024 6:48 AM [facility] Protein, Total 6.6 6.4 - 8.3 g/dL 08/09/2024 6:48 AM EDT [facility] Globulin 2.9 2.5 - 4.1 g/dL 08/09/2024 6:48 AM EDT [facility] Anion Gap 14(H) 4 - 12 08/09/2024 6:48 AM EDT [facility] A/G Ratio 1.3 0.7 - 1.9 08/09/2024 6:48 AM EDT [facility] Osmolality Calc 280.9 mOsm/kg 6:48 AM EDT [facility] Blood Venipuncture / Unknown 08/09/2024 6:15 AM EDT 08/09/2024 6:24 AM EDT Jesús Randolph [facility] BLOOD ORDERABLES Final Result Performing Organization Address City/State/[facility] Co de Phone Number [facility] [address] [phone] from Last 3 Months Insurance [employer] MEDICARE PPO Advance Directives For more information, please contact: [phone] Documents on File Type Date Recorded Patient Security Intelligence Analyst Expl anation Advance Directives and Living Will 11/23/2023 * Full Code (Latest Code Status on File) Date Activated Date Inactivated Comments 09/12/2024 12:50 PM 09/13/2024 4:25 AM * Full Code Date Activated Date Inactivated Comments 09/12/2024 6:59 AM 09/12/2024 12:50 PM * Full Code Date Activated Date Inactivated Comments 08/09/2024 8:06 AM 08/10/2024 4:25 AM * Full Code Date Activated Date Inactivated Comments 08/09/2024 5:00 AM 08/09/2024 8:06 AM * Full Code Date Activated Date Inactivated Comments 06/21/2024 5:22 AM 06/22/2024 4:25 AM Care Teams Lead Custodian Relationship Specialty Start Date End Date Teresa Evans MD [address] [place] [address] PCP - General General Internal Medicine 07/28/22
--- OUTSIDE RECORDS SUMMARY | 2024-10-11 10:09 | XMS_ITS | Encounter Summary ---
Author Organization [employer] Address [address] [place] [address] Care Team Providers Care French Binding Folder Name Role Phone Teresa Evans MD Primary Care Provider [phone] Dang Galvez RN Unavailable Unavailable Close, Mena Negron RN Unavailable Unavailable Will Hendricks MD Unavailable Lori Cantor PA-C Unavailable Encounter Details Date Type Department Care Team (Late st Contact Info) Description 06/03/2020 Transcribed Document [facility] [place] Family Medicine [address] [place] [address] ProviderPascale MD [address] [place] [address] Social History Tobacco Use Types Packs/Day Years Used Date Smoking Tobacco: Never Assessed Sex and Gender Information Value Date Recorded Sex Assigned at Not on file Legal Sex Male 5:41 PM CDT Gender Identity Not on file Sexual Orientation Not on file documented as of this encounter Miscellaneous Notes * Cerner Conversion Note - Pascale ProviderMD - 06/03/2020 2:49 PM LANDSCAPE SUPERVISOR Nursing Discharge Summary Entered On: 06/03/2020 14:50 EST Performed On: 06/03/2020 14:49 EST by LALY HARRIS, travel registered nurse icu Documentation Discharge Date/Time : 06/03/2020 16:30 EST Patient Disposition, General : Discharge Discharge To : Home with ambulatory/outpatient follow-up Mode Of Departure, General Discharge : Private vehicle, Wheelchair Accompanied By, Discharge : Spouse IV Discontinued : Yes Personal Belongings With Patient : Yes Discharge Instructions Reviewed With, Opportunity For Questions Given : Patient, Spouse Patient Education Completed : Yes Teaching Method : Explanation, Printed materials Teaching Evaluation : Verbalizes understanding LALY HARRIS, RN - 06/03/2020 14:49 EST Electronically signed by [facility] Conversion Clinical Trial Educator Cerner at 08/09/2022 10:31 AM CDT documented in this encounter Plan of Treatment Upcoming Encounters Date Type Department Care Team (Late st Contact Info) Description 10/31/2024 10:15 AM EDT Office Visit [facility] Cardiology [facility] [address] [place] [address] Morris Guerra MD [address] [facility] [address] [place] [address] documented as of this encounter Visit Diagnoses Not on filedocumented in this encounter Care Teams French Binding Folder Relationship Specialty Start Date End Date Teresa Evans MD [address] [place] [address] PCP - General General Internal Medicine 07/28/22 Dang Galvez, FLAKITA Nurse Navigator Oncology 08/17/22 10/12/23 Mena Cornell RN Registered Nurse Oncology 08/17/22 10/12/23 Will Hendricks MD [address] [facility] [address] [place] [address] Medical Oncologist Hematology and Oncology 08/17/22 10/12/23 Lori Cantor, PAMayuriC [address] [facility] [address] [place] [address] Physician Weight And Balance Control Agent Oncology 08/17/22 10/12/23 documented as of this encounter
--- OUTSIDE RECORDS SUMMARY | 2024-10-11 10:09 | XMS_ITS | Encounter Summary ---
Author Organization [employer] Address [address] [place] [address] Care Team Providers Care Slab Lifting Supervisor Name Role Phone Teresa Evans MD Primary Care Provider [phone] Dang Galvez RN Unavailable Unavailable Close, Mena Negron RN Unavailable Unavailable Yancy Hendricks MD Unavailable Lori Cantor PA-C Unavailable [phone] Encounter Details Date Type Department Care Team (Late st Contact Info) Description 06/03/2020 Transcribed Document [facility] [place] [facility] [place] [address] ProviderPascale MD [address] [place] [address] Social History Tobacco Use Types Packs/Day Years Used Date Smoking Tobacco: Never Assessed Sex and Gender Information Value Date Recorded Sex Assigned at Not on file Legal Sex Male 5:41 PM CDT Gender Identity Not on file Sexual Orientation Not on file documented as of this encounter Miscellaneous Notes * Cerner Conversion Note - Pascale Gann MD - 06/03/2020 2:[address] [facility] VICKY [place] [address] [address] NISHANT LOWEApryl :1955 Visit Time:06/03/2020 Your Visit Summary Your Care Team Admitting Physician - YANCY HENDRICKS MD-ONC Attending Physician - YANCY HENDRICKS MD-ONC Primary Care Physician - MARCIE YAN NP-RUPALI Referring Physician - YANCY HENDRICKS MD-ONC Discharge Vitals Temperature 36.1 ??C Heart Rate (Monitored) 86 Respiratory Rate 20 Blood Pressure 143/75 What to do next Instructions From Your Care Team No blood thinners or aspirin for 2 [address] driving for 24 hours. Follow-Up Appointments Follow Up with YANCY HENDRICKS MD-ONC When Within 1 to 2 weeks Comments Call for follow up appointment Where: Medications What How Much When Instructions Next Dose metoprolol (Toprol-XL) 100 Milligram(s) Oral Every Day ramipril 10 Milligram(s) Oral Two Times A Day ticagrelor (Brilinta) 60 Milligram(s) Two Times A Day acetaminophen-hydrocodone ([place] 7.5 mg-325 mg oral tablet) 1 Tablet(s) Oral Every 6 Hours as needed for for pain amLODIPine (Norvasc 10 mg oral tablet) 1 Tablet(s) Oral Every Day aspirin (aspirin 81 mg oral tablet) 1 Tablet(s) Oral Every Day hold 2 days 06/05/20 baclofen 10 Milligram(s) Oral Three Times A Day buPROPion (Wellbutrin XL 300 mg/ 24 hours oral tablet, extended release) 1 Tablet(s) Oral Interval Every 24 Hours diazePAM 2 Milligram(s) Two Times A Day as needed for as needed for anxiety empagliflozin-metformin (Synjardy 12.5 mg-1000 mg oral tablet) 1 Tablet(s) Oral Two Times A Day with meals fenofibric acid (Trilipix 135 mg oral delayed release capsule) 1 Capsule(s) Oral Every Day fluticasone nasal (Flonase) 2 [place](s) Nostrils Both Every Day furosemide (Lasix 20 mg oral tablet) 1 Tablet(s) Oral Every Day as needed for [place] insulin glargine (Lantus Solostar Pen) 80 Unit(s) SubCutaneous Two Times A Day melatonin (Melatonin) 10 Milligram(s) At Bedtime montelukast 10 Milligram(s) Every Day multivitamin with minerals (Centrum Silver oral tablet) 1 Tablet(s) Oral Every Day omega-3 polyunsaturated fatty acids (Fish Oil oral capsule) 1,200 Milligram(s) Oral Every Day pantoprazole (Protonix) 20 Milligram(s) Oral Every Day potassium chloride (potassium chloride 20 mEq oral tablet, extended release) 1 Tablet(s) Oral Two Times A Day rosuvastatin (Crestor 20 mg oral tablet) 1 Tablet(s) Oral Every Day spironolactone (Aldactone 25 mg oral tablet) 1 Tablet(s) Oral Every Day Take your medications faithfully. Do NOT skip [...] This Visit No Immunizations Found Education Materials It???s Cold and Flu Season ??? How are you protecting yourself? The start of each year is often met with the peak of cold and flu season. This year is no different except that we are facing the new strain of coronavirus, COVID-19, and the widespread media attention this public health outbreak is causing. It is understandable that many are feeling overwhelmed by the thought of catching coronavirus and are concerned about how to best care for ourselves and our loved ones during this challenging time. Take comfort in knowing there are simple things you can do each and every day to help ensure your health is protected. Scrub a dub! Wash your hands! As simple as this sounds, it truly is the most effective way to stop the spread of germs. Be sure to use soap, and to make sure you are being thorough enough, sing the ???Happy Birthday?? song which is just the right length to ensure a thorough cleaning of your hands. Wash all parts of your hands, including the ???webs?? between your fingers and thumbs. When without, use a squeeze! If you are unable to get to a sink for soap and water to thoroughly wash your hands, use hand ultrasound tester. While handwashing is best, hand ultrasound tester helps to reduce the spread of germs when you are out and about. Have hand ultrasound tester in several locations so you can always have some on hand ??? think about placing some bottles in your car, your purse, your suitcase, the diaper bag, or even in your coat pocket. Don???t rub, don???t touch! As tempting as it is to rub those scratchy eyes during allergy season or to rub a runny nose, don???t. In fact, if you can, try to avoid touching your face as much as possible, especially with unclean hands. Our eyes, nose, and mouth are easy access points for germs to enter our bodies. When in doubt, don???t go out! If you are feeling under the weather, stay home. If your child is feeling sick, keep them home. It is so important to not only rest when you are starting to get sick or are already under the weather, but also staying home and away from others helps to keep people from also getting sick. Don???t [place] It! Sneezing this time of year is part of life, especially if you suffer from allergies or do have the cold or flu. To help minimize the spread of germs from sneezing or coughing, use a Kleenex or your elbow to protect against rogue spray and to help keep your hands clean. And remember, most people will have a runny nose, coughs and sneezes these days either from seasonal allergies, the cold or the flu, but if you do feel ill or feel like you need some help to feel better, please contact your Primary Care Provider to determine the best course of treatment for you which may include home care for mild cases or making an appointment to be seen to address more moderate needs. To find a PCP near you, please visit HYPERLINK [email or web address]. June 29, 2019 Bone Marrow Aspiration and Bone Marrow Biopsy, Adult, Care After This sheet gives you information about how to care for yourself after your procedure. Your health care provider may also give you more specific instructions. If you have problems or questions, contact your health care provider. What can I expect after the procedure? After the procedure, it is common to have: ??? Mild pain and tenderness. ??? Swelling. ??? Bruising. Follow these instructions at home: Puncture site care ??? Follow instructions from your health care provider about how to take care of the puncture site. Make sure you: ? Wash your hands with soap and water before and after you change your bandage (dressing). If soap and water are not available, use hand ultrasound tester. ? Change your dressing as told by your health care provider. ??? Check your puncture site every day for signs of infection. Check for: ? More redness, swelling, or pain. ? Fluid or blood. ? Warmth. ? Pus or a bad smell. Activity ??? Return to your normal activities as told by your health care provider. Ask your health care provider what activities are safe for you. ??? Do not lift anything that is heavier than 10 lb (4.5 kg), or the limit that you are told, until your health care provider says that it is safe. ??? Do not drive for 24 hours if you were given a sedative during your procedure. General instructions ??? Take vnax-jbf-ksdnuej and prescription medicines only as told by your health care provider. ??? Do not take baths, swim, or use a hot tub until your health care provider approves. Ask your health care provider if you may take showers. You may only be allowed to take sponge baths. ??? If directed, put ice on the affected area. To do this: ? Put ice in a plastic bag. ? Place a towel between your skin and the bag. ? Leave the ice on for 20 minutes, 2???3 times a day. ??? Keep all follow-up visits as told by your health care provider. This is important. Contact a health care provider if: ??? Your pain is not controlled with medicine. ??? You have a fever. ??? You have more redness, swelling, or pain around the puncture site. ??? You have fluid or blood coming from the puncture site. ??? Your puncture site feels warm to the touch. ??? You have pus or a bad smell coming from the puncture site. Summary ??? After the procedure, it is common to have mild pain, tenderness, swelling, and bruising. ??? Follow instructions from your health care provider about how to take care of the puncture site and what activities are safe for you. ??? Take epbr-rlv-vhlwzhh and prescription medicines only as told by your health care provider. ??? Contact a health care provider if you have any signs of infection, such as fluid or blood coming from the puncture site. This information is not intended to replace advice given to you by your health care provider. Make sure you discuss any questions you have with your health care provider. Document Released: 10/29/2005 Document Revised: 08/28/2019 Document Reviewed: 08/28/2019 [employer] Patient Education ?? 2020 [employer] Moderate Conscious Sedation, Adult, Care After These instructions provide you with information about caring for yourself after your procedure. Your health care provider may also give you more specific instructions. Your treatment has been planned according to current medical practices, but problems sometimes occur. Call your health care provider if you have any problems or questions after your procedure. What can I expect after the procedure? After your procedure, it is common: ??? To feel sleepy for several hours. ??? To feel clumsy and have poor balance for several hours. ??? To have poor judgment for several hours. ??? To vomit if you eat too soon. Follow these instructions at home: For at least 24 hours after the procedure: ??? Do not: ? Participate in activities where you could fall or become injured. ? Drive. ? Use heavy machinery. ? Drink alcohol. ? Take sleeping pills or medicines that cause drowsiness. ? Make important decisions or sign legal documents. ? Take care of children on your own. ??? Rest. Eating and drinking ??? Follow the diet recommended by your health care provider. ??? If you vomit: ? Drink water, juice, or soup when you can drink without vomiting. ? Make sure you have little or no nausea before eating solid foods. General instructions ??? Have a responsible adult stay with you until you are awake and alert. ??? Take mcay-pwd-wesndbs and prescription medicines only as told by your health care provider. ??? If you smoke, do not smoke without supervision. ??? Keep all follow-up visits as told by your health care provider. This is important. Contact a health care provider if: ??? You keep feeling nauseous or you keep vomiting. ??? You feel light-headed. ??? You develop a rash. ??? You have a fever. Get help right away if: ??? You have trouble breathing. This information is not intended to replace advice given to you by your health care provider. Make sure you discuss any questions you have with your health care provider. Document Released: 01/30/2014 Document Revised: 03/24/2018 Document Reviewed: 07/31/2016 [employer] Patient Education ?? 2020 [email or web address] Emergency Awareness and Preventative Care STROKE is [...] Assistance with quitting is available by contacting 9-178-PFDO-NOW. This is a free resource providing counseling, [...] This Visit (last charted value for your 06/03/2020 visit) Hematology 06/03/2020 12:54 PM WBC: 5.6 K/uL -- Normal range between ( 3.6 and 9.5 ) RBC: 4.65 Million/uL -- Normal range between ( 4.20 and 5.70 ) Hct: 39.1 % -- Normal range between ( 40.1 and 51.0 ) Hgb: 13.2 g/dL -- Normal range between ( 13.5 and 17.3 ) Platelet Count: 177 K/uL -- Normal range between ( 163 and 369 ) MCH: 28.4 pg -- Normal range between ( 25.6 and 32.2 ) MCHC: 33.8 Gram/dL -- Normal range between ( 32.2 and 36.5 ) MCV: 84.1 fL -- Normal range between ( 79.0 and 94.8 ) Slide Review: No Eos %: 3.2 % -- Normal range between ( 0.0 and 7.0 ) [place] #: 0.56 K/uL -- Normal range between ( 0.16 and 1.00 ) Eos #: 0.18 x10(3)/uL -- Normal range between ( 0.00 and 0.80 ) [place] %: 10.1 % -- Normal range between ( 3.0 and 9.0 ) Baso %: 0.4 % -- Normal range between ( 0.0 and 1.5 ) Baso #: 0.02 x10(3)/uL -- Normal range between ( 0.00 and 0.20 ) RDW: 14.5 % -- Normal range between ( 11.7 and 14.9 ) Neut %: 57.5 % -- Normal range between ( 34.0 and 71.0 ) Neut #: 3.19 K/uL -- Normal range between ( 1.56 and 6.13 ) Lymph %: 26.5 % -- Normal range between ( 19.3 and 53.1 ) Lymph #: 1.47 x10(3)/uL -- Normal range between ( 1.00 and 3.90 ) MPV: 9.5 fL -- Normal range between ( 9.4 and 12.4 ) IG#: 0.13 x10(3)/uL -- Normal range between ( 0.00 and 0.05 ) IG%: 2.30 % -- Normal range between ( 0.00 and 0.60 ) General Chemistry 06/03/2020 1:10 PM Glucose POC2: 148 mg/dL -- Normal range between ( 70 and 110 ) Device Comment 1: Device Comment 1 06/03/2020 12:54 PM Creatinine Level: 1.50 mg/dL -- Normal range between ( 0.70 and 1.30 ) eGFR : 57 mL/min/1.73m2 eGFR NonAfrican: 47 mL/min/1.73m2 Coagulation 06/03/2020 12:54 PM INR: 1.0 -- Normal range between ( 0.9 and 1.2 ) PTT: 24.0 Second(s) -- Normal range between ( 22.0 and 33.0 ) PT: 10.7 Second(s) -- Normal range between ( 9.2 and 12.0 ) Computed Tomography 06/03/2020 2:[address] Bone Marrow Asp W Bx: CT Bone Marrow Asp W Bx Patient Name:NISHANT BUENO IIApryl I have received and understand this information and was given the opportunity to ask questions. Patient/Sprinkler Installer Name: Patient/Sprinkler Installer Signature: Relationship to Patient: Clinician/Hospital Sprinkler Installer Signature: Date: documented in this encounter Plan of Treatment Upcoming Encounters Date Type Department Care Team (Late st Contact Info) Description 10/31/2024 10:15 AM EDT Office Visit [facility] Cardiology [facility] [address] [place] [address] Morris Guerra MD [address] [place] [address] documented as of this encounter Visit Diagnoses Not on filedocumented in this encounter Care Teams Slab Lifting Supervisor Relationship Specialty Start Date End Date Teresa Evans MD [address] [place] [address] PCP - General General Internal Medicine 07/28/22 Dang Galvez RN Nurse Navigator Oncology 08/17/22 10/12/23 Mena Cornell RN Registered Nurse Oncology 08/17/22 10/12/23 Yancy Hendricks MD [address] [facility] [address] [place] [address] Medical Oncologist Hematology and Oncology 08/17/22 10/12/23 Lori Cantor PA-C [address] [place] [address] Physician Asphalt Roller Person Oncology 08/17/22 10/12/23 documented as of this encounter
--- OUTSIDE RECORDS SUMMARY | 2024-10-11 10:09 | XMS_ITS | Encounter Summary ---
Author Organization [employer] Address [address] [place] [address] Care Team Providers Care Assembly Line Leader Name Role Phone Teresa Evans MD Primary Care Provider [phone] Dang Galvez RN Unavailable Unavailable Close, Mena Negron RN Unavailable Unavailable Will Hendricks MD Unavailable Lori Cantor PA-C Unavailable [phone] Encounter Details Date Type Department Care Team (Late st Contact Info) Description 06/03/2020 Transcribed Document [facility] Family [place] [address] ProviderPascale MD [address] [place] [address] Social History Tobacco Use Types Packs/Day Years Used Date Smoking Tobacco: Never Assessed Sex and Gender Information Value Date Recorded Sex Assigned at Not on file Legal Sex Male 5:41 PM CDT Gender Identity Not on file Sexual Orientation Not on file documented as of this encounter Miscellaneous Notes * Cerner Conversion Note - Pascale Gann MD - 06/03/2020 2:49 PM METERS SUPERINTENDENT Patient Education Materials Follows: It???s Cold and Flu Season ??? How [...] to thoroughly wash your hands, use hand shingle trimmer. While handwashing is best, hand shingle trimmer helps to reduce the spread of germs when you are out and about. Have hand shingle trimmer in several locations so you can always [...] keep people from also getting sick. Don???t [place] It! Sneezing this time of year is [...] a PCP near you, please visit [employer] [email or web address]. June 29, 2019 Bone Marrow Aspiration [...] and water are not available, use hand shingle trimmer. ? Change your dressing as told by [...] during your procedure. General instructions ??? Take tkjx-ipr-ylfslht and prescription medicines only as told by [...] Leave the ice on for 20 minutes, 2?3 times a day. ??? Keep all follow-up [...] activities are safe for you. ??? Take zjlh-icq-unjwgbv and prescription medicines only as told by [...] 10/29/2005 Document Revised: 08/28/2019 Document Reviewed: 08/28/2019 [employer] Patient Education ? 2020 [employer] Moderate Conscious Sedation, Adult, Care After [...] you are awake and alert. ??? Take uvxy-chm-mpurfve and prescription medicines only as told by [...] 01/30/2014 Document Revised: 03/24/2018 Document Reviewed: 07/31/2016 [employer] Patient Education ? 2019 [employer] documented in this encounter Plan of Treatment Upcoming Encounters Date Type Department Care Team (Late st Contact Info) Description 10/31/2024 10:15 AM EDT Office Visit [facility] Cardiology [facility] [address] [place] [address] Morris Guerra MD [facility] [address] [place] [address] documented as of this encounter Visit Diagnoses Not on filedocumented in this encounter Care Teams Assembly Line Leader Relationship Specialty Start Date End Date Teresa Evans MD [address] [place] [address] PCP - General General Internal Medicine 07/28/22 Dang Galvez, RN Nurse Navigator Oncology 08/17/22 10/12/23 Mena Cornell RN Registered Nurse Oncology 08/17/22 10/12/23 Will Hendricks MD [address] [facility] [address] [place] [address] Medical Oncologist Hematology and Oncology 08/17/22 10/12/23 Lori Cantor, [facility] [address] [place] [address] Physician Dog Hair Clipper Oncology 08/17/22 10/12/23 documented as of this encounter
--- OUTSIDE RECORDS SUMMARY | 2024-10-11 10:09 | XMS_ITS | Encounter Summary ---
Author Organization [employer] Address [address] [place] [address] Care Team Providers Care Dishwasher Preparer Name Role Phone Teresa Evans MD Primary Care Provider [phone] Dang Galvez RN Unavailable Unavailable Close, eMna Negron RN Unavailable Unavailable Will Hendricks MD Unavailable Lori Cantor PA-C Unavailable [phone] Encounter Details Date Type Department Care Team (Late st Contact Info) Description 11/03/2021 Transcribed Document [facility] Family Medicine [address] [place] [address] ProviderPascale MD [address] [place] [address] Social History Tobacco Use Types Packs/Day Years Used Date Smoking Tobacco: Never Assessed Sex and Gender Information Value Date Recorded Sex Assigned at Not on file Legal Sex Male 5:41 PM CDT Gender Identity Not on file Sexual Orientation Not on file documented as of this encounter Miscellaneous Notes * Cerner Conversion Note - Pascale Gann MD - 11/03/2021 8:59 AM CDT Patient: MICHAEL BUENO II Age: 66 years Sex: Male : 1955 Associated Diagnoses: None Author: CATE DODSON PA Pre-OP/Procedure Diagnosis: Multiple myeloma Post-OP/Procedure Diagnosis: Same Procedure Performed: Bone Marrow Biopsy Procedural MD: Shan Aly M.D. Associate Sales Representative: Cate Dodson PA-C Sedation: Mild procedural sedation Findings: 15 mL aspirate and approximately 2cm core was obtained. Complications: None EBL: _< 20 ml Specimen(s) Removed: 15 mL aspirate and approximately 2cm core was obtained. Pathology is pending. Full report to follow. Electronically signed by Maureen, [facility] Conversion Group Director Experience Cerner at 08/09/2022 10:21 AM CDT documented in this encounter Plan of Treatment Upcoming Encounters Date Type Department Care Team (Late st Contact Info) Description 10/31/2024 10:15 AM EDT Office Visit [facility] Cardiology [facility] [address] [place] [address] Morris Guerra MD [address] [facility] [address] [place] [address] documented as of this encounter Visit Diagnoses Not on filedocumented in this encounter Care Teams Dishwasher Preparer Relationship Specialty Start Date End Date Teresa Evans MD [address] [place] [address] PCP - General General Internal Medicine 07/28/22 Dang Galvez, RN Nurse Navigator Oncology 08/17/22 10/12/23 Mena Cornell RN Registered Nurse Oncology 08/17/22 10/12/23 Will Hendricks MD [address] [facility] [address] [place] [address] Medical Oncologist Hematology and Oncology 08/17/22 10/12/23 Lori Cantor PA-C [address] [facility] [address] [place], [place] [address] Physician Associate Sales Representative Oncology 08/17/22 10/12/23 documented as of this encounter
--- OUTSIDE RECORDS SUMMARY | 2024-10-11 10:09 | XMS_ITS | Encounter Summary ---
Author Organization [employer] Address [address] [place] [address] Care Team Providers Care Salvage Engineer Name Role Phone Teresa Evans MD Primary Care Provider [phone] Reason for Visit * Reason Comments Medication Refill Encounter Details Date Type Department Care Team (Late st Contact Info) Description 11/07/2023 Refill [facility] Cardiology [facility] [address] [place] [address] Morris Guerra MD [address] [place] [address] [place] [address] Social History Tobacco Use Types Packs/Day Years Used Date Smoking Tobacco: Never Smokeless Tobacco: Never Alcohol Use Standard Drinks/Week Comments Not Currently 0 (1 standard drink = 0.6 oz pur e alcohol) Utilities Answer Date Recorded In the past 12 months, has t he Authorly, gas, oil, or water [employer] threatened to shut off services in your [...] Date Damon rded Speak language other than Portuguese at home 0 10/13/2023 Want help with [...] EDT Office Visit [facility] Cardiology [facility] [address] [place] [address] Morris Guerra MD [address] [place] [address] documented as of this encounter Visit Diagnoses Not on filedocumented in this encounter Care Teams Salvage Engineer Relationship Specialty Start Date End Date Teresa Evans MD [address] [place] [address] PCP - General General Internal Medicine 07/28/22 documented as of this encounter
--- OUTSIDE RECORDS SUMMARY | 2024-10-11 10:09 | XMS_ITS | Encounter Summary ---
Author Organization [employer] Address [address] [place] [address] Care Team Providers Care Drill Runner Helper Name Role Phone Teresa Evans MD Primary Care Provider [phone]- [phone] Dang Galvez RN Unavailable Unavailable Close, Mena Negron RN Unavailable Unavailable Will Hendricks MD Unavailable Lori Cantor PA-C Unavailable [phone] Encounter Details Date Type Department Care Team (Late st Contact Info) Description 06/03/2020 Transcribed Document [facility] Family Medicine [address] [place] [address] ProviderPascale MD [address] [place] [address] Social History Tobacco Use Types Packs/Day Years Used Date Smoking Tobacco: Never Assessed Sex and Gender Information Value Date Recorded Sex Assigned at Not on file Legal Sex Male 5:41 PM CDT Gender Identity Not on file Sexual Orientation Not on file documented as of this encounter Miscellaneous Notes * Cerner Conversion Note - Pascale Gann MD - 06/03/2020 2:09 PM CARE MANAGEMENT ASSOCIATE Patient: MICHAEL BUENO II Age: 64 years Sex: Male : 1955 Associated Diagnoses: None Author: DANY HMEPHILL PA-C Pre-OP/Procedure Diagnosis: Multiple myeloma Post-OP/Procedure Diagnosis: Same Procedure Performed: Bone Marrow Biopsy Procedural MD: Ritika Medical Coordinator Pesticide Use: Miles Hemphill PA-C Sedation: Mild procedural sedation Findings: Pathology pending,Aspirate and approximately 2cm core was obtained. Complications: None EBL: _< 20 ml Specimen(s) Removed: Pathology is pending. Full report to follow. Electronically signed by Stephanie Reddy Conversion Residential Real Estate Appraiser Cerner at 08/09/2022 10:31 AM CDT documented in this encounter Plan of Treatment Upcoming Encounters Date Type Department Care Team (Late st Contact Info) Description 10/31/2024 10:15 AM EDT Office Visit [facility] Cardiology - [place] [address] [place] [address] Morris Guerra MD [address] [facility] [address] [place] [address] documented as of this encounter Visit Diagnoses Not on filedocumented in this encounter Care Teams Drill Runner Helper Relationship Specialty Start Date End Date Teresa Evans MD [address] [place] [address] PCP - General General Internal Medicine 07/28/22 Dang Galvez, RN Nurse Navigator Oncology 08/17/22 10/12/23 Mena Cornell RN Registered Nurse Oncology 08/17/22 10/12/23 Will Hendricks MD [address] [facility] [address] [place] [address] Medical Oncologist Hematology and Oncology 08/17/22 10/12/23 Lori Cantor PA-C [address] [facility] [address] [place], [place] [id number] Physician Medical Coordinator Pesticide Use Oncology 08/17/22 10/12/23 documented as of this encounter
--- OUTSIDE RECORDS SUMMARY | 2024-10-11 10:09 | XMS_ITS | Encounter Summary ---
Author Organization [employer] Address [address] [place] [address] Care Team Providers Care General Inspector Name Role Phone Teresa Evans MD Primary Care Provider [phone] Dang Galvez RN Unavailable Unavailable Close, Mena Negron RN Unavailable Unavailable Will Hendricks MD Unavailable Lori Cnator PA-C Unavailable [phone] Reason for Visit * Reason Comments Medication Refill Encounter Details Date Type Department Care Team (Late st Contact Info) Description 06/16/2023 Refill [facility] Cardiology [facility] [address] [place] [address] Morris Guerra MD [address] [facility] [place] [address] Social History Tobacco Use Types Packs/Day Years Used Date Smoking Tobacco: Never Smokeless Tobacco: Never Alcohol Use Standard Drinks/Week Comments Not Currently 0 (1 standard drink = 0.6 oz pur e alcohol) Interpersonal Safety Answer Date Record ed Family or friends hurt you Not on file 05/12 Family or friends insult you Not on file Family or friends threaten you Not on file 0 05/12/2023 Family or friends scream or curse at you Not on file 05/12/2023 Housing Stability Answer Date Recorded Living situation today Not on file Living situation problems Not on file 2023 Food Insecurity Answer Date Recorded Food run out past 12 months Not on file 04/25 Food did not last past 12 months Not on file 05/12/2023 Employment Answer Date Recorded Help finding and keeping a job Not on file 0 05/12/2023 Family and Community Support Answer Frank e Recorded Help with Day to Day Activities Not on file 05/12/2023 Feeling Lonely or Isolated Not on file 05/12 Educational Attainment Answer Date Damon rded Speak language other than Citizen [place] at home Not on file 05/12/2023 Want help with school or training Not on file 05/12/2023 Depression Answer Date Recorded PHQ-2 Risk Not on file 05/12/2023 Disabilities Answer Date Recorded Difficulty concentrating Not on file 024 Difficulty doing errands alone Not on file 0 05/12/2023 Substance Use Answer Date Recorded Used prescription meds for non-medical reasons N ot on file 05/12/2023 Used illegal drugs past 12 months Not on file 05/12/2023 Sex and Gender Information Value Date Recorded Sex Assigned at Not on file Legal Sex Male 5:41 PM CDT Gender Identity Not on file Sexual Orientation Not on file documented as of this encounter Plan of Treatment Upcoming Encounters Date Type Department Care Team (Late st Contact Info) Description 10/31/2024 10:15 AM EDT Office Visit [facility] Cardiology [facility] [address] [facility] [place] [address] Morris Guerra MD [address] [facility] [place] [address] documented as of this encounter Visit Diagnoses Not on filedocumented in this encounter Care Teams General Inspector Relationship Specialty Start Date End Date Teresa Evans MD [address] [place] [address] PCP - General General Internal Medicine 07/28/22 Dang Galvez RN Nurse Navigator Oncology 08/17/22 10/12/23 Mena Cornell RN Registered Nurse Oncology 08/17/22 10/12/23 Will Hendricks MD [address] [facility] [address], [place] [address] Medical Oncologist Hematology and Oncology 08/17/22 10/12/23 Lori Cantor PA-C [address] [facility] [address] [place] [address] Physician Solid Waste Facility Supervisor Oncology 08/17/22 10/12/23 documented as of this encounter
--- OUTSIDE RECORDS SUMMARY | 2024-10-11 10:09 | XMS_ITS | Encounter Summary ---
Author Organization [employer] Address [address] [place] [address] Care Team Providers Care Tent Assembler Name Role Phone Teresa Evans MD Primary Care Provider [phone]- [phone] Dang Galvez RN Unavailable Unavailable Close, Mena Negron RN Unavailable Unavailable Will Hendricks MD Unavailable Lori Cantor PA-C Unavailable [phone] Encounter Details Date Type Department Care Team (Late st Contact Info) Description 06/03/2020 Transcribed Document [facility] Family Medicine [address] [place] [address] ProviderPascale MD [address] [place] [address] Social History Tobacco Use Types Packs/Day Years Used Date Smoking Tobacco: Never Assessed Sex and Gender Information Value Date Recorded Sex Assigned at Not on file Legal Sex Male 5:41 PM CDT Gender Identity Not on file Sexual Orientation Not on file documented as of this encounter Miscellaneous Notes * Cerner Conversion Note - Pascale ProviderMD - 06/03/2020 1:42 PM PROFESSOR OF JOURNALISM Patient: MICHAEL BUENO II Age: 64 years Sex: Male : 1955 Associated Diagnoses: None Author: DANY HEMPHILL PA-C PRE PROCEDURE NOTE I have evaluated the patient prior to the procedure. ASA score: 2 Mallampati score: 3 ASA SCORE ASA 1: Healthy patients ASA [...] Description 10/31/2024 10:15 AM EDT Office Visit [facility] Cardiology [facility] [address] [place] [address] Morris Guerra MD [address] [facility] [address] [place] [address] documented as of this encounter Visit Diagnoses Not on filedocumented in this encounter Care Teams Tent Assembler Relationship Specialty Start Date End Date Teresa Evans MD [address] [place] [address] PCP - General General Internal Medicine 07/28/22 Dang Galvez, RN Nurse Navigator Oncology 08/17/22 10/12/23 Mena Cornell RN Registered Nurse Oncology 08/17/22 10/12/23 Will Hendricks MD [address] [facility] [address] [place] [address] Medical Oncologist Hematology and Oncology 08/17/22 10/12/23 Lori Cantor, PA-C [address] [facility] [address] [place] [address] Physician Helicopter Pilot Instructor Oncology 08/17/22 10/12/23 documented as of this encounter
--- OUTSIDE RECORDS SUMMARY | 2024-10-11 10:09 | XMS_ITS | Referral Summary ---
Author Organization [employer] Address [address] [place] [address] Care Team Providers Care Third Hand Name Role Phone Teresa Evans MD Primary Care Provider [phone]- [phone] Encounters Date Type Department Care Team Description 09/26/2024 Orders Only [facility] [address] [place] [address] ProviderPascale MD 09/26/2024 9:45 AM EDT Office Visit [facility] [address] [facility] [place] [address] Cristiane Prescott MD Persistent atrial fibrillation (HCC) (Primary Dx) 09/12/2024 11:14 AM EDT - 09/12/2024 11:59 PM EDT Hospital Encounter [facility] Non-Invasive Cardiology [address] [place] [address] Cristiane Prescott MD Abnormal myocardial perfusion study Discharge Disposition: Home or Self Care 09/12/2024 Travel 09/12/2024 7:50 AM EDT - 09/12/2024 11:13 AM EDT Hospital Encounter [facility] Cardiac Catheterization Lab [address] [place] [address] Cristiane Prescott MD Nonrheumatic mitral valve regurgitation (Primary Dx); Abnormal myocardial perfusion study Discharge Disposition: Home or Self Care 08/23/2024 Telephone [facility] Cardiology [address] [place] [address] Gus Jenn, BUSINESS LEADER Results 08/22/2024 Travel 08/22/2024 8:48 AM EDT - 08/22/2024 11:59 PM EDT Hospital Encounter [facility] Nuclear Medicine [address] [place] [address] Cristiane Prescott MD Discharge Disposition: Home or Self Care 08/22/2024 8:48 AM EDT - 08/22/2024 11:59 PM EDT Hospital Encounter [facility] Nuclear Medicine [address] [place] [address] Cristiane Prescott MD Discharge Disposition: Home or Self Care 08/22/2024 8:48 AM EDT - 08/22/2024 11:59 PM EDT Hospital Encounter [facility] Medicine [address] [place] [address] Cristiane Prescott MD Discharge Disposition: Home or Self Care 08/22/2024 8:46 AM EDT - 08/22/2024 8:47 AM EDT Hospital Encounter [facility] Medicine [address] [place] [address] Cristiane Prescott MD Chest pain, unspecified type Discharge Disposition: Home or Self Care 08/09/2024 7:26 AM EDT Anesthesia Event [facility] Electrophysiology Lab [address] [place] [address] Tom Lyons MD 08/09/2024 Travel 08/09/2024 5:30 AM EDT - 08/09/2024 7:21 AM EDT Hospital Encounter [facility] Electrophysiology Lab [address] [place] [address] Victoria Marin MD Atrial flutter, unspecified type (HCC) (Primary Dx); Persistent atrial fibrillation (HCC); Nonrheumatic mitral valve regurgitation Discharge Disposition: Home or Self Care 08/08/2024 10:15 AM EDT Office Visit [facility] Cardiology [address] [place] [address] Cristiane Prescott MD Arteriosclerosis of coronary artery (Primary Dx); Chest pain, unspecified type 08/06/2024 Travel 08/06/2024 11:00 AM EDT Office Visit [facility] Electrophysiology [address] [place] [address] Victoria Marin MD Persistent atrial fibrillation (HCC) (Primary Dx) 07/12/2024 Telephone [facility] Electrophysiology [address] [place] [phone] Victoria Marin MD Advice Only (Patient provided information on procedure scheduled:08/09/2024 at [facility]. Location: [address] [place] [address]. Patient informed the hospital will call the [...] of the procedure.) from Last 3 Months Allergies Active Allergy Reactions Criticality Noted Date [...] mouth 2 (two) times daily. Active omega 9-zzi-loa-fish oil (Fish OiL) capsule Take 1 capsule [...] myeloma 07/09/2020 CPAP (continuous positive airway pressure) depen dence Transient cerebral ischemic attack Social History Tobacco Use Types Packs/Day Years [...] your living situation today? I have a [facility] place to live 11/23/2023 Think about [...] Do you speak a language other than Nepali at [facility]? No 11/23/2023 Do you want help with [...] Mass Index 35.15 09/26/2024 10:08 AM EDT Functional Status * Are you deaf or [...] 10/15/2023 9:31 AM RAIT Murali Armando RN Mental Status * Because of a physical, mental, or emotional condition, do you have serious difficulty concentrating, remembering, or making decisions? (5 years old or older) Answer Entry Date Author No 10/15/2023 9:31 AM Murali Nguyen RN Plan of Treatment Upcoming Encounters Date Type Department Care Team (Late st Contact Info) Description 10/31/2024 10:15 AM EDT Office Visit [facility] Cardiology [facility] [address] [place] [address] Cristiane Prescott MD [facility] [place] [address] Medical Devices Implanted Type Area Atmospheric Physics Professor Device Identifier Shelf Expiration Date Model / Serial / Lot Scr Spne Krishna Fix 7x55mm [id number] - [id number] Implanted:Qty : 4 on 11/23/2023 by Ronaldo Fuller Jr., MD at [facility] IMPLANTS N/A: Spine Lumbar J &J:DEPUY:DEPUY SPINE -7 55 / -7 55 / Mis David Ply Scrw Set Ti 1866--000 - [id number] Implanted:Qty : 4 on 11/23/2023 by Ronaldo Fuller Jr., MD at [facility] IMPLANTS N/A: Spine Lumbar J &J:DEPUY:DEPUY SPINE -0 00 / 0 00 / Bone Vivigen Formable Cell 5cc -1600-002 - [id number] Implanted:Qty : 1 on 11/23/2023 by Ronaldo Fuller Jr., MD at [facility] IMPLANTS N/A: Spine Lumbar LIFENET:LIFENET TRANSPLANT SRV 11/01/2024 BL-1600-0 02 / [id number] / Cage T/Plif 10mm Eit 8d 14/01 [id number] - [id number] Implanted:Qty : 1 on 11/23/2023 by Ronaldo Fuller Jr., MD at [facility] IMPLANTS N/A: Spine Lumbar J &J:DEPUY:DEPUY SPINE 08/22/2028 [id number] / / [id number] Yasir 45mm [id number] - [id number] Implanted:Qty : 2 on 11/23/2023 by Ronaldo Fuller Jr., MD at [facility] IMPLANTS N/A: Spine Lumbar J &J:DEPUY:DEPUY SPINE [id number] 45 / [id number] 45 / Procedures Procedure Name Priority Date/Time [...] PM EDT Vascular Procedure Demographics Patient Name MYLES WATERS Age 68 Patient Number [id number] Gender Male Race Ethnicity Corporate ID [id number] Height Date of 1955 Weight Accession Number [id number] BSA Room Number BMI Referring CRISTIANE PRESCOTT MD Interpreting CRISTIANE PRESCOTT MD Physician Physician Chief Dispatcher Service TYLOR FUNG, T Procedure Type of Study: [...] - 09/12/2024 Vascular Procedure Demographics Patient Name MYLES WATERS Age 68 Patient Number [id number] Gender Male Race Ethnicity Corporate ID [id number] Height Date of 1955 Weight Accession Number [id number] BSA Room Number BMI Referring CRISTIANE PRESCOTT MD Interpreting CRISTIANE LARA Physician Physician Chief Dispatcher Service TYLOR FUNG, T Procedure Type of Study: US GUIDED VASCULAR ACCESS : . Impressions Summary INDICATION: Abnormal myocardial perfusion study [R94.39 (ICD-10-CM)] ##################################### RIGHT: Ultrasound guided vascular access of the radial artery. Radial artery was 0.5 cm in depth and patent. Access was successful. ##################################### Allergies - Other:(Daraturmumab,Rosiglitazone). Patient Status:Outpatient. Study Location:Portable. Technical Quality:Good visualization. Signature Cristiane Prescott MD G ORDERABLES Final Result * CARDIAC CATH - LEFT HEART CATH W/ POSSIBLE INTERVENTION (09/12/2024 11:52 AM EDT) Anatomical Region Laterality Modality Heart Other Narrative 09/12/2024 12:17 PM EDT LEFT HEART CATHETERIZATION INDICATION: Exertional angina. Anterior ischemia by Myoview perfusion study. REFERRING MD: Dr. Teresa Evans TECHNIQUE: A 5/6-Citizen Of [place] sheath was placed in the right radial [...] - 146 mmol/L 09/12/2024 6:47 PM EDT [facility] POC Potassium 3.9 3.5 - 4.9 mmol/L 09/12/2024 6:47 PM EDT [facility] POC Chloride 102 98 - 109 mmol/L 09/12/2024 6:47 PM EDT [facility] POC Glucose 110(H) 70 - 105 mg/dL 09/12/2024 6:47 PM EDT [facility] POC BUN 10 8 - 26 mg/dL 09/12/2024 6:47 PM EDT [facility] POC Anion Gap 20 10 - 20 mmol/L 09/12/2024 6:47 PM EDT [facility] POC IONIZED CALCIUM ILYA 1.34(H) 1.12 - 1.32 mmol/L 09/12/2024 6:47 PM EDT [facility] POC CO2 TOTAL ILYA 23(L) 24 - 29 mmol/L 09/12/2024 6:47 PM EDT [facility] POC-Creatinine 0.8 0.6 - 1.3 mg/dL 09/12/2024 6:47 PM EDT [facility] POC-EGFR >60 mL/min/1.7 3M2 09/12/2024 6:47 PM EDT [facility] Comment:Proceed with contras t if eGFR > 45 ml/min/1.73 when performed on the NovaSTAT strip Creatinine meter. POC HEMATOCRIT ILYA 26(L) 38 - 51 %PCV 09/12/2024 6:47 PM EDT [facility] POC HEMOGLOBIN ILYA 8.8(L) 12.0 - 17.0 g/dL 09/12/2024 6:47 PM EDT [facility] Blood 09/12/2024 8:35 AM EDT 09/12/2024 6:47 PM EDT [facility] - 09/12/2024 6:47 PM EDT Candy Department Manager ID is - [id number] us Cristiane Prescott MD POINT OF CARE TEST ORDERABLES Fi nal Result [facility] [address] [phone] * (ABNORMAL) CBC with Automated Diff (09/12/2024 8:20 AM EDT) Only the most recent of2 resultswithin the time period is included. WBC 1.3(LL) 4.2 - 9.1 K/ L 09/12/2024 10:44 AM EDT [facility] RBC 2.43(L) 4.63 - 6.08 M/ L 09/12/2024 10:44 AM EDT [facility] Hemoglobin 7.8(L) 13.7 - 17.5 GM/DL 09/12/2024 10:44 AM EDT [facility] Hematocrit 24.0(L) 40.1 - 51.0 % 09/12/2024 10:44 AM EDT [facility] MCV 99(H) 79 - 92 fL 09/12/2024 10:44 AM EDT [facility] MCH 32.1 25.7 - 32.2 pg 09/12/2024 10:44 AM EDT [facility] MCHC 32.5 32.3 - 36.5 GM/DL 09/12/2024 10:44 AM EDT [facility] RDW 16.1(H) 11.6 - 14.4 % 09/12/2024 10:44 AM EDT [facility] Platelets 55(L) 140 - 375 K/CU MM 09/12/2024 10:44 AM EDT [facility] MPV 11.0 9.4 - 12.4 fL 09/12/2024 10:44 AM EDT [facility] NRBC Absolute 0.02(H) 0 - 0.012 K/ul 09/12/2024 10:[address] [facility] Blood Venipuncture / Unknown 09/12/2024 8:20 AM EDT 09/12/2024 10:36 AM EDT [facility] LABORATORY - 09/12/2024 10:44 AM EDT When [...] MD LAB BLOOD ORDERABLES Final Resul t [facility] [address] [phone] * (ABNORMAL) Manual Differential (09/12/2024 8:20 AM EDT) Total Counted 50 09/12/2024 11:36 AM EDT [facility] % Neutros (manual) 56 50 - 65 % 09/12/2024 11:36 AM EDT [facility] % Bands (manual) 2 % 09/13/19 25 11:36 AM EDT [facility] % Lymphs (manual) 26 24 - 44 % 025 11:36 AM EDT [facility] % Monos (manual) 14(H) 4 - 5 % 09/13/19 25 11:36 AM EDT [facility] % Eos (manual) 2 0 - 3 % 09/12/2024 11:36 AM EDT [facility] RBC Morphology abnormal( A) Normal 09/12/2024 11:36 AM EDT [facility] Platelet Estimate Decreased (A) Adequate 09/12/2024 11:36 AM EDT [facility] Anisocytosis 1+ 09/12/2024 11:36 AM EDT [facility] Polychromasia 1+ 09/12/2024 11:36 AM EDT [facility] Macrocytes 1+ 09/12/2024 11:36 AM EDT [facility] Ovalocytes 1+ 09/12/2024 11:36 AM EDT [facility] ANC# 0.75 K/ L 09/12/2024 11:36 AM EDT [facility] Blood Venipuncture / Unknown 09/12/2024 8:20 AM EDT 09/12/2024 10:36 AM EDT us Cristiane Prescott MD LAB BLOOD ORDERABLES Final Resul t Performing Organization Address [facility] Co de Phone Number [facility] [address] [place] [address], [facility] [phone] * (ABNORMAL) Platelet count, auto (09/12/2024 8:20 AM EDT) Platelets 49(L) 140 - 375 K/CU MM 09/12/2024 9:16 AM EDT [facility] Blood Venipuncture / Unknown 09/12/2024 8:20 AM EDT 09/12/2024 8:51 AM EDT us Sang Hawk PA-C LAB BLOOD ORDERABLES Final Resu lt Performing Organization Address [facility] Co de Phone Number [facility] [address] [phone] * NM myocardial perfusion SPECT,pharm(LEXISCAN) (08/22/2024 10:56 [...] ECG Stress Imaging (08/22/2024 10:09 AM EDT) [facility] Diagnosis Stress data only-PHYSICI AN REPORT PENDING Carol Myers RN Confirmed by Margareth PRESCOTT, CRISTIANE ([id number]), school photograph editor VILMA Peñaloza Jamison ([id number]) on 08/22/2024 10:37:40 AM GE MUSE 08/22/2024 [...] Atraumatic, airway and dentition same as pre-op Tom Lyons MD ANESTHESIA ORDERABLES Final Res ult * (ABNORMAL) Comprehensive metabolic panel (08/09/2024 6:15 AM EDT) Sodium 139 136 - 145 meq/L 08/09/2024 6:48 AM EDT [facility] Potassium 4.1 3.4 - 5.1 meq/L 08/09/2024 6:48 AM EDT [facility] Chloride 105 98 - 112 meq/L 08/09/2024 6:48 AM EDT [facility] CO2 24 22 - 29 meq/L 08/09/2024 6:48 AM EDT [facility] Calcium 9.7 8.4 - 10.2 mg/dL 08/09/2024 6:[address] [facility] Glucose 152(H) 82 - 115 mg/dL 08/09/2024 6:[address] [facility] BUN 13.9 8.4 - 25.7 mg/dL 08/09/2024 6:[address] [facility] Creatinine 0.88 0.72 - 1.25 mg/dL 08/09/2024 6:[address] [facility] BUN/Creatinine 16 8 - 20 08/09/2024 6:[address] [facility] eGFR (mL/min/1.73m2) 93 >=60 mL/min/1. 73m2 08/09/2024 6:[address] [facility] Albumin 3.7 3.5 - 5.0 g/dL 08/09/2024 6:[address] [facility] Alkaline Phosphatase 32(L) 40 - 150 U/L 08/09/2024 6:[address] [facility] ALT 24 <=45 U/L 08/09/2024 6:[address] [facility] Comment: ALT2 reagent used for testing does not contain P5P supplementation and therefore may miss ALT elevations in patients with B6 deficiency. This population may be as high as 10% in the [place], with risk factors including malabsorption, drug interactions, and alcoholic hepatitis. AST 30 11 - 34 U/L 08/09/2024 6:[address] [facility] Comment: AST2 reagent used for testing does not contain P5P supplementation and therefore may miss AST elevations in patients with B6 deficiency. This population may be as high as 10% in the [place], with risk factors including malabsorption, drug interactions, and alcoholic hepatitis. Total Bilirubin 0.6 0.2 - 1.2 mg/dL 08/09/2024 6:[address] [facility] Protein, Total 6.6 6.4 - 8.3 g/dL 08/09/2024 6:[address] [facility] Globulin 2.9 2.5 - 4.1 g/dL 08/09/2024 6:[address] [facility] Anion Gap 14(H) 4 - 12 08/09/2024 6:48 AM EDT [facility] A/G Ratio 1.3 0.7 - 1.9 08/09/2024 6:48 AM EDT [facility] Osmolality Calc 280.9 mOsm/kg 6:48 AM EDT [facility] Blood Venipuncture / Unknown 08/09/2024 6:15 AM EDT 08/09/2024 6:24 AM EDT us Jesús Randolph CHANGE ATTENDANT LAB BLOOD ORDERABLES Final Result [facility] [address] [phone] from Last 3 Months Insurance [employer] MEDICARE PPO Advance Directives For more information, please contact: [phone] Documents on File Type Date Recorded Patient Doughnut Icer Machine Expl anation Advance Directives and Living Will [...] 5:22 AM 06/22/2024 4:25 AM Care Teams Third Hand Relationship Specialty Start Date End Date Teresa Evans MD [address] [place] [id number] PCP - General General Internal Medicine 07/28/22
--- OUTSIDE RECORDS SUMMARY | 2024-10-11 10:09 | XMS_ITS | Encounter Summary ---
Author Organization [employer] Address [address] [place] [address] Care Team Providers Care Rheostat Assembler Name Role Phone Yana Evans MD Primary Care Provider [phone] Dang Galvez RN Unavailable Unavailable Close, Mena Negron RN Unavailable Unavailable Will Hendricks MD Unavailable Lori Cantor PA-C Unavailable [phone] Encounter Details Date Type Department Care Team (Late st Contact Info) Description 01/11/2021 Transcribed Document [facility] [place] Medicine [facility] [place] [address] ProviderPascale MD [address] [place] [address] Social History Tobacco Use Types Packs/Day Years Used Date Smoking Tobacco: Never Assessed Sex and Gender Information Value Date Recorded Sex Assigned at Not on file Legal Sex Male 5:41 PM CDT Gender Identity Not on file Sexual Orientation Not on file documented as of this encounter Miscellaneous Notes * Cerner Conversion Note - Pascale Gann MD - 01/11/2021 5:51 PM CDT [facility] [place] [address] MYLES COLLINS NISHANT LOWEApryl :1955 Visit Time:01/10/2021 Your Visit Summary Your Care Team Admitting Physician - VIRGIL ADAMS MD-[facility] Attending Physician - VIRGIL ADAMS MD-FAM Primary Care Physician - YANA EVANS (REF)HEATHER Referring Physician - VIRGIL ADAMS MD-FAM Your Diagnosis Non-ST elevation (NSTEMI) myocardial infarction, Non-ST elevation (NSTEMI) myocardial infarction CAD Diabetes Hyperlipidemia Hypertension Multiple myeloma These Are Your Goals No qualifying data available. Discharge Vitals Temperature 36.8 ??C Heart Rate (Monitored) 87 Respiratory Rate 16 Blood Pressure 99/64 What to do next Instructions From Your Care Team NO LIFTING MORE THAN 5 POUNDS IN AFFECTED ARM!!! DO NOT SUBMERGE AFFECTED ARM UNDER WATER FOR 3 DAYS !!! DO NOT APPLY ANY OINTMENTS TO SITE !!! CALL MD OFFICE FOR SIGNS OF INFECTION SUCH DRAINAGE< REDNESS< INCREASING PAIN< AND TEMPERATURE!!! HOLD SYNJARDY FOR FOR 48 HOURS AFTER PROCEDURE !!!! TO PREVENT KIDNEY DAMAGE !!! Discharge Activity: Discharge Activity: Rest and relax today Diet: Discharge Diet: Resume usual diet as tolerated Follow-Up Appointments Follow Up with CRISTIANE GUERRA When Within 1 month Comments Call for follow up appointment Where: [address] [facility] [address] [place] [address] Business (1) Follow Up with YANA EVANS (REF)HEATHER When Within 2 to 3 days Where: [address] [place] [address] Medications What How Much When Instructions Next Dose aspirin (aspirin 81 mg oral capsule) 1 Capsule(s) Oral Every Day fluticasone nasal (fluticasone 50 mcg/ inh nasal spray) 2 [place](s) Nostrils Both Every Day ticagrelor (Brilinta (ticagrelor) 90 mg oral tablet) 1 Tablet(s) Oral Two Times A Day Duration: 30 Day(s) Pickup at [facility] acetaminophen-hydrocodone ([place] 7.5 mg-325 mg oral tablet) 2 Tablet(s) Oral Every 6 Hours as needed for for pain acyclovir (acyclovir 200 mg oral capsule) 1 Capsule(s) Oral Every Day amLODIPine (Norvasc 10 mg oral tablet) 1 Tablet(s) Oral At Bedtime buPROPion (Wellbutrin XL 300 mg/ 24 hours oral tablet, extended release) 1 Tablet(s) Oral Every Day cyanocobalamin (Vitamin B-12 1000 mcg/ mL injectable solution) 1 Milliliter(s) IntraMuscular Once a month daratumumab-hyaluronidase (Darzalex Faspro 1800 mg-30,000 units/ 15 mL subcutaneous solution) See instructions One injection weekly denosumab (Xgeva 120 mg/ 1.7 mL subcutaneous solution) 1.7 Milliliter(s) SubCutaneous Every 4 Weeks dexAMETHasone (dexAMETHasone 0.5 mg oral tablet) 1 Tablet(s) Oral Every Day empagliflozin-metformin (Synjardy 12.5 mg-1000 mg oral tablet) 1 Tablet(s) Oral Two Times A Day with meals ergocalciferol (Vitamin D2 1.25 mg (50,000 intl units) oral capsule) 1 Capsule(s) Oral Every Day fenofibric acid (Trilipix 135 mg oral delayed release capsule) 1 Capsule(s) Oral At Bedtime furosemide (Lasix 20 mg oral tablet) 1 Tablet(s) Oral Every Day insulin glargine (Lantus Solostar Pen) 80 Unit(s) SubCutaneous Two Times A Day isosorbide mononitrate (Imdur) 30 Milligram(s) Oral Every Day metoprolol (Toprol-XL) 100 Milligram(s) Oral At Bedtime montelukast 10 Milligram(s) Oral Every Evening multivitamin with minerals (Centrum Silver oral tablet) 1 Tablet(s) Oral Every Day omega-3 polyunsaturated fatty acids (Fish Oil oral capsule) 1,200 Milligram(s) Oral Every Day pantoprazole (Protonix) 20 Milligram(s) Oral Every Day pomalidomide (Pomalyst) See instructions Oral Daily for three weeks then off one week potassium chloride (potassium chloride 20 mEq oral tablet, extended release) 1 Tablet(s) Oral Two Times A Day ramipril 10 Milligram(s) Oral Two Times A Day rosuvastatin (Crestor 20 mg oral tablet) 1 Tablet(s) Oral Every Day semaglutide (Ozempic (1 mg dose)) 1 Milligram(s) SubCutaneous Weekly spironolactone (Aldactone 25 mg oral tablet) 1 Tablet(s) Oral Every Day zolpidem (Ambien 5 mg oral tablet) 1 Tablet(s) Oral Once a day (at bedtime) as needed for as needed for sleep Pharmacy Information [facility]: [address] [place], [place] [id number] [phone] Take your medications faithfully. Do NOT skip [...] This Visit No Immunizations Found Education Materials Heart-Healthy Eating Plan Heart-healthy meal planning includes: [...] plate with lean protein foods. ??? Eat 4???5 servings of vegetables per day. A serving of vegetables is: ? 1 cup of raw or cooked vegetables. ? 2 cups of raw leafy greens. ??? Eat 4???5 servings of fruit per day. A serving of fruit is: ? 1 medium whole fruit. ? ?? cup of dried fruit. ? ?? cup of fresh, frozen, or canned fruit. ? ?? cup of 100% fruit juice. ??? Eat more foods that have soluble fiber. These are apples, broccoli, carrots, beans, peas, and barley. Try to get 20???30 g of fiber per day. ??? Eat 4???5 servings of nuts, legumes, and seeds per week: ? 1 serving of dried beans or legumes equals ?? cup after being cooked. ? 1 serving of nuts is ?? cup. ? 1 serving of seeds equals [...] Fats and oils Meat fat, or shortening. [place] butter, hydrogenated oils, palm oil, coconut oil, [...] provider. Document Revised: 06/15/2018 Document Reviewed: 05/19/2018 [employer] Patient Education ?? 2020 [employer] Fall Prevention in the Home, Adult Falls [...] Keep items that you use often in gucm-fo-nlulq places. Lower the shelves around your home [...] the way. ??? Do not use floor french or wax that makes floors slippery. If [...] Control and Prevention, STEADI: https://cdc.gov ??? National [place] on Aging: https://uu3enij.paulie.nih.gov Contact a doctor if: ??? You are [...] provider. Document Revised: 08/02/2019 Document Reviewed: 11/24/2017 [employer] Patient Education ?? 2020 [employer]. Coronary Angiogram With Stent, Care After This [...] the insertion site. This usually fades within 1???2 weeks. ??? A collection of blood under the skin (hematoma). This usually decreases within 1???2 weeks. Follow these instructions at home: Medicines ??? Take dywg-dog-jsoqoqk and prescription medicines only as told by [...] Limit how much you use to: ? 0???1 drink a day for women. ? 0???2 drinks a day for men. ? Be aware of how much alcohol is in your drink. In the [place] one drink equals one 12 oz bottle of beer (355 mL), one 5 oz glass of wine (148 mL), or one 1?? oz glass of hard liquor (44 mL). [...] and water are not available, use hand program instructor. ? Change your dressing as told by [...] Get up to take short walks every 1???2 hours. This is important to improve blood [...] provider. Document Revised: 10/31/2019 Document Reviewed: 10/31/2019 [employer] Patient Education ?? 2020 [employer]. Radial Site Care This sheet gives you [...] these instructions at home: Medicines ??? Take ayfa-lur-auhmuvj and prescription medicines only as told by your health care provider. Insertion site care ??? Follow instructions from your health care provider about how to take care of your insertion site. Make sure you: ? Wash your hands with soap and water before you change your bandage (dressing). If soap and water are not available, use hand program instructor. ? Change your dressing as told by [...] care provider approves. ??? You may shower 24???48 hours after the procedure, or as directed [...] provider. Document Revised: 05/17/2018 Document Reviewed: 05/17/2018 [employer] Patient Education ?? 2020 [employer]. Angina Angina is very bad discomfort or [...] these instructions at home: Medicines ??? Take ffuq-cqs-kjpjulm and prescription medicines only as told by [...] Limit how much you use to: ? 0???1 drink a day for women who are not . ? 0???2 drinks a day for men. ? Be aware of how much alcohol is in your drink. In the [place]., one drink equals: ? One 12 oz bottle of beer (355 mL). ? One 5 oz glass of wine (148 mL). ? One 1?? oz glass of hard liquor (44 mL). [...] provider. Document Revised: 11/27/2018 Document Reviewed: 11/27/2018 [employer] Patient Education ?? 2020 [employer]. Emergency Awareness and Preventative Care STROKE is [...] Assistance with quitting is available by contacting 9-860-CYDX-NOW. This is a free resource providing counseling, [...] This Visit (last charted value for your 01/10/2021 visit) Hematology 01/11/2021 5:09 AM WBC: 2.4 K/uL -- Normal range between ( 3.6 and 9.5 ) RBC: 3.75 Million/uL -- Normal range between ( 4.20 and 5.70 ) Hct: 33.4 % -- Normal range between ( 40.1 and 51.0 ) Hgb: 10.9 g/dL -- Normal range between ( 13.5 and 17.3 ) Platelet Count: 109 K/uL -- Normal range between ( 163 and 369 ) MCH: 29.1 pg -- Normal range between ( 25.6 and 32.2 ) MCHC: 32.6 Gram/dL -- Normal range between ( 32.2 and 36.5 ) MCV: 89.1 fL -- Normal range between ( 79.0 and 94.8 ) Slide Review: No Eos %: 7.5 % -- Normal range between ( 0.0 and 7.0 ) [place] #: 0.23 K/uL -- Normal range between ( 0.16 and 1.00 ) Eos #: 0.18 x10(3)/uL -- Normal range between ( 0.00 and 0.80 ) [place] %: 9.6 % -- Normal range between ( 3.0 and 9.0 ) Baso %: 0.0 % -- Normal range between ( 0.0 and 1.5 ) Baso #: 0.00 x10(3)/uL -- Normal range between ( 0.00 and 0.20 ) RDW: 15.9 % -- Normal range between ( 11.7 and 14.9 ) Neut %: 64.5 % -- Normal range between ( 34.0 and 71.0 ) Neut #: 1.54 K/uL -- Normal range between ( 1.56 and 6.13 ) Lymph %: 18.0 % -- Normal range between ( 19.3 and 53.1 ) Lymph #: 0.43 x10(3)/uL -- Normal range between ( 1.00 and 3.90 ) MPV: 8.7 fL -- Normal range between ( 9.4 and 12.4 ) IG#: 0.01 x10(3)/uL -- Normal range between ( 0.00 and 0.05 ) IG%: 0.40 % -- Normal range between ( 0.00 and 0.60 ) General Chemistry 01/11/2021 5:48 AM Glucose POC2: 98 mg/dL -- Normal range between ( 70 and 110 ) Device Comment 1: Device Comment 1 01/11/2021 5:09 AM Creatinine Level: 0.90 mg/dL -- Normal range between ( 0.70 and 1.30 ) Sodium Level: 138 mmol/L -- Normal range between ( 136 and 146 ) Potassium Level: 3.7 mmol/L -- Normal range between ( 3.5 and 5.1 ) Chloride Level: 110 mmol/L -- Normal range between ( 102 and 112 ) Carbon Dioxide Level: 26 mmol/L -- Normal range between ( 21 and 32 ) Anion Gap: 6 -- Normal range between ( 9 and 20 ) Bilirubin Total: 0.5 mg/dL -- Normal range between ( 0.2 and 1.2 ) A/G Ratio: 0.9 -- Normal range between ( 1.1 and 2.5 ) ALT: 24 Units/Liter -- Normal range between ( 16 and 61 ) AST: 16 Units/Liter -- Normal range between ( 5 and 37 ) Globulin: 3.3 Gram/dL -- Normal range between ( 1.5 and 4.5 ) Alk Phos: 31 Units/Liter -- Normal range between ( 27 and 136 ) Bun/Creatinine: 15.6 -- Normal range between ( 8.0 and 20.0 ) Calcium Level: 9.0 mg/dL -- Normal range between ( 8.4 and 10.1 ) eGFR : >60 mL/min/1.73m2 eGFR NonAfrican: >60 mL/min/1.73m2 Glucose Level: 107 mg/dL -- Normal range between ( 74 and 106 ) Blood Urea Nitrogen: 14 mg/dL -- Normal range between ( 7 and 22 ) Protein Total: 6.3 Gram/dL -- Normal range between ( 6.4 and 8.2 ) Albumin Level: 3.0 Gram/dL -- Normal range between ( 3.4 and 5.0 ) Cardiac Specific Markers 01/10/2021 3:48 PM Troponin I Ultra: 1.290 ng/mL -- Normal range between ( 0.015 and 0.045 ) Coagulation 01/11/2021 12:49 PM D Dimer Quant: <0.19 mg/L FEU -- Normal range between ( 0.19 and 0.58 ) PTT Heparin: 127.9 Second(s) -- Normal range between ( 45.0 and 65.0 ) 01/11/2021 11:51 AM ACT POC: 219 Second(s) -- Normal range between ( 74 and 137 ) Echo 01/10/2021 9:17 AM EC Echo Complete: EC Echo Complete Patient Name:NISHANT BUENO II I have received and understand this information and was given the opportunity to ask questions. Patient/Mamma Logist Name: Patient/Mamma Logist Signature: Relationship to Patient: Clinician/Hospital Mamma Logist Signature: Date: documented in this encounter Plan of Treatment Upcoming Encounters Date Type Department Care Team (Late st Contact Info) Description 10/31/2024 10:15 AM EDT Office Visit [facility] Cardiology [facility] [address] [place] [address] Cristiane Guerra MD [facility] [address] [address] documented as of this encounter Visit Diagnoses Not on filedocumented in this encounter Care Teams Rheostat Assembler Relationship Specialty Start Date End Date Yana Evans MD [address] [place] [address] PCP - General General Internal Medicine 07/28/22 Dang Galvez RN Nurse Navigator Oncology 08/17/22 10/12/23 Mena Cornell RN Registered Nurse Oncology 08/17/22 10/12/23 Will Hendricks MD [address] [place] [address] Medical Oncologist Hematology and Oncology 08/17/22 10/12/23 Lori Cantor, PA-C [address] [place] [address] Physician Ortho/Prosthetic Aide Oncology 08/17/22 10/12/23 documented as of this encounter
--- OUTSIDE RECORDS SUMMARY | 2024-10-11 10:09 | XMS_ITS | Encounter Summary ---
Author Organization [employer] Address [address] [place] [address] Care Team Providers Care Optical Lathe Operator Name Role Phone Yana Evans MD Primary Care Provider [phone] Dang Galvez RN Unavailable Unavailable Close, Mena Negron RN Unavailable Unavailable Will Hendricks MD Unavailable Lori Cantor PA-C Unavailable [phone] Encounter Details Date Type Department Care Team (Late st Contact Info) Description 01/11/2021 Transcribed Document [facility] [place] [address] ProviderPascale MD [address] [place] [address] Social History Tobacco Use Types Packs/Day Years Used Date Smoking Tobacco: Never Assessed Sex and Gender Information Value Date Recorded Sex Assigned at Not on file Legal Sex Male 5:41 PM CDT Gender Identity Not on file Sexual Orientation Not on file documented as of this encounter Miscellaneous Notes * Cerner Conversion Note - Pascale Gann MD - 01/11/2021 5:36 PM CDT Patient: NISHANT BUENO II Age: 65 Years Sex: Male : 1955 Admit Date 01/10/2021 00:12 Discharge Date No Discharge Date on Record Primary Care Provider YANA EVANS (REF)MD-INT Discharge Diagnosis CAD 01/10/2021 I25.119 ICD-10-CM Diabetes 01/10/2021 E11.9 ICD-10-CM Multiple myeloma 01/10/2021 C90.00 ICD-10-CM Hypertension 01/10/2021 I10 ICD-10-CM Hyperlipidemia 01/10/2021 E78.5 ICD-10-CM Hospital Course Patient is a 65-year-old male with CAD, multiple myeloma, insulin-dependent diabetes who was transferred to [facility] from outside facility for NSTEMI. Patient recently and his first treatment for multiple myeloma when he developed chest pain. He saw his PCP who checked his troponin which was elevated. Cardiology was consulted and patient was started on a heparin drip. He was continued on his KATLYN inhibitor, beta-lei, aspirin, statin. TTE performed on 01/10 showed a normal EF and no significant valvular abnormalities. His troponin peaked at 1.79 started to trend down. He underwent cardiac catheterization on 01/11. He was found to have distal small caliber LAD stenosis, a known 100% occlusion of RCA. No intervention performed and cardiology at this time is recommending medical management. He returned to his room for monitoring after the procedure. He has been cleared by cardiology for discharge home today. Patient will continue his medications, increase Brilinta 90 mg twice daily. 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 Vital Signs T: 36.8 ??C TMIN: 36.7 ??C TMAX: 37.1 ??C HR: 82(Monitored) RR: 16 BP: 140/90 SpO2: 96% Oxygen Settings (Last) Oxygen Therapy Mode: Nasal cannula (01/11/21 12:00:00) Oxygen Flow Rate: 2 Liter/Min (01/11/21 12:00:00) Physical Exam General: Alert, well nourished, no acute distress Neurologic: Moves all 4 extremities spontaneously, oriented X3, no focal deficits appreciated Eye: pupils equal, EOMI, normal conjunctiva HENT: Normocephalic, normal hearing, moist oral mucosa Neck: Supple, non-tender Lungs: Clear to auscultation, non-labored respiration, no crackles, no wheeze Heart: Normal rate, regular rhythm, no murmur, no edema Abdomen: Soft, non-tender, non-distended, normal bowel sounds Musculoskeletal: No obvious deformity, no tenderness Skin: warm, dry, no rashes or lesions Psychiatric: Cooperative, appropriate mood and affect Discharge Disposition Home Discharge Follow Up YANA EVANS (REF), -INT - Within 2 to 3 days Discharge Medications (29) Active acyclovir 200 mg oral capsule 200 mg = 1 Cap, Oral, Daily Aldactone 25 mg oral tablet 25 mg = 1 Tab, Oral, Daily Ambien 5 mg oral tablet 5 mg = 1 Tab, PRN, Oral, Once a day (at bedtime) aspirin 81 mg oral capsule 81 mg = 1 Cap, Oral, Daily Brilinta (ticagrelor) 90 mg oral tablet 90 mg = 1 Tab, Oral, BID Centrum Silver oral tablet 1 Tab, Oral, Daily Crestor 20 mg oral tablet 20 mg = 1 Tab, Oral, Daily Darzalex Faspro 1800 mg-30,000 units/15 mL subcutaneous solution See Instructions dexAMETHasone 0.5 mg oral tablet 0.5 mg = 1 Tab, Oral, Daily Fish Oil oral capsule 1,200 mg, Oral, Daily fluticasone 50 mcg/inh nasal spray 2 [place], Nostrils Both, Daily Imdur 30 mg, Oral, Daily Lantus Solostar Pen 80 Units, SubCutaneous, BID Lasix 20 mg oral tablet 20 mg = 1 Tab, Oral, Daily montelukast 10 mg, Oral, QPM [place] 7.5 mg-325 mg oral tablet 2 Tab, [...] solution 120 mg = 1.7 mL, SubCutaneous, [id number] Code Status Start: 01/11/21 11:15:00 EDT, Full Code, Continuous Order Consulting Physicians DERIK MÁRQUEZ MD LIN, STEVE S, MD-VIRGIL CHAVEZ MD-[facility] Current Diet Order Diet, Adult - Ordered -- Start: 01/11/21 13:32:00 EDT, Cardiac Diet, Isolation: Standard Precautions Patient Discharge Summary Orders Discharge Activity: Discharge Activity: Rest and relax today Diet: Discharge Diet: Resume usual diet as tolerated Pending Labs Dispatched Culture MRSA Surveillance Specimen Type: Nasal, TM collect, 01/10/21 1:03:56 EDT, 1-Time, Stop: 01/10/21 1:03:00 EDT, Nurse Collect Ordered CBC w/ Auto Diff Specimen Type: Blood, AM Draw collect, 01/11/21 4:00:00 EDT, Daily, Lab Collect CMP Comprehensive Metabolic Panel Specimen Type: Blood, AM Draw collect, 01/11/21 4:00:00 EDT, Daily, Lab Collect Scheduled CBC no Diff (Hemogram) Specimen Type: Blood, AM Draw collect, 01/12/21 4:00:00 EDT, 1-Time, Stop: 01/12/21 4:00:00 EDT, Nurse Collect BMP Basic Metabolic Panel Specimen Type: Blood, AM Draw collect, 01/12/21 4:00:00 EDT, 1-Time, Stop: 01/12/21 4:00:00 EDT, Nurse Collect Magnesium Level Specimen Type: Blood, AM Draw collect, 01/12/21 4:00:00 EDT, 1-Time, Stop: 01/12/21 4:00:00 EDT, Lab Collect documented in this encounter Plan of Treatment Upcoming Encounters Date Type Department Care Team (Late st Contact Info) Description 10/31/2024 10:15 AM EDT Office Visit [facility] Cardiology [facility] [address] [place] [address] Morris Guerra MD [address] [place] [address] [place], [place] [id number] documented as of this encounter Visit Diagnoses Not on filedocumented in this encounter Care Teams Optical Lathe Operator Relationship Specialty Start Date End Date Yana Evans MD [address] [place] [address] PCP - General General Internal Medicine 07/28/22 Dang Galvez, RN Nurse Navigator Oncology 08/17/22 10/12/23 Mena Cornell RN Registered Nurse Oncology 08/17/22 10/12/23 Will Hendricks MD [address] [facility] [address] [place] [address] Medical Oncologist Hematology and Oncology 08/17/22 10/12/23 Lori Cantor PA-C [address] [facility] [address] [place] [address] Physician Parts Data Writer Oncology 08/17/22 10/12/23 documented as of this encounter
--- OUTSIDE RECORDS SUMMARY | 2024-10-11 10:09 | XMS_ITS | Encounter Summary ---
Author Organization [employer] Address [address] [place] [address] Care Team Providers Care Joiner Name Role Phone Teresa Evans MD Primary Care Provider [phone] Dang Galvez RN Unavailable Unavailable Close, Mena eNgron RN Unavailable Unavailable Will Hendricks MD Unavailable Lori Cantor PA-C Unavailable [phone] Encounter Details Date Type Department Care Team (Late st Contact Info) Description 01/12/2021 Transcribed Document [facility] [place] [address] [place] [address] ProviderPascale MD [address] [place] [address] Social History Tobacco Use Types Packs/Day Years Used Date Smoking Tobacco: Never Assessed Sex and Gender Information Value Date Recorded Sex Assigned at Not on file Legal Sex Male 5:41 PM CDT Gender Identity Not on file Sexual Orientation Not on file documented as of this encounter Miscellaneous Notes * Cerner Conversion Note - Pascale Gann MD - 01/12/2021 2:47 PM CDT [facility] Authorization Entered On: 01/12/2021 14:48 EDT Performed On: 01/12/2021 14:47 EDT by Anastasiya Contreras, Mail Distribution Clerk Primary Insurance Authorization Authorization and Policy Numbers : Insurance 1 Health Plan: [employer] P[employer] Policy Number: [id number] Authorization Number: Insurance Primary Name : [employer] P[employer] Policy Number: [id number] Authorization Status-Primary : Certified in total Reference Number-Primary : [id number] Authorization Number-Primary : [id number] Authorized Service Begin Date-Primary : 01/10/2021 EDT Authorization Comments-Primary : Authorized per Availity - Certified in Total; 01/10/21 - 01/11/21. Historical Authorization Comments-Primary : Comment 1: Started Inpt Auth on phone line, clincials faxed via [employer] for weekend review nurse. (ASAEL STODDARD, Rn-Utilization Review 01/10/2021 08:56) Anastasiya Contreras, Mail Distribution Clerk - 01/12/2021 14:47 EDT Electronically signed by [facility], [facility] Conversion Music Teacher Cerner at 08/09/2022 10:32 AM CDT documented in this encounter Plan of Treatment Upcoming Encounters Date Type Department Care Team (Late st Contact Info) Description 10/31/2024 10:15 AM EDT Office Visit [facility] Cardiology - [place] [address] [place] [address] Morris Guerra MD [address] [facility] [address] [place] [address] documented as of this encounter Visit Diagnoses Not on filedocumented in this encounter Care Teams Joiner Relationship Specialty Start Date End Date Teresa Evans MD [address] [place] [address] PCP - General General Internal Medicine 07/28/22 Dang Galvez, RN Nurse Navigator Oncology 08/17/22 10/12/23 Mena Cornell RN Registered Nurse Oncology 08/17/22 10/12/23 Will Hendricks MD [address] [facility] [address] [place] [address] Medical Oncologist Hematology and Oncology 08/17/22 10/12/23 Lori Cantor, PA-C [address] [facility] [address] [place] [address] Physician Sales Property Manager Oncology 08/17/22 10/12/23 documented as of this encounter
--- OUTSIDE RECORDS SUMMARY | 2024-10-11 10:09 | XMS_ITS | Encounter Summary ---
Author Organization [employer] Address [address] [place] [address] Care Team Providers Care Meat Pumper Name Role Phone Teresa Evans MD Primary Care Provider [phone] Dang Galvez RN Unavailable Unavailable Close, Mena Negron RN Unavailable Unavailable Will Hendricks MD Unavailable Lori Cantor PA-C Unavailable [phone] Encounter Details Date Type Department Care Team (Late st Contact Info) Description 11/03/2021 Transcribed Document [facility] [place] [address] [place] [address] ProviderPascale MD [address] [place] [address] Social History Tobacco Use Types Packs/Day Years Used Date Smoking Tobacco: Never Assessed Sex and Gender Information Value Date Recorded Sex Assigned at Not on file Legal Sex Male 5:41 PM CDT Gender Identity Not on file Sexual Orientation Not on file documented as of this encounter Miscellaneous Notes * Cerner Conversion Note - Pascale Gann MD - 11/03/2021 7:15 AM CDT Patient Education Materials Follows: What you need to know about coronavirus disease 2019 (COVID-19) What is coronavirus disease 2019 (COVID-19)? Coronavirus disease 2019 (COVID-19) is a respiratory illness that can spread from person to person. The virus that causes COVID-19 is a novel coronavirus that was first identified during an investigation into an outbreak in [facility]. Can people in the [place] get COVID-19? COVID-19 is spreading from person to person in several countries, and community transmission has been noted within the [place]. Risk of infection is dependent on exposure. Close contacts of people who are infected are at greater risk of exposure, for example health care workers and close contacts of people who are infected with the virus that causes COVID-19. [facility] continues to closely monitor the situation. Have there been cases of COVID-19 in the [place] Yes. The first case of COVID-19 in the [place] was reported on May 15, 2019. The current count of cases of COVID-19 in the [place] is available on [facility]???s webpage at HYPERLINK https://www.cdc.gov/coronavirus/2019-ncov/cases-in-us.html https://www.cdc.gov/coronavirus/2019-ncov/ HYPERLINK https://www.cdc.gov/coronavirus/2019-ncov/cases-in-us.html cases-in-us.html. How does COVID-19 spread? The virus that causes COVID-19 probably emerged from an animal source, but now it seems to be spreading from person to person. It???s important to note that dypiof-ol-dgqgwx spread can happen on a continuum. Some [...] least 20 seconds. Use an alcohol-based hand motor power connector that contains at least 60% alcohol if [...] will be updated accordingly. June 29, 2019 Hematology Bone Marrow Aspiration and Bone Marrow Biopsy, [...] including vitamins, herbs, eye drops, creams, and fmgm-cmb-guzlfqr medicines. ??? Any problems you or family [...] Up to 2 hours before the procedure ? you may continue to drink clear liquids, such as water, clear fruit juice, black coffee, and plain tea. Eating and drinking restrictions Follow instructions from your health care provider about eating and drinking, which may include: ??? 8 hours before the procedure ? stop eating heavy meals or foods, such as meat, fried foods, or fatty foods. ??? 6 hours before the procedure ? stop eating light meals or foods, such as toast or cereal. ??? 6 hours before the procedure ? stop drinking milk or drinks that contain milk. ??? 2 hours before the procedure ? stop drinking clear liquids. Medicines Ask your health care provider about: ??? Changing or stopping your regular medicines. This is especially important if you are taking diabetes medicines or blood thinners. ??? Taking medicines such as aspirin and ibuprofen. These medicines can thin your blood. Do not take these medicines unless your health care provider tells you to take them. ??? Taking atst-ajg-txryiid medicines, vitamins, herbs, and supplements. General instructions [...] including vitamins, herbs, eye drops, creams, and ujcu-okr-twyvozx medicines. ??? Plan to have someone take [...] provider. Document Revised: 08/28/2019 Document Reviewed: 08/28/2019 [employer]ious Patient Education ? 2020 [employer]. Pharmacology Moderate Conscious Sedation, Adult, Care After This [...] eating solid foods. General instructions ??? Take yqsu-yxe-nnftglj and prescription medicines only as told by [...] provider. Document Revised: 08/08/2020 Document Reviewed: 03/06/2020 [employer] Patient Education ? 2020 [employer]. Electronically signed by Stephanie Reddy Conversion Building Rental Superintendent Cerner at 08/09/2022 10:14 AM CDT documented in this encounter Plan of Treatment Upcoming Encounters Date Type Department Care Team (Late st Contact Info) Description 10/31/2024 10:15 AM EDT Office Visit [facility] Cardiology [facility] [address] [facility] [place] [address] Morris Guerra MD [facility] [address] [place] [address] documented as of this encounter Visit Diagnoses Not on filedocumented in this encounter Care Teams Meat Pumper Relationship Specialty Start Date End Date Teresa vEans MD [address] [place] [address] PCP - General General Internal Medicine 07/28/22 Dang Galvez RN Nurse Navigator Oncology 08/17/22 10/12/23 Mena Cornell RN Registered Nurse Oncology 08/17/22 10/12/23 Will Hendricks MD [address] [facility] [address] [place] [address] Medical Oncologist Hematology and Oncology 08/17/22 10/12/23 Lori Cantor PA-C [address] [address] Physician Engineer Soils Oncology 08/17/22 10/12/23 documented as of this encounter
--- OUTSIDE RECORDS SUMMARY | 2024-10-11 10:09 | XMS_ITS ---
Author Organization [employer] Address [address] [place] [address] Care Team Providers Care Assistant Analyst Name Role Phone Teresa Evans MD Primary Care Provider [phone] Active Problems Problem Noted Date Diagnosed Date [...] pressure) depen dence Transient cerebral ischemic attack Current Oncology Plans [facility] LINE CARE - USE WITH INFUSIONS* Plan Start Date:12/23/2022 Linked Problems Multiple myeloma, remission status unspecified (HCC) Treatment Medications alteplase (CATHFLO) 2 mg in SW 2 mL syringe SLE XGEVA EVERY 28 DAYS* Plan Start Date:01/26/2022 Plan Provider:Will Hendricks MD Linked Problems Multiple myeloma, remission status unspecified (HCC)Bone disease Treatment Medications denosumab (XGEVA) Past Plans ONCOLOGY TREATMENT Plan Name Start Date Discontinue Date Treatment Medications Discontinue Reason Plan Provider Cycles [facility] Multiple Myeloma - elotuzumab (Empliciti) IV d1,8,15,22 + pomalidomide (Pomalyst) PO d1-21, fb elotuzumab IV d1 + pomalidomide PO d1-21, every 28 days 3 04/13/2023 dexamethasone (DECADRON) IVPBelotuzumab (Epliciti) infusionsodium chloride 0.9 % (NS) Patient Preference Will Hendricks MD 3 of 7 cycles started [facility] Multiple Myeloma - Rx Selinexor, Dex 40, Bortezomib (Velcade) d1,8,15,22,29 2 11/24/2022 bortezomib (VELCADE)sodium chloride 0.9 % (NS)ZZ EXTEMPORANEOUS TEMPLATE Progression Will Hendricks MD 6 of 16 cycles started Therapy Infusion Plan 1 Plan Name Start Date Discontinue Date Treatment Medications Discontinue Reason Plan Provider [facility] BONE MODIFYING AGENT DENOSUMAB (PROLIA, XGEVA) 01/20/2023 12/30/2023 denosumab (XGEVA)sodium chloride 0.9 % (NS)sodium chloride 0.9% (NS) Change in Level of Care Will Hendricks MD [facility] BONE MODIFYING AGENT DENOSUMAB (PROLIA, XGEVA) 01/20/2022 01/20/2023 denosumab (XGEVA)sodium chloride 0.9 % (NS) Therapy Complete Will Henrdicks MD Radiation Treatments * No radiation treatments are documented for this patient in [facility]. Treatments may have been administered in another system. Lifetime Dose Tracking * Chemical Lifetime Dose Automatic Entry Manual Entr y Radiation 1,533 mGy 1,533 mGy 0 mGy
--- NOTE | 2024-10-11 10:10 | PC.NURSE ---
1010-collected labs via venipunture stick in right ac with butterfly needle;pt to oncology appt.
--- OUTSIDE RECORDS SUMMARY | 2024-10-11 10:10 | XMS_ITS | Encounter Summary ---
Author Organization [employer] Address [address] [place] [address] Care Team Providers Care Title Attorney Name Role Phone Yana Evans MD Primary Care Provider [phone] Dang Galvez RN Unavailable Unavailable Close, Mena Negron RN Unavailable Unavailable Will Hendricks MD Unavailable Lori Cantor PA-C Unavailable [phone] Encounter Details Date Type Department Care Team (Late st Contact Info) Description 01/10/2021 Transcribed Document [facility] [place] [address] [place] [address] ProviderPascale MD [address] [place] [address] Social History Tobacco Use Types Packs/Day Years Used Date Smoking Tobacco: Never Assessed Sex and Gender Information Value Date Recorded Sex Assigned at Not on file Legal Sex Male 5:41 PM CDT Gender Identity Not on file Sexual Orientation Not on file documented as of this encounter Miscellaneous Notes * Cerner Conversion Note - Pascale Gann MD - 01/10/2021 7:28 AM CDT Patient: NISHANT BUENO II Age: 65 Years Sex: Male : 1955 Chief Complaint chest pain Primary Care Provider YANA EVANS (REF)MD-INT History of Present Illness 65-year-old male with a history of CAD presents to [facility] as transfer from outside facility where he presented complaining of left upper chest pain began the day of presentation. Had multiple episodes throughout the day, waxing and waning intensity, overall constant in duration. Nonradiating. Worse with exertion and made better by rest. Moderate to severe in intensity. He saw his PCP as an outpatient first who initiated cardiac work-up revealing an elevated troponin. He was then instructed to go to the emergency department. Since he has had a history of stenting with Dr. Guerra here at [place] he was transferred here. His PCP is Moira Roach. Review of Systems A 14 point review of systems was obtained and is noncontributory except as noted above. All past medical, social and family history reviewed. family h/o cad Social & Psychosocial Habits Alcohol Comment: seldom - 11/21/2012 12:36 - SMITA CACERES RN 01/10/2021 Alcohol Use History, Social Habits No Nutrition/Health 01/10/2021 Type of diet: Regular Tobacco 11/21/2012 Smoking Status Never smoker 10/06/2015 Smoking Status Never smoker Smoking Frequency Within Last 30 Days None Tobacco Use Within Last Twelve Months No Used Tobacco, but Quit No Month Tobacco Last Used none Second Hand Smoke Exposure No Smokeless Tobacco Use History None Alternative Nicotine Product Use non smoker Comment: non smoker - 10/06/2015 06:37 - Brock Osman RN 01/10/2021 Smoking Status Never (less than 100 in l Smokeless Tobacco Status Never Vital Signs T: 36.9 ??C HR: 90(Monitored) RR: 18 BP: 142/82 SpO2: 97% HT: 179.07 cm WT: 119.05 kg BMI: 37.1 Oxygen Settings (Last) Oxygen Therapy Mode: Room air (01/10/21 00:45:00) Physical Exam General: Well appearing, not diaphoretic, no acute distress Head: Normocephalic, atraumatic Eyes: No ocular discharge, no scleral injection, no icterus Ears: Normal external auricles Nose: No rhinorrhea, no epistaxis Throat: Not examined, no difficulty swallowing Pulm: No apparent respiratory distress Cardio: Normal rate, regular rhythm, no peripheral edema GI: non-distended Neuro: Alert and oriented, cn2-12 grossly intact, strength 5/5 bilaterally. Psych: Cooperative Skin: No jaundice Assessment/Plan - Initial ekg and trop concerning for developing ACS.. HEART score: 4. ASA, NTG, B-lei. Start heparin gtt, continuous cardiac monitoring. Consult cardiology - Continue to monitor electrolytes and replete as appropriate - Pt high risk for vte, ufh for vte ppx. - Continue medications for chronic problems I have personally reviewed pertinent laboratory, ekg and imaging results, as well as documentation in the patient's emr. Laboratory and imaging orders per the above plan have been addressed, see orders below. Home medications have been reviewed. Patient's case, assessment and plan have been discussed on this date with patient. Code Status Start: 01/10/21 5:34:00 EDT, Full Code, Continuous Order 1. Non-ST elevation (NSTEMI) myocardial infarction, Non-ST elevation (NSTEMI) myocardial infarction 2. CAD 3. Diabetes 4. Hyperlipidemia 5. Hypertension 6. Multiple myeloma Orders: acetaminophen, 650 mg, Oral, Tab, Q6H, PRN for Pain (Mild 1-3), Routine, Start 01/10/21 6:04:00 EDT, 01/10/21 6:04:00 EDT acetaminophen-hydrocodone, 1 Tab, Oral, Tab, Q6H, PRN for Pain (Moderate 4-6), Routine, Start 01/10/21 6:04:00 EDT aspirin, 81 mg, Chew, Tab, Daily, Routine, Start 01/10/21 9:00:00 EDT, 01/10/21 6:04:00 EDT heparin 25,000 Units + NaCl 0.45% Premix Diluent 250 mL, 250 mL, Bag Volume (mL) = 250, IntraVENous, start date 01/10/21 2:32:00 EDT, Routine, Titrate hydrALAZINE, 10 mg, IV Push, Inj, Q6H, PRN for Hypertension, Routine, Start 01/10/21 6:04:00 EDT, 01/10/21 6:04:00 EDT labetalol, 10 mg, IV Push, Inj, Q4H, PRN for Hypertension, Routine, Start 01/10/21 6:04:00 EDT, 01/10/21 6:04:00 EDT morphine, 2 mg, IV Push, Inj, Q4H, PRN for Pain (Severe 7-10), Routine, Start 01/10/21 6:04:00 EDT, 01/10/21 6:04:00 EDT nitroglycerin, 0.4 mg, SubLINgual, Tab, Q5Min, PRN for Chest Pain, Routine, Start 01/10/21 6:04:00 EDT, 01/10/21 6:04:00 EDT ondansetron, 4 mg, IV Push, Inj, Q4H, PRN for Nausea/Vomiting, Routine, Start 01/10/21 6:04:00 EDT, 01/10/21 6:04:00 EDT Sodium Chloride 0.9% intravenous solution 1,000 mL, 1,000 mL, Bag Volume (mL) = 1,000, IntraVENous, Rate = 75 mL/Hr, start date 01/10/21 6:04:00 EDT, Routine, 2.43, m2 Bleeding Precautions CBC w/ Auto Diff CMP Comprehensive Metabolic Panel Communication to Nursing Consult to Physician Intake and Output Strict Medication Discontinuation Instructions Notify Provider Laboratory Results Notify Provider of Change in Patient Condition NPO (immediate) Resuscitation Status Sequential Compression Device Troponin I Ultra VTE Prophylaxis - Medical Sequential Compression Device Start: 01/10/21 5:34:00 EDT, Bilateral, Length: Knee High, While patient is in bed, Continuous Order (TREVIN LOWERY) Problem List/Past Medical History Ongoing Arthritis CAD Depression Diabetes GERD - Gastro-esophageal reflux disease History of obstructive sleep apnea Hyperlipidemia Hypertension Lytic bone lesions on xray Multiple myeloma Neck pain Sleep apnea Stented coronary artery Suicide risk Historical No qualifying data Procedure/Surgical History DILATION OF 1 COR ART WITH DRUG-ELUT INTRALUM, PERC APPROACH (12/21/2017), FLUOROSCOPY OF MULT COR ART USING L OSM CONTRAST (12/21/2017), Tonsillectomy (1980), appendectomy, cardiac cath heaet stents 2, deviated septum repair, ganglion cyst right wrist, hernia repair. Home Medications (29) Active acyclovir 200 mg [...] Daily fluticasone 50 mcg/inh nasal spray 2 [place], Nostrils Both, Daily Imdur 30 mg, Oral, Daily Lantus Solostar Pen 80 Units, SubCutaneous, BID Lasix 20 mg oral tablet 20 mg = 1 Tab, Oral, Daily montelukast 10 mg, Oral, QPM [place] 7.5 mg-325 mg oral tablet 2 Tab, [...] solution 120 mg = 1.7 mL, SubCutaneous, A6Uekky Allergies No Known Allergies Social History Alcohol Alcohol Use History No. Nutrition/Health Regular Tobacco Never (less than 100 in lifetime) Smoking Status. Never Smokeless Tobacco Status. Smoking Status Never smoker. None Smoking Frequency Within Last 30 Days. Use in Last 12 Months: No. Used Tobacco, but Quit No. Last Used: none. Second Hand Smoke Exposure: No. None Smokeless Tobacco Use History. non smoker Alternative Nicotine Product Use. Smoking Status Never smoker. Additional Documentation Code Status Start: 01/10/21 5:34:00 EDT, Full Code, Continuous Order documented in this encounter Plan of Treatment Upcoming Encounters Date Type Department Care Team (Late st Contact Info) Description 10/31/2024 10:15 AM EDT Office Visit [facility] Cardiology - [place] [address] [place] [address] Morris Guerra MD [address] [facility] [address] [place] [address] documented as of this encounter Visit Diagnoses Not on filedocumented in this encounter Care Teams Title Attorney Relationship Specialty Start Date End Date Yana Evans MD [address] [place] [address] PCP - General General Internal Medicine 07/28/22 Dang Galvez, RN Nurse Navigator Oncology 08/17/22 10/12/23 Mena Cornell RN Registered Nurse Oncology 08/17/22 10/12/23 Will Hendricks MD [address] [facility] [address] [place] [address] Medical Oncologist Hematology and Oncology 08/17/22 10/12/23 Lori Cantor, PA-C [address] [facility] [address] [place] [address] Physician Lodging House Keeper Oncology 08/17/22 10/12/23 documented as of this encounter
--- OUTSIDE RECORDS SUMMARY | 2024-10-11 10:10 | XMS_ITS | Encounter Summary ---
Author Organization [employer] Address [address] [place] [address] Care Team Providers Care Agronomy Professor Name Role Phone Teresa Evans MD Primary Care Provider [phone] Dang Galvez RN Unavailable Unavailable Close, Mena Negron RN Unavailable Unavailable Will Hendricks MD Unavailable Lori Cantor PA-C Unavailable [phone] Encounter Details Date Type Department Care Team (Late st Contact Info) Description 01/10/[address] [facility] Family Medicine [address] [place] [address] ProviderPascale MD [address] [place] [address] Social History Tobacco Use Types Packs/Day Years Used Date Smoking Tobacco: Never Assessed Sex and Gender Information Value Date Recorded Sex Assigned at Not on file Legal Sex Male 5:41 PM CDT Gender Identity Not on file Sexual Orientation Not on file documented as of this encounter Miscellaneous Notes * Cerner Conversion Note - Pascale Gann MD - 01/10/2021 8:33 AM CDT Patient: NISHANT BUENO II Age: 65 years Sex: Male : 1955 Associated Diagnoses: None Author: CRISTIANE GUERRA MD-CAR Basic Information PCP: Moira Steward Phlebotomy Technician: Dr. Cristiane Guerra. Chief Complaint Chest pain History of Present Illness 65-year-old male with a history of CAD presents to [facility] as transfer from outside facility where he presented complaining of left upper chest pain began the day prior presentation. CP began after his first treatment with Darzalex for multiple myeloma. Had multiple episodes throughout the day, waxing and waning intensity, overall constant in duration. Nonradiating. Worse with minimal exertion (sweeping) and made better by rest. Used NTG spray yesterday, prior use 1 month ago. He saw his PCP as an outpatient first who initiated cardiac work-up revealing an elevated troponin. He was then instructed to go to the emergency department. Cardiology was consulted for evaluation; primary clothing and textiles teacher Dr. Cristiane Guerra. PT notes sensation of irregular beats occasionally. CP free at this time. No dyspnea on exertion lately. Reports L sided chest pain 2 weeks ago that was not consistent with his prior angina; self resolved w/o nitro after 1 day. Review of Systems Constitutional: Negative except as documented in history of present illness. Eye: Negative except as documented in history of present illness. Ear/Nose/Mouth/Throat: Negative except as documented in history of present illness. Respiratory: Negative except as documented in history of present illness. Cardiovascular: Negative except as documented in history of present illness. Gastrointestinal: Negative except as documented in history of present illness. Genitourinary: Negative except as documented in history of present illness. Hematology/Lymphatics: Negative except as documented in history of present illness. Endocrine: Negative except as documented in history of present illness. Immunologic: Negative except as documented in history of present illness. Musculoskeletal: Negative except as documented in history of present illness. Integumentary: Negative except as documented in history of present illness. Neurologic: Negative except as documented in history of present illness. Psychiatric: Negative except as documented in history of present illness. Health Status No qualifying data available Home Medications (29) Active acyclovir 200 mg [...] Daily fluticasone 50 mcg/inh nasal spray 2 [place], Nostrils Both, Daily Imdur 30 mg, Oral, Daily Lantus Solostar Pen 80 Units, SubCutaneous, BID Lasix 20 mg oral tablet 20 mg = 1 Tab, Oral, Daily montelukast 10 mg, Oral, QPM [place] 7.5 mg-325 mg oral tablet 2 Tab, [...] solution 120 mg = 1.7 mL, SubCutaneous, [id number] Allergies: Allergic Reactions (Selected) No Known Allergies Current medications: Medications (11) Active Scheduled: (2) aspirin 81 mg chew tab 81 mg 1 Tab, Chew, Daily influenza virus vaccine, mdck cell inj 0.5 mL, IntraMuscular, [id number] Continuous: (2) heparin/NaCl 0.45% 25,000 Units + Premix Diluent NaCl 0.45% 250 mL 250 mL, IntraVENous NaCl 0.9% 1,000 mL 1,000 mL, IntraVENous, 75 mL/Hr PRN: (7) acetaminophen 325 mg tab 650 [...] list: All Problems CAD / SNOMED CT 3526935545 / Confirmed History of obstructive sleep apnea / IMO 09471388 / Confirmed Suicide risk / IMO 42664 / Confirmed Diabetes / SNOMED CT 354707649 / Confirmed Hypertension / SNOMED CT 0824278384 / Confirmed Hyperlipidemia / SNOMED CT 81473097 / Confirmed Sleep apnea / SNOMED CT 511281307 / Confirmed Depression / SNOMED CT 32525869 / Confirmed Stented coronary artery / SNOMED CT 8782649861 / Confirmed GERD - Gastro-esophageal reflux disease / SNOMED CT 8262324656 / Confirmed Arthritis / SNOMED CT 9185097 / Confirmed Neck pain / SNOMED CT 069597472 / Confirmed Multiple myeloma / SNOMED CT 743459915 / Confirmed Lytic bone lesions on xray / SNOMED CT 5373667175 / Confirmed Canceled: DMII / SNOMED CT 575200838 Canceled: HTN / SNOMED CT 5663118318 Canceled: HLD / SNOMED CT 04598616, Active Problems (14) Arthritis CAD Depression Diabetes GERD - Gastro-esophageal reflux disease History of obstructive sleep apnea Hyperlipidemia Hypertension Lytic bone lesions on xray Multiple myeloma Neck pain Sleep apnea Stented coronary artery Suicide risk Histories No education data available. Social & Psychosocial Habits Alcohol Comment: seldom [...] Comment: non smoker - 10/06/2015 06:37 - Jacqui, Brock Espinal RN 01/10/2021 Smoking Status Never (less than 100 in l Smokeless Tobacco Status Never Past Medical History: Active Obstructive sleep apnea (9754163924) Hyperlipidemia (20462661) CAD (8753062464) Resolved Type 2 diabetes mellitus (762197242): Resolved. Diabetes mellitus (923969824): Resolved. Benign essential hypertension (4007755): Resolved. Family History: No family history items have been selected or recorded., Family history rev and non contributory. Procedure history: Tonsillectomy in 1980 at 25 Years. appendectomy. ganglion cyst right wrist. deviated septum repair. cardiac cath heaet stents 2. hernia repair. Physical Examination VS/Measurements Vitals Signs (last 24 hrs) Last Charted Minimum Maximum Temp 98 (DEC 18 05:56) 98 (DEC 18 05:56) 98.5 (DEC 18 00:31) Mon HR 86 (DEC 18 05:56) 86 (DEC 18 05:56) 90 (DEC 18 00:31) Resp Rate 18 (DEC 18 00:31) 18 (DEC 18 00:31) 18 (DEC 18 00:31) SBP H 154 (SEP 18 05:56) H 142 (DEC 18 00:31) H 154 (DEC 18 05:56) DBP H 94 (DEC 18 05:56) 82 (DEC 18 00:31) H 94 (SEP 18 05:56) MAP 125 (SEP 18 05:56) 99 (DEC 18 00:31) 125 (SEP 18 05:56) SpO2 97 (DEC 18 05:56) 97 (DEC 18 00:31) 97 (DEC 18 00:31) General: Alert and oriented, No acute distress, obesity . Eye: Pupils are equal, round and reactive to light, Extraocular movements are intact, Normal conjunctiva. HENT: Normocephalic, Normal hearing. Neck: Supple, Non-tender, No carotid bruit, No jugular venous distention. Respiratory: Lungs are clear to auscultation, Respirations are non-labored, Symmetrical chest wall expansion, No chest wall tenderness. Cardiovascular: Normal rate, Regular rhythm, No murmur, Normal peripheral perfusion. Gastrointestinal: Soft, Non-distended, Normal bowel sounds. Musculoskeletal: Normal range of motion, Normal strength. Integumentary: Warm, Dry, [place]. Neurologic: Alert, Oriented. Psychiatric: Cooperative, Appropriate mood & affect. Review / Management No qualifying data available Cardiac Markers (Current Encounter/Past 24 Hours) No Cardiac Marker Results Found (Past 24 Hours) Blood Gases (Current Encounter/Past 24 Hours) No Blood Gas Results Found (Past 24 Hours) No Radiology Results Found Results review: No qualifying data available. Troponin: 0.69, 1.79 (OSH), 1.29 Impression and Plan IMPRESSION: NSTEMI Troponin: 0.69, 1.79 (OSH), 1.29 Hx LAD FLOR 7-18 for [place]. Remote Hx of LAD & Dx branch FLOR. 100% small RCA. ICR graduate. Elvin Myoview 06/13 EF 39%, moderate anterior reversible defect could represent ischemia, mixture of scar/minimal ischemia in RCA territory. Echo: 01/13. EF 60% valves ok Hx of mildly dilated ascending aorta, 4.3 cm. MARIXA on CPAP. IRDM. Hypertriglyceridemia. Multiple myeloma. S/P radiation, first Darzalex treatment 01/08 just prior to onset of chest pain PLAN; L heart cath +/- PCI, including R/B discussed, pt agrees to proceed. Trend troponin. ACS medications to include KATLYN, Beta lei, ASA, high intensity statin, and Heparin drip. Electronically signed by [facility] Conversion Director Of Financial Planning Cerner at 08/09/2022 10:14 AM CDT documented in this encounter Plan of Treatment Upcoming Encounters Date Type Department Care Team (Late st Contact Info) Description 10/31/2024 10:15 AM EDT Office Visit [facility] Cardiology [facility] [address] [place] [address] Cristiane Guerra MD [address] [place] [address] [address] [place] [address] documented as of this encounter Visit Diagnoses Not on filedocumented in this encounter Care Teams Agronomy Professor Relationship Specialty Start Date End Date Teresa Evans MD [address] [place] [address] PCP - General General Internal Medicine 07/28/22 Dang Galvez, RN Nurse Navigator Oncology 08/17/22 10/12/23 Mena Cornell RN Registered Nurse Oncology 08/17/22 10/12/23 Will Hendricks MD [address] [facility] [address] [place] [address] Medical Oncologist Hematology and Oncology 08/17/22 10/12/23 Lori Cantor, PA-C [address] [address] Physician Vp Genetic Oncology 08/17/22 10/12/23 documented as of this encounter
--- OUTSIDE RECORDS SUMMARY | 2024-10-11 10:10 | XMS_ITS | Encounter Summary ---
Author Organization [employer] Address [address] [place] [address] Care Team Providers Care Tank Worker Name Role Phone Teresa Evans MD Primary Care Provider [phone] Dang Galvez RN Unavailable Unavailable Close, Mena Negron RN Unavailable Unavailable Will Hendricks MD Unavailable Lori Cantor PA-C Unavailable Encounter Details Date Type Department Care Team (Late st Contact Info) Description 01/10/2021 Transcribed Document [facility] Family Medicine [address] [place] [address] ProviderPascale MD [address] [place] [address] Social History Tobacco Use Types Packs/Day Years Used Date Smoking Tobacco: Never Assessed Sex and Gender Information Value Date Recorded Sex Assigned at Not on file Legal Sex Male 5:41 PM CDT Gender Identity Not on file Sexual Orientation Not on file documented as of this encounter Miscellaneous Notes * Cerner Conversion Note - Pascale Gann MD - 01/10/2021 12:12 AM CDT Admission History, Adult Entered On: 01/10/2021 1:03 EDT Performed On: 01/10/2021 0:45 EDT by Eva Boogie RN Advance Directive Patient has Advance Directive *Q : Yes, Advance Directive not with the patient Advance Directive Type : Living will Copy Advance Directive Verified/on Chart : No Eva Boogie RN - 01/10/2021 0:45 EDT Anesthesia/Transfusion History Family History of Anesthesia Reaction : No prior transfusion(s) Blood Transfusion Acceptable to Patient : Yes Transfusion History : Prior anesthesia without reaction Family History of Anesthesia Reaction : None Eva Boogie RN - 01/10/2021 0:45 EDT Anticipated Discharge Needs Discharge To, Anticipated : Home Anticipated Discharge Needs at This Time : None Eva Boogie RN - 01/10/2021 0:45 EDT Education Topics, Admission Orientation DCP GENERIC CODE Advance Directives : Verbalizes understanding Assessment/Vital Signs : Verbalizes understanding Bed Control : Verbalizes understanding Call Light : Verbalizes understanding Confidentiality : Verbalizes understanding Diet/Room Service : Verbalizes understanding Fall Prevention : Verbalizes understanding Hand Hygiene : Verbalizes understanding Healthcare Provider Visit : Verbalizes understanding ID Band Applied : Verbalizes understanding Orientation to Room/Bathroom : Verbalizes understanding Patient Rights/Responsibilities : Verbalizes understanding Patient Safety : Verbalizes understanding Personal Privacy Code : Verbalizes understanding Rapid Response Initiated by Patient/Family : Verbalizes understanding Rounding : Verbalizes understanding Siderails use/risks : Verbalizes understanding Smoking Policy : Verbalizes understanding Telemetry Monitoring : Verbalizes understanding Television/Phone : Verbalizes understanding Eva Boogie RN - 01/10/2021 0:45 EDT Functional Assessment Living Situation : Home Patient Lives With : Spouse Persons Assisting Patient at Home : Spouse Current Daily Living Assistance : None Sensory Deficits : None Mobility Assistance Prior to Admission : Independent JUSTICE Hx Falls Immediate/Within 3 Months : No Current Home Treatments : CPAP Home Equipment : None Professional Skilled Services : None Special Services and Community Resources : None Eva Boogie RN - 01/10/2021 0:45 EDT General Info Arrived From : Acute Care Facility Mode of Arrival on Unit : Stretcher Legal Guardian : Unaccompanied Support Person/Pt Rep Name : james uBeno Contact Password : enrique Support Person/Pt Rep Contact Information : [phone] Want Family/Rep/Phys Notified of Admit : No Emergency Contact #1 : James Bueno Emergency Contact #1 Emergency Contact #1 Relationship : Emergency Contact #2 : na Emergency Contact #2 Phone Number : na Emergency Contact #2 Relationship : na Information Obtained From : Patient Primary Language : Burmese Preferred Communication Mode : Verbal Communication Barrier : None Adjunct Professor Of Law Needed : No Clinical Trials Participant *Q : None CTP, None *Q : Yes Eva Boogie RN - 01/10/2021 0:45 EDT Fall Risk Scales ABCs Fall Injury Risk Identification : Coagulation ABC Fall Injury Risk : Moderate to high injury risk Injury Moderate to High Risk Interventions : Transport methods appropriate to patient JUSTICE Hx Falls Immediate/Within 3 Months : No Justice Secondary Diagnosis : Yes JUSTICE Use of Ambulatory Aid : None JUSTICE IV Therapy or IV Access : Yes Justice Gait/Transferring : Normal, bedrest, immobile Justice Mental Status : Oriented to own ability Justice Fall Risk Score : 35 JUSTICE Fall Scale Risk Level : 25-45 Medium Risk [place] Fall Interventions : Adequate lighting, Bed in low position, Call device within reach, Frequent orientation to call device, Frequent orientation to surroundings, Hourly comfort/safety rounds, Personal items within reach, Reinforced to call for assistance before getting out of bed, Room free of clutter/spills, Upper side-rails up, Wheels locked Fall Moderate to High Risk Interventions : Transport methods appropriate to patient Eva Boogie RN - 01/10/2021 0:45 EDT Fall Risk Education Grid Alarms : Verbalizes understanding Bed Height/Stabilization : Verbalizes understanding Call light use : Verbalizes understanding Door Open : Verbalizes understanding Fall Prevention in the Home : Verbalizes understanding Fall Prevention Protocol : Verbalizes understanding Night Light Use : Verbalizes understanding Nonskid Footwear Use : Verbalizes understanding Notification of Staff When Leaving : Verbalizes understanding Personal Article Availability : Verbalizes understanding Prevention Responsibility Patient : Verbalizes understanding Risk Factors : Verbalizes understanding Safety Aids : Verbalizes understanding Siderails use/risks : Verbalizes understanding Staff Responsiveness : Verbalizes understanding Symptom Reporting : Verbalizes understanding Transfer/Mobility Techniques : Verbalizes understanding Wait for Assistance : Verbalizes understanding Eva Boogie RN - 01/10/2021 0:45 EDT Barriers to Learning : None evident Individuals Taught : Patient Readiness to Learn : Cooperative Teaching Method : Explanation Learning Style Preferences Patient : Verbal explanation Teaching Evaluation : Verbalizes understanding Fall Risk Scale Calc Temp : 0 Eva Boogie RN - 01/10/2021 0:45 EDT Health Histories Smoking Status : Never (less than 100 in lifetime; none in last 30 days) Smokeless Tobacco Status : Never Implant/Device Type, Pipe Cleaning Machine Operator and Model : Abdominal mesh from Hernia repair. Eva Boogie RN - 01/10/2021 0:45 EDT Social History (As Of: 01/10/2021 01:03:54 EDT) Tobacco: Smoking Status Never smoker. (Last [...] 01/10/2021 00:45:09 EDT by Eva Boogie RN) Height and Weight, Clinical Dosing Weight Entry Format : [place] Clinical Dosing Weight : 119.05 kg Weight, Pounds : 261.9 lb Body Surface Area (BSA) : 2.36 m2 Body Mass Index : 37.1 kg/m2 (HI) Eva Boogie RN - 01/10/2021 2:47 EDT Height Source : Stated Height Entry Format : [place] Height, Feet : 5 ft(Converted to: 152 cm, 60 Inch) Height, Inches : 10.5 Inch(Converted to: 0 ft 11 Inch, 26.67 cm) Clinical Height : 179.07 cm Eva Boogie RN - 01/10/2021 0:45 EDT Weight Source : Standing scale Eva Boogie RN - 01/10/2021 2:47 EDT [place] Body Weight : 73 kg July,01/10/2021 0:45 EDT Estimated Weight July,01/10/2021 2:47 EDT Keaganjuly,01/10/2021 0:45 EDT Keaganjuly,01/10/2021 2:47 EDT Infectious Disease History Does patient have symptoms of COVID-19? : No Has the Patient Been Tested for COVID-19 in the last 14 days? : Yes, Patient stated results Negative Does the Patient state known exposure to a COVID-19 positive case in the last 14 days? : No Patient Vaccinated for COVID-19 : Fully vaccinated July,01/10/2021 0:45 EDT Infectious Disease Risk Screening Grid Cough < 2 wks of unknown origin : NO Cough > 2 weeks : NO Blood in Sputum : NO Fever or self-reported Fever : NO Rash of unknown origin : NO Headache : NO Stiff neck : NO Night Sweats : NO Unexplained Weight Loss : NO Diarrhea (3 episode per day) : NO July,01/10/2021 0:45 EDT Physical contact outside [place] in the last 30 days : No Hospitalized in Foreign Country : No Infectious Disease History : Chicken pox/Shingles, Measles, Mumps Exposure to Contagious Illness : No Active Surveillance Screen Assessment : Patient transferred from another hospital/ED Active Surveillance Screen Positive : Yes INF Disease TB Screening Calc : 0 INF Disease Recent Travel Calc : 0 July,01/10/2021 0:45 EDT Tetanus Immunization Status Previous Tetanus Immunizations : No qualifying data available. Tetanus Immunization : Unknown July,01/10/2021 0:45 EDT Influenza Vaccine Asmt, Adult Previous Vaccines from Immunization Schedule : No qualifying data available. Influenza Immunization, Current Season : No Inactivated Flu Vaccine Contraindications : No contraindications to inactivated influenza vaccine Transplant Workup/Recent Transplant : No Order for Influenza Vaccine : Order for influenza vaccine sent to pharmacy July,01/10/2021 0:45 EDT Pneumococcal Vaccine Previous Vaccines from Immunization Schedule : No qualifying data available. Pneumonia Immunization Received : Yes July,01/10/2021 0:45 EDT Order Details Transport Mode Order Detail : Wheelchair Isolation Precautions Order Detail : Standard Precautions Order Detail : N/A IV Order Detail : 1 Oxygen Order Detail : 0 Nurse Collect Order Detail : 0 Lift/Transfer : Independent Central Line Order Detail : No Room Service : Appropriate Arterial Line : No Patient Needs Meds Crushed/Liquid : No Eva Boogie RN - 01/10/2021 0:45 EDT Nutrition History Feeding Ability : Independent Adaptive Feeding Equipment : None Adaptive Feeding Equipment : Regular Oral Medication Administration : By mouth Eating Poorly Due to Decreased Appetite : No Unplanned Weight Loss in Past 3-6 Months : No Malnutrition Screening Tool Total(mal) : 0 Malnutrition Screening Tool Risk Level : Patient not at risk Eva Boogie RN - 01/10/2021 0:45 EDT [place] Suicide Severity Rating Scale (C-SSRS) CSSRS Past Month Wish to be : Yes CSSRS Past Month Suicidal Thoughts : Yes CSSRS Past Month Suicide Method : Yes CSSRS Past Month Idea, Intent No Plan : No CSSRS Past Month Suicide With Plan : No CSSRS Lifetime Suicide Behavior : No Suicide Severity Rating Score : 5 Suicide Severity Rating : Moderate Suicide Prevention Interventions : Verbal agreement to inform staff of urge to harm self Thoughts of Harming/Killing Others : No Eva Boogie RN - 01/10/2021 0:45 EDT Psychosocial History Does Someone Depend on You for Care? : No Chronic/Terminal Illness w/Freq Visits : No Do You Have a History of the Following? : Depression Currently in Unsafe Situation : No Do You Have a Support System? : Yes Eva Boogie RN - 01/10/2021 0:45 EDT Sleep Apnea Risk Assmt BiPAP/CPAP Ordered for Home Use : Yes Hx of Obstructive Sleep Apnea Diagnosis : Yes BiPAP/CPAP Used at Home : Yes Age over 50 Years Old : Yes Gender Male : Yes Eva Boogie RN - 01/10/2021 0:45 EDT Spiritual/Cultural Needs Adventist Preference : Anglican Eva Boogie RN - 01/10/2021 0:45 EDT Valuables and Belongings Valuables and Belongings : Clothing, Jewelry, Personal devices, Personal items, Respiratory devices, Medications, No comfort items, No assistive devices Clothing : Common streetwear Clothing Disposition : Bedside Personal Device Disposition : Bedside Jewelry : Ring-plain band Jewelry Disposition : With patient Personal Devices : Glasses Personal Items : Cell phone, Wallet Personal Items Disposition : Bedside, With patient Medication Disposition : Bedside Respiratory Devices : CPAP Respiratory Device Disposition : Bedside Medication Brought With Patient : Yes Eva Boogie, RN - 01/10/2021 0:45 EDT documented in this encounter Plan of Treatment Upcoming Encounters Date Type Department Care Team (Late st Contact Info) Description 10/31/2024 10:15 AM EDT Office Visit [facility] Cardiology [facility] [address] [place] [address] Morris Guerra MD [address] [facility] [address] [place] [address] documented as of this encounter Visit Diagnoses Not on filedocumented in this encounter Care Teams Tank Worker Relationship Specialty Start Date End Date Teresa Evans MD [address] [place] [address] PCP - General General Internal Medicine 07/28/22 Dang Galvez, FLAKITA Nurse Navigator Oncology 08/17/22 10/12/23 Mena Cornell RN Registered Nurse Oncology 08/17/22 10/12/23 Will Hendricks MD [address] [facility] [address] [place] [address] Medical Oncologist Hematology and Oncology 08/17/22 10/12/23 Lori Cantor, PAMayuriC [address] [facility] [address] [place] [address] Physician Train Controller Oncology 08/17/22 10/12/23 documented as of this encounter
--- OUTSIDE RECORDS SUMMARY | 2024-10-11 10:10 | XMS_ITS | Encounter Summary ---
Author Organization [employer] Address [address] [place] [address] Care Team Providers Care Perinatal Breastfeeding Assistant Name Role Phone Teresa Evans MD Primary Care Provider [phone]- [phone] Dang Galvez RN Unavailable Unavailable Close, Mena Negron RN Unavailable Unavailable Will Hendricks MD Unavailable Lori Cantor PA-C Unavailable [phone] Encounter Details Date Type Department Care Team (Late st Contact Info) Description 06/21/2018 Transcribed Document [facility] Family Medicine [address] [place] [address] ProviderPascale MD [address] [place] [address] Social History Tobacco Use Types Packs/Day Years Used Date Smoking Tobacco: Never Assessed Sex and Gender Information Value Date Recorded Sex Assigned at Not on file Legal Sex Male 5:41 PM CDT Gender Identity Not on file Sexual Orientation Not on file documented as of this encounter Miscellaneous Notes * Cerner Conversion Note - Pascale ProviderMD - 06/21/2018 7:46 PM MEETING SPECIALIST DATE OF STUDY: 06/21/2018 LEXISCAN MYOVIEW PERFUSION STUDY INDICATION: Coronary artery disease, chest pain, recent worsening dyspnea. REFERRING PHYSICIAN: Dr. Teresa Evans. ELECTROCARDIOGRAM: Normal sinus rhythm, PVC, nonspecific ST-T wave changes. LEXISCAN STRESS: Standard Lexiscan stress protocol. Peak heart rate response of 108 beats per minute. Blood pressure response to 156/89 mmHg were achieved. Intermittent PVCs were noted. The stress electrocardiogram is negative for ischemic ST changes. 10.8 mCi of Myoview was administered prior to rest scan and 33 mCi prior to the post stress scan. MYOVIEW PERFUSION DATA: Reversible defect: There is moderate reversible defect involving the basal, mid, anterior wall. There is mild partial reversible defect involving the basal inferior wall. Fixed defect: There is moderate mid inferior wall fixed defect as well as partial fixed defect involving the basal inferior wall. Left ventricular function: Gated measurement of left ventricular systolic function post stress was 39%. Inferior wall akinesia. IMPRESSION: Abnormal Lexiscan Myoview perfusion study. Moderate basal mid anterior reversible defect could represent ischemia in the diagonal branch. There is mixture of mostly scar with minimal ischemia in the right coronary artery territory. Mild to moderate left ventricular systolic dysfunction post stress. Morris Guerra M.D. Dict: 06/21/2018 19:46:21 Trans: 06/21/2018 21:28:36 CC1: Morris Guerra M.D. CC2: Dr. Teresa Evans Electronically signed by [facility] Conversion Mental Health Unit Lead Psychologist Cerner at 08/09/2022 10:16 AM CDT documented in this encounter Plan of Treatment Upcoming Encounters Date Type Department Care Team (Late st Contact Info) Description 10/31/2024 10:15 AM EDT Office Visit [facility] Cardiology [facility] [address] [place] [address] Morris Guerra MD [address] [facility] [address] [place] [address] documented as of this encounter Visit Diagnoses Not on filedocumented in this encounter Care Teams Perinatal Breastfeeding Assistant Relationship Specialty Start Date End Date Teresa Evans MD [address] [place] [address] PCP - General General Internal Medicine 07/28/22 Dang Galvez RN Nurse Navigator Oncology 08/17/22 10/12/23 Mena Cornell RN Registered Nurse Oncology 08/17/22 10/12/23 Will Hendricks MD [address] [facility] [address] [address] Medical Oncologist Hematology and Oncology 08/17/22 10/12/23 Lori Cantor, PAMayuriC [address] [facility] [address] [place] [address] Physician Laborer Powerhouse Oncology 08/17/22 10/12/23 documented as of this encounter
--- OUTSIDE RECORDS SUMMARY | 2024-10-11 10:10 | XMS_ITS | Encounter Summary ---
Author Organization [employer] Address [address] [place] [address] Care Team Providers Care Inspector Heating And Refrigeration Name Role Phone Teresa Evans MD Primary Care Provider [phone]- [phone] Dang Galvez RN Unavailable Unavailable Close, Mena Negron RN Unavailable Unavailable Will Hendricks MD Unavailable Lori Cantor PA-C Unavailable Encounter Details Date Type Department Care Team (Late st Contact Info) Description 01/10/2021 Transcribed Document [facility] Family Medicine [address] [place] [address] ProviderPascale MD [address] [place] [address] Social History Tobacco Use Types Packs/Day Years Used Date Smoking Tobacco: Never Assessed Sex and Gender Information Value Date Recorded Sex Assigned at Not on file Legal Sex Male 5:41 PM CDT Gender Identity Not on file Sexual Orientation Not on file documented as of this encounter Miscellaneous Notes * Cerner Conversion Note - Pascale ProviderMD - 01/10/2021 5:00 AM CDT Chart Check - Review Order Profile Entered On: 01/10/2021 4:21 EDT Performed On: 01/10/2021 5:00 EDT by Davion Willett Lpn Chart Check Powerplans Initiated/Discontinued as Appropriate : Yes All Active Orders Reviewed : Yes Davion Willett Lpn - 01/10/2021 4:20 EDT documented in this encounter Plan of Treatment Upcoming Encounters Date Type Department Care Team (Late st Contact Info) Description 10/31/2024 10:15 AM EDT Office Visit [facility] Cardiology - [place] [address] [place] [address] Morris Guerra MD [address] [facility] [address] [place] [address] documented as of this encounter Visit Diagnoses Not on filedocumented in this encounter Care Teams Inspector Heating And Refrigeration Relationship Specialty Start Date End Date Teresa Evans MD [address] [place] [address] PCP - General General Internal Medicine 07/28/22 Dang Galvez, FLAKITA Nurse Navigator Oncology 08/17/22 10/12/23 Mena Cornell RN Registered Nurse Oncology 08/17/22 10/12/23 Will Hendricks MD [address] [facility] [address] [place] [address] Medical Oncologist Hematology and Oncology 08/17/22 10/12/23 Lori Cantor, PAMayuriC [address] [facility] [address] [place] [address] Physician Jewish History Professor Oncology 08/17/22 10/12/23 documented as of this encounter
--- OUTSIDE RECORDS SUMMARY | 2024-10-11 10:10 | XMS_ITS | Encounter Summary ---
Author Organization [employer] Address [address] [place] [address] Care Team Providers Care Nurse Executive Name Role Phone Teresa Evans MD Primary Care Provider [phone]- [phone] Dang Galvez RN Unavailable Unavailable Close, Mena Negron RN Unavailable Unavailable Will Hendricks MD Unavailable Lori Cantor PA-C Unavailable [phone] Encounter Details Date Type Department Care Team (Late st Contact Info) Description 01/10/[address] [facility] [place] [address] [place] [address] ProviderPascale MD [address] [place] [address] Social History Tobacco Use Types Packs/Day Years Used Date Smoking Tobacco: Never Assessed Sex and Gender Information Value Date Recorded Sex Assigned at Not on file Legal Sex Male 5:41 PM CDT Gender Identity Not on file Sexual Orientation Not on file documented as of this encounter Miscellaneous Notes * Cerner Conversion Note - Pascale Gann MD - 01/10/2021 8:56 AM CDT UM Authorization Entered On: 01/10/2021 8:56 EDT Performed On: 01/10/2021 8:56 EDT by ASAEL STODDARD Rn-Utilization Review Primary Insurance Authorization Authorization and Policy Numbers : Insurance 1 Health Plan: [employer] PPO Policy Number: [id number] Authorization Number: Insurance Primary Name : [employer] PPO Policy Number: [id number] Authorization Status-Primary : Awaiting callback Reference Number-Primary : [id number] Authorized Service Begin Date-Primary : 01/10/2021 EDT Authorization Comments-Primary : Started Inpt Auth on phone line, clincials faxed via [employer] for weekend dental hygiene instructor. Historical Authorization Comments-Primary : No Authorization Comments Found ASAEL STODDARD, Rn-Utilization Review - 01/10/2021 8:56 EDT Electronically signed by Brad Reddy Conversion Plastics Production Machine Operator Cerner at 08/09/2022 10:34 AM CDT documented in this encounter Plan of Treatment Upcoming Encounters Date Type Department Care Team (Late st Contact Info) Description 10/31/2024 10:15 AM EDT Office Visit [facility] Cardiology [facility] [address] [place] [address] Morris Guerra MD [address] [facility] [address] [place] [address] documented as of this encounter Visit Diagnoses Not on filedocumented in this encounter Care Teams Nurse Executive Relationship Specialty Start Date End Date Teresa Evans MD [address] [place] [address] PCP - General General Internal Medicine 07/28/22 Dang Galvez, RN Nurse Navigator Oncology 08/17/22 10/12/23 Mena Cornell RN Registered Nurse Oncology 08/17/22 10/12/23 Will Hendricks MD [address] [facility] [address] [place] [address] Medical Oncologist Hematology and Oncology 08/17/22 10/12/23 Lori Cantor, PA-C [address] [facility] [address] [place] [address] Physician Prosthetic Lab Technician Oncology 08/17/22 10/12/23 documented as of this encounter
--- OUTSIDE RECORDS SUMMARY | 2024-10-11 10:10 | XMS_ITS | Encounter Summary ---
Author Organization [employer] Address [address] [place] [address] Care Team Providers Care Auto Electrician Name Role Phone Teresa Evans MD Primary Care Provider [phone]- [phone] Dang Galvez RN Unavailable Unavailable Close, Mena Negron RN Unavailable Unavailable Will Hendricks MD Unavailable Lori Cantor PA-C Unavailable [phone] Reason for Visit * Reason Comments Medication Refill Encounter Details Date Type Department Care Team (Late st Contact Info) Description 01/24/2023 Refill [facility] Cardiology [facility] [address] [place] [address] Morris Guerra MD [facility] [place] [address] Social History Tobacco Use Types Packs/Day Years [...] Office Visit [facility] Cardiology - [place] [address] [place] [address] Morris Guerra MD [address] [facility] [address] [place] [address] documented as of this encounter Visit Diagnoses Not on filedocumented in this encounter Care Teams Auto Electrician Relationship Specialty Start Date End Date Teresa Evans MD [address] [place] [address] PCP - General General Internal Medicine 07/28/22 Dang Galvez, RN Nurse Navigator Oncology 08/17/22 10/12/23 Mena Cornell RN Registered Nurse Oncology 08/17/22 10/12/23 Will Hendricks MD [address] [facility] [address] [place] [address] Medical Oncologist Hematology and Oncology 08/17/22 10/12/23 Lori Cantor, PA-C [facility] [address] [place] [address] Physician Dietitian Assistant Oncology 08/17/22 10/12/23 documented as of this encounter
--- OUTSIDE RECORDS SUMMARY | 2024-10-11 10:10 | XMS_ITS | Encounter Summary ---
Author Organization [employer] Address [address] [place] [address] Care Team Providers Care Senior Net Engineer Name Role Phone Teresa Evans MD Primary Care Provider [phone]- [phone] Dang Galvez RN Unavailable Unavailable Close, Mena Negron RN Unavailable Unavailable Will Henrdicks MD Unavailable Lori Cantor PA-C Unavailable Encounter Details Date Type Department Care Team (Late st Contact Info) Description 01/10/2021 Transcribed Document [facility] [place] [address] [place] [address] ProviderPascale MD [address] [place] [address] Social History Tobacco Use Types Packs/Day Years Used Date Smoking Tobacco: Never Assessed Sex and Gender Information Value Date Recorded Sex Assigned at Not on file Legal Sex Male 5:41 PM CDT Gender Identity Not on file Sexual Orientation Not on file documented as of this encounter Miscellaneous Notes * Cerner Conversion Note - Pascale ProviderMD - 01/10/2021 9:56 AM CDT Event Note Entered On: 01/10/2021 9:57 EDT Performed On: 01/10/2021 9:56 EDT by Moira Jensen RN Event Note Event Date/Time : 01/10/2021 9:56 EDT Description of Event : Critical Troponin level of 1.290, trending down, on heparin drip Moira Jensen RN - 01/10/2021 9:56 EDT Electronically signed by Stephanie Reddy Conversion Sugar Chipper Machine Operator Cerner at 08/09/2022 10:18 AM CDT documented in this encounter Plan of Treatment Upcoming Encounters Date Type Department Care Team (Late st Contact Info) Description 10/31/2024 10:15 AM EDT Office Visit [facility] Cardiology - [place] [address] [place] [address] Morris Guerra MD [address] [facility] [address] [place] [address] documented as of this encounter Visit Diagnoses Not on filedocumented in this encounter Care Teams Senior Net Engineer Relationship Specialty Start Date End Date Teresa Evans MD [address] [place] [address] PCP - General General Internal Medicine 07/28/22 Dang Galvez, FLAKITA Nurse Navigator Oncology 08/17/22 10/12/23 Mena Cornell RN Registered Nurse Oncology 08/17/22 10/12/23 Will Hendricks MD 12[address] [facility] [address] [place] [address] Medical Oncologist Hematology and Oncology 08/17/22 10/12/23 Lori Cantor, PA-C [address] [facility] [address] [place] [address] Physician Warp Yarn Sorter Oncology 08/17/22 10/12/23 documented as of this encounter
--- OUTSIDE RECORDS SUMMARY | 2024-10-11 10:10 | XMS_ITS | Encounter Summary ---
Author Organization [employer] Address [address] [place] [address] Care Team Providers Care Specialist Icu Name Role Phone Teresa Evans MD Primary Care Provider [phone]- [phone] Dang Galvez RN Unavailable Unavailable Close, Mena Negron RN Unavailable Unavailable Will Hendricks MD Unavailable Lori Cantor PA-C Unavailable [phone] Encounter Details Date Type Department Care Team (Late st Contact Info) Description 01/10/2021 Transcribed Document [facility] [place] [address] [place] [address] ProviderPascale MD [address] [place] [address] Social History Tobacco Use Types Packs/Day Years Used Date Smoking Tobacco: Never Assessed Sex and Gender Information Value Date Recorded Sex Assigned at Not on file Legal Sex Male 5:41 PM CDT Gender Identity Not on file Sexual Orientation Not on file documented as of this encounter Miscellaneous Notes * Cerner Conversion Note - Pascale Gann MD - 01/10/2021 8:17 AM CDT UM Authorization Entered On: 01/10/2021 8:17 EDT Performed On: 01/10/2021 8:17 EDT by ASAEL STODDARD Rn-Utilization Review Primary Insurance Authorization Authorization and Policy Numbers : Insurance 1 Health Plan: [employer] PPO Policy Number: [id number] Authorization Number: Insurance Primary Name : [employer] PPO Policy Number: [id number] Historical Authorization Comments-Primary : No Authorization Comments Found ASAEL STODDARD, Rn-Utilization Review - 01/10/2021 8:17 EDT documented in this encounter Plan of Treatment Upcoming Encounters Date Type Department Care Team (Late st Contact Info) Description 10/31/2024 10:15 AM EDT Office Visit [facility] Cardiology [facility] [address] [place] [address] Morris Guerra MD [address] [facility] [address] [place] [address] documented as of this encounter Visit Diagnoses Not on filedocumented in this encounter Care Teams Specialist Icu Relationship Specialty Start Date End Date Teresa Evans MD [address] [place] [address] PCP - General General Internal Medicine 07/28/22 Dang Galvez, RN Nurse Navigator Oncology 08/17/22 10/12/23 Mena Cornell RN Registered Nurse Oncology 08/17/22 10/12/23 Will Hendricks MD [address] [facility] [address] [place] [address] Medical Oncologist Hematology and Oncology 08/17/22 10/12/23 Lori Cantor, PA-C [address] [place] [address] [address] [place] [address] Physician Patient Liaison Oncology 08/17/22 10/12/23 documented as of this encounter
--- OUTSIDE RECORDS SUMMARY | 2024-10-11 10:10 | XMS_ITS | Encounter Summary ---
Author Organization [employer] Address [address] [place] [address] Care Team Providers Care Applications Support Specialist Name Role Phone Teresa Evans MD Primary Care Provider [phone] Dang Galvez RN Unavailable Unavailable Close, Mena Negron RN Unavailable Unavailable Will Hendricks MD Unavailable Lori Cantor PA-C Unavailable Encounter Details Date Type Department Care Team (Late st Contact Info) Description 06/03/2020 Transcribed Document [facility] [place] [facility] [place] [address] ProviderPascale MD [address] [place] [id number] Social History Tobacco Use Types Packs/Day Years Used Date Smoking Tobacco: Never Assessed Sex and Gender Information Value Date Recorded Sex Assigned at Not on file Legal Sex Male 5:41 PM CDT Gender Identity Not on file Sexual Orientation Not on file documented as of this encounter Miscellaneous Notes * Cerner Conversion Note - Pascale ProviderMD - 06/03/2020 1:18 PM SWIMMING COACH Pre Procedure Adult Entered On: 06/03/2020 13:25 EST Performed On: 06/03/2020 13:18 EST by BETTINA CAUSEY RN Height and Weight, Clinical Dosing Height Source : Measured Height Entry Format : [place] Height, Feet : 5 ft(Converted to: 152 cm, 60 Inch) Height, Inches : 10 Inch(Converted to: 0 ft 10 Inch, 25.40 cm) Clinical Height : 177.8 cm Weight Source : Standing scale Weight Entry Format : [place] Clinical Dosing Weight : 121.82 kg Weight, Pounds : 268 lb Body Surface Area (BSA) : 2.37 m2 Body Mass Index : 38.5 kg/m2 (HI) [place] Body Weight : 72 kg BETTINA CAUSEY RN - 06/03/2020 13:18 EST Health Histories Smoking Status : Never (less than 100 in lifetime; none in last 30 days) Smokeless Tobacco Status : Never BETTINA CAUSEY RN - 06/03/2020 13:18 EST Social History (As Of: 06/03/2020 13:26:01 EST) Tobacco: Smoking Status Never smoker. (Last Updated: [...] 10/06/2015 06:37:02 EDT by Brock Osman RN) Alcohol: Comments: 11/21/2012 12:36 - SMITA CACERES RN: seldom (Last Updated: 11/21/2012 12:36:16 EDT by SMITA CACERES RN) Infectious Disease History Has the patient ever been tested for COVID-19? : Yes, Patient stated results Negative Date of COVID-19 test known? : Yes Date of COVID-19 Test : 05/30/2020 EST Does patient have symptoms of COVID-19? : No COVID19 Screening : No Experiencing Infectious Disease Symptoms : No symptoms Physical contact outside [place] in the last 30 days : No Infectious Disease History : Chicken pox/Shingles, Measles, Mumps Tuberculosis Symptoms : None BETTINA CAUSEY RN - 06/03/2020 13:18 EST COVID19 PreProcedure Screening Is this an Emergent or Add on Procedure? : No Date PreProcedure COVID-19 test known? : Yes Date of PreProcedure COVID-19 : 05/30/2020 EST Has patient been isolated since the test : Yes Exposed to COVID19 symptoms since test? : No BETTINA CAUSEY RN - 06/03/2020 13:18 EST Anesthesia/Transfusion History Family History of Anesthesia Reaction : No prior transfusion(s) Transfusion History : Prior anesthesia without reaction Family History of Anesthesia Reaction : None BETTINA CAUSEY RN - 06/03/2020 13:18 EST Functional Assessment Living Situation : Home Current Home Treatments : Blood glucose monitoring, CPAP BETTINA CAUSEY RN - 06/03/2020 13:18 EST [place] Suicide Severity Rating Scale (C-SSRS) CSSRS Past Month Wish to be : No CSSRS Past Month Suicidal Thoughts : No CSSRS Lifetime Suicide Behavior : No Suicide Severity Rating Score : 0 Suicide Severity Rating : No Additional Care Required at this time BETTINA CAUSEY RN - 06/03/2020 13:18 EST Psychosocial History Currently in Unsafe Situation : No BETTINA CAUSEY RN - 06/03/2020 13:18 EST Advance Directive Patient has Advance Directive *Q : Yes, Advance Directive on file Advance Directive Type : Living will Copy Advance Directive Verified/on Chart : No BETTINA CAUSEY RN - 06/03/2020 13:18 EST Teaching/Learning Assessment Barriers To Learning : None evident Individuals Taught : Patient Readiness to Learn : Cooperative Readiness to Learn : Explanation Learning Style Preferences Family : Verbal explanation BETTINA CAUSEY RN - 06/03/2020 13:18 EST Education Topics, Periop Preadmission Perioperative Education Grid Postoperative Care Preparations : Verbalizes understanding Preprocedure Preparations : Verbalizes understanding BETTINA CAUSEY RN - 06/03/2020 13:18 EST General Info Arrived From : Home Mode of Arrival on Unit : Ambulatory Patient Arrival Date/Time : 06/03/2020 12:00 EST Legal Guardian : Spouse Support Person/Pt Rep Name : james Myles Support Person/Pt Rep Contact Information : [phone] Want Family/Rep/Phys Notified of Admit : No Emergency Contact #1 : James Emergency Contact #1 Phone Number : Emergency Contact #1 Relationship : Emergency Contact #2 : none Emergency Contact #2 Phone Number : none Emergency Contact #2 Relationship : none Primary Language : Cambodian Preferred Communication Mode : Verbal Communication Barrier : None Quick Service Technician Needed : No BETTINA CAUSEY RN - 06/03/2020 13:18 EST Vital Measurements Temperature, Fahrenheit : 97 Deg F Clinical Temperature, C : 36.1 Deg C Peripheral Pulse Rate : 82 bpm Systolic Blood Pressure : 106 mmHg Diastolic Blood Pressure : 56 mmHg (LOW) Oxygen Saturation : 95 % BETTINA CAUSEY RN - 06/03/2020 13:18 EST Sleep Apnea Risk Assmt BiPAP/CPAP Ordered for Home Use : Yes Hx of Obstructive Sleep Apnea Diagnosis : Yes BiPAP/CPAP Used at Home : Yes Age over 50 Years Old : Yes Gender Male : Yes BETTINA CAUSEY RN - 06/03/2020 13:18 EST Tam Scale Tam Sensory Perception : No impairment Tam Moisture : Rarely moist Tam Activity : Walks frequently Tam Mobility : No limitation Tam Nutrition : Excellent Tam Friction and Shear : No apparent problem Tam Score : 23 BETTINA CAUSEY RN - 06/03/2020 13:18 EST Pain Assessment Pain Assessment : Initial assessment Pain Scale Used : 0-10 Scale Location : Neck BETTINA CAUSEY RN - 06/03/2020 13:18 EST Fall Risk Scales ABCs Fall Injury Risk Identification : None JUSTICE Hx Falls Immediate/Within 3 Months : No Justice Secondary Diagnosis : Yes JUSTICE Use of Ambulatory Aid : None JUSTICE IV Therapy or IV Access : Yes Justice Gait/Transferring : Normal, bedrest, immobile Justice Mental Status : Oriented to own ability Justice Fall Risk Score : 35 JUSTICE Fall Scale Risk Level : 25-45 Medium Risk [place] Fall Interventions : Adequate lighting, Bed in low position, Call device within reach, Non-slip footwear, Wheels locked BETTINA CAUSEY RN - 06/03/2020 13:18 EST Valuables and Belongings Valuables and Belongings : Clothing Clothing : Common streetwear Clothing Disposition : Bedside BETTINA CAUSEY RN - 06/03/2020 13:18 EST Pain Scale Intensity : 3 BETTINA CAUSEY RN - 06/03/2020 13:18 EST Image 4 - Images currently included in the form version of this document have not been included in the text rendition version of the form. documented in this encounter Plan of Treatment Upcoming Encounters Date Type Department Care Team (Late st Contact Info) Description 10/31/2024 10:15 AM EDT Office Visit [facility] [address] [place] [address] Morris Guerra MD [address] [facility] [address] [place] [address] documented as of this encounter Visit Diagnoses Not on filedocumented in this encounter Care Teams Applications Support Specialist Relationship Specialty Start Date End Date Teresa Evans MD [address] [place] [address] PCP - General General Internal Medicine 07/28/22 Dang Galvez, RN Nurse Navigator Oncology 08/17/22 10/12/23 Mena Cornell RN Registered Nurse Oncology 08/17/22 10/12/23 Will Hendricks MD [address] [facility] [address] [place] [address] Medical Oncologist Hematology and Oncology 08/17/22 10/12/23 Lori Cantor, KASSIDY [address] [facility] [address] [place] [address] Physician Canteen Attendant Oncology 08/17/22 10/12/23 documented as of this encounter
[2024-10-11 10:16] LABS: Basophils % 0.3 % (0.1-2.0); Eosinophils # 0.1 Kmm3 (0.0-0.4); Eosinophils % 1.4 % (0.1-12.0); Hematocrit 30.5 % (42.0-52.0); Immature Granulocytes % 2.8 %; Lymphocytes # 0.2 K/mm3 (0.7-4.5); Lymphocytes % 6.1 % (10-50); Mean Corpuscular HGB Conc 32.8 g/dL (31.8-35.4); Mean Corpuscular Hemoglobin 33.1 pg (27.0-31.2); Mean Platelet Volume 9.1 fl (7.4-10.4); Monocytes # 0.3 K/mm3 (0.1-1.0); Monocytes % 7.5 % (1.7-9.3); Neutrophils % 81.9 % (37.0-80.0); Nucleated Red Blood Cells # 0 10^3/uL; Nucleated Red Blood Cells % 0 %; Platelet Count 114 K/mm3 (142-424); Red Blood Count 3.02 M/mm3 (4.60-6.20); Red Cell Distribution Width 17.3 % (11.5-17.5); Red Cell Distribution Width-SD 64.8 fL; White Blood Count 3.6 K/mm3 (4.8-10.8)
[2024-10-11 10:18] LABS: MANUAL DIFFERENTIAL MANUAL DIFFERENTIAL (MANUAL DIFF)
[2024-10-11 10:26] LABS: Albumin Level 4.3 g/dl (3.5-5.0); Chloride 102 mmol/L (98-107); Sodium 132 mmol/L (136-145)
[2024-10-11 10:27] LABS: Potassium 4.2 mmoL/L (3.5-5.1)
[2024-10-11 10:29] LABS: Alanine Aminotransferase 43 U/L (12-78); Anion Gap 9.2 mEq/L (5-15); Aspartate Amino Transferase 54 U/L (17-59); Blood Urea Nitrogen 12 mg/dl (9-20); Carbon Dioxide 25 mmol/L (22.0-30.0); Creatinine Clearance Estimated 110 mL/min (50-200); Estimated Glomerular Filt Rate 96 ml/min (>60); GFR (African American) 116 ML/MIN (>60)
[2024-10-11 10:30] LABS: Alkaline Phosphatase 64 U/L (38-126); Bilirubin,Total 0.9 mg/dl (0.2-1.3); Calcium 9.9 mg/dl (8.4-10.2); Globulin 2.2 g/dL (1.3-3.2); Glucose 317 mg/dl (74-100); Total Protein,Serum 6.5 g/dl (6.3-8.2)
[2024-10-11 10:37] LABS: Eosinophils % 1 % (0-3); Lymphocytes % 3 % (10-50); Monocytes % 7 % (2-9); Neutrophils % 88 % (42-76); Total Cells Counted 100
[2024-10-11 10:38] LABS: Macrocytosis 1+
[2024-10-11 10:41] LABS: Platelet Estimate Normal; RBC Morphology Normal
[2024-10-12 15:37] LABS: Albumin 3.7 g/dL (2.9-4.4); Alpha-1-Globulin 0.3 g/dL (0.0-0.4); Alpha-2-Globulin 0.9 g/dL (0.4-1.0); Free Kappa Lt Chains 0.9 mg/L (3.3-19.4); Gamma Globulin 0.1 g/dL (0.4-1.8); Protein, Total 6.2 g/dL (6.0-8.5)
[2024-10-16 12:13] LABS: Immunoglobulin A, Qn < 5 mg/dL (61-437); Immunoglobulin G, Qn 117 mg/dL (603-1613); Immunoglobulin M, Qn < 5 mg/dL (20-172)
[2024-10-19 15:46] LABS: PDF SCANNED IMAGE
== END 2024-10-11 10:15 | disposition home or self-care (01) ==
LOC: INF 09:59
PROVIDERS: PCP Internal Medicine; Visit Provider Internal Medicine Medical Oncology
DX: C90.00 Multiple myeloma not having achieved remission (principal)
CPT/HCPCS: 36415; 80053; 82784; 83883; 84155; 84165; 85007; 85025; 85027; 86334